=== PATIENT | female | born 1940 | race Caucasian/White ===

== ENCOUNTER → 2018-05-21 | Outpatient (REF) ==
[2018-05-21 09:12] LABS: HEMATOCRIT 28.5 % (36.0-47.0); HEMOGLOBIN 8.2 g/dl (12.0-15.5); MEAN CORPUSCULAR HEMOGLOBIN 27.7 pg (27.0-33.0); MEAN CORPUSCULAR HGB CONC 28.8 g/dl (32.0-36.5); MEAN CORPUSCULAR VOLUME 96.3 fl (80.0-96.0); PLATELET COUNT, AUTOMATED 448 10^3/uL (150-450); RED BLOOD COUNT 2.96 10^6/uL (4.00-5.40); WHITE BLOOD COUNT 7.5 10^3/uL (4.0-10.0)
[2018-05-21 09:22] LABS: BLOOD UREA NITROGEN 7 MG/DL (7-18); CALCIUM LEVEL 8.5 MG/DL (8.8-10.2); CARBON DIOXIDE LEVEL 31 MEQ/L (21-32); CHLORIDE LEVEL 106 MEQ/L (98-107); CREATININE FOR GFR 0.53 MG/DL (0.55-1.30); GLOMERULAR FILTRATION RATE > 60.0 (>39); GLUCOSE, FASTING 79 MG/DL (70-100); POTASSIUM SERUM 4.5 MEQ/L (3.5-5.1); SODIUM LEVEL 144 MEQ/L (136-145)
== END ==
LOC: EDUNIT# 06:00
PROVIDERS: ATTEND Internal Medicine
DX: D64.9 Anemia, unspecified (principal); Z79.899 Other long term (current) drug therapy

== ENCOUNTER → 2018-05-23 | Outpatient (REF) ==
[2018-05-23 09:51] LABS: HEMATOCRIT 28.5 % (36.0-47.0); HEMOGLOBIN 8.1 g/dl (12.0-15.5); MEAN CORPUSCULAR HEMOGLOBIN 27.9 pg (27.0-33.0); MEAN CORPUSCULAR HGB CONC 28.4 g/dl (32.0-36.5); MEAN CORPUSCULAR VOLUME 98.3 fl (80.0-96.0); PLATELET COUNT, AUTOMATED 395 10^3/uL (150-450); WHITE BLOOD COUNT 6.6 10^3/uL (4.0-10.0)
== END ==
PROVIDERS: ATTEND Internal Medicine
DX: D64.9 Anemia, unspecified (principal)

== ENCOUNTER → 2018-05-25 | Outpatient (REF) ==
[2018-05-25 10:11] LABS: HEMATOCRIT 28.8 % (36.0-47.0); HEMOGLOBIN 8.2 g/dl (12.0-15.5); MEAN CORPUSCULAR HEMOGLOBIN 28.3 pg (27.0-33.0); MEAN CORPUSCULAR HGB CONC 28.5 g/dl (32.0-36.5); MEAN CORPUSCULAR VOLUME 99.3 fl (80.0-96.0); PLATELET COUNT, AUTOMATED 371 10^3/uL (150-450); WHITE BLOOD COUNT 7.9 10^3/uL (4.0-10.0)
== END ==
LOC: EDUNIT# 12:12
PROVIDERS: ATTEND Internal Medicine
DX: D64.9 Anemia, unspecified (principal)

== ENCOUNTER → 2018-05-29 | Outpatient (REF) ==
[2018-05-29 10:20] LABS: HEMATOCRIT 28.1 % (36.0-47.0); HEMOGLOBIN 8.1 g/dl (12.0-15.5); MEAN CORPUSCULAR HEMOGLOBIN 27.8 pg (27.0-33.0); MEAN CORPUSCULAR HGB CONC 28.8 g/dl (32.0-36.5); MEAN CORPUSCULAR VOLUME 96.6 fl (80.0-96.0); PLATELET COUNT, AUTOMATED 317 10^3/uL (150-450); RED BLOOD COUNT 2.91 10^6/uL (4.00-5.40); WHITE BLOOD COUNT 5.5 10^3/uL (4.0-10.0)
== END ==
PROVIDERS: ATTEND Internal Medicine
DX: D64.9 Anemia, unspecified (principal)

== ENCOUNTER → 2018-06-02 | Outpatient (REF) ==
[~2018-06-02] MED LIST: ALBU83IN INH; ENSULIQ64 PO; FLON1SPR NARES; FLOR250C PO; FOLI800C PO; IMOD2CAP PO; LOVE0.4I2 SC; MILK120011 PO; MIRA0.753 PO; ONDA8TAB7 PO; PREV1CAP PO; QUET1TAB7 PO; SYNT137T7 PO; ZOLO100T PO
[2018-06-02 09:15] LABS: HEMATOCRIT 27.3 % (36.0-47.0); HEMOGLOBIN 7.8 g/dl (12.0-15.5); MEAN CORPUSCULAR HEMOGLOBIN 27.2 pg (27.0-33.0); MEAN CORPUSCULAR HGB CONC 28.6 g/dl (32.0-36.5); MEAN CORPUSCULAR VOLUME 95.1 fl (80.0-96.0); PLATELET COUNT, AUTOMATED 305 10^3/uL (150-450); RED BLOOD COUNT 2.87 10^6/uL (4.00-5.40); WHITE BLOOD COUNT 5.2 10^3/uL (4.0-10.0)
== END ==
PROVIDERS: ATTEND Internal Medicine
DX: D64.9 Anemia, unspecified (principal)

== ENCOUNTER → 2018-06-02 | Outpatient (REF) | PROVIDERS: ATTEND Internal Medicine | DX: D64.9 Anemia, unspecified (principal) ==

== ENCOUNTER 2018-06-03 09:29 | Outpatient (CLI) | payer MEDICARE, BC ==
[~2018-06-03] VITALS: Ht 157.5 cm; Wt 54.5 kg
[2018-06-03] VITALS (8 sets, daily range): BP systolic 100–156; BP diastolic 50–70
[~2018-06-03 09:29] MED LIST changes: +ACETAMINOPHEN TAB 650MG DOSE (2X325MG) PO SCH; -ALBU83IN INH; -ENSULIQ64 PO; -FLON1SPR NARES; -FLOR250C PO; -FOLI800C PO; -IMOD2CAP PO; -LOVE0.4I2 SC; -MILK120011 PO; -MIRA0.753 PO; -ONDA8TAB7 PO; -PREV1CAP PO; -QUET1TAB7 PO; -SYNT137T7 PO; -ZOLO100T PO; +diphenhydrAMINE 25 MG CAP PO SCH
[2018-06-03] MEDS ORDERED: MIRA0.753 PO (11:28)
[2018-06-03] MEDS ORDERED: FLON1SPR NARES (11:28)
[2018-06-03] MEDS ORDERED: LOVE0.4I2 SC (11:28)
[2018-06-03] MEDS ORDERED: FOLI800C PO (11:28)
[2018-06-03] MEDS ORDERED: ALBU83IN INH (11:28)
[2018-06-03] MEDS ORDERED: IMOD2CAP PO (11:28)
[2018-06-03] MEDS ORDERED: FLOR250C PO (11:28)
[2018-06-03] MEDS ORDERED: ENSULIQ64 PO (11:28)
[2018-06-03] MEDS ORDERED: PREV1CAP PO (11:28)
[2018-06-03] MEDS ORDERED: SYNT137T7 PO (11:37)
[2018-06-03] MEDS ORDERED: ZOLO100T PO (11:37)
[2018-06-03] MEDS ORDERED: ONDA8TAB7 PO (11:37)
[2018-06-03] MEDS ORDERED: QUET1TAB7 PO (11:37)
[2018-06-03] MEDS ORDERED: MILK120011 PO (11:37)
== END 2018-06-03 14:30 | disposition home or self-care (01) ==
LOC: M INFU 09:29
PROVIDERS: ATTEND Physician Assistant
DX: D64.9 Anemia, unspecified (principal)
CPT/HCPCS: 36430; P9016

== ENCOUNTER → 2018-06-04 | Outpatient (REF) ==
[~2018-06-04] MED LIST changes: -ACETAMINOPHEN TAB 650MG DOSE (2X325MG) PO SCH; +ALBU83IN INH; +ENSULIQ64 PO; +FLON1SPR NARES; +FLOR250C PO; +FOLI800C PO; +IMOD2CAP PO; +LOVE0.4I2 SC; +MILK120011 PO; +MIRA0.753 PO; +ONDA8TAB7 PO; +PREV1CAP PO; +QUET1TAB7 PO; +SYNT137T7 PO; +ZOLO100T PO; -diphenhydrAMINE 25 MG CAP PO SCH
[2018-06-04 09:04] LABS: HEMATOCRIT 37.3 % (36.0-47.0); HEMOGLOBIN 11.4 g/dl (12.0-15.5); MEAN CORPUSCULAR HEMOGLOBIN 27.4 pg (27.0-33.0); MEAN CORPUSCULAR HGB CONC 30.6 g/dl (32.0-36.5); MEAN CORPUSCULAR VOLUME 89.7 fl (80.0-96.0); PLATELET COUNT, AUTOMATED 315 10^3/uL (150-450); RED BLOOD COUNT 4.16 10^6/uL (4.00-5.40); WHITE BLOOD COUNT 5.3 10^3/uL (4.0-10.0)
== END ==
PROVIDERS: ATTEND Internal Medicine
DX: D64.9 Anemia, unspecified (principal)

== ENCOUNTER 2018-06-10 20:04 | Inpatient (IN) | payer MEDICARE, BC ==
[~2018-06-10] VITALS: Ht 157.5 cm; Wt 58.1 kg
[2018-06-10] MEDS ORDERED: ENOXAPARIN 60 MG/0.6 ML SYR (J1650) SC SCH (21:00)
[2018-06-10] MEDS ORDERED: MORPHINE 4 MG/ML 1ML VIAL/SYRINGE (J2270) IV ONE ×2 (21:15→22:30)
[2018-06-10] MEDS ORDERED: ENOX60IN3 SC (21:42)
[2018-06-10] MEDS ORDERED: ZOLO100T PO (21:42)
[2018-06-10] MEDS ORDERED: ZOFR8TAB24 PO (21:42)
[2018-06-10] MEDS ORDERED: GABA-843 PO (21:42)
[2018-06-10] MEDS ORDERED: FLOR250C PO (21:42)
[2018-06-10] MEDS ORDERED: ENSU1LIQ36 PO (21:42)
[2018-06-10] MEDS ORDERED: FERR325T18 PO (21:42)
[2018-06-10] MEDS ORDERED: SYNT137T7 PO (21:42)
[2018-06-10] MEDS ORDERED: LOPE-1 PO (21:42)
[2018-06-10] MEDS ORDERED: QUET1TAB7 PO (21:42)
[2018-06-10] MEDS ORDERED: LANS30CA PO (21:42)
[2018-06-10] MEDS ORDERED: FOLI1TAB11 PO (21:42)
[2018-06-10] MEDS ORDERED: VITMTA PO (21:42)
[2018-06-10] MEDS ORDERED: PRAM0.754 PO (21:42)
[2018-06-10] MEDS ORDERED: FLUTISP (21:42)
[2018-06-10 21:45] LABS: BASO % 0.2 % (0.0-1.0); EOS # 0.2 10^3/uL (0.0-0.50); HEMATOCRIT 38.7 % (36.0-47.0); HEMOGLOBIN 11.8 g/dl (12.0-15.5); LYMPH # 1.2 10^3/uL (1.5-4.5); LYMPH % 12.9 % (24.0-44.0); MEAN CORPUSCULAR HEMOGLOBIN 28.3 pg (27.0-33.0); MEAN CORPUSCULAR HGB CONC 30.5 g/dl (32.0-36.5); MEAN CORPUSCULAR VOLUME 92.8 fl (80.0-96.0); MONO # 0.7 10^3/uL (0.0-0.8); NEUTROPHILS % 76.5 % (36.0-66.0); PLATELET COUNT, AUTOMATED 347 10^3/uL (150-450); RED BLOOD COUNT 4.17 10^6/uL (4.00-5.40); WHITE BLOOD COUNT 9.2 10^3/uL (4.0-10.0)
[2018-06-10] MEDS: NS 1,000 ML IV SCH (21:56)
[2018-06-10 22:41] LABS: INR 1.05; PROTHROMBIN TIME 13.8 SECONDS (12.1-14.4)
[2018-06-10 22:42] LABS: PARTIAL THROMBOPLASTIN TIME 33.4 SECONDS (25.4-37.6)
[2018-06-10 22:52] LABS: BLOOD UREA NITROGEN 11 MG/DL (7-18); CALCIUM LEVEL 8.5 MG/DL (8.8-10.2); CARBON DIOXIDE LEVEL 27 MEQ/L (21-32); CHLORIDE LEVEL 112 MEQ/L (98-107); CREATININE FOR GFR 0.51 MG/DL (0.55-1.30); GLOMERULAR FILTRATION RATE > 60.0 (>39); GLUCOSE, FASTING 84 MG/DL (70-100); POTASSIUM SERUM 3.4 MEQ/L (3.5-5.1); SODIUM LEVEL 144 MEQ/L (136-145)
[2018-06-10] MEDS ORDERED: ONDANSETRON 4MG/2ML VIAL (J2405) IV PRN (23:45)
[2018-06-10] MEDS: QUEtiapine FUMARATE 25 MG TAB PO SCH (23:58)
[2018-06-10] MEDS: GABAPENTIN 300 MG CAP PO SCH (23:58)
[2018-06-10] MEDS: PRAMIPEXOLE 0.25 MG TAB PO SCH (23:58)
--- NOTE | 2018-06-11 00:24 | REPVR ---
EXAM: CT Right Lower Extremity Without Contrast. Hip EXAM DATE/TIME: 06/10/2018 9:24 PM CLINICAL HISTORY: 77 years old, female; Injury or trauma; Fall; Initial encounter; Blunt trauma and fracture, traumatic; Hip; Right; Closed fracture TECHNIQUE: Imaging protocol: CT of the Right lower extremity without contrast was performed. Exam focused on the hip. Coronal and sagittal reformatted images were created and reviewed. Radiation optimization: All CT scans at this facility use at least one of these dose optimization techniques: automated exposure control; mA and/or kV adjustment per patient size (includes targeted exams where dose is matched to clinical indication); or iterative reconstruction. COMPARISON: CR Hip,AP,LAT to include Pelvis RIGHT 06/10/2018 8:31 PM FINDINGS: There is an acute, complete, slightly comminuted, displaced, angulated, transverse fracture, through the right femoral neck extending into the superolateral aspect of the femoral head. The right femoral head is not subluxed or dislocated. Remainder of the visualized right pelvis is intact. Better appreciated on the same day pelvic radiograph there appears to be an approximate 2.9 cm area of osteolucency through the superior aspect of the right femoral neck, associated with the fracture. Although this could be secondary to bony demineralization, an underlying pathologic lesion cannot be excluded. Correlation with clinical history is advised. For further assessment, consideration could be given to MRI of the right hip, pre-and postcontrast. No other lesions are seen in the [id number]. Small right hip joint effusion is noted. There is a prominent soft tissue density at the fracture site which could represent hemorrhage or soft tissue mass. Bubbles of intraluminal gas are noted within the visualized urinary bladder. This could be iatrogenic from recent instrumentation or Madsen catheter, however fistula or infection cannot be excluded. Trace amount of subcutaneous edema or fluid noted along the anterior midline pelvic body wall which could be postsurgical. IMPRESSION: Acute right femoral neck fracture. There is a possibility this fracture may be pathologic as discussed above. Gas within the urinary bladder. Differential as discussed above. Electronically signed by: Garrett Blackburn On 06/11/2018 00:24:17 AM
--- NOTE | 2018-06-11 00:30 | REPVR ---
EXAM: CT Pelvis Without Contrast, Skeletal EXAM DATE/TIME: 06/10/2018 9:24 PM CLINICAL HISTORY: 77 years old, female; Injury or trauma; Fall; Initial encounter; Blunt trauma (contusions or hematomas); Does not apply; Hip TECHNIQUE: Imaging protocol: Axial computed tomography images of the pelvis without intravenous contrast. Exam focused on the skeletal structures. Coronal and sagittal reformatted images were created and reviewed. Radiation optimization: All CT scans at this facility use at least one of these dose optimization techniques: automated exposure control; mA and/or kV adjustment per patient size (includes targeted exams where dose is matched to clinical indication); or iterative reconstruction. COMPARISON: CR Hip,AP,LAT to include Pelvis RIGHT 06/10/2018 8:31 PM FINDINGS: The entire upper aspect of the iliac crests is not included. There is an acute right femoral neck fracture. Please refer to same day right hip CT report for findings related to the right hip. Remainder of the pelvis is intact. No other bone lesions are seen. Degenerative change of the visualized lower lumbar spine is seen. The sacroiliac joints are symmetric. The pubic symphysis is not widened. There is slight heterogeneous enlargement of the right gluteus muscles compared to the left likely due to edema and hemorrhage. Subcutaneous nodularity and subcutaneous gas noted along the anterior body wall possibly from subcutaneous injections. There is a midline subcutaneous soft tissue thickening and possibly trace amount of fluid which could be postsurgical. Gluteal subcutaneous calcifications noted, likely injection granulomas. Vascular calcifications noted. Gas bubbles are seen in within the bladder lumen. Differential could include recent instrumentation/Madsen catheter, infection or enteric fistula. Clinical correlation is advised. IMPRESSION: Right femoral neck fracture. Please refer to same day right hip CT report. Right gluteal musculature slight enlargement likely due to edema and/or hemorrhage. Gas within the urinary bladder. Differential as given above. Other findings discussed above. Electronically signed by: Garrett Blackburn On 06/11/2018 00:30:09 AM
[2018-06-11 01:00] VITALS: BP 149/74
[2018-06-11] MEDS: NS 1,000 ML IV SCH ×2 (01:03→08:13)
[2018-06-11] MEDS: MORPHINE 4 MG/ML 1ML VIAL/SYRINGE (J2270) IV PRN ×5 (01:11→13:25)
[2018-06-11 06:00] VITALS: BP 111/55
[2018-06-11 06:33] LABS: BASO % 0.3 % (0.0-1.0); EOS # 0.1 10^3/uL (0.0-0.50); EOS % 1.6 % (0.0-3.0); HEMATOCRIT 35.6 % (36.0-47.0); HEMOGLOBIN 10.7 g/dl (12.0-15.5); LYMPH # 1.6 10^3/uL (1.5-4.5); LYMPH % 23.4 % (24.0-44.0); MEAN CORPUSCULAR HEMOGLOBIN 27.7 pg (27.0-33.0); MEAN CORPUSCULAR HGB CONC 30.1 g/dl (32.0-36.5); MEAN CORPUSCULAR VOLUME 92.2 fl (80.0-96.0); MONO # 0.7 10^3/uL (0.0-0.8); MONO % 9.7 % (0.0-5.0); NEUTROPHILS # 4.3 10^3/uL (1.8-7.7); NEUTROPHILS % 64.6 % (36.0-66.0); PLATELET COUNT, AUTOMATED 316 10^3/uL (150-450); RED BLOOD COUNT 3.86 10^6/uL (4.00-5.40); WHITE BLOOD COUNT 6.7 10^3/uL (4.0-10.0)
[2018-06-11 06:54] LABS: BLOOD UREA NITROGEN 9 MG/DL (7-18); CALCIUM LEVEL 8.5 MG/DL (8.8-10.2); CARBON DIOXIDE LEVEL 25 MEQ/L (21-32); CHLORIDE LEVEL 110 MEQ/L (98-107); CREATININE FOR GFR 0.47 MG/DL (0.55-1.30); GLOMERULAR FILTRATION RATE > 60.0 (>39); GLUCOSE, FASTING 95 MG/DL (70-100); POTASSIUM SERUM 3.1 MEQ/L (3.5-5.1); SODIUM LEVEL 141 MEQ/L (136-145)
--- NOTE | 2018-06-11 07:18 | REP ---
AP pelvis: There is an intertrochanteric fracture of the right hip with cephalad migration of the distal fracture fragment. There is no dislocation. No pelvic fractures are identified otherwise. Left hip is unremarkable. There is a calcified granuloma in the left gluteal area. Right hip three views: Intertrochanteric fracture is again identified with cephalad migration of the distal fracture fragment. There is no dislocation. There are calcified granulomas in the right buttocks. Electronically Signed by Kevon Werner MD 06/11/2018 07:09 A
--- NOTE | 2018-06-11 07:20 | REP ---
Chest, supine single AP view: There are no comparisons. There are no infiltrates. There are no pleural effusions. There are several tiny round nodules in the right upper lobe. There are no comparisons to document stability. Cardiac size is normal for positioning. The taj, mediastinum, and skeletal structures are unremarkable. There is a right IJ central venous catheter with the tip at the confluence of the superior vena cava and right atrium in satisfactory position. Impression: No acute cardiopulmonary findings. Central venous catheter. Several small nodules in the right upper lobe. Electronically Signed by Kevon Werner MD 06/11/2018 07:11 A
--- NOTE | 2018-06-11 07:20 | REP ---
Right femur two views: The mid and distal femur are included. The right hip is excluded. There is no fracture or dislocation. There are no calcifications or foreign bodies. There is joint space narrowing at the knee. Electronically Signed by Kevon Werner MD 06/11/2018 07:12 A
[2018-06-11] MEDS ORDERED: HEPARIN SOD (PORCINE) 5000 UNITS/ML VIAL IV PRN (07:30)
[2018-06-11] MEDS: MULTIVITAMINS/MINERALS THERAP 1 TAB PO SCH (08:13)
[2018-06-11] MEDS: GABAPENTIN 300 MG CAP PO SCH ×3 (08:13→20:22)
[2018-06-11] MEDS: FERROUS SULFATE 325MG TAB PO SCH ×2 (08:13→17:36)
[2018-06-11] MEDS: PANTOPRAZOLE 40MG TAB (PROTONIX) PO SCH (08:13)
[2018-06-11] MEDS: FOLIC ACID 1 MG TAB PO SCH (08:13)
[2018-06-11] MEDS: LEVOTHYROXINE 137MCG TABLET (0.137MG) PO SCH (08:13)
[2018-06-11] MEDS: SERTRALINE 100 MG TAB PO SCH (08:13)
[2018-06-11] MEDS ORDERED: MORPHINE 4 MG/ML 1ML VIAL/SYRINGE (J2270) IV ONE (08:30)
--- NOTE | 2018-06-11 08:30 | ECGEPIP ---
Stationary ECG Study [facility] - ED Test Date: 2018-06-10 Pat Name: ATTILA REDDY Department: Room: [place] [address] Gender: F Noise Tester: jose : 1940 Requested By: RADHA Freeman Order Number: [id number] Reading MD: Bridgett Xavier Measurements Intervals Brooks Rate: 95 P: 33 CA: 132 QRS: -39 QRSD: 88 T: 30 QT: 369 QTc: 466 Interpretive Statements SINUS RHYTHM POSSIBLE LEFT ATRIAL ENLARGEMENT MARKED LEFT AXIS DEVIATION POSSIBLE RIGHT VENTRICULAR CONDUCTION DELAY POSSIBLE LEFT VENTRICULAR HYPERTROPHY POSSIBLE ANTEROSEPTAL MYOCARDIAL INFARCTION, OF INDETERMINATE AGE PRIOR INFERIOR INFARCT CLINICAL CORRELATION NO PRIOR FOR COMPARISON Electronically Signed On 06-11-2018 8:30:33 EDT by Bridgett Xavier
[2018-06-11] MEDS: MIRALAX *UNIT DOSE* 17GM PACKET PO SCH (09:00)
[2018-06-11] MEDS: MOM 30ML SUSPENSION UDC PO SCH (09:00)
[2018-06-11] MEDS: SENOKOT S TAB PO SCH ×2 (09:00→20:23)
[2018-06-11] MEDS: POTASSIUM CHLORIDE INJ 20 MEQ in D5W/LR 1,000 ML IV SCH ×2 (09:52→20:22)
[2018-06-11] MEDS: HEPARIN DRIP 25,000 UNITS in APPROPRIATE DILUENT 1 EA IV SCH (10:10)
--- NOTE | 2018-06-11 11:17 | REP ---
Right shoulder three views: There are no comparisons. There is a clavicle fracture at the junction of the middle distal thirds. There is no glenohumeral dislocation or fracture. The acromioclavicular joint is unremarkable. There is a right IJ Vyrkhj-I-Oyck catheter. Impression: Clavicle fracture. No glenohumeral fracture or dislocation. Electronically Signed by Kevon Werner MD 06/11/2018 11:08 A
[2018-06-11] MEDS ORDERED: ACETAMINOPHEN 650MG ER TAB (TYLENOL ARTHRITIS) PO SCH (12:00)
[2018-06-11] MEDS ORDERED: ACETAMINOPHEN 500 MG TAB PO PRN (12:00)
[2018-06-11] MEDS: CYCLOBENZAPRINE 10 MG TAB PO SCH ×3 (12:23→20:22)
[2018-06-11 12:32] LABS: ALBUMIN 2.2 GM/DL (3.2-5.2); ALT/SGPT 11 U/L (12-78); BILIRUBIN,TOTAL 0.2 MG/DL (0.2-1.0); BLOOD UREA NITROGEN 9 MG/DL (7-18); CALCIUM LEVEL 8.6 MG/DL (8.8-10.2); CARBON DIOXIDE LEVEL 22 MEQ/L (21-32); CHLORIDE LEVEL 111 MEQ/L (98-107); CREATININE FOR GFR 0.43 MG/DL (0.55-1.30); GLOMERULAR FILTRATION RATE > 60.0 (>39); GLUCOSE, FASTING 105 MG/DL (70-100); POTASSIUM SERUM 3.2 MEQ/L (3.5-5.1); SODIUM LEVEL 142 MEQ/L (136-145); TOTAL PROTEIN 5.6 GM/DL (6.4-8.2)
[2018-06-11] MEDS: ACETAMINOPHEN 500 MG TAB PO SCH ×2 (13:25→22:27)
--- NOTE | 2018-06-11 13:53 | CR ---
DATE OF CONSULTATION: 06/11/2018 CHIEF COMPLAINT: Right hip pain. HISTORY OF PRESENT ILLNESS: Evelina Harris is a 77-year-old female who sustained a mechanical fall last evening over a dog bed. The patient had immediate pain of her right hip and was not able to ambulate. She was brought to the emergency room and found to have a pathologic displaced femoral neck fracture. The patient has a known history of metastatic ovarian cancer. She was recently admitted to [facility] where she was receiving chemotherapy and other treatments for her cancer. We have requested notes from [facility] but at this time I have no further information. She does state that she was not having hip pain prior to the fall. She was ambulating without difficulty and did not require use of a cane. She is also having some pain in her shoulder, which has been long-standing since a prior clavicle fracture. PAST MEDICAL HISTORY: 1. Metastatic ovarian cancer. 2. Rheumatoid arthritis. 3. Gastroesophageal reflux disease (GERD). 4. Recent pulmonary emboli, for which she is on therapeutic Lovenox. 5. Diverticulosis. 6. Spinal stenosis. 7. Hypothyroidism. PAST SURGICAL HISTORY: 1. Open reduction, internal fixation (ORIF) of the left wrist. 2. Hernia repair. ALLERGIES: METHOTREXATE, METOCLOPRAMIDE, MOXIFLOXACIN, PROCHLORPERAZINE , TOPIRAMATE, TRAZODONE. HOME MEDICATIONS: - levothyroxine - multivitamin - sertraline - pantoprazole - cyclobenzaprine - gabapentin - Seroquel PHYSICAL EXAMINATION: GENERAL: Well appearing, alert and oriented. No acute distress. PULMONARY: Regular, nonlabored breathing. CARDIOVASCULAR: Regular dorsalis pulse on the right side. MUSCULOSKELETAL: Right lower extremity has tenderness to palpation in the lateral aspect of the patient's hip. She has pain in her groin with any sort of slight movement of the hip. Intact TA/EHL/FHL/GS. Normal sensation to light touch over the superficial peroneal, deep peroneal distribution. Skin is intact. Warm and well perfused. On the right shoulder, the patient has tenderness above the distal clavicle. There is obvious deformity here. She is only able to abduct her shoulder to about 45 degrees and has approximately 90 degrees of forward flexion, intact sensation in the medial ulnar, radial and axillary nerve distributions. Palpable radial pulse. IMAGING: X-rays of the hip, femur and CT scan of the femur and pelvis are reviewed. There is a pathologic fracture through the femoral neck that is displaced. There are what appears to be at least two metastatic lesions in the femoral head and one that is suspicious in the region of the greater trochanter. IMPRESSION: Right pathologic femoral neck fracture. PLAN: At this point, we really need more information regarding the patient's prognosis and history of known metastases. Again, these are records from [facility] and they have been requested. She will need both clearance from the oncology team and medical team to proceed with surgery. This would require a hemiarthroplasty. She is currently on heparin drip. She needs to maintain prophylaxis given her recent pulmonary embolism. She may need an IVC filter prior to the surgery. I would also recommend a bone scan if one has not been done recently to evaluate for further metastases. I also would recommend an x-ray of the shoulder as this has become more painful for her and she has a history of clavicle fracture. Once the patient is medically clear and deemed appropriate, the plan would be for the operating room for hemiarthroplasty.
--- NOTE | 2018-06-11 14:12 | IPNPDOC ---
Subjective Date Seen The patient was seen on 06/11/18. Subjective Chief Complaint/HPI Patient complaining of severe pain and right hip General: Reports: Normal Appetite; Denies: Chills, Night Sweats, Fatigue, Malaise Constitutional: Denies: Chills, Fever, Night Sweats Eyes: Denies: Pain, Vision change ENT: Denies: Head Aches, Ear Pain, Dysphagia Skin: Denies: Rash, Lesions, Breakdown Pulmonary: Denies: Dyspnea, Cough Cardiovascular: Denies: Chest Pain, Palpitations, Orthopnea, Paroxysmal Noc. Dyspnea, Lt Headedness Gastrointestinal: Denies: Nausea, Vomiting, Abdominal Pain, Diarrhea, Constipation Genitourinary: Denies: Dysuria, Frequency, Incontinence, Retention Hematologic: Denies: Bruising, Bleeding Excessively Musculoskeletal: Reports: Other Symptoms (severe right hip pain) Neurological: Denies: Weakness, Numbness, Change in speech, Confusion Psych: Reports: Mood Normal; Denies: Depression, Memory Issues Objective Physical Examination General Exam: Positive: Alert, No Acute Distress Eye Exam: Positive: PERRLA, Conjunctiva & lids normal, EOMI; Negative: Sclera icteric ENT Exam: Positive: Atraumatic, Mucous membr. moist/pink, Pharynx Normal Neck Exam: Positive: Supple; Negative: JVD, thyromegaly Chest Exam: Positive: Clear to auscultation, Normal air movement Heart Exam: Positive: Rate Normal, Regular Rhythm, Normal S1, Normal S2; Negative: Murmurs, Rubs Telemetry: Positive: No significant arrhythmia Abdomen Exam: Positive: Normal bowel sounds, Soft; Negative: Tenderness, Hepatospenomegaly Female Exam: Positive: Nl Ext Genitalia; Negative: Lesions, Discharge, Odor, Tenderness Extremity Exam: Positive: Normal pulses, Other (short mean of right leg with internal rotation noted. Positive tenderness at the site) Skin Exam: Positive: Nl turgor and temperature; Negative: Rash, Breakdown Neuro Exam: Positive: Normal Gait, Normal Speech, Cranial Nerves 3-12 NL, Reflexes 2+ Psych Exam: Positive: Mental status NL, Mood NL, Oriented x 3 Assessment /Plan Problems (1) Closed right hip fracture Status: Acute Problem Text: Discussed with orthopedic doctor requesting oncology as well as medical clearance and possibly a [place] filter placed in before patient goes to OR. Goes with oncology. He tried to see the patient but patient has not been available secondary to getting different procedures done. I had a extensive discussion with them. He does not think that the fractures pathological and the agreed with the possible surgical intervention for the patient to the to relieve her pain and disability. I'll order for Tanna filter placement has been placed in today, pain management has been started and will await orthopedic as scheduled. Patient for surgery. Upper and can be stopped 6 hours before the procedure and can be restarted immediately after the procedure. Patient EKG, chest x-ray, blood work is essentially within normal range Risk stratification: Patient is ASA class 2-3 surgical risk and she is medically stable and cleared from medical point of view for the procedure (2) Ovarian carcinoma Status: Chronic Plan/VTE VTE Prophylaxis Ordered?: No VS, I&O, 24H, Fishbone Vital Signs/I&O Vital Signs Date Time Temp Pulse Resp B/P (MAP) Pulse Ox O2 Delivery O2 Flow Rate FiO2 06/11/18 13:35 18 06/11/18 06:00 99.0 82 111/55 (73) 93 06/11/18 00:32 Room Air I&O- Last 24 Hours up to 6 AM 06/11/18 06:00 Intake Total 600 ml Balance 600 ml Laboratory Data 24H LABS Laboratory Tests 2 06/10/18 21:39: Immature Granulocyte % (Auto) 0.4, White Blood Count 9.2, Red Blood Count 4.17, Hemoglobin 11.8L, Hematocrit 38.7, Mean Corpuscular Volume 92.8, Mean Corpuscular Hemoglobin 28.3, Mean Corpuscular Hemoglobin Concent 30.5L, Red Cell Distribution Width 18.1H, Platelet Count 347, Neutrophils (%) (Auto) 76.5H, Lymphocytes (%) (Auto) 12.9L, Monocytes (%) (Auto) 8.0H, Eosinophils (%) (Auto) 2.0, Basophils (%) (Auto) 0.2, Neutrophils # (Auto) 7.0, Lymphocytes # (Auto) 1.2L, Monocytes # (Auto) 0.7, Eosinophils # (Auto) 0.2, Basophils # (Auto) 0.0, Nucleated Red Blood Cells % (auto) 0.0 06/10/18 22:23: Prothrombin Time 13.8, Prothromb Time International Ratio 1.05, Activated Partial Thromboplast Time 33.4, Anion Gap 5L, Glomerular Filtration Rate > 60.0, Blood Urea Nitrogen 11, Creatinine 0.51L, Sodium Level 144, Potassium Level 3.4L, Chloride Level 112H, Carbon Dioxide Level 27, Calcium Level 8.5L 06/11/18 05:59: Immature Granulocyte % (Auto) 0.4, White Blood Count 6.7, Red Blood Count 3.86L, Hemoglobin 10.7L, Hematocrit 35.6L, Mean Corpuscular Volume 92.2, Mean Benny uscular Hemoglobin 27.7, Mean Corpuscular Hemoglobin Concent 30.1L, Red Cell Distribution Width 18.3H, Platelet Count 316, Neutrophils (%) (Auto) 64.6, Lymphocytes (%) (Auto) 23.4L, Monocytes (%) (Auto) 9.7H, Eosinophils (%) (Auto) 1.6, Basophils (%) (Auto) 0.3, Neutrophils # (Auto) 4.3, Lymphocytes # (Auto) 1.6, Monocytes # (Auto) 0.7, Eosinophils # (Auto) 0.1, Basophils # (Auto) 0.0, Nucleated Red Blood Cells % (auto) 0.0, Anion Gap 6L, Glomerular Filtration Rate > 60.0, Blood Urea Nitrogen 9, Creatinine 0.47L, Sodium Level 141, Potassium Level 3.1L, Chloride Level 110H, Carbon Dioxide Level 25, Calcium Level 8.5L 06/11/18 07:53: Activated Partial Thromboplast Time 35.4 06/11/18 11:53: Anion Gap 9, Glomerular Filtration Rate > 60.0, Blood Urea Nitrogen 9, Creatinine 0.43L, Sodium Level 142, Potassium Level 3.2L, Chloride Level 111H, Carbon Dioxide Level 22, Calcium Level 8.6L, Aspartate Amino Transf (AST/SGOT) 23, Alanine Aminotransferase (ALT/SGPT) 11L, Alkaline Phosphatase 121H, Total Bilirubin 0.2, Total Protein 5.6L, Albumin 2.2L, Albumin/Globulin Ratio 0.65L CBC/BMP Laboratory Tests 06/10/18 21:39 Red Blood Count 4.17, Mean Corpuscular Volume 92.8, Mean Corpuscular Hemoglobin 28.3, Mean Corpuscular Hemoglobin Concent 30.5 L, Red Cell Distribution Width 18.1 H, Neutrophils (%) (Auto) 76.5 H, Lymphocytes (%) (Auto) 12.9 L, Monocytes (%) (Auto) 8.0 H, Eosinophils (%) (Auto) 2.0, Basophils (%) (Auto) 0.2, Neutro phils # (Auto) 7.0, Lymphocytes # (Auto) 1.2 L, Monocytes # (Auto) 0.7, Eosinophils # (Auto) 0.2, Basophils # (Auto) 0.0 06/10/18 22:23 Calcium Level 8.5 L 06/11/18 05:59 Red Blood Count 3.86 L, Mean Corpuscular Volume 92.2, Mean Corpuscular Hemoglobin 27.7, Mean Corpuscular Hemoglobin Concent 30.1 L, Red Cell Distribution Width 18.3 H, Neutrophils (%) (Auto) 64.6, Lymphocytes (%) (Auto) 23.4 L, Monocytes (%) (Auto) 9.7 H, Eosinophils (%) (Auto) 1.6, Basophils (%) (Auto) 0.3, Neutrophils # (Auto) 4.3, Lymphocytes # (Auto) 1.6, Monocytes # (Auto) 0.7, Eosinophils # (Auto) 0.1, Basophils # (Auto) 0.0, Calcium Level 8.5 L 06/11/18 11:53 Calcium Level 8.6 L, Aspartate Amino Transf (AST/SGOT) 23, Alanine Aminotransferase (ALT/SGPT) 11 L, Alkaline Phosphatase 121 H, Total Bilirubin 0.2, Total Protein 5.6 L, Albumin 2.2 L LORE GEORGE MD Jun 11, 2018 14:12
[2018-06-11] MEDS ORDERED: LIDOCAINE 2% MDV 20 ML VIAL As Ordered ONE (14:50)
[2018-06-11] MEDS ORDERED: fentaNYL 100 MCG/2 ML INJECTION (J3010) As Ordered ONE (14:50)
[2018-06-11] MEDS ORDERED: ISOVUE-300 61% 100ML VIAL (Q9967) As Ordered ONE (14:50)
[2018-06-11] MEDS ORDERED: MIDAZOLAM INJ 2 MG/2 ML VIAL (J2250) As Ordered ONE (14:51)
--- NOTE | 2018-06-11 15:06 | CR.PDOC ---
General Date of Consultation: Jun 11, 2018 Consultation REASON FOR CONSULTATION/CHIEF COMPLAINT: Hypercoagulable state due to metastatic ovarian cancer, recent history of PE, new orthopedic injury. HISTORY OF PRESENT ILLNESS: Ms. Harris is a very pleasant 77-year-old patient who was diagnosed with ovarian cancer in 2014 and was treated at that time with an extensive debulking surgery including LAKISHA, BSO and chemotherapy, diagnosed with recurrence in 2017, suffered a significant pulmonary embolism in May of this year, and now is admitted with a right hip fracture after a fall yesterday. The patient has a known hypercoagulable state due to her metastatic cancer, she had a significant hospitalizations surrounding her pulmonary embolism last month, and now has an orthopedic injury. She is on Lovenox. There is concerned that she will be high risk for DVT/recurrent PE with her hypercoagulable state and her orthopedic injury. She had a tough time recovering from her last PE, and she is still short of breath with exertion. Risks benefits and alternatives to an IVC filter were discussed at length. All questions were answered. The patient is agreeable to proceed. Informed consent obtained. ALLERGIES: Please see below. HOME MEDICATIONS: Please see below. PAST MEDICAL HISTORY: 1. Stage IV metastatic ovarian cancer 2. Anemia 3. Pulmonary embolus 4. Hypothyroidism 5. GERD PAST SURGICAL HISTORY: 1. Appendectomy 2. LAKISHA, BSO, debulking surgery for ovarian cancer 3. Hernia repair 4. ORIF L wrist FAMILY HISTORY: No history of ovarian cancer; mother had breast cancer. No history of hypercoagulable state. SOCIAL HISTORY: Denies tobacco or illicit drug use, rare alcohol use socially REVIEW OF SYSTEMS: CONSTITUTIONAL: Positive for fatigue, denies fevers and chills HEENT: Denies hearing loss, trouble swallowing, trouble speaking CARDIOVASCULAR: Denies chest pain RESPIRATORY: Occasional shortness of breath, especially with exertion GENITOURINARY: Denies dysuria MUSCULOSKELETAL: Positive for right shoulder and right hip pain GASTROINTESTINAL: Denies nausea, vomiting. Positive for occasional constipation, diarrhea SKIN: Denies rash NEUROLOGICAL: Denies focal deficits, seizures. Occasional headaches. PSYCHIATRIC: Denies anxiety, depression ENDOCRINE: Denies diabetes, positive thyroid disease HEMATOLOGIC/LYMPHATIC: Positive for anemia ALLERGIC/IMMUNOLOGIC: Denies PHYSICAL EXAMINATION: VITAL SIGNS: Please see below. GENERAL APPEARANCE: Pale, resting quietly. HEENT: Normocephalic. TMI. Vision grossly intact. Lips very dry and skin is peeling. RESPIRATORY: Slightly coarse breath sounds bilaterally, no wheezes CARDIOVASCULAR: Regular rate and rhythm ABDOMEN: Soft, mild tenderness to palpation, no rebound, no guarding EXTREMITIES: Tender over right shoulder and right hip. Distal pulses intact. NEUROLOGICAL: Alert and oriented 3. No focal deficits. PSYCHIATRIC:. Pleasant and cooperative LABORATORY DATA: Please see below. ASSESSMENT/PLAN: Very pleasant 77-year-old patient with recent history of significant pulmonary embolus, hypercoagulable state due to metastatic ovarian cancer, now with a new orthopedic injury and concern that she is high risk for another DVT and PE, despite anticoagulation. She had a difficult recovery with her last pulmonary embolus and therefore the risks, benefits, alternatives to a IVC filter were discussed. We will place a retrievable filter. 1. Proceed with IVC filter placement today. 2. Continue anticoagulation as tolerated. We appreciate the opportunity to participate in the care of this patient. Vital Signs/I&O Vital Signs Date Time Temp Pulse Resp B/P (MAP) Pulse Ox O2 Delivery O2 Flow Rate FiO2 06/11/18 13:35 18 06/11/18 06:00 99.0 82 111/55 (73) 93 06/11/18 00:32 Room Air I&O- Last 24 Hours up to 6 AM 06/11/18 06:00 Intake Total 600 ml Balance 600 ml Laboratory Data Labs 24H Laboratory Tests 2 06/10/18 21:39: Immature Granulocyte % (Auto) 0.4, White Blood Count 9.2, Red Blood Count 4.17, Hemoglobin 11.8L, Hematocrit 38.7, Mean Corpuscular Volume 92.8, Mean Corpuscular Hemoglobin 28.3, Mean Corpuscular Hemoglobin Concent 30.5L, Red Cell Distribution Width 18.1H, Platelet Count 347, Neutrophils (%) (Auto) 76.5H, Lymphocytes (%) (Auto) 12.9L, Monocytes (%) (Auto) 8.0H, Eosinophils (%) (Auto) 2.0, Basophils (%) (Auto) 0.2, Neutrophils # (Auto) 7.0, Lymphocytes # (Auto) 1.2L, Monocytes # (Auto) 0.7, Eosinophils # (Auto) 0.2, Basophils # (Auto) 0.0, Nucleated Red Blood Cells % (auto) 0.0 4/9/19 22:23: Prothrombin Time 13.8, Prothromb Time International Ratio 1.05, Activated Partial Thromboplast Time 33.4, Anion Gap 5L, Glomerular Filtration Rate > 60.0, Blood Urea Nitrogen 11, Creatinine 0.51L, Sodium Level 144, Potassium Level 3.4L, Chloride Level 112H, Carbon Dioxide Level 27, Calcium Level 8.5L 06/11/18 05:59: Immature Granulocyte % (Auto) 0.4, White Blood Count 6.7, Red Blood Count 3.86L, Hemoglobin 10.7L, Hematocrit 35.6L, Mean Corpuscular Volume 92.2, Mean Corpuscular Hemoglobin 27.7, Mean Corpuscular Hemoglobin Concent 30.1L, Red Cell Distribution Width 18.3H, Platelet Count 316, Neutrophils (%) (Auto) 64.6, Lymphocytes (%) (Auto) 23.4L, Monocytes (%) (Auto) 9.7H, Eosinophils (%) (Auto) 1.6, Basophils (%) (Auto) 0.3, Neutrophils # (Auto) 4.3, Lymphocytes # (Auto) 1.6, Monocytes # (Auto) 0.7, Eosinophils # (Auto) 0.1, Basophils # (Auto) 0.0, Nucleated Red Blood Cells % (auto) 0.0, Anion Gap 6L, Glomerular Filtration Rate > 60.0, Blood Urea Nitrogen 9, Creatinine 0.47L, Sodium Level 141, Potassium Level 3.1L, Chloride Level 110H, Carbon Dioxide Level 25, Calcium Level 8.5L 06/11/18 07:53: Activated Partial Thromboplast Time 35.4 06/11/18 11:53: Anion Gap 9, Glomerular Filtration Rate > 60.0, Blood Urea Nitrogen 9, Creatinine 0.43L, Sodium Level 142, Potassium Level 3.2L, Chloride Level 111H, Carbon Dioxide Level 22, Calcium Level 8.6L, Aspartate Amino Transf (AST/SGOT) 23, Alanine Aminotransferase (ALT/SGPT) 11L, Alkaline Phosphatase 121H, Total Bilirubin 0.2, Total Protein 5.6L, Albumin 2.2L, Albumin/Globulin Ratio 0.65L CBC/BMP Laboratory Tests 06/10/18 21:39 Red Blood Count 4.17, Mean Corpuscular Volume 92.8, Mean Corpuscular Hemoglobin 28.3, Mean Corpuscular Hemoglobin Concent 30.5 L, Red Cell Distribution Width 18.1 H, Neutrophils (%) (Auto) 76.5 H, Lymphocytes (%) (Auto) 12.9 L, Monocytes (%) (Auto) 8.0 H, Eosinophils (%) (Auto) 2.0, Basophils (%) (Auto) 0.2, Neutrophils # (Auto) 7.0, Lymphocytes # (Auto) 1.2 L, Monocytes # (Auto) 0.7, E osinophils # (Auto) 0.2, Basophils # (Auto) 0.0 06/10/18 22:23 Calcium Level 8.5 L 06/11/18 05:59 Red Blood Count 3.86 L, Mean Corpuscular Volume 92.2, Mean Corpuscular Hemoglobin 27.7, Mean Corpuscular Hemoglobin Concent 30.1 L, Red Cell Distribution Width 18.3 H, Neutrophils (%) (Auto) 64.6, Lymphocytes (%) (Auto) 23.4 L, Monocytes (%) (Auto) 9.7 H, Eosinophils (%) (Auto) 1.6, Basophils (%) (Auto) 0.3, Neutrophils # (Auto) 4.3, Lymphocytes # (Auto) 1.6, Monocytes # (Auto) 0.7, Eosinophils # (Auto) 0.1, Basophils # (Auto) 0.0, Calcium Level 8.5 L 06/11/18 11:53 Calcium Level 8.6 L, Aspartate Amino Transf (AST/SGOT) 23, Alanine Aminotransferase (ALT/SGPT) 11 L, Alkaline Phosphatase 121 H, Total Bilirubin 0.2, Total Protein 5.6 L, Albumin 2.2 L Allergies Coded Allergies: methotrexate (Unverified Allergy, Unknown, 06/10/18) metoclopramide (Unverified Allergy, Unknown, 06/10/18) moxifloxacin (Unverified Allergy, Unknown, 06/10/18) nalbuphine (Unverified Allergy, Unknown, 06/10/18) prochlorperazine (Unverified Allergy, Unknown, 06/10/18) topiramate (Unverified Allergy, Unknown, 06/10/18) trazodone (Unverified Allergy, Unknown, 06/10/18) Home Medications Scheduled Enoxaparin Sodium (Enoxaparin Sodium) 60 Mg/0.6 Ml Syringe, 60 MG SC Q12H, (Reported) Ferrous Sulfate (Ferrous Sulfate) 325 Mg Tablet, 325 MG PO BIDWM, (Reported) Folic Acid (Folic Acid) 1 Mg Tablet, 1 MG PO DAILY, (Reported) Gabapentin (Gabapentin) 300 Mg Capsule, 300 MG PO TID, (Reported) Lactose-Reduced Food (Ensure Enlive) 237 Ml Liquid, 237 ML PO BID, (Reported) Lansoprazole (Lansoprazole) 30 Mg Capsule.dr, 30 MG PO DAILY, (Reported) Levothyroxine Sodium (Synthroid) 137 Mcg Tablet, 137 MCG PO QAM, (Reported) Multivitamins (Thera M Plus Tablet) 1 Each Tablet, 2 TAB PO DAILY, (Reported) Pramipexole Di-HCl (Pramipexole Dihydrochloride) 0.75 Mg Tablet, 0.75 MG PO QHS, (Reported) Quetiapine Fumarate (Quetiapine Fumarate) 25 Mg Tablet, 25 MG PO QHS, (Reported) Sertraline Hcl (Zoloft) 100 Mg Tablet, 100 MG PO DAILY, (Reported) Scheduled PRN Fluticasone Propionate (Fluticasone Propionate) 16 Gm [place].susp, 2 SPRAY NA BID PRN for ALLERGIES, (Reported) Loperamide HCl (Imodium A-D) 2 Mg Capsule, 2 MG PO DAILY PRN for DIARRHEA, (Re ported) Ondansetron HCl (Zofran) 8 Mg Tablet, 8 MG PO Q6H PRN for NAUSEA OR VOMITING, (Reported) Saccharomyces Boulardii (Florastor) 250 Mg Capsule, 250 MG PO BID PRN for loose stools, (Reported) LANCE DE SANTIAGO MD Jun 11, 2018 15:06
--- NOTE | 2018-06-11 15:22 | REP ---
Whole body radionuclide bone scan: The the patient has a known acute right femoral neck fracture. There is focal uptake anterolaterally in several left ribs, compatible with rib fractures. There is no evidence of increased uptake in the right or left hips or elsewhere in the pelvis. There is increased uptake at the bases of the great toes bilaterally. There is increased uptake in the right patella. This can be a normal variant. Correlate with patellar point tenderness. The uptake pattern is otherwise unremarkable. Impression: There is no increased uptake in the right or left hips. There is left rib uptake as described compatible with rib fractures. There is uptake in the right patella. This could be a anatomic variant. Correlate with clinical point tenderness. There is uptake at the bases of the great toes bilaterally. The study is performed with 20.2 mCi of technetium 99m radiolabeled MDP. Electronically Signed by Kevon Werner MD 06/11/2018 03:13 P
[2018-06-11] MEDS ORDERED: FENTANYL REMOVAL DOCUMENTATION MISC XX SCH (16:00)
[2018-06-11] MEDS ORDERED: fentaNYL 12 MCG/HR PATCH TOP SCH (16:00)
[2018-06-11 17:15] VITALS: BP 123/69
--- NOTE | 2018-06-11 17:27 | ROOPDOC ---
[facility] Report Of Operation Report of Operation DATE OF PROCEDURE: 06/11/18 PREPROCEDURE DIAGNOSES: Right hip fracture, recent history of pulmonary embolism, metastatic ovarian cancer POSTPROCEDURE DIAGNOSES: Same PROCEDURE: 1. Ultrasound-guided access left basilic vein 2. Vena cava gram 3. Placement of an Option retrievable IVC filter-filter did not deploy 4. Snare retrieval of filter 5. Placement of a new Option retrievable IVC filter 6. Completion vena cava gram SURGEON: Lance Barkley M.D., MD ANESTHESIA: Local with 3 mL lidocaine; monitored intravenous conscious sedation was supervised by Dr. Barkley. The patient was independently monitored by a registered nurse assigned to the Department of radiology using automated blood pressure, EKG and pulse oximetry. The detail conscious record is presently start in [employer] information system. Following his conscious sedation record including start and end times: Medications given included 0.5 mg IV Versed and 25 g IV fentanyl. Sedation start time was 15:24 and end time was 16:28. She tolerated sedation and the procedure well. She was monitored postprocedure until she was at her baseline mental status and hemodynamically stable, and discharged back to the floor in stable condition. INDICATION FOR PROCEDURE: Ms. Harris is a very pleasant 77-year-old patient with metastatic ovarian cancer, history of a recent significant PE, and now a right femur fracture. She had a difficult time recovering from her pulmonary embolus last month, and still has some shortness of breath with exertion. There is concerned that if she develops another DVT due to her hypercoagulable state from metastatic cancer and compounding that with an orthopedic injury, she may be a high risk for a PE again, despite anticoagulation. We discussed the risks, benefits, alternatives to an IVC filter placement, and the patient was agreeable to proceed. Informed consent was obtained. INTERPRETATION: 1. Initial vena cava gram shows IVC to be widely patent and suitable diameter for filter placement. The renal veins were identified for an infrarenal placement. 2. After deployment of the first IVC filter, the distal end of the filter did not expand correctly. After snaring the filter and moving it more proximal, it still did not expand and it was safely retrieved and intact. 3. Vena cava gram following removal of the filter showed the IVC was intact, with no extravasation or signs of perforation. We did note by placing our sheath more distally towards the iliac bifurcation that there was a large left lumbar vein, and it is possible the filter distally was caught within this vein. No perforation or extravasation was noted from the lumbar vein either. 4. Successful deployment of infrarenal IVC filter with confirmation of patent IVC and renal veins on completion vena cava gram following placement. PROCEDURE: The patient was brought to the angiographic suite in stable condition and placed supine on the fluoroscopic table. Her left upper extremity was prepped and draped in a sterile fashion. Sedation was a aegis operations specialist without complication. A timeout was performed. Local anesthesia was administered to the skin and subcutaneous tissue over the left upper arm over the basilic vein. Ultrasound was used to gain access to the basilic vein with a microneedle. A wire was passed through this access and a micro-sheath was placed. Glidewire was advanced through the micro-sheath under fluoroscopic guidance into the central system and then into the IVC. The sheath for the IVC filter was advanced over the Glidewire. Vena cava gram was performed. The renal veins were identified and the IVC was seen to be suitable diameter for filter placement. The patient had significant scoliosis creating very angular curves to her vena cava, but we were able to navigate the sheath into the correct position for filter deployment. The IVC filter was then advanced through the sheath and deployed. The distal aspect of the filter did not expand. A snare was advanced through the sheath and with some manipulation we successfully grabbed the hook at the proximal end of the filter. Initially, I attempted to retract the filter slightly proximally to see if it might expand, perhaps it was caught on something in the vena cava or itself, but it did not expand and therefore I retracted into the sheath and removed it. I examined on the back table and found it to be intact. Glidewire was replaced through the sheath and the sheath was advanced more distally within the IVC. Another vena cava gram was performed and no extravasation or perforation was noted, but this time. We did note a large left lumbar vein with large collaterals up to the left renal vein. It is possible the filter distally was caught within the large lumbar vein. We repositioned our catheter, so this would not happen upon replacement. A new IVC filter was advanced and deployed. It deployed successfully. Completion vena cava gram showed it to be in good infrarenal position and no extravasation or thrombosis was noted. The sheath was removed and pressure was held at the left arm access site for 15 minutes. The patient was on both Lovenox and heparin, and we wanted to make sure she would not have bleeding after the procedure. Once we were sure she had hemostasis, we place, sterile dressings and the patient was transferred back to her bed and monitored until she was at her preprocedure mental status and hemodynamically stable, and then she was transferred back to the floor. She did very well with the procedure and her sedation. ESTIMATED BLOOD LOSS: Approximately 5 mL. COMPLICATIONS: The first IVC filter placed did not deploy correctly. It was safely retrieved and removed completely and examined outside the patient and found to be intact. It was then replaced, through the existing sheath, with a new IVC filter that deployed successfully. LANCE BARKLEY MD Jun 11, 2018 17:27
[2018-06-11] MEDS: PRAMIPEXOLE 0.25 MG TAB PO SCH (20:22)
[2018-06-11] MEDS: QUEtiapine FUMARATE 25 MG TAB PO SCH (20:23)
[2018-06-11 22:00] VITALS: BP 134/57
[2018-06-12] VITALS (8 sets, daily range): BP systolic 92–149; BP diastolic 42–82
[2018-06-12] MEDS: MORPHINE 4 MG/ML 1ML VIAL/SYRINGE (J2270) IV PRN ×3 (01:17→11:00)
[2018-06-12] MEDS: ACETAMINOPHEN 500 MG TAB PO SCH ×3 (05:50→23:58)
[2018-06-12 06:16] LABS: BASO % 0.4 % (0.0-1.0); EOS # 0.1 10^3/uL (0.0-0.50); EOS % 1.2 % (0.0-3.0); HEMOGLOBIN 10.7 g/dl (12.0-15.5); LYMPH # 1.8 10^3/uL (1.5-4.5); LYMPH % 26.3 % (24.0-44.0); MEAN CORPUSCULAR HEMOGLOBIN 27.9 pg (27.0-33.0); MEAN CORPUSCULAR HGB CONC 28.9 g/dl (32.0-36.5); MEAN CORPUSCULAR VOLUME 96.4 fl (80.0-96.0); MONO # 0.9 10^3/uL (0.0-0.8); MONO % 13.3 % (0.0-5.0); NEUTROPHILS % 58.5 % (36.0-66.0); PLATELET COUNT, AUTOMATED 270 10^3/uL (150-450); RED BLOOD COUNT 3.84 10^6/uL (4.00-5.40); WHITE BLOOD COUNT 6.8 10^3/uL (4.0-10.0)
[2018-06-12 06:30] LABS: BLOOD UREA NITROGEN 8 MG/DL (7-18); CALCIUM LEVEL 8.2 MG/DL (8.8-10.2); CARBON DIOXIDE LEVEL 22 MEQ/L (21-32); CHLORIDE LEVEL 114 MEQ/L (98-107); CREATININE FOR GFR 0.52 MG/DL (0.55-1.30); GLOMERULAR FILTRATION RATE > 60.0 (>39); GLUCOSE, FASTING 115 MG/DL (70-100); SODIUM LEVEL 143 MEQ/L (136-145)
[2018-06-12] MEDS: POTASSIUM CHLORIDE INJ 20 MEQ in D5W/LR 1,000 ML IV SCH ×2 (06:50→18:16)
[2018-06-12] MEDS: MIRALAX *UNIT DOSE* 17GM PACKET PO SCH (07:29)
[2018-06-12] MEDS: MOM 30ML SUSPENSION UDC PO SCH (07:29)
[2018-06-12] MEDS: CYCLOBENZAPRINE 10 MG TAB PO SCH ×3 (08:27→23:59)
[2018-06-12] MEDS: FOLIC ACID 1 MG TAB PO SCH (08:27)
[2018-06-12] MEDS: MULTIVITAMINS/MINERALS THERAP 1 TAB PO SCH (08:27)
[2018-06-12] MEDS: PANTOPRAZOLE 40MG TAB (PROTONIX) PO SCH (08:27)
[2018-06-12] MEDS: SERTRALINE 100 MG TAB PO SCH (08:27)
[2018-06-12] MEDS: GABAPENTIN 300 MG CAP PO SCH ×3 (08:27→23:58)
[2018-06-12] MEDS: LEVOTHYROXINE 137MCG TABLET (0.137MG) PO SCH (08:27)
[2018-06-12] MEDS: SENOKOT S TAB PO SCH ×2 (08:27→23:58)
[2018-06-12] MEDS: FERROUS SULFATE 325MG TAB PO SCH ×2 (08:27→18:00)
[2018-06-12] MEDS ORDERED: LIDOCAINE 2% INJ 100 MG/5 ML SDV (FOR ANES.) As Ordered ONE (10:34)
[2018-06-12] MEDS ORDERED: KETAMINE HCL 200 MG/20 ML VIAL As Ordered ONE (10:35)
[2018-06-12] MEDS ORDERED: MIDAZOLAM INJ 2 MG/2 ML VIAL (J2250) As Ordered ONE ×2 (10:35→15:36)
[2018-06-12] MEDS ORDERED: TRANEXAMIC ACID 100 MG/ML 10ML VIAL As Ordered ONE (10:43)
[2018-06-12] MEDS ORDERED: BUPIVACAINE/EPIN 0.25% 30 ML VIAL As Ordered ONE (10:43)
[2018-06-12] MEDS ORDERED: ceFAZolin 1GM INJ (J0690 PER 500MG) As Ordered ONE (10:44)
[2018-06-12] MEDS ORDERED: EPINEPHrine INJ 1 MG/ML 1ML AMP As Ordered ONE ×2 (10:44→15:29)
[2018-06-12] MEDS ORDERED: ceFAZolin 2 GM/D5W 50 ML IV BAG (J0690 PER 500MG) As Ordered ONE (12:12)
--- NOTE | 2018-06-12 14:08 | IPNPDOC ---
Subjective Date Seen The patient was seen on 06/12/18. Subjective Chief Complaint/HPI Patient is sedated with pain medications, unable to up in any history. Scheduled for surgery today General: Reports: ROS Unobtainable, Normal Appetite Constitutional: Denies: Chills, Fever, Night Sweats Eyes: Denies: Pain, Vision change ENT: Denies: Head Aches, Ear Pain, Dysphagia Skin: Denies: Rash, Lesions, Breakdown Pulmonary: Denies: Dyspnea, Cough Cardiovascular: Denies: Chest Pain, Palpitations, Orthopnea, Paroxysmal Noc. Dyspnea, Lt Headedness Gastrointestinal: Denies: Nausea, Vomiting, Abdominal Pain, Diarrhea, Constipation Genitourinary: Denies: Dysuria, Frequency, Incontinence, Retention Hematologic: Denies: Bruising, Bleeding Excessively Musculoskeletal: Denies: Neck Pain, Back Pain, Joint Pain, Muscle Pain, Spasms Neurological: Denies: Weakness, Numbness, Change in speech, Confusion Psych: Reports: Mood Normal; Denies: Depression, Memory Issues Objective Physical Examination General Exam: Positive: Alert, No Acute Distress Eye Exam: Positive: PERRLA, Conjunctiva & lids normal, EOMI; Negative: Sclera icteric ENT Exam: Positive: Atraumatic, Mucous membr. moist/pink, Pharynx Normal Neck Exam: Positive: Supple; Negative: JVD, thyromegaly Chest Exam: Positive: Clear to auscultation, Normal air movement Heart Exam: Positive: Rate Normal, Regular Rhythm, Normal S1, Normal S2; Negative: Murmurs, Rubs Telemetry: Positive: No significant arrhythmia Abdomen Exam: Positive: Normal bowel sounds, Soft; Negative: Tenderness, Hepatospenomegaly Female Exam: Positive: Nl Ext Genitalia; Negative: Lesions, Discharge, Odor, Tenderness Extremity Exam: Positive: Normal pulses, Other (short mean of right leg with internal rotation noted. Positive tenderness at the site) Skin Exam: Positive: Nl turgor and temperature; Negative: Rash, Breakdown Neuro Exam: Positive: Normal Gait, Normal Speech, Cranial Nerves 3-12 NL, Reflexes 2+ Psych Exam: Positive: Mental status NL, Mood NL, Oriented x 3 Assessment /Plan Problems (1) Closed right hip fracture Status: Acute Problem Text: Discussed with orthopedic doctor requesting oncology as well as medical clearance and possibly a Tanna filter placed in before patient goes to OR. Goes with oncology. He tried to see the patient but patient has not been available secondary to getting different procedures done. I had a extensive discussion with them. He does not think that the fractures pathological and the agreed with the possible surgical intervention for the patient to the to relieve her pain and disability. Malone filter was placed and yesterday Patient is scheduled for orthopedic surgery today pain management Further, as per orthopedics (2) Ovarian carcinoma Status: Chronic Problem Text: Discussed with Dr. Lizarraga, most likely it's not a pathological fracture. He recommended patient to follow up with her oncologist at [facility] for further care. Once his discharge from this hospital Plan/VTE VTE Prophylaxis Ordered?: Yes VS, I&O, 24H, Fishbone Vital Signs/I&O Vital Signs Date Time Temp Pulse Resp B/P (MAP) Pulse Ox O2 Delivery O2 Flow Rate FiO2 06/12/18 11:00 18 06/12/18 06:00 96.7 78 124/65 (84) 96 2.0 06/11/18 00:32 Room Air I&O- Last 24 Hours up to 6 AM 06/12/18 05:59 Intake Total 1282 ml Output Total 150 ml Balance 1132 ml Laboratory Data 24H LABS Laboratory Tests 2 06/11/18 17:35: Activated Partial Thromboplast Time 45.2H 06/12/18 01:26: Activated Partial Thromboplast Time 111.1H 06/12/18 05:57: Immature Granulocyte % (Auto) 0.3, White Blood Count 6.8, Red Blood Count 3.84L, Hemoglobin 10.7L, Hematocrit 37.0, Mean Corpuscular Volume 96.4H, Mean Corpuscular Hemoglobin 27.9, Mean Corpuscular Hemoglobin Concent 28.9L, Red Cell Distribution Width 18.6H, Platelet Count 270, Neutrophils (%) (Auto) 58.5, Lymphocytes (%) (Auto) 26.3, Monocytes (%) (Auto) 13.3H, Eosinophils (%) (Auto) 1.2, Basophils (%) (Auto) 0.4, Neutrophils # (Auto) 4.0, Lymphocytes # (Auto) 1.8, Monocytes # (Auto) 0.9H, Eosinophils # (Auto) 0.1, Basophils # (Auto) 0.0, Nucleated Red Blood Cells % (auto) 0.0, Anion Gap 7L, Glomerular Filtration Rate > 60.0, Blood Urea Nitrogen 8, Creatinine 0.52L, Sodium Level 143, Potassium Level 4.0#, Chloride Level 114H, Carbon Dioxide Level 22, Calcium Level 8.2L CBC/BMP Laboratory Tests 06/12/18 05:57 Red Blood Count 3.84 L, Mean Corpuscular Volume 96.4 H, Mean Corpuscular Hemoglobin 27.9, Mean Corpuscular Hemoglobin Concent 28.9 L, Red Cell Distribution Width 18.6 H, Neutrophils (%) (Auto) 58.5, Lymphocytes (%) (Auto) 26.3, Monocytes (%) (Auto) 13.3 H, Eosinophils (%) (Auto) 1.2, Basophils (%) (Auto) 0.4, Neutrophils # (Auto) 4.0, Lymphocytes # (Auto) 1.8, Monocytes # (Auto) 0.9 H, Eosinophils # (Auto) 0.1, Basophils # (Auto) 0.0, Calcium Level 8.2 L LORE GEORGE MD Jun 12, 2018 14:07
[2018-06-12] MEDS ORDERED: PHENYLephrine HCL 500 MCG/5 ML (100MCG/ML) SYRINGE (J2370) As Ordered ONE (14:49)
[2018-06-12] MEDS ORDERED: BUPIVACAINE HCL 0.25% 10 ML VIAL As Ordered ONE (15:05)
[2018-06-12] MEDS ORDERED: BUPIVACAINE LIPOSOME/PF 1.3% 20ML VIAL (13.3MG/ML)(EXPAREL)(C9290 PER1MG) As Ordered ONE (15:06)
[2018-06-12] MEDS ORDERED: fentaNYL 250 MCG/5 ML INJECTION (J3010) As Ordered ONE (15:40)
[2018-06-12] MEDS ORDERED: LR 1,000 ML IV SCH (17:00)
[2018-06-12] MEDS ORDERED: ONDANSETRON 4MG/2ML VIAL (J2405) IV PRN (17:00)
[2018-06-12] MEDS ORDERED: fentaNYL 100 MCG/2 ML INJECTION (J3010) IV PRN (17:00)
[2018-06-12] MEDS: HYDROMORPHONE HCL 0.5 MG/ 0.5 ML SYRINGE (J1170 PER 1) IV PRN ×2 (17:06→17:11)
[2018-06-12] MEDS: PERCOCET 5MG/325MG TAB PO PRN ×2 (17:06→17:36)
[2018-06-12] MEDS ORDERED: HYDROMORPHONE HCL 0.5 MG/ 0.5 ML SYRINGE (J1170 PER 1) As Ordered ONE (17:06)
[2018-06-12] MEDS ORDERED: PERCOCET 5MG/325MG TAB As Ordered ONE ×2 (17:06→17:36)
[2018-06-12] MEDS ORDERED: HYDROMORPHONE HCL 0.5 MG/ 0.5 ML SYRINGE (J1170 PER 1) IV PRN ×2 (17:45)
[2018-06-12] MEDS ORDERED: PERCOCET 5MG/325MG TAB PO PRN ×2 (18:00)
[2018-06-12] MEDS: ceFAZolin SOD 1 GM in D5W MINI-BAG PLUS 50 ML IV SCH (20:25)
[2018-06-12] MEDS: PRAMIPEXOLE 0.25 MG TAB PO SCH (23:58)
[2018-06-12] MEDS: QUEtiapine FUMARATE 25 MG TAB PO SCH (23:58)
[2018-06-13 02:00] VITALS: BP 101/52
[2018-06-13] MEDS: ceFAZolin SOD 1 GM in D5W MINI-BAG PLUS 50 ML IV SCH (03:34)
[2018-06-13] MEDS: POTASSIUM CHLORIDE INJ 20 MEQ in D5W/LR 1,000 ML IV SCH ×3 (03:34→23:14)
[2018-06-13] MEDS: ACETAMINOPHEN 500 MG TAB PO SCH ×3 (05:07→21:29)
[2018-06-13 06:00] VITALS: BP 115/76
[2018-06-13 06:21] LABS: BASO % 0.3 % (0.0-1.0); EOS # 0.1 10^3/uL (0.0-0.50); EOS % 0.5 % (0.0-3.0); HEMOGLOBIN 10.1 g/dl (12.0-15.5); LYMPH # 1.2 10^3/uL (1.5-4.5); LYMPH % 11.9 % (24.0-44.0); MEAN CORPUSCULAR HEMOGLOBIN 28.5 pg (27.0-33.0); MEAN CORPUSCULAR HGB CONC 29.7 g/dl (32.0-36.5); MONO # 1.1 10^3/uL (0.0-0.8); NEUTROPHILS # 7.5 10^3/uL (1.8-7.7); NEUTROPHILS % 75.6 % (36.0-66.0); PLATELET COUNT, AUTOMATED 301 10^3/uL (150-450); RED BLOOD COUNT 3.54 10^6/uL (4.00-5.40); WHITE BLOOD COUNT 9.9 10^3/uL (4.0-10.0)
[2018-06-13] MEDS: oxyCODONE 5MG TAB PO PRN ×3 (06:27→15:07)
[2018-06-13 06:47] LABS: BLOOD UREA NITROGEN 8 MG/DL (7-18); CALCIUM LEVEL 8.7 MG/DL (8.8-10.2); CARBON DIOXIDE LEVEL 21 MEQ/L (21-32); CHLORIDE LEVEL 112 MEQ/L (98-107); GLOMERULAR FILTRATION RATE > 60.0 (>39); GLUCOSE, FASTING 133 MG/DL (70-100); SODIUM LEVEL 142 MEQ/L (136-145)
[2018-06-13] MEDS: METAMUCIL (PSYLLIUM) PACKET PO SCH (09:00)
[2018-06-13] MEDS: MOM 30ML SUSPENSION UDC PO SCH (09:00)
[2018-06-13] MEDS: MIRALAX *UNIT DOSE* 17GM PACKET PO SCH (09:00)
[2018-06-13] MEDS: FOLIC ACID 1 MG TAB PO SCH (09:26)
[2018-06-13] MEDS: FERROUS SULFATE 325MG TAB PO SCH ×2 (09:26→17:10)
[2018-06-13] MEDS: GABAPENTIN 300 MG CAP PO SCH ×3 (09:26→20:36)
[2018-06-13] MEDS: SERTRALINE 100 MG TAB PO SCH (09:26)
[2018-06-13] MEDS: CYCLOBENZAPRINE 10 MG TAB PO SCH ×3 (09:26→20:36)
[2018-06-13] MEDS: PANTOPRAZOLE 40MG TAB (PROTONIX) PO SCH (09:26)
[2018-06-13] MEDS: SENOKOT S TAB PO SCH ×2 (09:26→20:36)
[2018-06-13] MEDS: LEVOTHYROXINE 137MCG TABLET (0.137MG) PO SCH (09:26)
[2018-06-13] MEDS: MULTIVITAMINS/MINERALS THERAP 1 TAB PO SCH (09:26)
--- NOTE | 2018-06-13 11:38 | IPNPDOC ---
Subjective Date Seen The patient was seen on 06/13/18. Subjective Chief Complaint/HPI Status post right hip surgery is still complaining of pain in the right hip with surgical site, patient is off heparin status post IVC filter placement General: Reports: Other Symptoms (pain at the right hip); Denies: ROS Unobtainable, Chills, Night Sweats, Fatigue, Malaise, Normal Appetite Constitutional: Denies: Chills, Fever, Night Sweats Eyes: Denies: Pain, Vision change ENT: Denies: Head Aches, Ear Pain, Dysphagia Skin: Denies: Rash, Lesions, Jaundice, Bruising, Itching, Dry, Breakdown, Nail Changes, Other Pulmonary: Denies: Dyspnea, Cough Cardiovascular: Denies: Chest Pain, Palpitations, Orthopnea, Paroxysmal Noc. Dyspnea, Lt Headedness Gastrointestinal: Denies: Nausea, Vomiting, Abdominal Pain, Diarrhea, Constipation Genitourinary: Denies: Dysuria, Frequency, Incontinence, Retention Hematologic: Denies: Bruising, Bleeding Excessively Musculoskeletal: Reports: Leg Pain Neurological: Denies: Weakness, Numbness, Change in speech, Confusion Psych: Reports: Mood Normal; Denies: Depression, Memory Issues Objective Physical Examination General Exam: Positive: Alert, No Acute Distress Eye Exam: Positive: PERRLA, Conjunctiva & lids normal, EOMI; Negative: Sclera icteric ENT Exam: Positive: Atraumatic, Mucous membr. moist/pink, Pharynx Normal Neck Exam: Positive: Supple; Negative: JVD, thyromegaly Chest Exam: Positive: Clear to auscultation, Normal air movement Heart Exam: Positive: Rate Normal, Regular Rhythm, Normal S1, Normal S2; Negative: Murmurs, Rubs Telemetry: Positive: No significant arrhythmia Abdomen Exam: Positive: Normal bowel sounds, Soft; Negative: Tenderness, Hepatospenomegaly Female Exam: Positive: Nl Ext Genitalia; Negative: Lesions, Discharge, Odor, Tenderness Extremity Exam: Positive: Normal pulses, Other (surgical dressing. Right hip) Skin Exam: Positive: Nl turgor and temperature; Negative: Rash, Breakdown Neuro Exam: Positive: Normal Gait, Normal Speech, Cranial Nerves 3-12 NL, Reflexes 2+ Psych Exam: Positive: Mental status NL, Mood NL, Oriented x 3 Assessment /Plan Problems (1) Closed right hip fracture Status: Acute Problem Text: Status post right hip surgery. Not on anticoagulation, status post IVC filter placement Will restart anticoagulation once cleared by surgery/ortho Patient is still complaining of pain, so we'll adjust the pain management PT evaluation to be done today Possible transfer to subacute rehabilitation facility once stable (2) Ovarian carcinoma Status: Chronic Problem Text: Discussed with Dr. Lizarraga, most likely it's not a pathological fracture. He recommended patient to follow up with her oncologist at [facility] for further care. Once his discharge from this hospital Plan/VTE VTE Prophylaxis Ordered?: No VS, I&O, 24H, Fishbone Vital Signs/I&O Vital Signs Date Time Temp Pulse Resp B/P (MAP) Pulse Ox O2 Delivery O2 Flow Rate FiO2 06/13/18 11:15 18 06/13/18 06:00 99.6 105 115/76 (89) 94 2.0 06/11/18 00:32 Room Air I&O- Last 24 Hours up to 6 AM 06/13/18 06:00 Intake Total 2275 ml Output Total 0 ml Balance 2275 ml Laboratory Data 24H LABS Laboratory Tests 2 06/13/18 06:03: Immature Granulocyte % (Auto) 0.7, White Blood Count 9.9, Red Blood Count 3.54L, Hemoglobin 10.1L, Hematocrit 34.0L, Mean Corpuscular Volume 96.0, Mean Corpuscular Hemoglobin 28.5, Mean Corpuscular Hemoglobin Concent 29.7L, Red Cell Distribution Width 18.5H, Platelet Count 301, Neutrophils (%) (Auto) 75.6H, Lymphocytes (%) (Auto) 11.9L, Monocytes (%) (Auto) 11.0H, Eosinophils (%) (Auto) 0.5, Basophils (%) (Auto) 0.3, Neutrophils # (Auto) 7.5, Lymphocytes # (Auto) 1.2L, Monocytes # (Auto) 1.1H, Eosinophils # (Auto) 0.1, Basophils # (Auto) 0.0, Nucleated Red Blood Cells % (auto) 0.0, Anion Gap 9, Glomerular Filtration Rate > 60.0, Blood Urea Nitrogen 8, Creatinine 0.60, Sodium Level 142, Potassium Level 4.0, Chloride Level 112H, Carbon Dioxide Level 21, Calcium Level 8.7L CBC/BMP Laboratory Tests 06/13/18 06:03 Red Blood Count 3.54 L, Mean Corpuscular Volume 96.0, Mean Corpuscular Hemoglobin 28.5, Mean Corpuscular Hemoglobin Concent 29.7 L, Red Cell Distribution Width 18.5 H, Neutrophils (%) (Auto) 75.6 H, Lymphocytes (%) (Auto) 11.9 L, Monocytes (%) (Auto) 11.0 H, Eosinophils (%) (Auto) 0.5, Basophils (%) (Auto) 0.3, Neutrophils # (Auto) 7.5, Lymphocytes # (Auto) 1.2 L, Monocytes # (Auto) 1.1 H, Eosinophils # (Auto) 0.1, Basophils # (Auto) 0.0, Calcium Level 8.7 L LORE GEORGE MD Jun 13, 2018 11:38
[2018-06-13 14:00] VITALS: BP 139/42
[2018-06-13] MEDS: PRAMIPEXOLE 0.25 MG TAB PO SCH (20:36)
[2018-06-13] MEDS: QUEtiapine FUMARATE 25 MG TAB PO SCH (20:36)
[2018-06-13 22:00] VITALS: BP 130/65
--- NOTE | 2018-06-14 00:34 | RO ---
DATE OF PROCEDURE: 06/12/2018 PREOPERATIVE DIAGNOSIS: Right hip femoral neck fracture. POSTOPERATIVE DIAGNOSIS: Right hip femoral neck fracture. PROCEDURE PERFORMED: Cemented hemiarthroplasty right hip. SURGEON: Sherman Brasher MD PACKAGING CLERK: ANESTHESIA: Spinal. ESTIMATED BLOOD LOSS: Less than 150 mL, replaced with crystalloid. No complications. COMPONENTS USED: Include a DePuy Clyde cemented system, size 4 femoral stem, +5 neck length, size 44 femoral head, tobramycin bone cement. Consent reviewed in detail including a joseph discussion of the pathology involved, the procedure proposed, alternatives including doing nothing and risks including but not limited to pain, failure, infection, bleeding, blood loss, incomplete relief of symptoms, dislocation and other issues. The patient agrees to proceed. DESCRIPTION OF PROCEDURE: Identified in the holding area, site and side verified, brought to the operating room. Spinal anesthesia was administered. She was positioned in the lateral decubitus position for exposure of the right hip for the modified Hardinge approach. Next, once I and the director of patient care were comfortable with the patient's positioning, she was then sterilely prepped and draped in the usual fashion for exposure. The incision was outlined with a marking pen, infiltrated with 0.25% Marcaine with epinephrine and made with a #10 blade, developed down through skin and subcuticular tissues. Lateral fascia over the hip was identified and divided using a #10 blade knife as well as Rocha scissors. Abductor mechanism was appreciated and exposed, and a rent was created at the anterior one-third position. Meyerdings were utilized, tag suture was utilized, abductor mechanism was reflected off of the greater trochanter and its anterior one-third tissue for later repair. Vastus lateralis was also split, capsule was also split, hip was subluxed. I removed the fractured femoral head using a corkscrew device, inspected the acetabulum; it was free from debris, positioned the hip and the sterile bag. I opened the femoral canal using a canal opening reamer, followed by canal finding reamer, followed by lateralizing reamer, followed by conical reamers through size 4. A template was applied, oscillating saw was utilized to freshen the femoral neck cut. Next, because of the fracture configuration, the femoral neck cut was a bit low, just above the lesser trochanter. Next, rasps were utilized through a size 4, which fit a bit proud given the short neck cut. We trialed that, fit appropriately with a +5 neck length. Next, cement restrictor was placed, pulse lavage irrigation brush was utilized, canal was packed with the vag pack, cement was prepared, tobramycin cement utilized. Cement was injected via pressurized technique. When it was the appropriate consistency, the non-trial stem was cemented into place. Next, we selected the non-trial 44 femoral head +5. This was impacted into place. The excess cement was cleared using curettes. The prosthetic was reduced. The wound was closed with interrupted stitch including layered closure of the capsule minimus tissue, reapproximation of the abductor mechanism using interrupted stitch, and reapproximation of the fascia using a running Stratafix stitch. Skin was approximated with interrupted stitch followed by a Prineo dressing. The patient was then able to be moved to the supine position on the hospital bed and moved to the recovery room in good condition. For further details, please refer to the medical record.
[2018-06-14] MEDS: oxyCODONE 5MG TAB PO PRN ×3 (05:11→14:58)
[2018-06-14] MEDS: ACETAMINOPHEN 500 MG TAB PO SCH ×3 (05:11→21:34)
[2018-06-14 06:00] VITALS: BP 122/70
[2018-06-14 06:54] LABS: BASO % 0.3 % (0.0-1.0); EOS # 0.2 10^3/uL (0.0-0.50); EOS % 1.6 % (0.0-3.0); HEMATOCRIT 28.5 % (36.0-47.0); HEMOGLOBIN 8.8 g/dl (12.0-15.5); LYMPH # 1.5 10^3/uL (1.5-4.5); LYMPH % 14.6 % (24.0-44.0); MEAN CORPUSCULAR HEMOGLOBIN 28.7 pg (27.0-33.0); MEAN CORPUSCULAR HGB CONC 30.9 g/dl (32.0-36.5); MEAN CORPUSCULAR VOLUME 92.8 fl (80.0-96.0); MONO # 1.2 10^3/uL (0.0-0.8); MONO % 12.5 % (0.0-5.0); NEUTROPHILS % 70.3 % (36.0-66.0); PLATELET COUNT, AUTOMATED 283 10^3/uL (150-450); RED BLOOD COUNT 3.07 10^6/uL (4.00-5.40); WHITE BLOOD COUNT 9.9 10^3/uL (4.0-10.0)
[2018-06-14 07:13] LABS: BLOOD UREA NITROGEN 11 MG/DL (7-18); CALCIUM LEVEL 8.1 MG/DL (8.8-10.2); CARBON DIOXIDE LEVEL 24 MEQ/L (21-32); CHLORIDE LEVEL 113 MEQ/L (98-107); CREATININE FOR GFR 0.46 MG/DL (0.55-1.30); GLOMERULAR FILTRATION RATE > 60.0 (>39); GLUCOSE, FASTING 125 MG/DL (70-100); POTASSIUM SERUM 4.3 MEQ/L (3.5-5.1); SODIUM LEVEL 144 MEQ/L (136-145)
--- NOTE | 2018-06-14 07:47 | IPN ---
DATE: 06/14/2018 CHIEF COMPLAINT: Postoperative day #2 right hip hemiarthroplasty for pathologic femoral neck fracture. HISTORY OF PRESENT ILLNESS: This is a pleasant 77-year-old female seen today, postoperative day #2 from right hip hemiarthroplasty. She had a mechanical fall on 06/11/2018. She apparently has a history of a metastatic ovarian cancer. The decision was made by Dr. Brasher to go ahead and fix her hip fracture, now 2 days ago. She is seen on the villalobos, [address] at [facility]. She is doing well. No chest pain or shortness of breath. She is comfortable without questions or concerns. She has not been up not yet ambulating. PHYSICAL EXAMINATION: 77-year-old female who looks stated age. She is lying supine in the bed. She is alert and oriented x3. Mood and affect is pleasant and positive. Her vital signs reveal temperature 97.5. Blood pressure 122/70. Pulse rate 105. Respiratory rate 20. 93% on 2 liters nasal prongs. The wound looks clean, dry and free of complications or drainage. On both her lower extremities, she is able to wiggle her toes, dorsiflex and plantar flex the foot. She has normal sensation in the foot and good pedal pulses. Followup on the pathology report is unfortunately not available yet. This was sent on 06/13/2018 at 8:35 a.m.. Blood work reveals a hemoglobin of 8.8. ASSESSMENT/PLAN: 77-year-old female with a pathologic hip fracture. We will mobilize her weightbearing as tolerated. I have suggested incentive spirometer and our nurse practitioner, Reyna, will go ahead and order that. We will mobilize her today. We will follow up on the pathology report as soon as that is available. We will follow the hemoglobin with repeat CBC tomorrow for a slightly low hemoglobin, but I would not transfuse today given the fact that she is asymptomatic and following with restrictive transfusion guidelines. For VTE prophylaxis, she appears to be on heparin. Thank you very much for involving me in this pleasant woman's care.
[2018-06-14] MEDS: LEVOTHYROXINE 137MCG TABLET (0.137MG) PO SCH (08:28)
[2018-06-14] MEDS: MIRALAX *UNIT DOSE* 17GM PACKET PO SCH (09:00)
[2018-06-14] MEDS: METAMUCIL (PSYLLIUM) PACKET PO SCH (09:00)
[2018-06-14] MEDS: MOM 30ML SUSPENSION UDC PO SCH (09:00)
[2018-06-14] MEDS: GABAPENTIN 300 MG CAP PO SCH ×3 (10:03→20:26)
[2018-06-14] MEDS: SERTRALINE 100 MG TAB PO SCH (10:03)
[2018-06-14] MEDS: FOLIC ACID 1 MG TAB PO SCH (10:03)
[2018-06-14] MEDS: SENOKOT S TAB PO SCH ×2 (10:03→20:26)
[2018-06-14] MEDS: CYCLOBENZAPRINE 10 MG TAB PO SCH ×3 (10:03→20:26)
[2018-06-14] MEDS: FERROUS SULFATE 325MG TAB PO SCH ×2 (10:03→17:46)
[2018-06-14] MEDS: MULTIVITAMINS/MINERALS THERAP 1 TAB PO SCH (10:03)
[2018-06-14] MEDS: PANTOPRAZOLE 40MG TAB (PROTONIX) PO SCH (10:03)
[2018-06-14] MEDS: HEPARIN DRIP 25,000 UNITS in APPROPRIATE DILUENT 1 EA IV SCH (10:15)
[2018-06-14] MEDS ORDERED: D5W/LR 1,000 ML IV SCH (10:15)
--- NOTE | 2018-06-14 10:48 | IPNPDOC ---
Subjective Date Seen The patient was seen on 06/14/18. Subjective Chief Complaint/HPI Patient is feeling much better today. She is sitting in a chair. Offers no complaints, on heparin infusion General: Reports: Normal Appetite; Denies: Chills, Night Sweats, Fatigue, Malaise Constitutional: Denies: Chills, Fever, Night Sweats Eyes: Denies: Pain, Vision change ENT: Denies: Head Aches, Ear Pain, Dysphagia Skin: Denies: Rash, Lesions, Breakdown Pulmonary: Denies: Dyspnea, Cough Cardiovascular: Denies: Chest Pain, Palpitations, Orthopnea, Paroxysmal Noc. Dyspnea, Lt Headedness Gastrointestinal: Denies: Nausea, Vomiting, Abdominal Pain, Diarrhea, Cons tipation Genitourinary: Denies: Dysuria, Frequency, Incontinence, Retention Hematologic: Denies: Bruising, Bleeding Excessively Musculoskeletal: Denies: Neck Pain, Back Pain, Joint Pain, Muscle Pain, Spasms Neurological: Denies: Weakness, Numbness, Change in speech, Confusion Psych: Reports: Mood Normal; Denies: Depression, Memory Issues Objective Physical Examination General Exam: Positive: Alert, No Acute Distress Eye Exam: Positive: PERRLA, Conjunctiva & lids normal, EOMI; Negative: Sclera icteric ENT Exam: Positive: Atraumatic, Mucous membr. moist/pink, Pharynx Normal Neck Exam: Positive: Supple; Negative: JVD, thyromegaly Chest Exam: Positive: Clear to auscultation, Normal air movement Heart Exam: Positive: Rate Normal, Regular Rhythm, Normal S1, Normal S2; Negative: Murmurs, Rubs Telemetry: Positive: No significant arrhythmia Abdomen Exam: Positive: Normal bowel sounds, Soft; Negative: Tenderness, Hepatospenomegaly Female Exam: Positive: Nl Ext Genitalia; Negative: Lesions, Discharge, Odor, Tenderness Extremity Exam: Positive: Normal pulses, Other (surgical dressing. Right hip) Skin Exam: Positive: Nl turgor and temperature; Negative: Rash, Breakdown Neuro Exam: Positive: Normal Gait, Normal Speech, Cranial Nerves 3-12 NL, Reflexes 2+ Psych Exam: Positive: Mental status NL, Mood NL, Oriented x 3 Assessment /Plan Problems (1) Closed right hip fracture Status: Acute Problem Text: Status post right hip arthroplasty, postop day #2 status post IVC filter placement 3. Start Lovenox 1 mg/kg every 12 hours and DC heparin infusion Pain is under well control off as no complaints PT evaluation done and PT in progress Possible transfer to subacute rehabilitation facility once stable (2) Ovarian carcinoma Status: Chronic Problem Text: Discussed with Dr. Lizarraga, most likely it's not a pathological fracture. He recommended patient to follow up with her oncologist at [place] for further care. Once his discharge from this hospital Plan/VTE VTE Prophylaxis Ordered?: Yes VS, I&O, 24H, Fishbone Vital Signs/I&O Vital Signs Date Time Temp Pulse Resp B/P (MAP) Pulse Ox O2 Delivery O2 Flow Rate FiO2 06/14/18 10:03 16 06/14/18 06:00 97.5 105 122/70 (87) 93 2.0 06/11/18 00:32 Room Air I&O- Last 24 Hours up to 6 AM 06/14/18 05:59 Intake Total 3180 ml Output Total 0 ml Balance 3180 ml Laboratory Data 24H LABS Laboratory Tests 2 06/14/18 06:38: Immature Granulocyte % (Auto) 0.7, White Blood Count 9.9, Red Blood Count 3.07L, Hemoglobin 8.8L, Hematocrit 28.5L, Mean Corpuscular Volume 92.8, Mean Corpuscular Hemoglobin 28.7, Mean Corpuscular Hemoglobin Concent 30.9L, Red Cell Distribution Width 18.4H, Platelet Count 283, Neutrophils (%) (Auto) 70.3H, Lymphocytes (%) (Auto) 14.6L, Monocytes (%) (Auto) 12.5H, Eosinophils (%) (Auto) 1.6, Basophils (%) (Auto) 0.3, Neutrophils # (Auto) 7.0, Lymphocytes # (Auto) 1.5, Monocytes # (Auto) 1.2H, Eosinophils # (Auto) 0.2, Basophils # (Auto) 0.0, Nucleated Red Blood Cells % (auto) 0.0, Activated Partial Thromboplast Time 42.5H, Anion Gap 7L, Glomerular Filtration Rate > 60.0, Blood Urea Nitrogen 11, Creatinine 0.46L, Sodium Level 144, Potassium Level 4.3, Chloride Level 113H, Carbon Dioxide Level 24, Calcium Level 8.1L CBC/BMP Laboratory Tests 06/14/18 06:38 Red Blood Count 3.07 L, Mean Corpuscular Volume 92.8, Mean Corpuscular Hemoglobin 28.7, Mean Corpuscular Hemoglobin Concent 30.9 L, Red Cell Distribution Width 18.4 H, Neutrophils (%) (Auto) 70.3 H, Lymphocytes (%) (Auto) 14.6 L, Monocytes (%) (Auto) 12.5 H, Eosinophils (%) (Auto) 1.6, Basophils (%) (Auto) 0.3, Neutrophils # (Auto) 7.0, Lymphocytes # (Auto) 1.5, Monocytes # (Auto) 1.2 H, Eosinophils # (Auto) 0.2, Basophils # (Auto) 0.0, Calcium Level 8.1 L LORE GEORGE MD Jun 14, 2018 10:48
[2018-06-14] MEDS: ENOXAPARIN 60 MG/0.6 ML SYR (J1650) SC SCH ×2 (11:04→20:26)
[2018-06-14 14:00] VITALS: BP 123/70
--- NOTE | 2018-06-14 20:09 | HPEPDOC ---
General Date of Admission Jun 10, 2018 at 23:20 Attending Physician: JOHN BARRETO MD Chief Complaint The patient is a 77-year-old female admitted with a reason for visit of Closed Right Hip Fx. 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 Patient tripped over the dog's stuffed pillow and fell on her right side with severe pain and inability to move. She was brought to the ED and was found to have right femoral neck fracture. Patient is admitted for right femoral neck fracture. Home Medications Scheduled Enoxaparin Sodium (Enoxaparin Sodium) 60 Mg/0.6 Ml Syringe, 60 MG SC Q12H, (Reported) Ferrous Sulfate (Ferrous Sulfate) 325 Mg Tablet, 325 MG PO BIDWM, (Reported) Folic Acid (Folic Acid) 1 Mg Tablet, 1 MG PO DAILY, (Reported) Gabapentin (Gabapentin) 300 Mg Capsule, 300 MG PO TID, (Reported) Lactose-Reduced Food (Ensure Enlive) 237 Ml Liquid, 237 ML PO BID, (Reported) Lansoprazole (Lansoprazole) 30 Mg Capsule.dr, 30 MG PO DAILY, (Reported) Levothyroxine Sodium (Synthroid) 137 Mcg Tablet, 137 MCG PO QAM, (Reported) Multivitamins (Thera M Plus Tablet) 1 Each Tablet, 2 TAB PO DAILY, (Reported) Pramipexole Di-HCl (Pramipexole Dihydrochloride) 0.75 Mg Tablet, 0.75 MG PO QHS, (Reported) Quetiapine Fumarate (Quetiapine Fumarate) 25 Mg Tablet, 25 MG PO QHS, (Reported) Sertraline Hcl (Zoloft) 100 Mg Tablet, 100 MG PO DAILY, (Reported) Scheduled PRN Fluticasone Propionate (Fluticasone Propionate) 16 Gm Arbela.susp, 2 SPRAY NA BID PRN for ALLERGIES, (Reported) Loperamide HCl (Imodium A-D) 2 Mg Capsule, 2 MG PO DAILY PRN for DIARRHEA, (Reported) Ondansetron HCl (Zofran) 8 Mg Tablet, 8 MG PO Q6H PRN for NAUSEA OR VOMITING, (Reported) Saccharomyces Boulardii (Florastor) 250 Mg Capsule, 250 MG PO BID PRN for loose stools, (Reported) Allergies Coded Allergies: methotrexate (Unverified Allergy, Unknown, 06/10/18) metoclopramide (Unverified Allergy, Unknown, 06/10/18) moxifloxacin (Unverified Allergy, Unknown, 06/10/18) nalbuphine (Unverified Allergy, Unknown, 06/10/18) prochlorperazine (Unverified Allergy, Unknown, 06/10/18) topiramate (Unverified Allergy, Unknown, 06/10/18) trazodone (Unverified Allergy, Unknown, 06/10/18) Past Medical History Medical History Stage 4 Ovarian cancer Pulmonary embolism Anemia Surgical History appendectomy ovarian surgery abdominal hernia surgeries several Social History * Smoker: Denies Alcohol: rarely Drugs: denies Review of Systems Constitutional: Reports: Fatigue ENT: Denies: Head Aches, Ear Pain, Dysphagia, Sinus Congestion, Post Nasal Drip, Sore Throat, Epistaxis, Other Symptoms Pulmonary: Denies: Dyspnea, Cough, Pleuritic Chest Pain, Other Symptoms Cardiovascular: Denies: Chest Pain, Palpitations, Orthopnea, Paroxysmal Noc. Dyspnea, Edema, Lt Headedness Gastrointestinal: Denies: Nausea, Vomiting, Abdominal Pain, Diarrhea, Constipation Genitourinary: Reports: Other Symptoms Endocrine: Denies: Polydipsia, Polyphagia, Polyuria, Heat Intolerance, Cold Intolerance Musculoskeletal: Reports: Shoulder Pain (right), Joint Pain (right hip) Physical Examination General Exam: Positive: Alert, Cooperative, No Acute Distress Eye Exam: Positive: PERRLA, Conjunctiva & lids normal, EOMI; Negative: Sclera icteric ENT Exam: Positive: Atraumatic, Mucous membr. moist/pink, Pharynx Normal Neck Exam: Positive: Supple; Negative: JVD, thyromegaly Chest Exam: Positive: Clear to auscultation, Normal air movement Heart Exam: Positive: Rate Normal, Regular Rhythm, Normal S1, Normal S2, Murmurs (soft systolic murmur); Negative: Rubs Telemetry: Positive: No significant arrhythmia Abdomen Exam: Positive: Normal bowel sounds, Soft, Hernia Extremity Exam: Positive: Tenderness (right hip), Swelling (right hip); Negative: Clubbing, Cyanosis, Edema Psych Exam: Positive: Mental status NL, Memory Intact Vital Signs Vital Signs Date Time Temp Pulse Resp B/P (MAP) Pulse Ox O2 Delivery O2 Flow Rate FiO2 06/10/18 23:15 94 92 06/10/18 22:55 18 06/10/18 22:00 124/60 (81) 06/10/18 21:45 Room Air 06/10/18 20:04 97.4 Laboratory Data Labs 24H Laboratory Tests 2 06/10/18 21:39: Immature Granulocyte % (Auto) 0.4, White Blood Count 9.2, Red Blood Count 4.17, Hemoglobin 11.8L, Hematocrit 38.7, Mean Corpuscular Volume 92.8, Mean Corpuscular Hemoglobin 28.3, Mean Corpuscular Hemoglobin Concent 30.5L, Red Cell Distribution Width 18.1H, Platelet Count 347, Neutrophils (%) (Auto) 76.5H, Lymphocytes (%) (Auto) 12.9L, Monocytes (%) (Auto) 8.0H, Eosinophils (%) (Auto) 2.0, Basophils (%) (Auto) 0.2, Neutrophils # (Auto) 7.0, Lymphocytes # (Auto) 1.2L, Monocytes # (Auto) 0.7, Eosinophils # (Auto) 0.2, Basophils # (Auto) 0.0, Nucleated Red Blood Cells % (auto) 0.0 06/10/18 22:23: Prothrombin Time 13.8, Prothromb Time International Ratio 1.05, Activated Partial Thromboplast Time 33.4, Anion Gap 5L, Glomerular Filtration Rate > 60.0, Blood Urea Nitrogen 11, Creatinine 0.51L, Sodium Level 144, Potassium Level 3.4L, Chloride Level 112H, Carbon Dioxide Level 27, Calcium Level 8.5L CBC/BMP Laboratory Tests 06/10/18 21:39 Red Blood Count 4.17, Mean Corpuscular Volume 92.8, Mean Corpuscular Hemoglobin 28.3, Mean Corpuscular Hemoglobin Concent 30.5 L, Red Cell Distribution Width 18.1 H, Neutrophils (%) (Auto) 76.5 H, Lymphocytes (%) (Auto) 12.9 L, Monocytes (%) (Auto) 8.0 H, Eosinophils (%) (Auto) 2.0, Basophils (%) (Auto) 0.2, Neutrophils # (Auto) 7.0, Lymphocytes # (Auto) 1.2 L, Monocytes # (Auto) 0.7, Eosinophils # (Auto) 0.2, Basophils # (Auto) 0.0 06/10/18 22:23 Calcium Level 8.5 L Assessment/Plan 77 year old female with PMH of Ovarian cancer first diagnosed in 2014 and treated then with ovarian surgery, chemotherapy recurrence 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 Patient tripped over the dog's stuffed pillow and fell on her right side with severe pain and inability to move. She was brought to the ED and was found to have right femoral neck fracture. Patient is admitted for right femoral neck fracture. Medical Clearance patient had recent prolonged hospitalization at [facility] where she had a possibly NSTEMI from demand ischemia in May 2018 awaiting results from [facility] Caanot be cleared till medical records from other hospital reviewed. At present patient does not have any symptoms or signs of ACS, no ckd, no diabetes, no history of CHF TIA or CVA. EKG reviewed no signs of acute ischemia. Right Hip Fracture possibility of pathological fracture orthopedics consulted morphine prn and zofran Metastatic Ovarian cancer follow up outpatient with oncologist. need to evaluate the hip fracture for pathologic fracture. CT pelvis has been ordered as per othro. Pulmonary Embolism continue therapeutic lovenox bid H/O Anemia HH stable at this point and greater than 10. Hypothyroid continue synthroid Anxiety/ depression/ restless leg syndrome continue home medications. Plan / VTE VTE Prophylaxis Ordered?: Yes JOHN BARRETO MD Jun 11, 2018 00:20
[2018-06-14] MEDS: PRAMIPEXOLE 0.25 MG TAB PO SCH (20:26)
[2018-06-14] MEDS: QUEtiapine FUMARATE 25 MG TAB PO SCH (20:26)
[2018-06-14 22:00] VITALS: BP 121/59
[2018-06-15] MEDS: LEVOTHYROXINE 137MCG TABLET (0.137MG) PO SCH (05:22)
[2018-06-15] MEDS: ACETAMINOPHEN 500 MG TAB PO SCH ×3 (05:23→21:32)
[2018-06-15 06:00] VITALS: BP 130/60
[2018-06-15 06:44] LABS: BASO % 0.4 % (0.0-1.0); EOS # 0.3 10^3/uL (0.0-0.50); EOS % 4.1 % (0.0-3.0); HEMATOCRIT 27.9 % (36.0-47.0); HEMOGLOBIN 8.6 g/dl (12.0-15.5); LYMPH # 1.8 10^3/uL (1.5-4.5); LYMPH % 22.9 % (24.0-44.0); MEAN CORPUSCULAR HEMOGLOBIN 27.7 pg (27.0-33.0); MEAN CORPUSCULAR HGB CONC 30.8 g/dl (32.0-36.5); MONO # 0.9 10^3/uL (0.0-0.8); NEUTROPHILS # 4.9 10^3/uL (1.8-7.7); NEUTROPHILS % 61.1 % (36.0-66.0); PLATELET COUNT, AUTOMATED 326 10^3/uL (150-450)
[2018-06-15 06:45] LABS: BLOOD UREA NITROGEN 9 MG/DL (7-18); CALCIUM LEVEL 8.3 MG/DL (8.8-10.2); CARBON DIOXIDE LEVEL 25 MEQ/L (21-32); CHLORIDE LEVEL 112 MEQ/L (98-107); CREATININE FOR GFR 0.46 MG/DL (0.55-1.30); GLOMERULAR FILTRATION RATE > 60.0 (>39); GLUCOSE, FASTING 90 MG/DL (70-100); POTASSIUM SERUM 3.8 MEQ/L (3.5-5.1); SODIUM LEVEL 143 MEQ/L (136-145)
[2018-06-15] MEDS: oxyCODONE 5MG TAB PO PRN ×3 (07:54→20:08)
[2018-06-15] MEDS: CYCLOBENZAPRINE 10 MG TAB PO SCH ×3 (07:54→20:07)
[2018-06-15] MEDS: MULTIVITAMINS/MINERALS THERAP 1 TAB PO SCH (07:55)
[2018-06-15] MEDS: SENOKOT S TAB PO SCH ×2 (07:55→20:08)
[2018-06-15] MEDS: FERROUS SULFATE 325MG TAB PO SCH ×2 (07:55→16:16)
[2018-06-15] MEDS: SERTRALINE 100 MG TAB PO SCH (07:55)
[2018-06-15] MEDS: PANTOPRAZOLE 40MG TAB (PROTONIX) PO SCH (07:55)
[2018-06-15] MEDS: GABAPENTIN 300 MG CAP PO SCH ×3 (07:55→20:07)
[2018-06-15] MEDS: FOLIC ACID 1 MG TAB PO SCH (07:56)
[2018-06-15] MEDS: METAMUCIL (PSYLLIUM) PACKET PO SCH (07:56)
[2018-06-15] MEDS: MOM 30ML SUSPENSION UDC PO SCH (07:56)
[2018-06-15] MEDS: MIRALAX *UNIT DOSE* 17GM PACKET PO SCH (07:56)
[2018-06-15] MEDS: ENOXAPARIN 60 MG/0.6 ML SYR (J1650) SC SCH ×2 (07:57→20:07)
--- NOTE | 2018-06-15 08:00 | IPN ---
DATE: 06/15/2018 CHIEF COMPLAINT: Postoperative day #3 right hip hemiarthroplasty for pathologic femoral neck fracture. HISTORY OF PRESENT ILLNESS: This 77-year-old female was seen today postop day #3 from her right hip fracture on the villalobos at [address] [place] [address] [address] [facility]. She is doing well. No concerns from her or her nursing staff. No chest pain or shortness of breath. She was able to get up to the side of bed and make it to the washroom yesterday with assistance of therapist. PHYSICAL EXAMINATION: Well-appearing 77-year female in no acute stress. She is alert and oriented times three. Mood and affect pleasant and positive. She is lying supine in the hospital bed. Vital Signs: Temperature 97.9. Blood pressure 130/60. Pulse rate 94. Respiratory rate 18. 94% on room air. The wound looks good. No complications, redness, swelling or drainage. Distally she is neurovascularly intact with normal sensation throughout her foot. Good pedal pulses. She is able to wiggle her toes, dorsiflex and plantar flex her foot. LABORATORY EXAMINATION: This morning, reveals hemoglobin to be stable at 8.6 from 8.8 yesterday. The pathology report is still pending. ASSESSMENT/PLAN: 77-year-old female. We will continue to mobilize weightbearing as tolerated. We will follow up on the pathology report. Hemoglobin appears stable. We will make final decision on potential acute rehabilitation unit (ARU) transfer and placement tomorrow, 06/16/2018. Venous thromboembolism (VTE) prophylaxis with enoxaparin per the jaw skinner. Thank you very much to them for their involvement with this patient.
--- NOTE | 2018-06-15 11:15 | IPNPDOC ---
Subjective Date Seen The patient was seen on 06/15/18. Subjective Chief Complaint/HPI Patient comfortably sitting in a chair,still has some pain at the surgical site, but no major complaints General: Reports: Normal Appetite; Denies: Chills, Night Sweats, Fatigue, Malaise Constitutional: Denies: Chills, Fever, Night Sweats Eyes: Denies: Pain, Vision change ENT: Denies: Head Aches, Ear Pain, Dysphagia Skin: Denies: Rash, Lesions, Breakdown Pulmonary: Denies: Dyspnea, Cough Cardiovascular: Denies: Chest Pain, Palpitations, Orthopnea, Paroxysmal Noc. Dyspnea, Lt Headedness Gastrointestinal: Denies: Nausea, Vomiting, Abdominal Pain, Diarrhea, Consti pation Genitourinary: Denies: Dysuria, Frequency, Incontinence, Retention Hematologic: Denies: Bruising, Bleeding Excessively Musculoskeletal: Reports: Leg Pain; Denies: Neck Pain, Back Pain, Joint Pain, Muscle Pain, Spasms Neurological: Denies: Weakness, Numbness, Change in speech, Confusion Psych: Reports: Mood Normal; Denies: Depression, Memory Issues Objective Physical Examination General Exam: Positive: Alert, Cooperative, No Acute Distress Eye Exam: Positive: PERRLA, Conjunctiva & lids normal, EOMI; Negative: Sclera icteric ENT Exam: Positive: Atraumatic, Mucous membr. moist/pink, Pharynx Normal Neck Exam: Positive: Supple; Negative: JVD, thyromegaly Chest Exam: Positive: Clear to auscultation, Normal air movement Heart Exam: Positive: Rate Normal, Regular Rhythm, Normal S1, Normal S2, Murmurs (soft systolic murmur); Negative: Rubs Telemetry: Positive: No significant arrhythmia Abdomen Exam: Positive: Normal bowel sounds, Soft, Hernia Female Exam: Positive: Nl Ext Genitalia; Negative: Lesions, Discharge, Odor, Tenderness Extremity Exam: Positive: Tenderness (right hip), Swelling (right hip); Negative: Clubbing, Cyanosis, Edema Skin Exam: Positive: Nl turgor and temperature; Negative: Rash, Breakdown Neuro Exam: Positive: Normal Gait, Normal Speech, Cranial Nerves 3-12 NL, Reflexes 2+ Psych Exam: Positive: Mental status NL, Memory Intact Assessment /Plan Problems (1) Closed right hip fracture Status: Acute Problem Text: Status post right hip arthroplasty, postop day #3 status post IVC filter placement Start Lovenox 1 mg/kg every 12 hours and DC heparin infusion. Discussed with orthopedics Pain is under well control off as no complaints PT evaluation done and PT in progress Possible transfer to subacute rehabilitation facility once stable (2) Ovarian carcinoma Status: Chronic Problem Text: Discussed with Dr. Lizarraga, most likely it's not a pathological fracture. He recommended patient to follow up with her oncologist at [facility] for further care. Once his discharge from this hospital Plan/VTE VTE Prophylaxis Ordered?: Yes VS, I&O, 24H, Fishbone Vital Signs/I&O Vital Signs Date Time Temp Pulse Resp B/P (MAP) Pulse Ox O2 Delivery O2 Flow Rate FiO2 06/15/18 08:24 18 06/15/18 06:00 97.9 94 130/60 (83) 94 06/14/18 12:11 2.0 06/11/18 00:32 Room Air I&O- Last 24 Hours up to 6 AM 06/15/18 05:59 Intake Total 3043 ml Output Total 0 ml Balance 3043 ml Laboratory Data 24H LABS Laboratory Tests 2 06/14/18 12:02: Activated Partial Thromboplast Time 39.4H 06/14/18 15:53: Activated Partial Thromboplast Time 32.8 06/15/18 05:59: Immature Granulocyte % (Auto) 0.5, White Blood Count 8.0, Red Blood Count 3.10L, Hemoglobin 8.6L, Hematocrit 27.9L, Mean Corpuscular Volume 90.0, Mean Corpuscular Hemoglobin 27.7, Mean Corpuscular Hemoglobin Concent 30.8L, Red Cell Distribution Width 18.5H, Platelet Count 326, Neutrophils (%) (Auto) 61.1, Lymphocytes (%) (Auto) 22.9L, Monocytes (%) (Auto) 11.0H, Eosinophils (%) (Auto) 4.1H, Basophils (%) (Auto) 0.4, Neutrophils # (Auto) 4.9, Lymphocytes # (Auto) 1.8, Monocytes # (Auto) 0.9H, Eosinophils # (Auto) 0.3, Basophils # (Auto) 0.0, Nucleated Red Blood Cells % (auto) 0.0, Anion Gap 6L, Glomerular Filtration Rate > 60.0, Blood Urea Nitrogen 9, Creatinine 0.46L, Sodium Level 143, Potassium Level 3.8, Chloride Level 112H, Carbon Dioxide Level 25, Calcium Level 8.3L CBC/BMP Laboratory Tests 06/15/18 05:59 Red Blood Count 3.10 L, Mean Corpuscular Volume 90.0, Mean Corpuscular Hemoglobin 27.7, Mean Corpuscular Hemoglobin Concent 30.8 L, Red Cell Distribution Width 18.5 H, Neutrophils (%) (Auto) 61.1, Lymphocytes (%) (Auto) 22.9 L, Monocytes (%) (Auto) 11.0 H, Eosinophils (%) (Auto) 4.1 H, Basophils (%) (Auto) 0.4, Neutrophils # (Auto) 4.9, Lymphocytes # (Auto) 1.8, Monocytes # (Auto) 0.9 H, Eosinophils # (Auto) 0.3, Basophils # (Auto) 0.0, Calcium Level 8.3 L LORE GEORGE MD Jun 15, 2018 11:15
[2018-06-15 14:00] VITALS: BP 117/99
[2018-06-15] MEDS: QUEtiapine FUMARATE 25 MG TAB PO SCH (20:07)
[2018-06-15] MEDS: PRAMIPEXOLE 0.25 MG TAB PO SCH (20:07)
[2018-06-15 22:00] VITALS: BP 117/58
[2018-06-16] MEDS: oxyCODONE 5MG TAB PO PRN ×3 (05:05→12:50)
[2018-06-16] MEDS: ACETAMINOPHEN 500 MG TAB PO SCH ×2 (05:06→14:43)
[2018-06-16] MEDS: LEVOTHYROXINE 137MCG TABLET (0.137MG) PO SCH (05:06)
[2018-06-16 06:00] VITALS: BP 133/60
[2018-06-16 06:23] LABS: BASO % 0.3 % (0.0-1.0); EOS # 0.3 10^3/uL (0.0-0.50); EOS % 3.4 % (0.0-3.0); HEMATOCRIT 25.6 % (36.0-47.0); HEMOGLOBIN 7.7 g/dl (12.0-15.5); LYMPH # 1.8 10^3/uL (1.5-4.5); LYMPH % 24.7 % (24.0-44.0); MEAN CORPUSCULAR HEMOGLOBIN 27.4 pg (27.0-33.0); MEAN CORPUSCULAR HGB CONC 30.1 g/dl (32.0-36.5); MEAN CORPUSCULAR VOLUME 91.1 fl (80.0-96.0); MONO # 0.6 10^3/uL (0.0-0.8); MONO % 8.7 % (0.0-5.0); NEUTROPHILS # 4.6 10^3/uL (1.8-7.7); NEUTROPHILS % 62.6 % (36.0-66.0); PLATELET COUNT, AUTOMATED 358 10^3/uL (150-450); RED BLOOD COUNT 2.81 10^6/uL (4.00-5.40); WHITE BLOOD COUNT 7.3 10^3/uL (4.0-10.0)
[2018-06-16 06:26] LABS: BLOOD UREA NITROGEN 8 MG/DL (7-18); CALCIUM LEVEL 8.1 MG/DL (8.8-10.2); CARBON DIOXIDE LEVEL 22 MEQ/L (21-32); CHLORIDE LEVEL 111 MEQ/L (98-107); CREATININE FOR GFR 0.48 MG/DL (0.55-1.30); GLOMERULAR FILTRATION RATE > 60.0 (>39); GLUCOSE, FASTING 101 MG/DL (70-100); POTASSIUM SERUM 3.6 MEQ/L (3.5-5.1); SODIUM LEVEL 141 MEQ/L (136-145)
--- NOTE | 2018-06-16 07:29 | IPN ---
DATE: 06/10/2018 CHIEF COMPLAINT: Postoperative day 4 for right hemiarthroplasty for pathologic femoral neck fracture. HISTORY OF PRESENT ILLNESS: This 77-year-old female was seen today on the [place], 5 [place] at [facility]. She is doing well. Able to mobilize up to the washroom. She is using the washroom without difficulty, voiding and moving her bowels well. No complaints of pain and no concerns from the nursing staff. PHYSICAL EXAMINATION: Well-appearing 77-year-old female in no acute distress. She is alert and oriented times three. Mood and affect pleasant and positive. She is lying supine in the hospital bed. Her blood pressure 133/60. Pulse rate 108. Respiratory rate 17. 95% on room air. Temperature 97.5. She is able to wiggle her toes, dorsiflex and plantar flex her foot. The foot is warm and well-perfused with good feeling throughout. The incision is well healing without complications, redness or drainage. Her laboratory examination reveals a hemoglobin of 7.7 down from 8.6 and 8.8 the last two days. Pathology report still pending. ASSESSMENT/PLAN: This is a 77-year-old female with pathologic right femoral neck fracture that is now postop day 4 from a press-fit hemiarthroplasty. We will follow up on the pathology report. I will leave the transfusion decision up to the internal corrosion specialist and either the on-call surgeon or Dr. Brasher at this point to follow-up on the pathology report. Thank you very much for involving me in the care this pleasant woman.
--- NOTE | 2018-06-16 07:43 | IPN ---
DATE: 06/16/2018 Her case was discussed with Dr. Casey who is the orthopedic rounded today. She is status-post closed right hip fracture repair. Postoperative day #4. She has a history of pulmonary embolism 05/20 and is on Lovenox as an outpatient. She has ovarian cancers on chemotherapy, has mets to the liver and possibly bone. Still waiting for pathology from the fracture. She had an IVC filter placed during this hospitalization. She is currently without chest pain, shortness of breath, fever or chills. PHYSICAL EXAM: 133/60, afebrile. Oxygen saturation 95% on room air. General appearance: Chemotherapy alopecia. Looks mildly chronically ill. Lungs: Clear. Heart: Regular rate and rhythm. Abdomen: Soft and nontender and no masses. LABS: Hemoglobin 7.7, white count is normal and platelets were normal, sodium 141, potassium 3.6, BUN 8, creatinine 0.4, glucose 101, IMPRESSION: 1. Right hip fracture, postoperative day #4, treatment per orthopedics. 2. History of pulmonary embolism status-post IVC filter, currently on Lovenox which she is also taking as an outpatient, 60 mg every 12 hours. 3. Postop anemia. Hemoglobin is trending down. She might require transfusion. I do not think that she has reached the threshold for acquiring this yet. She is on ferrous sulfate. 4. Hypothyroidism. Continue levothyroxine with 370 mcg daily. 5. History of depression. Continue sertraline 100 mg daily. 6. Ovarian cancer waiting pathology report from her hip specimen. Per physical therapy they are considering just transfer to rehabilitation.
[2018-06-16] MEDS: ENOXAPARIN 60 MG/0.6 ML SYR (J1650) SC SCH (08:58)
[2018-06-16] MEDS: FERROUS SULFATE 325MG TAB PO SCH (09:00)
[2018-06-16] MEDS: MULTIVITAMINS/MINERALS THERAP 1 TAB PO SCH (09:00)
[2018-06-16] MEDS: CYCLOBENZAPRINE 10 MG TAB PO SCH (09:00)
[2018-06-16] MEDS: MIRALAX *UNIT DOSE* 17GM PACKET PO SCH (09:00)
[2018-06-16] MEDS: PANTOPRAZOLE 40MG TAB (PROTONIX) PO SCH (09:00)
[2018-06-16] MEDS: METAMUCIL (PSYLLIUM) PACKET PO SCH (09:00)
[2018-06-16] MEDS: GABAPENTIN 300 MG CAP PO SCH (09:00)
[2018-06-16] MEDS: SENOKOT S TAB PO SCH (09:00)
[2018-06-16] MEDS: FOLIC ACID 1 MG TAB PO SCH (09:00)
[2018-06-16] MEDS: MOM 30ML SUSPENSION UDC PO SCH (09:00)
[2018-06-16] MEDS: SERTRALINE 100 MG TAB PO SCH (09:01)
[2018-06-16] MEDS ORDERED: OXYCO5TA PO (12:06)
--- NOTE | 2018-06-16 12:54 | DSES ---
DATE OF ADMISSION: 06/10/2018 DATE OF DISCHARGE: CONSULTING DOCTORS: Dr. Abdiel Casey and Dr. Sherman Brasher of orthopedics. PROPOSED PROCEDURE: Right femoral neck fracture. PRINCIPAL PROCEDURE: Cemented hemiarthroplasty right hip by Dr. Brasher on 06/12/2018. HISTORY: Patient was admitted to the hospitalist service on 06/10/2018 after falling and breaking her right hip. She was receiving chemotherapy for recurrent ovarian cancer with liver and probable skeletal metastases, had a pulmonary embolism 05/20/2018 and was on therapeutic Lovenox for this. Details are in the history and physical from admission. HOSPITAL COURSE: The patient as admitted to a medical bed, underwent uneventful cemented hemiarthroplasty right hip by Dr. Brasher on 06/12. Her postop course was uncomplicated. She did not require any blood transfusions. Details of her visit today are in the progress note from today, which I dictated before it became apparent the patient was going to be discharged. DISPOSITION: Patient discharged to [facility] for rehab. Her medicines will be the same as she was taking before admission, Lovenox 60 mg every 12 hours, ferrous sulfate 325 mg twice daily with meals, Flonase spray, folic acid 1 mg daily, gabapentin 300 mg three times a day, Ensure Enlive twice daily, lansoprazole 30 mg daily, levothyroxine 137 mcg daily, Imodium 2 mg as needed for diarrhea, multivitamin, Zofran 4 mg every 6 hours as needed, pramipexole 0.75 mg at bedtime, Seroquel 25 mg at bedtime, Florastor 250 mg twice a day as needed as a probiotic, and sertraline 100 mg daily. Pain medication is oxycodone 5 mg every 4 hours as needed for mild to moderate pain, 10 mg every 4 hours as needed for moderate to severe pain. Diet as tolerated. Activity as tolerated. Follow-up with her primary care provider after discharge from [place].
[2018-06-16 14:00] VITALS: BP 120/53
== END 2018-06-16 16:00 | DRG 470 ==
LOC: M ED 20:04 → M ED INP 23:20 → M MS5PR 06-11 00:40 → M MSPAV 06-11 16:27 → M MS5PR 06-12 11:45
PROVIDERS: ADMIT Internal Medicine Nephrology; ATTEND Family Medicine
PROC: 06703DZ Dilation of Inferior Vena Cava with Intraluminal Device, Percutaneous Approach (ICD-10-PCS; 2018-06-11)
PROC: 0SRR0J9 Replacement of Right Hip Joint, Femoral Surface with Synthetic Substitute, Cemented, Open Approach (ICD-10-PCS; principal; 2018-06-12 12:30)
DX: S72.144A Nondisplaced intertrochanteric fracture of right femur, initial encounter for closed fracture (principal); C79.51 Secondary malignant neoplasm of bone; C56.9 Malignant neoplasm of unspecified ovary; C78.7 Secondary malignant neoplasm of liver and intrahepatic bile duct; W18.09XA Striking against other object with subsequent fall, initial encounter; D64.9 Anemia, unspecified; Y92.009 Unspecified place in unspecified non-institutional (private) residence as the place of occurrence of the external cause; M06.9 Rheumatoid arthritis, unspecified; K21.9 Gastro-esophageal reflux disease without esophagitis; K57.90 Diverticulosis of intestine, part unspecified, without perforation or abscess without bleeding; E03.9 Hypothyroidism, unspecified; Z86.711 Personal history of pulmonary embolism; Z88.8 Allergy status to other drugs, medicaments and biological substances; Z79.899 Other long term (current) drug therapy

== ENCOUNTER 2018-06-16 11:05 | Inpatient (IN) | payer MEDICARE, BC ==
[~2018-06-16] VITALS: Ht 157.5 cm; Wt 61.6 kg
[~2018-06-16 11:05] MED LIST changes: +ENOX60IN3 SC; +ENSU1LIQ36 PO; +FERR325T18 PO; +FLUTISP; +FOLI1TAB11 PO; +GABA-843 PO; +LANS30CA PO; +LOPE-1 PO; +PRAM0.754 PO; +VITMTA PO; +ZOFR8TAB24 PO
[2018-06-16] MEDS ORDERED: OXYCO5TA PO (12:06)
[2018-06-16] MEDS ORDERED: MAALOX 30 ML SUSP *UDC PO PRN (15:00)
[2018-06-16] MEDS ORDERED: ONDANSETRON 4 MG TAB (S0181) PO PRN (15:00)
[2018-06-16] MEDS ORDERED: MOM 30ML SUSPENSION UDC PO PRN (15:00)
[2018-06-16] MEDS ORDERED: BISACODYL 5 MG TAB PO PRN (15:00)
[2018-06-16 16:00] VITALS: BP 134/71
[2018-06-16] MEDS: oxyCODONE 5MG TAB PO PRN (17:18)
[2018-06-16 20:00] VITALS: BP 102/85
[2018-06-16] MEDS: ENOXAPARIN 60 MG/0.6 ML SYR (J1650) SC SCH (20:19)
[2018-06-16] MEDS: FERROUS GLUCONATE 324 MG TAB PO SCH (20:19)
[2018-06-16] MEDS: oxyCODONE 10 MG CR TAB PO SCH (20:19)
[2018-06-16 21:11] LABS: APPEARANCE, URINE CLOUDY (CLEAR); BACTERIA, URINE AUTO 3+ (NEGATIVE); BILIRUBIN, URINE AUTO NEGATIVE (NEGATIVE); BLOOD, URINE BLOOD 3+ (NEGATIVE); COLOR, URINE YELLOW (YELLOW); GLUCOSE, URINE (UA) AUTO NEGATIVE (NEGATIVE); KETONE, URINE AUTO NEGATIVE (NEGATIVE); LEUKOCYTE ESTERASE, URINE AUTO 3+ (NEGATIVE); NITRITE, URINE AUTO NEGATIVE (NEGATIVE); PROTEIN, URINE AUTO NEGATIVE (NEGATIVE); RBC, URINE AUTO 43 /HPF (0-3); SPECIFIC GRAVITY URINE AUTO 1.008 (1.002-1.035); SQUAMOUS EPITHELIAL CELL UR AU 0 /HPF (0-6); UROBILINOGEN, URINE AUTO 0.2 mg/dL (0.0-2.0); WBC, URINE AUTO TNTC /HPF (0-3)
[2018-06-16] MEDS: ACETAMINOPHEN 500 MG TAB PO SCH (22:00)
[2018-06-16] MEDS: PRAMIPEXOLE 0.25 MG TAB PO SCH (23:05)
[2018-06-16] MEDS: QUEtiapine FUMARATE 25 MG TAB PO SCH (23:06)
[2018-06-16] MEDS: GABAPENTIN 300 MG CAP PO SCH (23:06)
[2018-06-16] MEDS: CYCLOBENZAPRINE 10 MG TAB PO SCH (23:07)
[2018-06-17 06:00] VITALS: BP 127/66
[2018-06-17] MEDS: LEVOTHYROXINE 137MCG TABLET (0.137MG) PO SCH (06:26)
[2018-06-17] MEDS: ACETAMINOPHEN 500 MG TAB PO SCH ×3 (06:26→20:18)
[2018-06-17 06:51] LABS: BASO % 0.4 % (0.0-1.0); EOS # 0.3 10^3/uL (0.0-0.50); EOS % 4.4 % (0.0-3.0); HEMATOCRIT 25.6 % (36.0-47.0); HEMOGLOBIN 7.8 g/dl (12.0-15.5); LYMPH # 1.6 10^3/uL (1.5-4.5); LYMPH % 28.1 % (24.0-44.0); MEAN CORPUSCULAR HEMOGLOBIN 28.1 pg (27.0-33.0); MEAN CORPUSCULAR HGB CONC 30.5 g/dl (32.0-36.5); MEAN CORPUSCULAR VOLUME 92.1 fl (80.0-96.0); MONO # 0.6 10^3/uL (0.0-0.8); MONO % 10.3 % (0.0-5.0); NEUTROPHILS # 3.2 10^3/uL (1.8-7.7); NEUTROPHILS % 56.1 % (36.0-66.0); PLATELET COUNT, AUTOMATED 349 10^3/uL (150-450); RED BLOOD COUNT 2.78 10^6/uL (4.00-5.40); WHITE BLOOD COUNT 5.7 10^3/uL (4.0-10.0)
[2018-06-17 07:14] LABS: ALBUMIN 1.5 GM/DL (3.2-5.2); ALT/SGPT 13 U/L (12-78); BILIRUBIN,TOTAL 0.2 MG/DL (0.2-1.0); BLOOD UREA NITROGEN 8 MG/DL (7-18); CALCIUM LEVEL 8.2 MG/DL (8.8-10.2); CARBON DIOXIDE LEVEL 24 MEQ/L (21-32); CHLORIDE LEVEL 112 MEQ/L (98-107); CREATININE FOR GFR 0.47 MG/DL (0.55-1.30); GLOMERULAR FILTRATION RATE > 60.0 (>39); GLUCOSE, FASTING 96 MG/DL (70-100); POTASSIUM SERUM 3.5 MEQ/L (3.5-5.1); SODIUM LEVEL 143 MEQ/L (136-145); TOTAL PROTEIN 5.3 GM/DL (6.4-8.2)
[2018-06-17] MEDS: oxyCODONE 10 MG CR TAB PO SCH ×2 (07:50→20:17)
[2018-06-17] MEDS: SENOKOT S TAB PO SCH (07:51)
[2018-06-17] MEDS: CYCLOBENZAPRINE 10 MG TAB PO SCH ×3 (07:51→20:17)
[2018-06-17] MEDS: FERROUS GLUCONATE 324 MG TAB PO SCH ×2 (07:51→20:17)
[2018-06-17] MEDS: SERTRALINE 100 MG TAB PO SCH (07:51)
[2018-06-17] MEDS: GABAPENTIN 300 MG CAP PO SCH ×3 (07:51→20:17)
[2018-06-17] MEDS: PANTOPRAZOLE 40MG TAB (PROTONIX) PO SCH (07:51)
[2018-06-17] MEDS: FOLIC ACID 1 MG TAB PO SCH (07:51)
[2018-06-17] MEDS: METAMUCIL (PSYLLIUM) PACKET PO SCH (07:52)
[2018-06-17] MEDS: MULTIVITAMINS/MINERALS THERAP 1 TAB PO SCH (07:52)
[2018-06-17] MEDS: ENOXAPARIN 60 MG/0.6 ML SYR (J1650) SC SCH ×2 (07:52→20:16)
[2018-06-17] MEDS ORDERED: PANTOPRAZOLE 40MG TAB (PROTONIX) PO SCH (09:00)
[2018-06-17] MEDS ORDERED: METAMUCIL (PSYLLIUM) PACKET PO SCH (09:00)
[2018-06-17] MEDS ORDERED: MULTIVITAMINS/MINERALS THERAP 1 TAB PO SCH (09:00)
[2018-06-17] MEDS ORDERED: FUROSEMIDE 20 MG/2 ML VIAL (J1940) IV ONE (10:00)
[2018-06-17] MEDS ORDERED: ACETAMINOPHEN TAB 650MG DOSE (2X325MG) PO ONE (10:00)
[2018-06-17] MEDS ORDERED: diphenhydrAMINE 25 MG CAP PO ONE (10:00)
[2018-06-17] MEDS: oxyCODONE 5MG TAB PO PRN (11:04)
--- NOTE | 2018-06-17 11:50 | HPEPDOC ---
Business Solutions Consultant Note DATE OF ADMISSION: SOURCE OF ADMISSION INFORMATION: patient and [facility] records CHIEF COMPLAINT: right hip fracture HISTORY OF PRESENT ILLNESS: 77 F pmh stage 4 ovarian cancer s/p surgery and chemotherapy, with recurrence and metastases to the liver and bones, recent PE in may 2018 and NSTEMI treated at [facility], anemia, Hypothyroidism, Spinal stenosis, rheumatoid arthritis, and generalized weakness who had a mechanical fall at home where she presented to [facility] ED on 06/10/18 complaining of right sided weakness and inability to walk. Xrays revealed, Intertrochanteric fracture is again identified with cephalad migration of the distal fracture fragment for which an ortho consult was placed who reported needing clearance from both medicine and oncology. She was placed on a heparin drip in preparation for surgery and an IVC filter was placed on 06/11/18 by vascular surgery for hypercoagulable state. She later underwent a right hip joey-arthroplasty on 06/14/18 with bone pathology coming back negative for malignancy. She reported right shoulder pain for which X-rays on 06/11/18 showed, Clavicle fracture. No glenohumeral fracture or dislocation. She underwent a NM bone scan to look for metastases and was found to have several left sided rib fractures. She was maintained on therapeutic Lovenox for her history of PE and was found to have continuous drop in hemoglobin which was thought to be from post-op losses. Therapy evaluated her and her level of function was far below baseline requiring assistance with gait and ADLs, so she was deemed medically appropriate for discharge to ARU on . REVIEW OF SYSTEMS: The following is a completed review of systems and has been reviewed. Review of systems otherwise unremarkable. PAIN: Patient self reports right hip pain EYES: Negative for recent vision changes EARS, NOSE, & THROAT: negative for dysphagia or throat pain CARDIOVASCULAR: denies chest pain or palpitations PULMONARY: Negative. +resting dyspnea (baseline) GASTROINTESTINAL: Negative for diarrhea/constipaiton GENITOURINARY: Negative for dysuria MUSCULOSKELETAL: right hip fracture NEUROLOGICAL: no tremor or seizure activity HEMATOLOGICAL: +anemia SKIN: right hip incision PSYCHIATRIC: Unremarkable All other review of systems found to be negative. PAST MEDICAL HISTORY: as per HPI PAST SURGICAL HISTORY: appendectomy ovarian surgery (BSO) hysterectomy (LAKISHA) abdominal hernia surgeries Left ORIF ALLERGIES: Please see below. MEDICATIONS: Please see below. FAMILY HISTORY: mother with breast cancer SOCIAL HISTORY: Lives alone, retired, occasional ETOH, no smoking or illicit drugs DIET: Regular PHYSICAL EXAMINATION: VITAL SIGNS: Please see below. GENERAL: Pleasant and cooperative. No acute distress. Pale HEENT: PERRL. Extraocular movements intact. Clear conjunctiva CARDIOVASCULAR: Regular rate and rhythm. +systolic murmurs, rubs, or gallops LUNGS: Clear to auscultation bilaterally. No wheezes. No rhonchi ABDOMEN: Soft, nontender, nondistended. Positive bowel sounds. Normal active bowel sounds NEUROLOGICAL: Alert and oriented times three. Cranial nerves II through XII grossly intact. Sensation grossly intact including 1st web space of right foot EXTREMITIES: 5-\5 strength bilateral upper extremities. 5-\5 strength right lower ankle Df and EHL, rest of exam limited due to pain. 5-/5 strength in left lower extremity. SKIN: right incision c/d/i IMAGING: Imaging documentation personally reviewed by record FUNCTIONAL STATUS: Premorbid: Independent with all activities of daily life as well as mobility On Admission:Min assist for functional transfers, and min assist for ambulation x3 feet with RW, requiring assistance with bed mobility and toileting. GOALS: Mod-I with RW household distances, Mod-I for stairs, bathing, groming, dressing, toileting, pain management, medical optimization, family training, assess for DME needs. ASSESSMENT:77-year-ol F with past medical history of breast cancer and pulmonary embolism who presents status post fall with right hip fracture PLAN: 1. rehab: PT/OT, will consider DELIVERY RECRUITER for cognition 2. Neuro: stable 3. CArdiac: recent NSTEMI in 05/2018- medicine consulted 4. Resp: recent diagnosis of PE in 05/2018 on Lovenox, s/p IVC filter placed 06/11/18, monitor for infection, encourage incentive spirometry -recent imaging +several left rib fractures 5. Onc/Heme: stage 4 ovarian cancer with mets, f/u with oncology as outpatient, optimize pain control -post-op anemia will monitor and transfuse tomorrow if Hgb still < 8 6. Ortho: s/p fall with right hip fracture s/p hemiarthroplasty- WBAT with hip precautions -right clavicle- per ortho recs no restrictions, WBAT 7. Endo: pmh hypothyroidism, c/u Synthroid 8. Pain: c/u Tylenol standing, oxycodone, Gabapentin, and Flexeril 9. Psych/Insomnia: c/u Seroquel qhS and Sertraline for anxiety 10. DVT ppx: on full dose Lovenox for PE 11. GI ppx: protnix 12. : f/u admission Ua and Ucx and monitor for PVRs 13. Dispo: TBD POST ADMISSION PHYSICIAN EVALUATION: Medical and functional status: Description of medical status, medical assessment: As above. Rehabilitation diagnosis and current and prior cold morbid medical conditions as above. Risk of complications and plans to mitigate them as above. Description of functional status current status is as above. Prior status as above. Status compared to preadmission: There are no clinically significant differences between the patient's current status and the information described on the preadmission screening document. Treatment plan anticipated: Treatment plan is as described above. Required disciplines including physical therapy, occupational therapy, others as noted above Intensity of services: 3 hours a day, 6 days a week. Special considerations: There are no specific special or safety considerations that would likely preclude immediate implementation of an intensive rehabilitation program or subsequently influence the plan of care. ATTESTATION: Considering all the information above, it is my best judgment that this patient requires intensive rehabilitation therapy as described above and an inpatient hospital environment due to the complexity of nursing, medical, and rehabilitation needs required by the patient. Furthermore, this patient can reasonably be expected to participate in an benefit from an inpatient rehabilitation stay with an interdisciplinary team approach to the delivery of rehabilitation care under the direction and supervision of rehabilitation physician. PROGNOSIS: Excellent. ESTIMATED LENGTH OF STAY: 18-21 days. PROJECTED DISCHARGE DESTINATION: Home with family support and any durable medical equipment required to increase functional safety and mobility. TIME SPENT COUNSELING AND COORDINATING INITIAL CARE: Greater than 70 minutes. Vital Signs Vital Signs Date Time Temp Pulse Resp B/P (MAP) Pulse Ox O2 Delivery O2 Flow Rate FiO2 06/16/18 16:00 98.5 96 20 134/71 (92) 96 Home Medications Scheduled Enoxaparin Sodium (Enoxaparin Sodium) 60 Mg/0.6 Ml Syringe, 60 MG SC Q12H, (Reported) Ferrous Sulfate (Ferrous Sulfate) 325 Mg Tablet, 325 MG PO BIDWM, (Reported) Folic Acid (Folic Acid) 1 Mg Tablet, 1 MG PO DAILY, (Reported) Gabapentin (Gabapentin) 300 Mg Capsule, 300 MG PO TID, (Reported) Lactose-Reduced Food (Ensure Enlive) 237 Ml Liquid, 237 ML PO BID, (Reported) Lansoprazole (Lansoprazole) 30 Mg Capsule.dr, 30 MG PO DAILY, (Reported) Levothyroxine Sodium (Synthroid) 137 Mcg Tablet, 137 MCG PO QAM, (Reported) Multivitamins (Thera M Plus Tablet) 1 Each Tablet, 2 TAB PO DAILY, (Reported) Pramipexole Di-HCl (Pramipexole Dihydrochloride) 0.75 Mg Tablet, 0.75 MG PO QHS, (Reported) Quetiapine Fumarate (Quetiapine Fumarate) 25 Mg Tablet, 25 MG PO QHS, (Reported) Sertraline Hcl (Zoloft) 100 Mg Tablet, 100 MG PO DAILY, (Reported) Scheduled PRN Fluticasone Propionate (Fluticasone Propionate) 16 Gm Hector.susp, 2 SPRAY NA BID PRN for ALLERGIES, (Reported) Loperamide HCl (Imodium A-D) 2 Mg Capsule, 2 MG PO DAILY PRN for DIARRHEA, (Reported) Ondansetron HCl (Zofran) 8 Mg Tablet, 8 MG PO Q6H PRN for NAUSEA OR VOMITING, (Reported) Oxycodone HCl (Oxycodone HCl) 5 Mg Tablet, 5 MG PO Q4HP PRN for PAIN Oxycodone HCl (Oxycodone HCl) 5 Mg Tablet, 10 MG PO Q4HP PRN for SEVERE PAIN (PS 8-10) Saccharomyces Boulardii (Florastor) 250 Mg Capsule, 250 MG PO BID PRN for loose stools, (Reported) Allergies Coded Allergies: methotrexate (Unverified Allergy, Unknown, 06/10/18) metoclopramide (Unverified Allergy, Unknown, 06/10/18) moxifloxacin (Unverified Allergy, Unknown, 06/10/18) nalbuphine (Unverified Allergy, Unknown, 06/10/18) prochlorperazine (Unverified Allergy, Unknown, 06/10/18) topiramate (Unverified Allergy, Unknown, 06/10/18) trazodone (Unverified Allergy, Unknown, 06/10/18) JLUIA TAYLOR MD Jun 16, 2018 15:42
[2018-06-17 14:00] VITALS: BP 115/57
--- NOTE | 2018-06-17 15:36 | IPNPDOC ---
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 REVIEW OF SYSTEMS: The following is a completed review of systems and has been reviewed. Review of systems otherwise unremarkable. PAIN: Patient self reports right hip pain EYES: Negative for recent vision changes EARS, NOSE, & THROAT: negative for dysphagia or throat pain CARDIOVASCULAR: denies chest pain or palpitations PULMONARY: Negative. +resting dyspnea (baseline) GASTROINTESTINAL: Negative for diarrhea/constipation GENITOURINARY: Negative for dysuria MUSCULOSKELETAL: right hip fracture NEUROLOGICAL: no tremor or seizure activity HEMATOLOGICAL: +anemia SKIN: right hip incision PSYCHIATRIC: Unremarkable All other review of systems found to be negative. PHYSICAL EXAMINATION: VITAL SIGNS: Please see below. GENERAL: Pleasant and cooperative. No acute distress. Pale HEENT: PERRL. Extraocular movements intact. Clear conjunctiva CARDIOVASCULAR: Regular rate and rhythm. +systolic murmurs, rubs, or gallops, right upper chest wall LUNGS: Clear to auscultation bilaterally. No wheezes. No rhonchi ABDOMEN: Soft, nontender, nondistended. Positive bowel sounds. Normal active bowel sounds NEUROLOGICAL: Alert and oriented times three. Cranial nerves II through XII grossly intact. Sensation grossly intact including 1st web space of right foot EXTREMITIES: 5-\5 strength bilateral upper extremities. 5-\5 strength right lower ankle Df and EHL, rest of exam limited due to pain. 5-/5 strength in left lower extremity. SKIN: right thigh incision c/d/i ASSESSMENT:77-year-ol F with past medical history of breast cancer and pulmonary embolism who presents status post fall with right hip fracture PLAN: 1. rehab: PT/OT, will consider TRAINING AND DEVELOPMENT OFFICER for cognition 2. Neuro: stable 3. CArdiac: recent NSTEMI in 05/2018- medicine consulted 4. Resp: recent diagnosis of PE in 05/2018 on Lovenox, s/p IVC filter placed 06/11/18, monitor for infection, encourage incentive spirometry -recent imaging +several left rib fractures 5. Onc/Heme: stage 4 ovarian cancer with mets, f/u with oncology as outpatient, optimize pain control -post-op anemia will monitor, today 7.8, will give 2 units of prbcs, received verbal permission from oncology nurse OK to use port for access and infusions 6. Ortho: s/p fall with right hip fracture s/p hemiarthroplasty- WBAT with hip precautions -right clavicle- per ortho recs no restrictions, WBAT 7. Endo: pmh hypothyroidism, c/u Synthroid 8. Pain: c/u Tylenol standing, oxycodone, Gabapentin, and Flexeril 9. Psych/Insomnia: c/u Seroquel qhS and Sertraline for anxiety 10. DVT ppx: on full dose Lovenox for PE 11. GI ppx: protnix 12. : admission Ua and Ucx pending, and monitor for PVRs 13. Dispo: TBD Allergies Coded Allergies: methotrexate (Unverified Allergy, Unknown, 06/10/18) metoclopramide (Unverified Allergy, Unknown, 06/10/18) moxifloxacin (Unverified Allergy, Unknown, 06/10/18) nalbuphine (Unverified Allergy, Unknown, 06/10/18) prochlorperazine (Unverified Allergy, Unknown, 06/10/18) topiramate (Unverified Allergy, Unknown, 06/10/18) trazodone (Unverified Allergy, Unknown, 06/10/18) Vital Signs Vital Signs Date Time Temp Pulse Resp B/P (MAP) Pulse Ox O2 Delivery O2 Flow Rate FiO2 06/17/18 14:00 97.2 104 18 115/57 (76) 94 Laboratory Data CBC/BMP Laboratory Tests 06/17/18 06:21 Red Blood Count 2.78 L, Mean Corpuscular Volume 92.1, Mean Corpuscular Hem oglobin 28.1, Mean Corpuscular Hemoglobin Concent 30.5 L, Red Cell Distribution Width 18.1 H, Neutrophils (%) (Auto) 56.1, Lymphocytes (%) (Auto) 28.1, Monocytes (%) (Auto) 10.3 H, Eosinophils (%) (Auto) 4.4 H, Basophils (%) (Auto) 0.4, Neutrophils # (Auto) 3.2, Lymphocytes # (Auto) 1.6, Monocytes # (Auto) 0.6, Eosinophils # (Auto) 0.3, Basophils # (Auto) 0.0, Calcium Level 8.2 L, Aspartate Amino Transf (AST/SGOT) 17, Alanine Aminotransferase (ALT/SGPT) 13, Alkaline Phosphatase 149 H, Total Bilirubin 0.2, Total Protein 5.3 L, Albumin 1.5 L Labs 24H Laboratory Tests 2 06/16/18 20:51: Urine Appearance CLOUDYH, Urine Color YELLOW, Urine pH 7.0, Urine Specific [place] 1.008, Urine Protein NEGATIVE, Urine Glucose (UA) NEGATIVE, Urine Ketones NEGATIVE, Urine Urobilinogen 0.2, Urine Bilirubin NEGATIVE, Urine Leukocyte Esterase 3+H, Urine Blood 3+H, Urine Nitrite NEGATIVE, Urine WBC (Auto) TNTCH, Urine RBC (Auto) 43H, Urine Hyaline Casts (Auto) 0, Urine Bacteria (Auto) 3+H, Urine Squamous Epithelial Cells 0, Urine Sperm (Auto) 06/17/18 06:21: Immature Granulocyte % (Auto) 0.7, White Blood Count 5.7, Red Blood Count 2.78L, Hemoglobin 7.8L, Hematocrit 25.6L, Mean Corpuscular Volume 92.1, Mean Corpuscular Hemoglobin 28.1, Mean Corpuscular Hemoglobin Concent 30.5L, Red Cell Distribution Width 18.1H, Platelet Count 349, Neutrophils (%) (Auto) 56.1, Lymphocytes (%) (Auto) 28.1, Monocytes (%) (Auto) 10.3H, Eosinophils (%) (Auto) 4.4H, Basophils (%) (Auto) 0.4, Neutrophils # (Auto) 3.2, Lymphocytes # (Auto) 1.6, Monocytes # (Auto) 0.6, Eosinophils # (Auto) 0.3, Basophils # (Auto) 0.0, Nucleated Red Blood Cells % (auto) 0.0, Anion Gap 7L, Glomerular Filtration Rate > 60.0, Blood Urea Nitrogen 8, Creatinine 0.47L, Sodium Level 143, Potassium Level 3.5, Chloride Level 112H, Carbon Dioxide Level 24, Calcium Level 8.2L, Aspartate Amino Transf (AST/SGOT) 17, Alanine Aminotransferase (ALT/SGPT) 13, Alkaline Phosphatase 149H, Total Bilirubin 0.2, Total Protein 5.3L, Albumin 1.5L, Albumin/Globulin Ratio 0.39L Microbiology Microbiology 06/16/18 Urine Culture, Received Pending Current Medications Current Medications Current Medications Acetaminophen (Tylenol Tab) 1,000 mg Q8H PO Last administered on 06/17/18at 14:43; Start 06/16/18 at 22:00 Al Hydrox/Mg Hydrox/Simethicone (Mylanta) 30 ml Q4HP PRN PO DYSPEPSIA; Start 06/16/18 at 15:00 Bisacodyl (Dulcolax Tab) 5 mg DAILYPRN PRN PO CONSTIPATION; Start 06/16/18 at 15:00 Cyclobenzaprine HCl (Flexeril) 10 mg TID PO Last administered on 06/17/18at 07:51; Start 06/16/18 at 21:00 Enoxaparin Sodium (Lovenox) 60 mg BID SC Last administered on 06/17/18 07:52; Start 06/16/18 at 21:00 Ferrous Gluconate (Fergon) 324 mg BID PO Last administered on 06/17/18 07:51; Start 06/16/18 at 21:00 Folic Acid (Folic Acid) 1 mg DAILY PO Last administered on 06/17/18 07:51; Start 06/17/18 at 09:00 Gabapentin (Neurontin) 300 mg TID PO Last administered on 06/17/18at 07:51; Start 06/16/18 at 21:00 Heparin Sodium (Heparin (Flush)) 500 units ASDIRECTED PRN IV SEE LABEL COMME NTS; Start 06/17/18 at 12:00 Heparin Sodium (Heparin (Flush)) 500 units DAILY IV ; Start 06/18/18 at 09:00 Levothyroxine Sodium (Synthroid) 137 mcg DAILY@06 PO Last administered on 06/17/18at 06:26; Start 06/17/18 at 06:00 Magnesium Hydroxide (Milk Of Magnesia) 30 ml DAILYPRN PRN PO CONSTIPATION; Start 06/16/18 at 15:00 Multivitamins (Theragram-M) 1 tab DAILY PO ; Start 06/17/18 at 09:00; Stop at 09:00; Status DC Multivitamins (Theragram-M) 2 tab DAILY PO Last administered on 06/17/18at 07:52; Start 06/17/18 at 09:00 Ondansetron HCl (Zofran) 4 mg Q6HP PRN PO NAUSEA; Start 06/16/18 at 15:00 Oxycodone HCl (OxyCONTIN) 10 mg BID PO Last administered on 06/17/18at 07:50; Start 06/16/18 at 21:00 Oxycodone HCl (Roxicodone, Oxyir) 5 mg Q4HP PRN PO PAIN Last administered on 06/16/18at 17:18; Start 06/16/18 at 15:45 Oxycodone HCl (Roxicodone, Oxyir) 10 mg Q4HP PRN PO SEVERE PAIN (PS 8-10) Last administered on 06/17/18at 11:04; Start 06/16/18 at 15:45 Pantoprazole Sodium (Protonix) 40 mg DAILY PO Last administered on 06/17/18at 07:51; Start 06/17/18 at 09:00 Pantoprazole Sodium (Protonix) 40 mg DAILY PO ; Start 06/17/18 at 09:00; Status Cancel Pramipexole Dihydrochloride (Mirapex) 0.75 mg QHS PO Last administered on 06/16/18at 23:05; Start 06/16/18 at 21:00 Psyllium Hydrophilic Mucilloid (Metamucil) 1 pkt DAILY PO ; Start 06/17/18 at 09:00 Psyllium Hydrophilic Mucilloid (Metamucil) 1 pkt DAILY PO ; Start 06/17/18 at 09:00; Status Cancel Quetiapine Fumarate (SEROquel) 25 mg QHS PO Last administered on 06/16/18at 23:06; Start 06/16/18 at 21:00 Senna/Docusate Sodium (Senokot S) 1 tab DAILY PO ; Start 06/17/18 at 09:00 Sertraline HCl (Zoloft) 100 mg DAILY PO Last administered on 06/17/18at 07:51; Start 06/17/18 at 09:00 Sodium Chloride (Saline Lock Flush) 10 ml ASDIRECTED PRN IV SEE LABEL COMMENTS; Start 06/17/18 at 12:00 Sodium Chloride (Saline Lock Flush) 10 ml DAILY IV ; Start 06/18/18 at 09:00 JULIA TAYLOR MD Jun 17, 2018 15:36
[2018-06-17 20:00] VITALS: BP 122/60
[2018-06-17] MEDS: PRAMIPEXOLE 0.25 MG TAB PO SCH (20:16)
[2018-06-17] MEDS: QUEtiapine FUMARATE 25 MG TAB PO SCH (20:17)
[2018-06-17] MEDS: SODIUM CHLORIDE 0.9% INJ 10 ML SYR IV PRN (20:17)
[2018-06-18 06:00] VITALS: BP 132/58
[2018-06-18] MEDS: ACETAMINOPHEN 500 MG TAB PO SCH ×3 (06:06→21:02)
[2018-06-18] MEDS: LEVOTHYROXINE 137MCG TABLET (0.137MG) PO SCH (06:06)
[2018-06-18] MEDS: SODIUM CHLORIDE 0.9% INJ 10 ML SYR IV PRN (06:07)
[2018-06-18 07:06] LABS: BLOOD UREA NITROGEN 10 MG/DL (7-18); CALCIUM LEVEL 8.4 MG/DL (8.8-10.2); CARBON DIOXIDE LEVEL 24 MEQ/L (21-32); CHLORIDE LEVEL 111 MEQ/L (98-107); CREATININE FOR GFR 0.46 MG/DL (0.55-1.30); GLOMERULAR FILTRATION RATE > 60.0 (>39); GLUCOSE, FASTING 78 MG/DL (70-100); POTASSIUM SERUM 3.3 MEQ/L (3.5-5.1); SODIUM LEVEL 142 MEQ/L (136-145)
[2018-06-18] MEDS: METAMUCIL (PSYLLIUM) PACKET PO SCH (09:00)
[2018-06-18] MEDS: ANALGESIC BALM CRM 120 GM TOP SCH ×2 (09:00→20:58)
[2018-06-18] MEDS: SENOKOT S TAB PO SCH (09:00)
[2018-06-18] MEDS: PANTOPRAZOLE 40MG TAB (PROTONIX) PO SCH (09:02)
[2018-06-18] MEDS: FOLIC ACID 1 MG TAB PO SCH (09:02)
[2018-06-18] MEDS: FERROUS GLUCONATE 324 MG TAB PO SCH ×2 (09:02→20:57)
[2018-06-18] MEDS: GABAPENTIN 300 MG CAP PO SCH ×3 (09:02→20:57)
[2018-06-18] MEDS: MULTIVITAMINS/MINERALS THERAP 1 TAB PO SCH (09:02)
[2018-06-18] MEDS: CYCLOBENZAPRINE 10 MG TAB PO SCH ×3 (09:02→20:57)
[2018-06-18] MEDS: oxyCODONE 10 MG CR TAB PO SCH ×2 (09:02→20:57)
[2018-06-18] MEDS: SERTRALINE 100 MG TAB PO SCH (09:02)
[2018-06-18] MEDS: SODIUM CHLORIDE 0.9% INJ 10 ML SYR IV SCH (09:03)
[2018-06-18] MEDS: ENOXAPARIN 60 MG/0.6 ML SYR (J1650) SC SCH ×2 (09:03→20:56)
[2018-06-18] MEDS ORDERED: POTASSIUM CHLORIDE 10 MEQ SR TABLET PO ONE (10:15)
[2018-06-18] MEDS: oxyCODONE 5MG TAB PO PRN ×2 (10:40→15:59)
[2018-06-18] MEDS: LOPERAMIDE 2 MG CAP PO PRN (10:40)
[2018-06-18 11:51] LABS: BASO % 0.4 % (0.0-1.0); EOS # 0.3 10^3/uL (0.0-0.50); EOS % 4.8 % (0.0-3.0); HEMATOCRIT 31.9 % (36.0-47.0); HEMOGLOBIN 10.1 g/dl (12.0-15.5); LYMPH # 1.7 10^3/uL (1.5-4.5); LYMPH % 29.2 % (24.0-44.0); MEAN CORPUSCULAR HEMOGLOBIN 28.8 pg (27.0-33.0); MEAN CORPUSCULAR HGB CONC 31.7 g/dl (32.0-36.5); MEAN CORPUSCULAR VOLUME 90.9 fl (80.0-96.0); MONO # 0.6 10^3/uL (0.0-0.8); MONO % 9.9 % (0.0-5.0); NEUTROPHILS # 3.1 10^3/uL (1.8-7.7); PLATELET COUNT, AUTOMATED 360 10^3/uL (150-450); RED BLOOD COUNT 3.51 10^6/uL (4.00-5.40); WHITE BLOOD COUNT 5.7 10^3/uL (4.0-10.0)
--- NOTE | 2018-06-18 12:25 | IPNPDOC ---
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 REVIEW OF SYSTEMS: The following is a completed review of systems and has been reviewed. Review of systems otherwise unremarkable. PAIN: Patient self reports right hip pain EYES: Negative for recent vision changes EARS, NOSE, & THROAT: negative for dysphagia or throat pain CARDIOVASCULAR: denies chest pain or palpitations PULMONARY: Negative. +resting dyspnea (baseline) GASTROINTESTINAL: Negative for diarrhea/constipation GENITOURINARY: Negative for dysuria MUSCULOSKELETAL: right hip fracture NEUROLOGICAL: no tremor or seizure activity HEMATOLOGICAL: +anemia SKIN: right hip incision PSYCHIATRIC: Unremarkable All other review of systems found to be negative. PHYSICAL EXAMINATION: VITAL SIGNS: Please see below. GENERAL: Pleasant and cooperative. No acute distress. Pale HEENT: PERRL. Extraocular movements intact. Clear conjunctiva CARDIOVASCULAR: Regular rate and rhythm. +systolic murmurs, rubs, or gallops, ri ght upper chest wall LUNGS: Clear to auscultation bilaterally. No wheezes. No rhonchi ABDOMEN: Soft, nontender, nondistended. Positive bowel sounds. Normal active bowel sounds NEUROLOGICAL: Alert and oriented times three. Cranial nerves II through XII grossly intact. Sensation grossly intact including 1st web space of right foot EXTREMITIES: 5-\5 strength bilateral upper extremities. 5-\5 strength right lower ankle Df and EHL, rest of exam limited due to pain. 5-/5 strength in left lower extremity. (-) Gabriela's bilat SKIN: right thigh incision c/d/i ASSESSMENT:77-year-ol F with past medical history of breast cancer and pulmonary embolism who presents status post fall with right hip fracture PLAN: 1. rehab: PT/OT, will consider REGISTERED APPRAISER for cognition, ambulating with RW 2. Neuro: stable 3. CArdiac: recent NSTEMI in 05/2018- medicine consulted 4. Resp: recent diagnosis of PE in 05/2018 on Lovenox, s/p IVC filter placed 06/11/18, monitor for infection, encourage incentive spirometry -recent imaging +several left rib fractures -sinus congestion will start flonase, nasal saline drops, encouraging patient to drink liquids 5. Onc/Heme: stage 4 ovarian cancer with mets, f/u with oncology as outpatient, optimize pain control -post-op anemia will monitor, 06/17 7.8, s/p 2 units of prbcs, received verbal permission from oncology nurse OK to use port for access and infusions- today Hgb 10.1, will c/u to monitor 6. Ortho: s/p fall with right hip fracture s/p hemiarthroplasty- WBAT with hip precautions -right clavicle- per ortho recs no restrictions, WBAT 7. Endo: pmh hypothyroidism, c/u Synthroid 8. Pain: c/u Tylenol standing, oxycodone, Gabapentin, and Flexeril- will increase Gabapentin for right thigh and calf cramping and add Ice 9. Psych/Insomnia: c/u Seroquel qhS and Sertraline for anxiety 10. DVT ppx: on full dose Lovenox for PE 11. GI ppx: protonix 12. : admission Ua complete and Ucx still pending, and monitor for PVRs 13. Dispo: 07/01/18 to home Allergies Coded Allergies: methotrexate (Unverified Allergy, Unknown, 06/10/18) metoclopramide (Unverified Allergy, Unknown, 06/10/18) moxifloxacin (Unverified Allergy, Unknown, 06/10/18) nalbuphine (Unverified Allergy, Unknown, 06/10/18) prochlorperazine (Unverified Allergy, Unknown, 06/10/18) topiramate (Unverified Allergy, Unknown, 06/10/18) trazodone (Unverified Allergy, Unknown, 06/10/18) Vital Signs Vital Signs Date Time Temp Pulse Resp B/P (MAP) Pulse Ox O2 Delivery O2 Flow Rate FiO2 06/18/18 10:40 16 06/18/18 06:00 97.3 87 132/58 (82) 92 Laboratory Data CBC/BMP Laboratory Tests 06/18/18 06:05 Red Blood Count 3.51 L, Mean Corpuscular Volume 90.9, Mean Corpuscular Hemoglobin 28.8, Mean Corpuscular Hemoglobin Concent 31.7 L, Red Cell Distribution Width 17.9 H, Neutrophils (%) (Auto) 55.0, Lymphocytes (%) (Auto) 29.2, Monocytes (%) (Auto) 9.9 H, Eosinophils (%) (Auto) 4.8 H, Basophils (%) (Auto) 0.4, Neutrophils # (Auto) 3.1, Lymphocytes # (Auto) 1.7, Monocytes # (Auto) 0.6, Eosinophils # (Auto) 0.3, Basophils # (Auto) 0.0, Calcium Level 8.4 L Labs 24H Laboratory Tests 2 06/18/18 06:05: Immature Granulocyte % (Auto) 0.7, White Blood Count 5.7, Red Blood Count 3.51L, Hemoglobin 10.1#L, Hematocrit 31.9L, Mean Corpuscular Volume 90.9, Mean Corpuscular Hemoglobin 28.8, Mean Corpuscular Hemoglobin Concent 31.7L, Red Cell Distribution Width 17.9H, Platelet Count 360, Neutrophils (%) (Auto) 55.0, Lymphocytes (%) (Auto) 29.2, Monocytes (%) (Auto) 9.9H, Eosinophils (%) (Auto) 4.8H, Basophils (%) (Auto) 0.4, Neutrophils # (Auto) 3.1, Lymphocytes # (Auto) 1.7, Monocytes # (Auto) 0.6, Eosinophils # (Auto) 0.3, Basophils # (Auto) 0.0, Nucleated Red Blood Cells % (auto) 0.4H, Anion Gap 7L, Glomerular Filtration Rate > 60.0, Blood Urea Nitrogen 10, Creatinine 0.46L, Sodium Level 142, Potassium Level 3.3L, Chloride Level 111H, Carbon Dioxide Level 24, Calcium Level 8.4L Microbiology Microbiology 06/17/18 MRSA Screen, Received Pending 06/16/18 Urine Culture, Received Pending Current Medications Current Medications Current Medications Acetaminophen (Tylenol Tab) 1,000 mg Q8H PO Last administered on 06/18/18at 06:06; Start 06/16/18 at 22:00 Al Hydrox/Mg Hydrox/Simethicone (Mylanta) 30 ml Q4HP PRN PO DYSPEPSIA; Start 06/16/18 at 15:00 Bisacodyl (Dulcolax Tab) 5 mg DAILYPRN PRN PO CONSTIPATION; Start 06/16/18 at 15:00 Cyclobenzaprine HCl (Flexeril) 10 mg TID PO Last administered on 06/18/18at 09:02; Start 06/16/18 at 21:00 Enoxaparin Sodium (Lovenox) 60 mg BID SC Last administered on 06/18/18at 09:03; Start 06/16/18 at 21:00 Ferrous Gluconate (Fergon) 324 mg BID PO Last administered on 06/18/18at 09:02; Start 06/16/18 at 21:00 Fluticasone Propionate (Flonase 0.05% Nasal [place]) 1 spray BID NARES ; Start 06/18/18 at 09:00 Folic Acid (Folic Acid) 1 mg DAILY PO Last administered on 06/18/18at 09:02; Start 06/17/18 at 09:00 Gabapentin (Neurontin) 300 mg TID PO Last administered on 06/18/18at 09:02; Start 06/16/18 at 21:00; Stop 06/18/18 at 11:09; Status DC Gabapentin (Neurontin) 400 mg TID PO ; Start 06/18/18 at 16:00 Heparin Sodium (Heparin (Flush)) 500 units ASDIRECTED PRN IV SEE LABEL COMMENTS Last administered on 06/18/18at 06:07; Start 06/17/18 at 12:00 Heparin Sodium (Heparin (Flush)) 500 units DAILY IV Last administered on 06/18/18at 09:03; Start 06/18/18 at 09:00 Levothyroxine Sodium (Synthroid) 137 mcg DAILY@06 PO Last administered on 06/18/18at 06:06; Start 06/17/18 at 06:00 Loperamide HCl (Imodium) 2 mg ASDIRECTED PRN PO DIARRHEA Last administered on 06/18/18at 10:40; Start 06/18/18 at 10:30 Magnesium Hydroxide (Milk Of Magnesia) 30 ml DAILYPRN PRN PO CONSTIPATION; Start 06/16/18 at 15:00 Menthol/Methyl Salicylate ([place] Cream) right upper thigh BID TOP ; Start 06/18/18 at 09:00 Multivitamins (Theragram-M) 1 tab DAILY PO ; Start 06/17/18 at 09:00; Stop 06/17/18 at 09:00; Status DC Multivitamins (Theragram-M) 2 tab DAILY PO Last administered on 06/18/18at 09:02; Start 06/17/18 at 09:00 Ondansetron HCl (Zofran) 4 mg Q6HP PRN PO NAUSEA; Start 06/16/18 at 15:00 Oxycodone HCl (OxyCONTIN) 10 mg BID PO Last administered on 06/18/18at 09:02; Start 06/16/18 at 21:00 Oxycodone HCl (Roxicodone, Oxyir) 5 mg Q4HP PRN PO PAIN Last administered on 06/18/18at 10:40; Start 06/16/18 at 15:45 Oxycodone HCl (Roxicodone, Oxyir) 10 mg Q4HP PRN PO SEVERE PAIN (PS 8-10) Last administered on 06/17/18at 11:04; Start 06/16/18 at 15:45 Pantoprazole Sodium (Protonix) 40 mg DAILY PO Last administered on 06/18/18at 09:02; Start 06/17/18 at 09:00 Pantoprazole Sodium (Protonix) 40 mg DAILY PO ; Start 06/17/18 at 09:00; Status Cancel Pramipexole Dihydrochloride (Mirapex) 0.75 mg QHS PO Last administered on 06/17/18at 20:16; Start 06/16/18 at 21:00 Psyllium Hydrophilic Mucilloid (Metamucil) 1 pkt DAILY PO ; Start 06/17/18 at 09:00 Psyllium Hydrophilic Mucilloid (Metamucil) 1 pkt DAILY PO ; Start 06/17/18 at 09:00; Status Cancel Quetiapine Fumarate (SEROquel) 25 mg QHS PO Last administered on 06/17/18at 20:17; Start 06/16/18 at 21:00 Senna/Docusate Sodium (Senokot S) 1 tab DAILY PO ; Start 06/17/18 at 09:00 Sertraline HCl (Zoloft) 100 mg DAILY PO Last administered on 06/18/18at 09:02; Start 06/17/18 at 09:00 Sodium Chloride ([place] Nasal [place]) 2 spray TID NA ; Start 06/18/18 at 16:00 Sodium Chloride (Saline Lock Flush) 10 ml ASDIRECTED PRN IV SEE LABEL COMMENTS Last administered on 06/18/18at 06:07; Start 06/17/18 at 12:00 Sodium Chloride (Saline Lock Flush) 10 ml DAILY IV Last administered on 06/18/18at 09:03; Start 06/18/18 at 09:00 JULIA TAYLOR MD Jun 18, 2018 12:25
[2018-06-18 14:00] VITALS: BP 136/60
[2018-06-18] MEDS ORDERED: GABAPENTIN 300 MG CAP PO SCH (16:00)
[2018-06-18] MEDS: FLUTICASONE PROP 0.05% NASAL SPRAY 16 GM (FLONASE) NARES SCH ×2 (17:12→20:58)
[2018-06-18] MEDS: SODIUM CHLORIDE NASAL 0.65% SPRAY BTL (OCEAN) SCH ×2 (17:13→20:58)
[2018-06-18 20:00] VITALS: BP 117/54
[2018-06-18] MEDS: PRAMIPEXOLE 0.25 MG TAB PO SCH (20:56)
[2018-06-18] MEDS: QUEtiapine FUMARATE 25 MG TAB PO SCH (20:57)
[2018-06-19 06:00] VITALS: BP 146/66
[2018-06-19] MEDS: LEVOTHYROXINE 137MCG TABLET (0.137MG) PO SCH (06:24)
[2018-06-19] MEDS: ACETAMINOPHEN 500 MG TAB PO SCH ×3 (06:25→21:56)
[2018-06-19] MEDS: SODIUM CHLORIDE 0.9% INJ 10 ML SYR IV SCH (06:26)
[2018-06-19 06:49] LABS: HEMATOCRIT 33.1 % (36.0-47.0); HEMOGLOBIN 10.4 g/dl (12.0-15.5); MEAN CORPUSCULAR HGB CONC 31.4 g/dl (32.0-36.5); MEAN CORPUSCULAR VOLUME 89.2 fl (80.0-96.0); PLATELET COUNT, AUTOMATED 374 10^3/uL (150-450); RED BLOOD COUNT 3.71 10^6/uL (4.00-5.40)
[2018-06-19 06:57] LABS: BLOOD UREA NITROGEN 10 MG/DL (7-18); CALCIUM LEVEL 8.6 MG/DL (8.8-10.2); CARBON DIOXIDE LEVEL 24 MEQ/L (21-32); CHLORIDE LEVEL 111 MEQ/L (98-107); CREATININE FOR GFR 0.46 MG/DL (0.55-1.30); GLOMERULAR FILTRATION RATE > 60.0 (>39); GLUCOSE, FASTING 88 MG/DL (70-100); POTASSIUM SERUM 3.4 MEQ/L (3.5-5.1); SODIUM LEVEL 142 MEQ/L (136-145)
[2018-06-19] MEDS: MULTIVITAMINS/MINERALS THERAP 1 TAB PO SCH (08:24)
[2018-06-19] MEDS: GABAPENTIN 300 MG CAP PO SCH ×4 (08:24→21:56)
[2018-06-19] MEDS: oxyCODONE 10 MG CR TAB PO SCH ×2 (08:25→21:56)
[2018-06-19] MEDS: SERTRALINE 100 MG TAB PO SCH (08:25)
[2018-06-19] MEDS: ENOXAPARIN 60 MG/0.6 ML SYR (J1650) SC SCH ×2 (08:26→21:55)
[2018-06-19] MEDS: FOLIC ACID 1 MG TAB PO SCH (08:26)
[2018-06-19] MEDS: PANTOPRAZOLE 40MG TAB (PROTONIX) PO SCH (08:26)
[2018-06-19] MEDS: FERROUS GLUCONATE 324 MG TAB PO SCH ×2 (08:26→21:56)
[2018-06-19] MEDS: CYCLOBENZAPRINE 10 MG TAB PO SCH ×3 (08:26→21:56)
[2018-06-19] MEDS: METAMUCIL (PSYLLIUM) PACKET PO SCH (08:27)
[2018-06-19] MEDS: FLUTICASONE PROP 0.05% NASAL SPRAY 16 GM (FLONASE) NARES SCH ×2 (10:52→21:57)
[2018-06-19] MEDS: SODIUM CHLORIDE NASAL 0.65% SPRAY BTL (OCEAN) SCH ×3 (10:52→21:57)
[2018-06-19] MEDS: ANALGESIC BALM CRM 120 GM TOP SCH ×2 (10:52→21:57)
[2018-06-19] MEDS: oxyCODONE 5MG TAB PO PRN ×2 (10:53→23:33)
--- NOTE | 2018-06-19 10:57 | IPNPDOC ---
PM&R Progress Note DATE OF SERVICE: Jun 19, 2018 [facility] Progress Note Subjective: Patient seen in room reporting she does have some burning with urination, denies fevers or chills, and overall feels she is getting stronger. REVIEW OF SYSTEMS: The following is a completed review of systems and has been reviewed. Review of systems otherwise unremarkable. PAIN: Patient self reports right hip pain EYES: Negative for recent vision changes EARS, NOSE, & THROAT: negative for dysphagia or throat pain CARDIOVASCULAR: denies chest pain or palpitations PULMONARY: Negative. +resting dyspnea (baseline) GASTROINTESTINAL: Negative for diarrhea/constipation GENITOURINARY: +dysuria MUSCULOSKELETAL: right hip fracture NEUROLOGICAL: no tremor or seizure activity HEMATOLOGICAL: +anemia SKIN: right hip incision PSYCHIATRIC: Unremarkable All other review of systems found to be negative. PHYSICAL EXAMINATION: VITAL SIGNS: Please see below. GENERAL: Pleasant and cooperative. No acute distress. Pale HEENT: PERRL. Extraocular movements intact. Clear conjunctiva CARDIOVASCULAR: Regular rate and rhythm. +systolic murmurs, rubs, or gallops, ri ght upper chest wall LUNGS: Clear to auscultation bilaterally. No wheezes. No rhonchi ABDOMEN: Soft, nontender, nondistended. Positive bowel sounds. Normal active bowel sounds NEUROLOGICAL: Alert and oriented times three. Cranial nerves II through XII grossly intact. Sensation grossly intact including 1st web space of right foot EXTREMITIES: 5-\5 strength bilateral upper extremities. 5-\5 strength right lower ankle Df and EHL, rest of exam limited due to pain. 5-/5 strength in left lower extremity. (-) Gabriela's bilat SKIN: right thigh incision c/d/i ASSESSMENT:77-year-ol F with past medical history of breast cancer and pulmonary embolism who presents status post fall with right hip fracture PLAN: 1. rehab: PT/OT, will consider TAXONOMIST for cognition, ambulating further with RW 2. Neuro: stable 3. CArdiac: recent NSTEMI in 05/2018- medicine consulted 4. Resp: recent diagnosis of PE in 05/2018 on Lovenox, s/p IVC filter placed 06/11/18, monitor for infection, encourage incentive spirometry -recent imaging +several left rib fractures -sinus congestion will start flonase, nasal saline drops, encouraging patient to drink liquids 5. Onc/Heme: stage 4 ovarian cancer with mets, f/u with oncology as outpatient, optimize pain control -post-op anemia will monitor, 06/17 7.8, s/p 2 units of prbcs, received verbal permission from oncology nurse OK to use port for access and infusions- stable, will c/u to monitor 6. Ortho: s/p fall with right hip fracture s/p hemiarthroplasty- WBAT with hip precautions -right clavicle- per ortho recs no restrictions, WBAT 7. Endo: pmh hypothyroidism, c/u Synthroid 8. Pain: c/u Tylenol standing, oxycodone, Gabapentin, and Flexeril- c/u increased dose of Gabapentin for right thigh and calf cramping and add Ice 9. Psych/Insomnia: c/u Seroquel qhS and Sertraline for anxiety 10. DVT ppx: on full dose Lovenox for PE 11. GI ppx: protonix 12. : admission Ua complete and Ucx +ESBL E.Coli, patient reports having some burning with urination, will give Fosfomycin x1 dose and re-evaluate tomorrow 13. Hypokalemia: potassium chloride 40 meq x1, will start 20meq daily and monitor 13. Dispo: 07/01/18 to home Allergies Coded Allergies: methotrexate (Unverified Allergy, Unknown, 06/10/18) metoclopramide (Unverified Allergy, Unknown, 06/10/18) moxifloxacin (Unverified Allergy, Unknown, 06/10/18) nalbuphine (Unverified Allergy, Unknown, 06/10/18) prochlorperazine (Unverified Allergy, Unknown, 06/10/18) topiramate (Unverified Allergy, Unknown, 06/10/18) trazodone (Unverified Allergy, Unknown, 06/10/18) Vital Signs Vital Signs Date Time Temp Pulse Resp B/P (MAP) Pulse Ox O2 Delivery O2 Flow Rate FiO2 06/19/18 10:53 18 06/19/18 06:00 98.6 94 146/66 (92) 93 Laboratory Data CBC/BMP Laboratory Tests 06/19/18 06:34 Red Blood Count 3.71 L, Mean Corpuscular Volume 89.2, Mean Corpuscular Hemoglobin 28.0, Mean Corpuscular Hemoglobin Concent 31.4 L, Red Cell Distribution Width 17.8 H, Calcium Level 8.6 L Labs 24H Laboratory Tests 2 06/19/18 06:34: Nucleated Red Blood Cells % (auto) 0.0, Anion Gap 7L, Glomerular Filtration Rate > 60.0, Blood Urea Nitrogen 10, Creatinine 0.46L, Sodium Level 142, Potassium Level 3.4L, Chloride Level 111H, Carbon Dioxide Level 24, Calcium Level 8.6L Microbiology Microbiology 06/17/18 MRSA Screen - Final, Complete 06/16/18 Urine Culture - Final, Complete Escherichia Coli Current Medications Current Medications Current Medications Acetaminophen (Tylenol Tab) 1,000 mg Q8H PO Last administered on 06/19/18 06:25; Start 06/16/18 at 22:00 Al Hydrox/Mg Hydrox/Simethicone (Mylanta) 30 ml Q4HP PRN PO DYSPEPSIA; Start 06/16/18 at 15:00 Bisacodyl (Dulcolax Tab) 5 mg DAILYPRN PRN PO CONSTIPATION; Start 06/16/18 at 15:00 Cyclobenzaprine HCl (Flexeril) 10 mg TID PO Last administered on 06/19/18 08:26; Start 06/16/18 at 21:00 Enoxaparin Sodium (Lovenox) 60 mg BID SC Last administered on 06/19/18 08:26; Start 06/16/18 at 21:00 Ferrous Gluconate (Fergon) 324 mg BID PO Last administered on 06/19/18 08:26; Start 06/16/18 at 21:00 Fluticasone Propionate (Flonase 0.05% Nasal [place]) 1 spray BID NARES Last administered on 06/19/18at 10:52; Start 06/18/18 at 09:00 Folic Acid (Folic Acid) 1 mg DAILY PO Last administered on 06/19/18 08:26; Start 06/17/18 at 09:00 Gabapentin (Neurontin) 300 mg QID PO Last administered on 06/19/18at 08:24; Start 06/18/18 at 17:00 Gabapentin (Neurontin) 300 mg TID PO Last administered on 06/18/18at 09:02; Start 06/16/18 at 21:00; Stop 06/18/18 at 11:09; Status DC Gabapentin (Neurontin) 400 mg TID PO ; Start 06/18/18 at 16:00; Stop 06/18/18 at 16:03; Status DC Heparin Sodium (Heparin (Flush)) 500 units ASDIRECTED PRN IV SEE LABEL COMMENTS Last administered on 06/18/18 06:07; Start 06/17/18 at 12:00 Heparin Sodium (Heparin (Flush)) 500 units DAILY IV Last administered on 06/19/18 06:25; Start 06/18/18 at 09:00 Levothyroxine Sodium (Synthroid) 137 mcg DAILY@06 PO Last administered on 06/19/18 06:24; Start 06/17/18 at 06:00 Loperamide HCl (Imodium) 2 mg ASDIRECTED PRN PO DIARRHEA Last administered on 06/18/18 10:40; Start 06/18/18 at 10:30 Magnesium Hydroxide (Milk Of Magnesia) 30 ml DAILYPRN PRN PO CONSTIPATION; Start 06/16/18 at 15:00 Menthol/Methyl Salicylate (Bengay Cream) right upper thigh BID TOP Last administered on 06/19/18 10:52; Start 06/18/18 at 09:00 Multivitamins (Theragram-M) 1 tab DAILY PO ; Start 06/17/18 at 09:00; Stop at 09:00; Status DC Multivitamins (Theragram-M) 2 tab DAILY PO Last administered on 06/19/18at 08:24; Start 06/17/18 at 09:00 Ondansetron HCl (Zofran) 4 mg Q6HP PRN PO NAUSEA; Start 06/16/18 at 15:00 Oxycodone HCl (OxyCONTIN) 10 mg BID PO Last administered on 06/19/18 08:25; Start 06/16/18 at 21:00 Oxycodone HCl (Roxicodone, Oxyir) 5 mg Q4HP PRN PO PAIN Last administered on 06/19/18 10:53; Start 06/16/18 at 15:45 Oxycodone HCl (Roxicodone, Oxyir) 10 mg Q4HP PRN PO SEVERE PAIN (PS 8-10) Last administered on 06/17/18 11:04; Start 06/16/18 at 15:45 Pantoprazole Sodium (Protonix) 40 mg DAILY PO Last administered on 06/19/18 08:26; Start 06/17/18 at 09:00 Pantoprazole Sodium (Protonix) 40 mg DAILY PO ; Start 06/17/18 at 09:00; Status Cancel Pramipexole Dihydrochloride (Mirapex) 0.75 mg QHS PO Last administered on 06/18/18at 20:56; Start 06/16/18 at 21:00 Psyllium Hydrophilic Mucilloid (Metamucil) 1 pkt DAILY PO ; Start 06/17/18 at 09:00 Psyllium Hydrophilic Mucilloid (Metamucil) 1 pkt DAILY PO ; Start 06/17/18 at 09:00; Status Cancel Quetiapine Fumarate (SEROquel) 25 mg QHS PO Last administered on 06/18/18 20:57; Start 06/16/18 at 21:00 Senna/Docusate Sodium (Senokot S) 1 tab DAILY PO ; Start 06/17/18 at 09:00; Stop 06/18/18 at 14:19; Status DC Sertraline HCl (Zoloft) 100 mg DAILY PO Last administered on 06/19/18 08:25; Start 06/17/18 at 09:00 Sodium Chloride ([place] Nasal [place]) 2 spray TID NA Last administered on 06/19/18 10:52; Start 06/18/18 at 16:00 Sodium Chloride (Saline Lock Flush) 10 ml ASDIRECTED PRN IV SEE LABEL COMMENTS Last administered on 06/18/18 06:07; Start 06/17/18 at 12:00 Sodium Chloride (Saline Lock Flush) 10 ml DAILY IV Last administered on 06/19/18at 06:26; Start 06/18/18 at 09:00 JULIA TAYLOR MD Jun 19, 2018 10:57
[2018-06-19] MEDS ORDERED: POTASSIUM CHLORIDE 10 MEQ SR TABLET PO ONE (11:00)
[2018-06-19 14:00] VITALS: BP 130/72
[2018-06-19] MEDS ORDERED: FOSFOMYCIN TROMETHAMINE 3 GM POWDER PACKET (MONUROL) PO ONE (16:45)
[2018-06-19 20:00] VITALS: BP 113/55
[2018-06-19] MEDS: PRAMIPEXOLE 0.25 MG TAB PO SCH (21:55)
[2018-06-19] MEDS: QUEtiapine FUMARATE 25 MG TAB PO SCH (21:56)
[2018-06-20 06:00] VITALS: BP 120/58
[2018-06-20] MEDS: SODIUM CHLORIDE 0.9% INJ 10 ML SYR IV SCH (06:23)
[2018-06-20] MEDS: LEVOTHYROXINE 137MCG TABLET (0.137MG) PO SCH (06:23)
[2018-06-20] MEDS: ACETAMINOPHEN 500 MG TAB PO SCH ×3 (06:24→22:14)
[2018-06-20 07:11] LABS: BLOOD UREA NITROGEN 11 MG/DL (7-18); CALCIUM LEVEL 8.6 MG/DL (8.8-10.2); CARBON DIOXIDE LEVEL 26 MEQ/L (21-32); CHLORIDE LEVEL 109 MEQ/L (98-107); CREATININE FOR GFR 0.51 MG/DL (0.55-1.30); GLOMERULAR FILTRATION RATE > 60.0 (>39); GLUCOSE, FASTING 84 MG/DL (70-100); POTASSIUM SERUM 3.2 MEQ/L (3.5-5.1); SODIUM LEVEL 141 MEQ/L (136-145)
[2018-06-20] MEDS: PANTOPRAZOLE 40MG TAB (PROTONIX) PO SCH (08:45)
[2018-06-20] MEDS: SERTRALINE 100 MG TAB PO SCH (08:45)
[2018-06-20] MEDS: FERROUS GLUCONATE 324 MG TAB PO SCH ×2 (08:45→20:23)
[2018-06-20] MEDS: GABAPENTIN 300 MG CAP PO SCH ×4 (08:46→20:22)
[2018-06-20] MEDS: FOLIC ACID 1 MG TAB PO SCH (08:46)
[2018-06-20] MEDS: CYCLOBENZAPRINE 10 MG TAB PO SCH ×3 (08:46→20:23)
[2018-06-20] MEDS: MULTIVITAMINS/MINERALS THERAP 1 TAB PO SCH (08:46)
[2018-06-20] MEDS: ENOXAPARIN 60 MG/0.6 ML SYR (J1650) SC SCH ×2 (08:47→20:24)
[2018-06-20] MEDS: FLUTICASONE PROP 0.05% NASAL SPRAY 16 GM (FLONASE) NARES SCH ×2 (08:47→20:24)
[2018-06-20] MEDS: oxyCODONE 10 MG CR TAB PO SCH ×2 (08:47→20:21)
[2018-06-20] MEDS: METAMUCIL (PSYLLIUM) PACKET PO SCH (08:47)
[2018-06-20] MEDS: ANALGESIC BALM CRM 120 GM TOP SCH ×2 (08:47→20:24)
[2018-06-20] MEDS: SODIUM CHLORIDE NASAL 0.65% SPRAY BTL (OCEAN) SCH ×3 (08:47→20:24)
[2018-06-20] MEDS ORDERED: POTASSIUM CHLORIDE 10 MEQ SR TABLET PO SCH (09:00)
[2018-06-20] MEDS: FUROSEMIDE 20 MG TAB PO SCH (10:45)
[2018-06-20] MEDS ORDERED: POTASSIUM CHLORIDE 10 MEQ SR TABLET PO ONE (10:45)
--- NOTE | 2018-06-20 10:51 | IPNPDOC ---
PM&R Progress Note DATE OF SERVICE: Jun 20, 2018 [facility] Progress Note Subjective: Patient seen in therapy reporting her feet feels swollen and she still has burning with urination. REVIEW OF SYSTEMS: The following is a completed review of systems and has been reviewed. Review of systems otherwise unremarkable. PAIN: Patient self reports right hip pain EYES: Negative for recent vision changes EARS, NOSE, & THROAT: negative for dysphagia or throat pain CARDIOVASCULAR: denies chest pain or palpitations PULMONARY: Negative. +resting dyspnea (baseline) GASTROINTESTINAL: Negative for diarrhea/constipation GENITOURINARY: +dysuria MUSCULOSKELETAL: right hip fracture NEUROLOGICAL: no tremor or seizure activity HEMATOLOGICAL: +anemia SKIN: right hip incision PSYCHIATRIC: Unremarkable All other review of systems found to be negative. PHYSICAL EXAMINATION: VITAL SIGNS: Please see below. GENERAL: Pleasant and cooperative. No acute distress. Pale HEENT: PERRL. Extraocular movements intact. Clear conjunctiva CARDIOVASCULAR: Regular rate and rhythm. +systolic murmurs, rubs, or gallops, right upper chest wall LUNGS: Clear to auscultation bilaterally. No wheezes. No rhonchi ABDOMEN: Soft, nontender, nondistended. Positive bowel sounds. Normal active bowel sounds NEUROLOGICAL: Alert and oriented times three. Cranial nerves II through XII grossly intact. Sensation grossly intact including 1st web space of right foot EXTREMITIES: 5-\5 strength bilateral upper extremities. 5-\5 strength right lower ankle Df and EHL, rest of exam limited due to pain. 5-/5 strength in left lower extremity. (-) Gabriela's bilat SKIN: right thigh incision c/d/i ASSESSMENT:77-year-ol F with past medical history of breast cancer and pulmonary embolism who presents status post fall with right hip fracture PLAN: 1. rehab: PT/OT, will consider W[employer] PH[employer] OPERATOR for cognition, ambulating further with RW 2. Neuro: stable 3. CArdiac: recent NSTEMI in 05/2018- medicine consulted 4. Resp: recent diagnosis of PE in 05/2018 on Lovenox, s/p IVC filter placed 06/11/18, monitor for infection, encourage incentive spirometry -recent imaging +several left rib fractures -sinus congestion will start flonase, nasal saline drops, encouraging patient to drink liquids 5. Onc/Heme: stage 4 ovarian cancer with mets, f/u with oncology as outpatient, optimize pain control -post-op anemia will monitor, 06/17 7.8, s/p 2 units of prbcs, received verbal permission from oncology nurse OK to use port for access and infusions- stable, will c/u to monitor 6. Ortho: s/p fall with right hip fracture s/p hemiarthroplasty- WBAT with hip precautions -right clavicle- per ortho recs no restrictions, WBAT 7. Endo: pmh hypothyroidism, c/u Synthroid 8. Pain: c/u Tylenol standing, oxycodone, Gabapentin, and Flexeril- c/u increased dose of Gabapentin for right thigh and calf cramping and add Ice 9. Psych/Insomnia: c/u Seroquel qhS and Sertraline for anxiety 10. DVT ppx: on full dose Lovenox for PE 11. GI ppx: protonix 12. : admission Ua complete and Ucx +ESBL E.Coli, s/p 1x dose Fosfomycin, will start Macrobid 13. Hypokalemia: still boderline low will give another potassium chloride 40 meq x1, checl Mg levels and increase K to 20meq BID and monitor 14. Extremities: bilateral feet swelling, will start short course of lasix and sarah-wrap 13. Dispo: 07/01/18 to home Allergies Coded Allergies: methotrexate (Unverified Allergy, Unknown, 06/10/18) metoclopramide (Unverified Allergy, Unknown, 06/10/18) moxifloxacin (Unverified Allergy, Unknown, 06/10/18) nalbuphine (Unverified Allergy, Unknown, 06/10/18) prochlorperazine (Unverified Allergy, Unknown, 06/10/18) topiramate (Unverified Allergy, Unknown, 06/10/18) trazodone (Unverified Allergy, Unknown, 06/10/18) Vital Signs Vital Signs Date Time Temp Pulse Resp B/P (MAP) Pulse Ox O2 Delivery O2 Flow Rate FiO2 06/20/18 08:47 18 06/20/18 06:00 97.4 85 120/58 (78) 93 Laboratory Data CBC/BMP Laboratory Tests 06/20/18 06:33 Calcium Level 8.6 L Labs 24H Laboratory Tests 2 06/20/18 06:33: Anion Gap 6L, Glomerular Filtration Rate > 60.0, Blood Urea Nitrogen 11, Creatinine 0.51L, Sodium Level 141, Potassium Level 3.2L, Chloride Level 109H, Carbon Dioxide Level 26, Calcium Level 8.6L Microbiology Microbiology 06/17/18 MRSA Screen - Final, Complete 06/16/18 Urine Culture - Final, Complete Escherichia Coli Current Medications Current Medications Current Medications Acetaminophen (Tylenol Tab) 1,000 mg Q8H PO Last administered on 06/20/18at 06:24; Start 06/16/18 at 22:00 Al Hydrox/Mg Hydrox/Simethicone (Mylanta) 30 ml Q4HP PRN PO DYSPEPSIA; Start 06/16/18 at 15:00 Bisacodyl (Dulcolax Tab) 5 mg DAILYPRN PRN PO CONSTIPATION; Start 06/16/18 at 15:00 Cyclobenzaprine HCl (Flexeril) 10 mg TID PO Last administered on 06/20/18 08:46; Start 06/16/18 at 21:00 Enoxaparin Sodium (Lovenox) 60 mg BID SC Last administered on 06/20/18 08:47; Start 06/16/18 at 21:00 Ferrous Gluconate (Fergon) 324 mg BID PO Last administered on 06/20/18 08:45; Start 06/16/18 at 21:00 Fluticasone Propionate (Flonase 0.05% Nasal [place]) 1 spray BID NARES Last administered on 06/20/18 08:47; Start 06/18/18 at 09:00 Folic Acid (Folic Acid) 1 mg DAILY PO Last administered on 06/20/18 08:46; Start 06/17/18 at 09:00 Gabapentin (Neurontin) 300 mg QID PO Last administered on 06/20/18 08:46; Start 06/18/18 at 17:00 Gabapentin (Neurontin) 300 mg TID PO Last administered on 06/18/18at 09:02; Start 06/16/18 at 21:00; Stop 06/18/18 at 11:09; Status DC Gabapentin (Neurontin) 400 mg TID PO ; Start 06/18/18 at 16:00; Stop 06/18/18 at 16:03; Status DC Heparin Sodium (Heparin (Flush)) 500 units ASDIRECTED PRN IV SEE LABEL COMMENTS Last administered on 06/18/18 06:07; Start 06/17/18 at 12:00 Heparin Sodium (Heparin (Flush)) 500 units DAILY IV Last administered on 06/20/18 06:23; Start 06/18/18 at 09:00 Levothyroxine Sodium (Synthroid) 137 mcg DAILY@06 PO Last administered on 06/20/18 06:23; Start 06/17/18 at 06:00 Loperamide HCl (Imodium) 2 mg ASDIRECTED PRN PO DIARRHEA Last administered on 06/18/18at 10:40; Start 06/18/18 at 10:30 Magnesium Hydroxide (Milk Of Magnesia) 30 ml DAILYPRN PRN PO CONSTIPATION; Start 06/16/18 at 15:00 Menthol/Methyl Salicylate (Bengay Cream) right upper thigh BID TOP Last administered on 06/20/18 08:47; Start 06/18/18 at 09:00 Multivitamins (Theragram-M) 1 tab DAILY PO ; Start 06/17/18 at 09:00; Stop 06/17/18 at 09:00; Status DC Multivitamins (Theragram-M) 2 tab DAILY PO Last administered on 06/20/18 08:46; Start 06/17/18 at 09:00 Ondansetron HCl (Zofran) 4 mg Q6HP PRN PO NAUSEA; Start 06/16/18 at 15:00 Oxycodone HCl (OxyCONTIN) 10 mg BID PO Last administered on 06/20/18 08:47; Start 06/16/18 at 21:00 Oxycodone HCl (Roxicodone, Oxyir) 5 mg Q4HP PRN PO PAIN Last administered on 06/19/18 23:33; Start 06/16/18 at 15:45 Oxycodone HCl (Roxicodone, Oxyir) 10 mg Q4HP PRN PO SEVERE PAIN (PS 8-10) Last administered on 06/17/18 11:04; Start 06/16/18 at 15:45 Pantoprazole Sodium (Protonix) 40 mg DAILY PO Last administered on 06/20/18 08:45; Start 06/17/18 at 09:00 Pantoprazole Sodium (Protonix) 40 mg DAILY PO ; Start 06/17/18 at 09:00; Status Cancel Potassium Chloride (Micro-K Extencaps) 20 meq BID PO ; Start 06/20/18 at 21:00; Status UNV Potassium Chloride (Micro-K Extencaps) 20 meq DAILY PO Last administered on 06/20/18 08:46; Start 06/20/18 at 09:00; Stop 06/20/18 at 10:43; Status DC Pramipexole Dihydrochloride (Mirapex) 0.75 mg QHS PO Last administered on 06/19/18 21:55; Start 06/16/18 at 21:00 Psyllium Hydrophilic Mucilloid (Metamucil) 1 pkt DAILY PO ; Start 06/17/18 at 09:00 Psyllium Hydrophilic Mucilloid (Metamucil) 1 pkt DAILY PO ; Start 06/17/18 at 09:00; Status Cancel Quetiapine Fumarate (SEROquel) 25 mg QHS PO Last administered on 06/19/18at 21:56; Start 06/16/18 at 21:00 Senna/Docusate Sodium (Senokot S) 1 tab DAILY PO ; Start 06/17/18 at 09:00; Stop 06/18/18 at 14:19; Status DC Sertraline HCl (Zoloft) 100 mg DAILY PO Last administered on 06/20/18 08:45; Start 06/17/18 at 09:00 Sodium Chloride ([place] Nasal [place]) 2 spray TID NA Last administered on 06/20/18 08:47; Start 06/18/18 at 16:00 Sodium Chloride (Saline Lock Flush) 10 ml ASDIRECTED PRN IV SEE LABEL COMMENTS Last administered on 06/18/18at 06:07; Start 06/17/18 at 12:00 Sodium Chloride (Saline Lock Flush) 10 ml DAILY IV Last administered on 06:23; Start 06/18/18 at 09:00 JULIA TAYLOR MD Jun 20, 2018 10:51
[2018-06-20] MEDS ORDERED: PILL CRUSHER/CUTTER 1 EACH XX PRN (11:00)
[2018-06-20] MEDS: MAGNESIUM GLUCONATE 500 MG TAB PO SCH ×2 (12:06→20:23)
[2018-06-20] MEDS: oxyCODONE 5MG TAB PO PRN ×2 (12:06→22:14)
[2018-06-20] MEDS: NITROFURANTOIN (MACROBID) 100 MG CAP PO SCH ×2 (12:06→20:23)
[2018-06-20 14:00] VITALS: BP 111/66
[2018-06-20] MEDS: QUEtiapine FUMARATE 25 MG TAB PO SCH (20:20)
[2018-06-20] MEDS: PRAMIPEXOLE 0.25 MG TAB PO SCH (20:21)
[2018-06-20] MEDS: POTASSIUM CHLORIDE 10 MEQ SR TABLET PO SCH (20:22)
[2018-06-20 21:22] VITALS: BP 141/66
[2018-06-21 05:41] VITALS: BP 127/61
[2018-06-21] MEDS: LEVOTHYROXINE 137MCG TABLET (0.137MG) PO SCH (06:32)
[2018-06-21] MEDS: ACETAMINOPHEN 500 MG TAB PO SCH ×3 (06:33→20:28)
[2018-06-21] MEDS: SODIUM CHLORIDE 0.9% INJ 10 ML SYR IV PRN (07:03)
[2018-06-21 07:40] LABS: BLOOD UREA NITROGEN 9 MG/DL (7-18); CALCIUM LEVEL 8.4 MG/DL (8.8-10.2); CARBON DIOXIDE LEVEL 25 MEQ/L (21-32); CHLORIDE LEVEL 109 MEQ/L (98-107); CREATININE FOR GFR 0.42 MG/DL (0.55-1.30); GLOMERULAR FILTRATION RATE > 60.0 (>39); GLUCOSE, FASTING 78 MG/DL (70-100); MAGNESIUM LEVEL 1.5 MG/DL (1.8-2.4); POTASSIUM SERUM 3.6 MEQ/L (3.5-5.1); SODIUM LEVEL 142 MEQ/L (136-145)
[2018-06-21] MEDS: METAMUCIL (PSYLLIUM) PACKET PO SCH (08:15)
[2018-06-21] MEDS: SODIUM CHLORIDE 0.9% INJ 10 ML SYR IV SCH (08:44)
[2018-06-21] MEDS: MAGNESIUM GLUCONATE 500 MG TAB PO SCH ×2 (08:46→20:29)
[2018-06-21] MEDS: FERROUS GLUCONATE 324 MG TAB PO SCH ×2 (08:46→20:27)
[2018-06-21] MEDS: PANTOPRAZOLE 40MG TAB (PROTONIX) PO SCH (08:46)
[2018-06-21] MEDS: SERTRALINE 100 MG TAB PO SCH (08:46)
[2018-06-21] MEDS: oxyCODONE 10 MG CR TAB PO SCH ×2 (08:47→20:30)
[2018-06-21] MEDS: CYCLOBENZAPRINE 10 MG TAB PO SCH ×3 (08:47→20:30)
[2018-06-21] MEDS: FOLIC ACID 1 MG TAB PO SCH (08:47)
[2018-06-21] MEDS: FUROSEMIDE 20 MG TAB PO SCH (08:47)
[2018-06-21] MEDS: POTASSIUM CHLORIDE 10 MEQ SR TABLET PO SCH ×2 (08:47→20:30)
[2018-06-21] MEDS: MULTIVITAMINS/MINERALS THERAP 1 TAB PO SCH (08:47)
[2018-06-21] MEDS: NITROFURANTOIN (MACROBID) 100 MG CAP PO SCH ×2 (08:47→20:29)
[2018-06-21] MEDS: GABAPENTIN 300 MG CAP PO SCH ×4 (08:47→20:29)
[2018-06-21] MEDS: FLUTICASONE PROP 0.05% NASAL SPRAY 16 GM (FLONASE) NARES SCH ×2 (08:48→20:31)
[2018-06-21] MEDS: ENOXAPARIN 60 MG/0.6 ML SYR (J1650) SC SCH ×2 (08:48→20:31)
[2018-06-21] MEDS: SODIUM CHLORIDE NASAL 0.65% SPRAY BTL (OCEAN) SCH ×3 (08:48→20:31)
[2018-06-21] MEDS: ANALGESIC BALM CRM 120 GM TOP SCH ×2 (09:00→20:32)
[2018-06-21] MEDS: oxyCODONE 5MG TAB PO PRN ×2 (11:00→15:12)
[2018-06-21] MEDS: LOPERAMIDE 2 MG CAP PO PRN (12:01)
[2018-06-21 14:00] VITALS: BP 128/57
[2018-06-21 20:00] VITALS: BP 103/50
[2018-06-21] MEDS: PRAMIPEXOLE 0.25 MG TAB PO SCH (20:29)
[2018-06-21] MEDS: QUEtiapine FUMARATE 25 MG TAB PO SCH (20:29)
[2018-06-22 05:17] VITALS: BP 167/77
[2018-06-22] MEDS: LEVOTHYROXINE 137MCG TABLET (0.137MG) PO SCH (05:21)
[2018-06-22] MEDS: ACETAMINOPHEN 500 MG TAB PO SCH ×3 (05:22→21:05)
[2018-06-22] MEDS: SODIUM CHLORIDE 0.9% INJ 10 ML SYR IV PRN ×2 (05:24→05:55)
[2018-06-22 06:16] LABS: HEMATOCRIT 34.6 % (36.0-47.0); HEMOGLOBIN 10.7 g/dl (12.0-15.5); MEAN CORPUSCULAR HEMOGLOBIN 28.3 pg (27.0-33.0); MEAN CORPUSCULAR HGB CONC 30.9 g/dl (32.0-36.5); MEAN CORPUSCULAR VOLUME 91.5 fl (80.0-96.0); PLATELET COUNT, AUTOMATED 393 10^3/uL (150-450); RED BLOOD COUNT 3.78 10^6/uL (4.00-5.40); WHITE BLOOD COUNT 5.4 10^3/uL (4.0-10.0)
[2018-06-22] MEDS: SERTRALINE 100 MG TAB PO SCH (08:47)
[2018-06-22] MEDS: FUROSEMIDE 20 MG TAB PO SCH (08:47)
[2018-06-22] MEDS: POTASSIUM CHLORIDE 10 MEQ SR TABLET PO SCH ×2 (08:47→21:06)
[2018-06-22] MEDS: GABAPENTIN 300 MG CAP PO SCH ×4 (08:47→21:06)
[2018-06-22] MEDS: FERROUS GLUCONATE 324 MG TAB PO SCH ×2 (08:48→21:06)
[2018-06-22] MEDS: PANTOPRAZOLE 40MG TAB (PROTONIX) PO SCH (08:48)
[2018-06-22] MEDS: MULTIVITAMINS/MINERALS THERAP 1 TAB PO SCH (08:48)
[2018-06-22] MEDS: NITROFURANTOIN (MACROBID) 100 MG CAP PO SCH ×2 (08:48→21:06)
[2018-06-22] MEDS: CYCLOBENZAPRINE 10 MG TAB PO SCH ×3 (08:48→21:06)
[2018-06-22] MEDS: SODIUM CHLORIDE 0.9% INJ 10 ML SYR IV SCH (08:49)
[2018-06-22] MEDS: ENOXAPARIN 60 MG/0.6 ML SYR (J1650) SC SCH ×2 (08:49→21:07)
[2018-06-22] MEDS: MAGNESIUM GLUCONATE 500 MG TAB PO SCH ×2 (08:49→21:06)
[2018-06-22] MEDS: SODIUM CHLORIDE NASAL 0.65% SPRAY BTL (OCEAN) SCH ×3 (08:50→21:07)
[2018-06-22] MEDS: FLUTICASONE PROP 0.05% NASAL SPRAY 16 GM (FLONASE) NARES SCH ×2 (08:50→21:07)
[2018-06-22] MEDS: ANALGESIC BALM CRM 120 GM TOP SCH ×2 (08:51→21:00)
[2018-06-22] MEDS: oxyCODONE 10 MG CR TAB PO SCH ×2 (08:52→21:05)
[2018-06-22] MEDS: FOLIC ACID 1 MG TAB PO SCH (09:00)
[2018-06-22] MEDS: METAMUCIL (PSYLLIUM) PACKET PO SCH (09:00)
[2018-06-22] MEDS: oxyCODONE 5MG TAB PO PRN ×2 (11:35→22:32)
[2018-06-22 14:00] VITALS: BP 103/57
[2018-06-22 20:00] VITALS: BP 120/56
[2018-06-22] MEDS: PRAMIPEXOLE 0.25 MG TAB PO SCH (21:05)
[2018-06-22] MEDS: QUEtiapine FUMARATE 25 MG TAB PO SCH (21:06)
[2018-06-23 06:00] VITALS: BP 125/60
[2018-06-23] MEDS: LEVOTHYROXINE 137MCG TABLET (0.137MG) PO SCH (06:31)
[2018-06-23] MEDS: ACETAMINOPHEN 500 MG TAB PO SCH ×4 (06:31→21:03)
[2018-06-23] MEDS: SODIUM CHLORIDE 0.9% INJ 10 ML SYR IV PRN (06:34)
[2018-06-23 07:01] LABS: BLOOD UREA NITROGEN 11 MG/DL (7-18); CARBON DIOXIDE LEVEL 28 MEQ/L (21-32); CHLORIDE LEVEL 108 MEQ/L (98-107); GLOMERULAR FILTRATION RATE > 60.0 (>39); GLUCOSE, FASTING 91 MG/DL (70-100); POTASSIUM SERUM 3.7 MEQ/L (3.5-5.1); SODIUM LEVEL 141 MEQ/L (136-145)
[2018-06-23] MEDS: GABAPENTIN 300 MG CAP PO SCH ×4 (08:02→21:03)
[2018-06-23] MEDS: FOLIC ACID 1 MG TAB PO SCH (08:02)
[2018-06-23] MEDS: MULTIVITAMINS/MINERALS THERAP 1 TAB PO SCH (08:02)
[2018-06-23] MEDS: oxyCODONE 10 MG CR TAB PO SCH ×2 (08:03→21:04)
[2018-06-23] MEDS: CYCLOBENZAPRINE 10 MG TAB PO SCH ×3 (08:03→21:03)
[2018-06-23] MEDS: PANTOPRAZOLE 40MG TAB (PROTONIX) PO SCH (08:03)
[2018-06-23] MEDS: FERROUS GLUCONATE 324 MG TAB PO SCH ×2 (08:03→21:04)
[2018-06-23] MEDS: NITROFURANTOIN (MACROBID) 100 MG CAP PO SCH ×2 (08:03→21:02)
[2018-06-23] MEDS: POTASSIUM CHLORIDE 10 MEQ SR TABLET PO SCH ×2 (08:03→21:03)
[2018-06-23] MEDS: MAGNESIUM GLUCONATE 500 MG TAB PO SCH ×2 (08:03→21:03)
[2018-06-23] MEDS: SERTRALINE 100 MG TAB PO SCH (08:03)
[2018-06-23] MEDS: ENOXAPARIN 60 MG/0.6 ML SYR (J1650) SC SCH ×2 (08:04→21:02)
[2018-06-23] MEDS: SODIUM CHLORIDE 0.9% INJ 10 ML SYR IV SCH ×2 (08:04→08:10)
[2018-06-23] MEDS: FLUTICASONE PROP 0.05% NASAL SPRAY 16 GM (FLONASE) NARES SCH ×2 (08:04→21:05)
[2018-06-23] MEDS: ANALGESIC BALM CRM 120 GM TOP SCH ×2 (08:05→21:00)
[2018-06-23] MEDS: SODIUM CHLORIDE NASAL 0.65% SPRAY BTL (OCEAN) SCH ×3 (08:05→21:05)
[2018-06-23] MEDS: METAMUCIL (PSYLLIUM) PACKET PO SCH (08:10)
[2018-06-23] MEDS: LOPERAMIDE 2 MG CAP PO PRN ×2 (08:36→12:57)
[2018-06-23] MEDS: oxyCODONE 5MG TAB PO PRN ×2 (08:57→14:05)
[2018-06-23] MEDS: FUROSEMIDE 20 MG TAB PO SCH (09:00)
[2018-06-23 14:00] VITALS: BP 116/58
[2018-06-23 20:00] VITALS: BP 114/59
[2018-06-23] MEDS: PRAMIPEXOLE 0.25 MG TAB PO SCH (21:02)
[2018-06-23] MEDS: QUEtiapine FUMARATE 25 MG TAB PO SCH (21:03)
[2018-06-24] MEDS: oxyCODONE 5MG TAB PO PRN ×3 (00:49→17:15)
[2018-06-24 06:00] VITALS: BP 116/56
[2018-06-24] MEDS: LEVOTHYROXINE 137MCG TABLET (0.137MG) PO SCH (06:40)
[2018-06-24] MEDS: ACETAMINOPHEN 500 MG TAB PO SCH ×3 (06:40→21:21)
[2018-06-24] MEDS: PANTOPRAZOLE 40MG TAB (PROTONIX) PO SCH (08:50)
[2018-06-24] MEDS: CYCLOBENZAPRINE 10 MG TAB PO SCH ×3 (08:50→21:20)
[2018-06-24] MEDS: POTASSIUM CHLORIDE 10 MEQ SR TABLET PO SCH ×2 (08:50→21:21)
[2018-06-24] MEDS: SERTRALINE 100 MG TAB PO SCH (08:50)
[2018-06-24] MEDS: FOLIC ACID 1 MG TAB PO SCH (08:50)
[2018-06-24] MEDS: oxyCODONE 10 MG CR TAB PO SCH ×2 (08:51→21:20)
[2018-06-24] MEDS: MAGNESIUM GLUCONATE 500 MG TAB PO SCH ×2 (08:51→21:20)
[2018-06-24] MEDS: NITROFURANTOIN (MACROBID) 100 MG CAP PO SCH ×2 (08:52→21:21)
[2018-06-24] MEDS: FERROUS GLUCONATE 324 MG TAB PO SCH ×2 (08:52→21:19)
[2018-06-24] MEDS: FUROSEMIDE 20 MG TAB PO SCH ×2 (08:52→11:27)
[2018-06-24] MEDS: METAMUCIL (PSYLLIUM) PACKET PO SCH ×2 (08:52→08:59)
[2018-06-24] MEDS: MULTIVITAMINS/MINERALS THERAP 1 TAB PO SCH (08:52)
[2018-06-24] MEDS: SODIUM CHLORIDE 0.9% INJ 10 ML SYR IV SCH (08:53)
[2018-06-24] MEDS: SODIUM CHLORIDE NASAL 0.65% SPRAY BTL (OCEAN) SCH ×3 (08:53→21:19)
[2018-06-24] MEDS: FLUTICASONE PROP 0.05% NASAL SPRAY 16 GM (FLONASE) NARES SCH ×2 (08:53→14:41)
[2018-06-24] MEDS: GABAPENTIN 300 MG CAP PO SCH ×4 (08:53→21:19)
[2018-06-24] MEDS: ENOXAPARIN 60 MG/0.6 ML SYR (J1650) SC SCH ×2 (08:53→21:19)
[2018-06-24] MEDS: ANALGESIC BALM CRM 120 GM TOP SCH ×2 (08:54→21:21)
--- NOTE | 2018-06-24 10:22 | IPNPDOC ---
PM&R Progress Note DATE OF SERVICE: Jun 24, 2018 Director Of Archives Progress Note Subjective: Patient seen in therapy walking staes her feet swelling is better after the Lasix and that she believes her breathing is as well. REVIEW OF SYSTEMS: The following is a completed review of systems and has been reviewed. Review of systems otherwise unremarkable. PAIN: Patient self reports right hip pain EYES: Negative for recent vision changes EARS, NOSE, & THROAT: negative for dysphagia or throat pain CARDIOVASCULAR: denies chest pain or palpitations PULMONARY: Negative. +resting dyspnea (baseline) GASTROINTESTINAL: Negative for diarrhea/constipation GENITOURINARY: +dysuria MUSCULOSKELETAL: right hip fracture NEUROLOGICAL: no tremor or seizure activity HEMATOLOGICAL: +anemia SKIN: right hip incision PSYCHIATRIC: Unremarkable All other review of systems found to be negative. PHYSICAL EXAMINATION: VITAL SIGNS: Please see below. GENERAL: Pleasant and cooperative. No acute distress. Pale HEENT: PERRL. Extraocular movements intact. Clear conjunctiva CARDIOVASCULAR: Regular rate and rhythm. +systolic murmurs, rubs, or gallops, right upper chest wall LUNGS: Clear to auscultation bilaterally. No wheezes. No rhonchi ABDOMEN: Soft, nontender, nondistended. Positive bowel sounds. Normal active bowel sounds NEUROLOGICAL: Alert and oriented times three. Cranial nerves II through XII grossly intact. Sensation grossly intact including 1st web space of right foot EXTREMITIES: 5-\5 strength bilateral upper extremities. 5-\5 strength right lower ankle Df and EHL, rest of exam limited due to pain. 5-/5 strength in left lower extremity. (-) Gabriela's bilat SKIN: right thigh incision c/d/i ASSESSMENT:77-year-ol F with past medical history of breast cancer and pulmonary embolism who presents status post fall with right hip fracture PLAN: 1. 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 Neuro: stable 3. CArdiac: recent NSTEMI in 05/2018- medicine consulted 4. Resp: recent diagnosis of PE in 05/2018 on Lovenox, s/p IVC filter placed 06/11, monitor for infection, encourage incentive spirometry -recent imaging +several left rib fractures -sinus congestion c/u flonase, nasal saline drops, encouraging patient to drink liquids 5. Onc/Heme: stage 4 ovarian cancer with mets, f/u with oncology as outpatient, optimize pain control -post-op anemia will monitor, 06/17 7.8, s/p 2 units of prbcs, received verbal permission from oncology nurse OK to use port for access and infusions- stable, will c/u to monitor 6. Ortho: s/p fall with right hip fracture s/p hemiarthroplasty- WBAT with hip precautions -right clavicle- per ortho recs no restrictions, WBAT 7. Endo: pmh hypothyroidism, c/u Synthroid 8. Pain: c/u Tylenol standing, oxycodone, Gabapentin, and Flexeril- c/u increased dose of Gabapentin for right thigh and calf cramping and add Ice 9. Psych/Insomnia: c/u Seroquel qhS and Sertraline for anxiety 10. DVT ppx: on full dose Lovenox for PE 11. GI ppx: protonix 12. : admission Ua complete and Ucx +ESBL E.Coli, s/p 1x dose Fosfomycin without symptom resolution, c/u Macrobid symptoms improving 13. Hypokalemia: increased K to 20meq BID-better, c/u to monitor 14. Extremities: bilateral feet swelling, will c/u lasix and sarah-wrap 13. Dispo: 06/30/18 to home Allergies Coded Allergies: methotrexate (Unverified Allergy, Unknown, 06/10/18) metoclopramide (Unverified Allergy, Unknown, 06/10/18) moxifloxacin (Unverified Allergy, Unknown, 06/10/18) nalbuphine (Unverified Allergy, Unknown, 06/10/18) prochlorperazine (Unverified Allergy, Unknown, 06/10/18) topiramate (Unverified Allergy, Unknown, 06/10/18) trazodone (Unverified Allergy, Unknown, 06/10/18) Vital Signs Vital Signs Date Time Temp Pulse Resp B/P (MAP) Pulse Ox O2 Delivery O2 Flow Rate FiO2 06/24/18 08:51 14 06/24/18 06:00 98.0 92 116/56 (76) 90 Microbiology Microbiology 06/24/18 MRSA Screen, Received Pending 06/17/18 MRSA Screen - Final, Complete 06/16/18 Urine Culture - Final, Complete Escherichia Coli Current Medications Current Medications Current Medications Acetaminophen (Tylenol Tab) 1,000 mg Q8H PO Last administered on 06/24/18 06:40; Start 06/16/18 at 22:00 Al Hydrox/Mg Hydrox/Simethicone (Mylanta) 30 ml Q4HP PRN PO DYSPEPSIA; Start 06/16/18 at 15:00 Bisacodyl (Dulcolax Tab) 5 mg DAILYPRN PRN PO CONSTIPATION; Start 06/16/18 at 15:00 Cyclobenzaprine HCl (Flexeril) 10 mg TID PO Last administered on 06/24/18 08:50; Start 06/16/18 at 21:00 Enoxaparin Sodium (Lovenox) 60 mg BID SC Last administered on 06/24/18 08:53; Start 06/16/18 at 21:00 Ferrous Gluconate (Fergon) 324 mg BID PO Last administered on 06/24/18 08:52; Start 06/16/18 at 21:00 Fluticasone Propionate (Flonase 0.05% Nasal [place]) 1 spray BID NARES Last administered on 06/24/18 08:53; Start 06/18/18 at 09:00 Folic Acid (Folic Acid) 1 mg DAILY PO Last administered on 06/24/18 08:50; Start 06/17/18 at 09:00 Furosemide (Lasix) 20 mg DAILY PO Last administered on 06/22/18 08:47; Start 06/20/18 at 10:45; Stop 06/24/18 at 09:14; Status DC Gabapentin (Neurontin) 300 mg QID PO Last administered on 06/24/18 08:53; Start 06/18/18 at 17:00 Gabapentin (Neurontin) 300 mg TID PO Last administered on 06/18/18 09:02; Start 06/16/18 at 21:00; Stop 06/18/18 at 11:09; Status DC Gabapentin (Neurontin) 400 mg TID PO ; Start 06/18/18 at 16:00; Stop 06/18/18 at 16:03; Status DC Heparin Sodium (Heparin (Flush)) 500 units ASDIRECTED PRN IV SEE LABEL COMMENTS Last administered on 06/23/18at 06:34; Start 06/17/18 at 12:00 Heparin Sodium (Heparin (Flush)) 500 units DAILY IV Last administered on 06/24/18 08:53; Start 06/18/18 at 09:00 Levothyroxine Sodium (Synthroid) 137 mcg DAILY@06 PO Last administered on 06/24/18 06:40; Start 06/17/18 at 06:00 Loperamide HCl (Imodium) 2 mg ASDIRECTED PRN PO DIARRHEA Last administered on 06/23/18 12:57; Start 06/18/18 at 10:30 Magnesium Gluconate (Magnesium Gluconate) 250 mg BID PO Last administered on 06/24/18 08:51; Start 06/20/18 at 11:00 Magnesium Hydroxide (Milk Of Magnesia) 30 ml DAILYPRN PRN PO CONSTIPATION; Start 06/16/18 at 15:00 Menthol/Methyl Salicylate ([place]eng[place] Cream) right upper thigh BID TOP Last adm inistered on 06/24/18at 08:54; Start 06/18/18 at 09:00 Miscellaneous (Unresolved Clarification Entry) SEE LABEL COMMENTS DAILY XX ; Start 06/22/18 at 09:00; Stop 06/23/18 at 07:26; Status DC Miscellaneous (Unresolved Clarification Entry) SEE LABEL COMMENTS DAILY XX ; Start 06/23/18 at 09:00 Multivitamins (Theragram-M) 1 tab DAILY PO ; Start 06/17/18 at 09:00; Stop 06/17/18 at 09:00; Status DC Multivitamins (Theragram-M) 2 tab DAILY PO Last administered on 06/24/18at 08:52; Start 06/17/18 at 09:00 Nitrofurantoin Monoh/Nitrofur Macro (Macrobid) 100 mg BID PO Last administered on 06/24/18 08:52; Start 06/20/18 at 10:45; Stop 06/26/18 at 21:01 Ondansetron HCl (Zofran) 4 mg Q6HP PRN PO NAUSEA; Start 06/16/18 at 15:00 Oxycodone HCl (OxyCONTIN) 10 mg BID PO Last administered on 06/24/18 08:51; Start 06/16/18 at 21:00 Oxycodone HCl (Roxicodone, Oxyir) 5 mg Q4HP PRN PO PAIN Last administered on 06/22/18 22:32; Start 06/16/18 at 15:45 Oxycodone HCl (Roxicodone, Oxyir) 10 mg Q4HP PRN PO SEVERE PAIN (PS 8-10) Last administered on 06/24/18 00:49; Start 06/16/18 at 15:45 Pantoprazole Sodium (Protonix) 40 mg DAILY PO Last administered on 06/24/18 08:50; Start 06/17/18 at 09:00 Pantoprazole Sodium (Protonix) 40 mg DAILY PO ; Start 06/17/18 at 09:00; Status Cancel Potassium Chloride (Micro-K Extencaps) 20 meq BID PO Last administered on 06/24/18 08:50; Start 06/20/18 at 21:00 Potassium Chloride (Micro-K Extencaps) 20 meq DAILY PO Last administered on 06/20/18 08:46; Start 06/20/18 at 09:00; Stop 06/20/18 at 10:43; Status DC Pramipexole Dihydrochloride (Mirapex) 0.75 mg QHS PO Last administered on 06/23/18 21:02; Start 06/16/18 at 21:00 Psyllium Hydrophilic Mucilloid (Metamucil) 1 pkt DAILY PO ; Start 06/17/18 at 09:00 Psyllium Hydrophilic Mucilloid (Metamucil) 1 pkt DAILY PO ; Start 06/17/18 at 09:00; Status Cancel Quetiapine Fumarate (SEROquel) 25 mg QHS PO Last administered on 06/23/18at 21:03; Start 06/16/18 at 21:00 Senna/Docusate Sodium (Senokot S) 1 tab DAILY PO ; Start 06/17/18 at 09:00; Stop 06/18/18 at 14:19; Status DC Sertraline HCl (Zoloft) 100 mg DAILY PO Last administered on 06/24/18 08:50; Start 06/17/18 at 09:00 Sodium Chloride ([place] Nasal [place]) 2 spray TID NA Last administered on 06/24/18 08:53; Start 06/18/18 at 16:00 Sodium Chloride (Saline Lock Flush) 10 ml ASDIRECTED PRN IV SEE LABEL COMMENTS Last administered on 06/23/18at 06:34; Start 06/17/18 at 12:00 Sodium Chloride (Saline Lock Flush) 10 ml DAILY IV Last administered on 06/24/18at 08:53; Start 06/18/18 at 09:00 JULIA TAYLOR MD Jun 24, 2018 10:22
[2018-06-24 14:00] VITALS: BP 100/58
[2018-06-24 20:00] VITALS: BP 115/56
[2018-06-24] MEDS: QUEtiapine FUMARATE 25 MG TAB PO SCH (21:20)
[2018-06-24] MEDS: PRAMIPEXOLE 0.25 MG TAB PO SCH (21:21)
[2018-06-25] MEDS: SODIUM CHLORIDE 0.9% INJ 10 ML SYR IV PRN (05:14)
[2018-06-25] MEDS: LEVOTHYROXINE 137MCG TABLET (0.137MG) PO SCH (05:14)
[2018-06-25] MEDS: ACETAMINOPHEN 500 MG TAB PO SCH ×3 (05:15→21:21)
[2018-06-25 06:00] VITALS: BP 117/56
[2018-06-25 07:00] LABS: HEMATOCRIT 35.4 % (36.0-47.0); HEMOGLOBIN 10.8 g/dl (12.0-15.5); MEAN CORPUSCULAR HEMOGLOBIN 28.4 pg (27.0-33.0); MEAN CORPUSCULAR HGB CONC 30.5 g/dl (32.0-36.5); MEAN CORPUSCULAR VOLUME 93.2 fl (80.0-96.0); PLATELET COUNT, AUTOMATED 402 10^3/uL (150-450); WHITE BLOOD COUNT 5.6 10^3/uL (4.0-10.0)
[2018-06-25 07:25] LABS: BLOOD UREA NITROGEN 16 MG/DL (7-18); CALCIUM LEVEL 8.9 MG/DL (8.8-10.2); CARBON DIOXIDE LEVEL 25 MEQ/L (21-32); CHLORIDE LEVEL 108 MEQ/L (98-107); CREATININE FOR GFR 0.58 MG/DL (0.55-1.30); GLOMERULAR FILTRATION RATE > 60.0 (>39); GLUCOSE, FASTING 93 MG/DL (70-100); POTASSIUM SERUM 4.1 MEQ/L (3.5-5.1); SODIUM LEVEL 140 MEQ/L (136-145)
[2018-06-25] MEDS: METAMUCIL (PSYLLIUM) PACKET PO SCH (07:55)
[2018-06-25] MEDS: CYCLOBENZAPRINE 10 MG TAB PO SCH ×3 (08:28→21:22)
[2018-06-25] MEDS: FUROSEMIDE 20 MG TAB PO SCH (08:28)
[2018-06-25] MEDS: POTASSIUM CHLORIDE 10 MEQ SR TABLET PO SCH ×2 (08:28→21:21)
[2018-06-25] MEDS: NITROFURANTOIN (MACROBID) 100 MG CAP PO SCH ×2 (08:28→21:23)
[2018-06-25] MEDS: oxyCODONE 10 MG CR TAB PO SCH ×2 (08:28→21:22)
[2018-06-25] MEDS: MAGNESIUM GLUCONATE 500 MG TAB PO SCH ×2 (08:28→21:23)
[2018-06-25] MEDS: FERROUS GLUCONATE 324 MG TAB PO SCH ×2 (08:28→21:22)
[2018-06-25] MEDS: MULTIVITAMINS/MINERALS THERAP 1 TAB PO SCH (08:29)
[2018-06-25] MEDS: PANTOPRAZOLE 40MG TAB (PROTONIX) PO SCH (08:29)
[2018-06-25] MEDS: GABAPENTIN 300 MG CAP PO SCH ×4 (08:29→21:22)
[2018-06-25] MEDS: ENOXAPARIN 60 MG/0.6 ML SYR (J1650) SC SCH ×2 (08:29→21:21)
[2018-06-25] MEDS: FOLIC ACID 1 MG TAB PO SCH (08:29)
[2018-06-25] MEDS: FLUTICASONE PROP 0.05% NASAL SPRAY 16 GM (FLONASE) NARES SCH ×2 (08:29→21:23)
[2018-06-25] MEDS: SERTRALINE 100 MG TAB PO SCH (08:29)
[2018-06-25] MEDS: SODIUM CHLORIDE NASAL 0.65% SPRAY BTL (OCEAN) SCH ×3 (08:30→21:24)
[2018-06-25] MEDS: ANALGESIC BALM CRM 120 GM TOP SCH ×2 (08:30→21:00)
[2018-06-25] MEDS: SODIUM CHLORIDE 0.9% INJ 10 ML SYR IV SCH (09:00)
--- NOTE | 2018-06-25 10:39 | IPNPDOC ---
PM&R Progress Note DATE OF SERVICE: Jun 25, 2018 Janitorial Assistant Progress Note Subjective: Patient asking for her noon pain pill to be scheduled as she does not want to wait for it. She feels she is getting stronger. REVIEW OF SYSTEMS: The following is a completed review of systems and has been reviewed. Review of systems otherwise unremarkable. PAIN: Patient self reports right hip pain EYES: Negative for recent vision changes EARS, NOSE, & THROAT: negative for dysphagia or throat pain CARDIOVASCULAR: denies chest pain or palpitations PULMONARY: Negative. +resting dyspnea (improving) GASTROINTESTINAL: Negative for diarrhea/constipation GENITOURINARY: +dysuria (improving) MUSCULOSKELETAL: right hip fracture NEUROLOGICAL: no tremor or seizure activity HEMATOLOGICAL: +anemia (improving) SKIN: right hip incision PSYCHIATRIC: Unremarkable All other review of systems found to be negative. PHYSICAL EXAMINATION: VITAL SIGNS: Please see below. GENERAL: Pleasant and cooperative. No acute distress. Pale HEENT: PERRL. Extraocular movements intact. Clear conjunctiva CARDIOVASCULAR: Regular rate and rhythm. +systolic murmurs, rubs, or gallops, right upper chest wall LUNGS: Clear to auscultation bilaterally. No wheezes. No rhonchi ABDOMEN: Soft, nontender, nondistended. Positive bowel sounds. Normal active bowel sounds NEUROLOGICAL: Alert and oriented times three. Cranial nerves II through XII grossly intact. Sensation grossly intact including 1st web space of right foot EXTREMITIES: 5-\5 strength bilateral upper extremities. 5-\5 strength right lower ankle Df and EHL, rest of exam limited due to pain. 5-/5 strength in left lower extremity. (-) Gabriela's bilat SKIN: right thigh incision c/d/i ASSESSMENT:77-year-ol F with past medical history of breast cancer and pulmonary embolism who presents status post fall with right hip fracture PLAN: 1. rehab: PT/OT, will consider [employer] TECHNICIAN for cognition, ambulating further with RW at Mod-I level, still requiring assistance in OT 2. Neuro: stable 3. CArdiac: recent NSTEMI in 05/2018- medicine consulted 4. Resp: recent diagnosis of PE in 05/2018 on Lovenox, s/p IVC filter placed 06/11/18, monitor for infection, encourage incentive spirometry -recent imaging +several left rib fractures -sinus congestion c/u flonase, nasal saline drops, encouraging patient to drink liquids 5. Onc/Heme: stage 4 ovarian cancer with mets, f/u with oncology as outpatient, optimize pain control -post-op anemia will monitor, 06/17 7.8, s/p 2 units of prbcs, received verbal permission from oncology nurse OK to use port for access and infusions- stable, will c/u to monitor 6. Ortho: s/p fall with right hip fracture s/p hemiarthroplasty- WBAT with hip precautions -right clavicle- per ortho recs no restrictions, WBAT 7. Endo: pmh hypothyroidism, c/u Synthroid 8. Pain: c/u Tylenol standing, oxycodone, Gabapentin, and Flexeril- c/u increased dose of Gabapentin for right thigh and calf cramping and add Ice 9. Psych/Insomnia: c/u Seroquel qhS and Sertraline for anxiety 10. DVT ppx: on full dose Lovenox for PE 11. GI ppx: protonix 12. : admission Ua complete and Ucx +ESBL E.Coli, s/p 1x dose Fosfomycin without symptom resolution, c/u Macrobid symptoms improving 13. Hypokalemia: increased K to 20meq BID-better, c/u to monitor 14. Extremities: bilateral feet swelling better, will c/u lasix and sarah-wrap 13. Dispo: 06/30/18 to home Allergies Coded Allergies: methotrexate (Unverified Allergy, Unknown, 06/10/18) metoclopramide (Unverified Allergy, Unknown, 06/10/18) moxifloxacin (Unverified Allergy, Unknown, 06/10/18) nalbuphine (Unverified Allergy, Unknown, 06/10/18) prochlorperazine (Unverified Allergy, Unknown, 06/10/18) topiramate (Unverified Allergy, Unknown, 06/10/18) trazodone (Unverified Allergy, Unknown, 06/10/18) Vital Signs Vital Signs Date Time Temp Pulse Resp B/P (MAP) Pulse Ox O2 Delivery O2 Flow Rate FiO2 06/25/18 08:28 18 06/25/18 06:00 98.1 99 117/56 (76) 95 Laboratory Data CBC/BMP Laboratory Tests 06/25/18 06:17 Red Blood Count 3.80 L, Mean Corpuscular Volume 93.2, Mean Corpuscular Hemoglobin 28.4, Mean Corpuscular Hemoglobin Concent 30.5 L, Red Cell Distribution Width 17.4 H, Calcium Level 8.9 Labs 24H Laboratory Tests 2 06/25/18 06:17: Nucleated Red Blood Cells % (auto) 0.0, Anion Gap 7L, Glomerular Filtration Rate > 60.0, Blood Urea Nitrogen 16, Creatinine 0.58, Sodium Level 140, Potassium Level 4.1, Chloride Level 108H, Carbon Dioxide Level 25, Calcium Level 8.9 Microbiology Microbiology 06/24/18 MRSA Screen - Final, Complete 06/17/18 MRSA Screen - Final, Complete 06/16/18 Urine Culture - Final, Complete Escherichia Coli Current Medications Current Medications Current Medications Acetaminophen (Tylenol Tab) 1,000 mg Q8H PO Last administered on 06/25/18 05:15; Start 06/16/18 at 22:00 Al Hydrox/Mg Hydrox/Simethicone (Mylanta) 30 ml Q4HP PRN PO DYSPEPSIA; Start 06/16/18 at 15:00 Bisacodyl (Dulcolax Tab) 5 mg DAILYPRN PRN PO CONSTIPATION; Start 06/16/18 at 15:00 Cyclobenzaprine HCl (Flexeril) 10 mg TID PO Last administered on 06/25/18 08:28; Start 06/16/18 at 21:00 Enoxaparin Sodium (Lovenox) 60 mg BID SC Last administered on 06/25/18 08:29; Start 06/16/18 at 21:00 Ferrous Gluconate (Fergon) 324 mg BID PO Last administered on 06/25/18 08:28; Start 06/16/18 at 21:00 Fluticasone Propionate (Flonase 0.05% Nasal [place]) 1 spray BID NARES Last administered on 06/25/18 08:29; Start 06/18/18 at 09:00 Folic Acid (Folic Acid) 1 mg DAILY PO Last administered on 06/25/18 08:29; Start 06/17/18 at 09:00 Furosemide (Lasix) 20 mg DAILY PO Last administered on 06/22/18at 08:47; Start 06/20/18 at 10:45; Stop 06/24/18 at 09:14; Status DC Furosemide (Lasix) 20 mg DAILY PO Last administered on 06/25/18 08:28; Start 06/24/18 at 10:30 Gabapentin (Neurontin) 300 mg QID PO Last administered on 06/25/18at 08:29; Start 06/18/18 at 17:00 Gabapentin (Neurontin) 300 mg TID PO Last administered on 06/18/18at 09:02; Start 06/16/18 at 21:00; Stop 06/18/18 at 11:09; Status DC Gabapentin (Neurontin) 400 mg TID PO ; Start 06/18/18 at 16:00; Stop 06/18/18 at 16:03; Status DC Heparin Sodium (Heparin (Flush)) 500 units ASDIRECTED PRN IV SEE LABEL COMMENTS Last administered on 06/23/18 06:34; Start 06/17/18 at 12:00 Heparin Sodium (Heparin (Flush)) 500 units DAILY IV Last administered on 06/24/18at 08:53; Start 06/18/18 at 09:00 Levothyroxine Sodium (Synthroid) 137 mcg DAILY@06 PO Last administered on 06/25/18 05:14; Start 06/17/18 at 06:00 Loperamide HCl (Imodium) 2 mg ASDIRECTED PRN PO DIARRHEA Last administered on 06/23/18 12:57; Start 06/18/18 at 10:30 Magnesium Gluconate (Magnesium Gluconate) 250 mg BID PO Last administered on 06/25/18 08:28; Start 06/20/18 at 11:00 Magnesium Hydroxide (Milk Of Magnesia) 30 ml DAILYPRN PRN PO CONSTIPATION; Start 06/16/18 at 15:00 Menthol/Methyl Salicylate (Bengay Cream) right upper thigh BID TOP Last administered on 06/24/18at 21:21; Start 06/18/18 at 09:00 Miscellaneous (Unresolved Clarification Entry) SEE LABEL COMMENTS DAILY XX ; Start 06/22/18 at 09:00; Stop 06/23/18 at 07:26; Status DC Miscellaneous (Unresolved Clarification Entry) SEE LABEL COMMENTS DAILY XX ; Start 06/23/18 at 09:00; Stop 06/24/18 at 10:49; Status DC Multivitamins (Theragram-M) 1 tab DAILY PO ; Start 06/17/18 at 09:00; Stop 06/17/18 at 09:00; Status DC Multivitamins (Theragram-M) 2 tab DAILY PO Last administered on 06/25/18 08:29; Start 06/17/18 at 09:00 Nitrofurantoin Monoh/Nitrofur Macro (Macrobid) 100 mg BID PO Last administered on 06/25/18 08:28; Start 06/20/18 at 10:45; Stop 06/26/18 at 21:01 Ondansetron HCl (Zofran) 4 mg Q6HP PRN PO NAUSEA; Start 06/16/18 at 15:00 Oxycodone HCl (OxyCONTIN) 10 mg BID PO Last administered on 06/25/18 08:28; Start 06/16/18 at 21:00 Oxycodone HCl (Roxicodone, Oxyir) 5 mg Q4HP PRN PO PAIN Last administered on 06/22/18 22:32; Start 06/16/18 at 15:45 Oxycodone HCl (Roxicodone, Oxyir) 10 mg Q4HP PRN PO SEVERE PAIN (PS 8-10) Last administered on 06/24/18 17:15; Start 06/16/18 at 15:45 Pantoprazole Sodium (Protonix) 40 mg DAILY PO Last administered on 06/25/18 08:29; Start 06/17/18 at 09:00 Pantoprazole Sodium (Protonix) 40 mg DAILY PO ; Start 06/17/18 at 09:00; Status Cancel Potassium Chloride (Micro-K Extencaps) 20 meq BID PO Last administered on 06/25/18 08:28; Start 06/20/18 at 21:00 Potassium Chloride (Micro-K Extencaps) 20 meq DAILY PO Last administered on 06/20/18 08:46; Start 06/20/18 at 09:00; Stop 06/20/18 at 10:43; Status DC Pramipexole Dihydrochloride (Mirapex) 0.75 mg QHS PO Last administered on 06/24/18 21:21; Start 06/16/18 at 21:00 Psyllium Hydrophilic Mucilloid (Metamucil) 1 pkt DAILY PO ; Start 06/17/18 at 09:00 Psyllium Hydrophilic Mucilloid (Metamucil) 1 pkt DAILY PO ; Start 06/17/18 at 09:00; Status Cancel Quetiapine Fumarate (SEROquel) 25 mg QHS PO Last administered on 06/24/18at 21:20; Start 06/16/18 at 21:00 Senna/Docusate Sodium (Senokot S) 1 tab DAILY PO ; Start 06/17/18 at 09:00; Stop 06/18/18 at 14:19; Status DC Sertraline HCl (Zoloft) 100 mg DAILY PO Last administered on 06/25/18 08:29; Start 06/17/18 at 09:00 Sodium Chloride ([employer] Nasal [place]) 2 spray TID NA Last administered on 06/25/18 08:30; Start 06/18/18 at 16:00 Sodium Chloride (Saline Lock Flush) 10 ml ASDIRECTED PRN IV SEE LABEL COMMENTS Last administered on 06/25/18at 05:14; Start 06/17/18 at 12:00 Sodium Chloride (Saline Lock Flush) 10 ml DAILY IV Last administered on 06/24/18at 08:53; Start 06/18/18 at 09:00 A-FIB/CHADSVASC A-FIB History Current/History of A-Fib/PAF?: No Current Oral Anticoagulant The: Yes JULIA TAYLOR MD Jun 25, 2018 10:39
[2018-06-25] MEDS: oxyCODONE 5MG TAB PO PRN ×2 (12:01→18:50)
[2018-06-25 14:00] VITALS: BP 135/62
[2018-06-25 20:18] VITALS: BP 108/67
[2018-06-25] MEDS: PRAMIPEXOLE 0.25 MG TAB PO SCH (21:23)
[2018-06-25] MEDS: QUEtiapine FUMARATE 25 MG TAB PO SCH (21:23)
[2018-06-26 05:57] VITALS: BP 132/67
[2018-06-26] MEDS: LEVOTHYROXINE 137MCG TABLET (0.137MG) PO SCH (06:07)
[2018-06-26] MEDS: ACETAMINOPHEN 500 MG TAB PO SCH ×3 (06:08→20:21)
[2018-06-26] MEDS: NITROFURANTOIN (MACROBID) 100 MG CAP PO SCH (08:36)
[2018-06-26] MEDS: MULTIVITAMINS/MINERALS THERAP 1 TAB PO SCH (08:36)
[2018-06-26] MEDS: PANTOPRAZOLE 40MG TAB (PROTONIX) PO SCH (08:36)
[2018-06-26] MEDS: POTASSIUM CHLORIDE 10 MEQ SR TABLET PO SCH ×2 (08:36→20:22)
[2018-06-26] MEDS: oxyCODONE 10 MG CR TAB PO SCH ×2 (08:37→20:20)
[2018-06-26] MEDS: CYCLOBENZAPRINE 10 MG TAB PO SCH ×3 (08:37→20:21)
[2018-06-26] MEDS: FERROUS GLUCONATE 324 MG TAB PO SCH ×2 (08:37→20:20)
[2018-06-26] MEDS: GABAPENTIN 300 MG CAP PO SCH ×4 (08:37→20:22)
[2018-06-26] MEDS: FOLIC ACID 1 MG TAB PO SCH (08:37)
[2018-06-26] MEDS: SERTRALINE 100 MG TAB PO SCH (08:37)
[2018-06-26] MEDS: FUROSEMIDE 20 MG TAB PO SCH (08:37)
[2018-06-26] MEDS: MAGNESIUM GLUCONATE 500 MG TAB PO SCH ×2 (08:38→20:22)
[2018-06-26] MEDS: ENOXAPARIN 60 MG/0.6 ML SYR (J1650) SC SCH ×2 (08:39→20:23)
[2018-06-26] MEDS: SODIUM CHLORIDE 0.9% INJ 10 ML SYR IV SCH (08:39)
[2018-06-26] MEDS: FLUTICASONE PROP 0.05% NASAL SPRAY 16 GM (FLONASE) NARES SCH ×2 (08:40→20:23)
[2018-06-26] MEDS: SODIUM CHLORIDE NASAL 0.65% SPRAY BTL (OCEAN) SCH ×3 (08:40→20:23)
[2018-06-26] MEDS: METAMUCIL (PSYLLIUM) PACKET PO SCH (08:41)
[2018-06-26] MEDS: ANALGESIC BALM CRM 120 GM TOP SCH ×2 (08:41→21:00)
--- NOTE | 2018-06-26 10:28 | IPNPDOC ---
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 REVIEW OF SYSTEMS: The following is a completed review of systems and has been reviewed. Review of systems otherwise unremarkable. PAIN: Patient self reports right hip pain EYES: Negative for recent vision changes EARS, NOSE, & THROAT: negative for dysphagia or throat pain CARDIOVASCULAR: denies chest pain or palpitations PULMONARY: Negative. +resting dyspnea (improving) GASTROINTESTINAL: Negative for diarrhea/constipation GENITOURINARY: +dysuria (improving) MUSCULOSKELETAL: right hip fracture NEUROLOGICAL: no tremor or seizure activity HEMATOLOGICAL: +anemia (improving) SKIN: right hip incision PSYCHIATRIC: Unremarkable All other review of systems found to be negative. PHYSICAL EXAMINATION: VITAL SIGNS: Please see below. GENERAL: Pleasant and cooperative. No acute distress. Pale HEENT: PERRL. Extraocular movements intact. Clear conjunctiva CARDIOVASCULAR: Regular rate and rhythm. +systolic murmurs, rubs, or gallops, right upper chest wall LUNGS: Clear to auscultation bilaterally. No wheezes. No rhonchi ABDOMEN: Soft, nontender, nondistended. Positive bowel sounds. Normal active bowel sounds NEUROLOGICAL: Alert and oriented times three. Cranial nerves II through XII grossly intact. Sensation grossly intact including 1st web space of right foot EXTREMITIES: 5-\5 strength bilateral upper extremities. 5-\5 strength right lower ankle Df and EHL, rest of exam limited due to pain. 5-/5 strength in left lower extremity. (-) Gabriela's bilat SKIN: right thigh incision c/d/i ASSESSMENT:77-year-ol F with past medical history of breast cancer and pulmonary embolism who presents status post fall with right hip fracture PLAN: 1. rehab: PT/OT, will consider FASHION CONSULTANT for cognition, ambulating further with RW at Mod-I level, still requiring assistance in OT 2. Neuro: stable 3. CArdiac: recent NSTEMI in 05/2018- medicine consulted 4. Resp: recent diagnosis of PE in 05/2018 on Lovenox, s/p IVC filter placed 06/11/18, monitor for infection, encourage incentive spirometry -recent imaging +several left rib fractures -sinus congestion c/u flonase, nasal saline drops, encouraging patient to drink liquids 5. Onc/Heme: stage 4 ovarian cancer with mets, f/u with oncology as outpatient, optimize pain control -post-op anemia will monitor, 06/17 7.8, s/p 2 units of prbcs, received verbal permission from oncology nurse OK to use port for access and infusions- stable, will c/u to monitor 6. Ortho: s/p fall with right hip fracture s/p hemiarthroplasty- WBAT with hip precautions -right clavicle- per ortho recs no restrictions, WBAT 7. Endo: pmh hypothyroidism, c/u Synthroid 8. Pain: c/u Tylenol standing, oxycodone, Gabapentin, and Flexeril- c/u increased dose of Gabapentin for right thigh and calf cramping and add Ice 9. Psych/Insomnia: c/u Seroquel qhS and Sertraline for anxiety 10. DVT ppx: on full dose Lovenox for PE 11. GI ppx: protonix 12. : admission Ua complete and Ucx +ESBL E.Coli, s/p 1x dose Fosfomycin without symptom resolution, c/u Macrobid symptoms improving 13. Hypokalemia: increased K to 20meq BID-better, c/u to monitor 14. Extremities: bilateral feet swelling better, will c/u lasix and sarah-wrap 13. Dispo: 06/30/18 to home Allergies Coded Allergies: methotrexate (Unverified Allergy, Unknown, 06/10/18) metoclopramide (Unverified Allergy, Unknown, 06/10/18) moxifloxacin (Unverified Allergy, Unknown, 06/10/18) nalbuphine (Unverified Allergy, Unknown, 06/10/18) prochlorperazine (Unverified Allergy, Unknown, 06/10/18) topiramate (Unverified Allergy, Unknown, 06/10/18) trazodone (Unverified Allergy, Unknown, 06/10/18) Vital Signs Vital Signs Date Time Temp Pulse Resp B/P (MAP) Pulse Ox O2 Delivery O2 Flow Rate FiO2 06/26/18 08:37 18 06/26/18 05:57 97.3 88 132/67 (88) 93 Microbiology Microbiology 06/24/18 MRSA Screen - Final, Complete 06/17/18 MRSA Screen - Final, Complete 06/16/18 Urine Culture - Final, Complete Escherichia Coli Current Medications Current Medications Current Medications Acetaminophen (Tylenol Tab) 1,000 mg Q8H PO Last administered on 06/26/18 06:08; Start 06/16/18 at 22:00 Al Hydrox/Mg Hydrox/Simethicone (Mylanta) 30 ml Q4HP PRN PO DYSPEPSIA; Start 06/16/18 at 15:00 Bisacodyl (Dulcolax Tab) 5 mg DAILYPRN PRN PO CONSTIPATION; Start 06/16/18 at 15:00 Cyclobenzaprine HCl (Flexeril) 10 mg TID PO Last administered on 06/26/18 08:37; Start 06/16/18 at 21:00 Enoxaparin Sodium (Lovenox) 60 mg BID SC Last administered on 06/26/18 08:39; Start 06/16/18 at 21:00 Ferrous Gluconate (Fergon) 324 mg BID PO Last administered on 06/26/18 08:37; Start 06/16/18 at 21:00 Fluticasone Propionate (Flonase 0.05% Nasal [place]) 1 spray BID NARES Last admin istered on 06/26/18 08:40; Start 06/18/18 at 09:00 Folic Acid (Folic Acid) 1 mg DAILY PO Last administered on 06/26/18 08:37; Start 06/17/18 at 09:00 Furosemide (Lasix) 20 mg DAILY PO Last administered on 06/22/18at 08:47; Start 06/20/18 at 10:45; Stop 06/24/18 at 09:14; Status DC Furosemide (Lasix) 20 mg DAILY PO Last administered on 06/26/18 08:37; Start 06/24/18 at 10:30 Gabapentin (Neurontin) 300 mg QID PO Last administered on 06/26/18 08:37; Start 06/18/18 at 17:00 Gabapentin (Neurontin) 300 mg TID PO Last administered on 06/18/18 09:02; Start 06/16/18 at 21:00; Stop 06/18/18 at 11:09; Status DC Gabapentin (Neurontin) 400 mg TID PO ; Start 06/18/18 at 16:00; Stop 06/18/18 at 16:03; Status DC Heparin Sodium (Heparin (Flush)) 500 units ASDIRECTED PRN IV SEE LABEL COMMENTS Last administered on 06/23/18 06:34; Start 06/17/18 at 12:00 Heparin Sodium (Heparin (Flush)) 500 units DAILY IV Last administered on 06/24/18at 08:53; Start 06/18/18 at 09:00 Levothyroxine Sodium (Synthroid) 137 mcg DAILY@06 PO Last administered on 06/26/18 06:07; Start 06/17/18 at 06:00 Loperamide HCl (Imodium) 2 mg ASDIRECTED PRN PO DIARRHEA Last administered on 06/23/18 12:57; Start 06/18/18 at 10:30 Magnesium Gluconate (Magnesium Gluconate) 250 mg BID PO Last administered on 06/26/18 08:38; Start 06/20/18 at 11:00 Magnesium Hydroxide (Milk Of Magnesia) 30 ml DAILYPRN PRN PO CONSTIPATION; Start 06/16/18 at 15:00 Menthol/Methyl Salicylate (Bengay Cream) right upper thigh BID TOP Last administered on 06/26/18at 08:41; Start 06/18/18 at 09:00 Miscellaneous (Unresolved Clarification Entry) SEE LABEL COMMENTS DAILY XX ; Start 06/22/18 at 09:00; Stop 06/23/18 at 07:26; Status DC Miscellaneous (Unresolved Clarification Entry) SEE LABEL COMMENTS DAILY XX ; Start 06/23/18 at 09:00; Stop 06/24/18 at 10:49; Status DC Multivitamins (Theragram-M) 1 tab DAILY PO ; Start 06/17/18 at 09:00; Stop 06/17/18 at 09:00; Status DC Multivitamins (Theragram-M) 2 tab DAILY PO Last administered on 06/26/18 08:36; Start 06/17/18 at 09:00 Nitrofurantoin Monoh/Nitrofur Macro (Macrobid) 100 mg BID PO Last administered on 06/26/18 08:36; Start 06/20/18 at 10:45; Stop 06/26/18 at 10:07; Status DC Ondansetron HCl (Zofran) 4 mg Q6HP PRN PO NAUSEA; Start 06/16/18 at 15:00 Oxycodone HCl (OxyCONTIN) 10 mg BID PO Last administered on 06/26/18 08:37; Start 06/16/18 at 21:00 Oxycodone HCl (Roxicodone, Oxyir) 5 mg Q4HP PRN PO PAIN Last administered on 06/25/18 18:50; Start 06/16/18 at 15:45 Oxycodone HCl (Roxicodone, Oxyir) 10 mg DAILY@1200 PO ; Start 06/26/18 at 12:00 Oxycodone HCl (Roxicodone, Oxyir) 10 mg Q4HP PRN PO SEVERE PAIN (PS 8-10) Last administered on 06/25/18 12:01; Start 06/16/18 at 15:45; Stop 06/25/18 at 15:25; Status DC Pantoprazole Sodium (Protonix) 40 mg DAILY PO Last administered on 06/26/18 08:36; Start 06/17/18 at 09:00 Pantoprazole Sodium (Protonix) 40 mg DAILY PO ; Start 06/17/18 at 09:00; Status Cancel Potassium Chloride (Micro-K Extencaps) 20 meq BID PO Last administered on 06/26/18 08:36; Start 06/20/18 at 21:00 Potassium Chloride (Micro-K Extencaps) 20 meq DAILY PO Last administered on 06/20/18 08:46; Start 06/20/18 at 09:00; Stop 06/20/18 at 10:43; Status DC Pramipexole Dihydrochloride (Mirapex) 0.75 mg QHS PO Last administered on 06/25/18 21:23; Start 06/16/18 at 21:00 Psyllium Hydrophilic Mucilloid (Metamucil) 1 pkt DAILY PO ; Start 06/17/18 at 09:00 Psyllium Hydrophilic Mucilloid (Metamucil) 1 pkt DAILY PO ; Start 06/17/18 at 09:00; Status Cancel Quetiapine Fumarate (SEROquel) 25 mg QHS PO Last administered on 06/25/18 21:23; Start 06/16/18 at 21:00 Senna/Docusate Sodium (Senokot S) 1 tab DAILY PO ; Start 06/17/18 at 09:00; Stop 06/18/18 at 14:19; Status DC Sertraline HCl (Zoloft) 100 mg DAILY PO Last administered on 06/26/18 08:37; Start 06/17/18 at 09:00 Sodium Chloride ([place] Nasal [place]) 2 spray TID NA Last administered on 06/26/18at 08:40; Start 06/18/18 at 16:00 Sodium Chloride (Saline Lock Flush) 10 ml ASDIRECTED PRN IV SEE LABEL COMMENTS Last administered on 06/25/18at 05:14; Start 06/17/18 at 12:00 Sodium Chloride (Saline Lock Flush) 10 ml DAILY IV Last administered on 06/24/18at 08:53; Start 06/18/18 at 09:00 A-FIB/CHADSVASC A-FIB History Current/History of A-Fib/PAF?: No JULIA TAYLOR MD Jun 26, 2018 10:28
[2018-06-26] MEDS: oxyCODONE 5MG TAB PO SCH (11:50)
[2018-06-26 14:00] VITALS: BP 141/70
[2018-06-26 20:00] VITALS: BP 129/68
[2018-06-26] MEDS: PRAMIPEXOLE 0.25 MG TAB PO SCH (20:22)
[2018-06-26] MEDS: QUEtiapine FUMARATE 25 MG TAB PO SCH (20:22)
[2018-06-27 05:47] VITALS: BP 125/59
[2018-06-27] MEDS: LEVOTHYROXINE 137MCG TABLET (0.137MG) PO SCH (06:10)
[2018-06-27] MEDS: ACETAMINOPHEN 500 MG TAB PO SCH ×3 (06:11→22:19)
[2018-06-27] MEDS: ENOXAPARIN 60 MG/0.6 ML SYR (J1650) SC SCH ×2 (08:17→20:48)
[2018-06-27] MEDS: GABAPENTIN 300 MG CAP PO SCH ×4 (08:18→20:48)
[2018-06-27] MEDS: POTASSIUM CHLORIDE 10 MEQ SR TABLET PO SCH ×2 (08:18→20:48)
[2018-06-27] MEDS: SERTRALINE 100 MG TAB PO SCH (08:18)
[2018-06-27] MEDS: FOLIC ACID 1 MG TAB PO SCH (08:18)
[2018-06-27] MEDS: FERROUS GLUCONATE 324 MG TAB PO SCH ×2 (08:18→20:48)
[2018-06-27] MEDS: oxyCODONE 10 MG CR TAB PO SCH ×2 (08:18→20:49)
[2018-06-27] MEDS: CYCLOBENZAPRINE 10 MG TAB PO SCH ×3 (08:18→20:48)
[2018-06-27] MEDS: MULTIVITAMINS/MINERALS THERAP 1 TAB PO SCH (08:18)
[2018-06-27] MEDS: PANTOPRAZOLE 40MG TAB (PROTONIX) PO SCH (08:18)
[2018-06-27] MEDS: MAGNESIUM GLUCONATE 500 MG TAB PO SCH ×2 (08:19→20:49)
[2018-06-27] MEDS: FUROSEMIDE 20 MG TAB PO SCH (08:19)
[2018-06-27] MEDS: METAMUCIL (PSYLLIUM) PACKET PO SCH (08:19)
[2018-06-27] MEDS: SODIUM CHLORIDE NASAL 0.65% SPRAY BTL (OCEAN) SCH ×3 (08:20→20:51)
[2018-06-27] MEDS: SODIUM CHLORIDE 0.9% INJ 10 ML SYR IV SCH (08:20)
[2018-06-27] MEDS: ANALGESIC BALM CRM 120 GM TOP SCH ×2 (08:20→20:53)
[2018-06-27] MEDS: FLUTICASONE PROP 0.05% NASAL SPRAY 16 GM (FLONASE) NARES SCH ×2 (08:20→20:51)
[2018-06-27] MEDS: oxyCODONE 5MG TAB PO SCH (12:09)
--- NOTE | 2018-06-27 12:09 | IPNPDOC ---
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 REVIEW OF SYSTEMS: The following is a completed review of systems and has been reviewed. Review of systems otherwise unremarkable. PAIN: Patient self reports right hip pain EYES: Negative for recent vision changes EARS, NOSE, & THROAT: negative for dysphagia or throat pain CARDIOVASCULAR: denies chest pain or palpitations PULMONARY: Negative. +resting dyspnea (improving) GASTROINTESTINAL: Negative for diarrhea/constipation GENITOURINARY: +dysuria (improving) MUSCULOSKELETAL: right hip fracture NEUROLOGICAL: no tremor or seizure activity HEMATOLOGICAL: +anemia (improving) SKIN: right hip incision PSYCHIATRIC: Unremarkable All other review of systems found to be negative. PHYSICAL EXAMINATION: VITAL SIGNS: Please see below. GENERAL: Pleasant and cooperative. No acute distress. Pale HEENT: PERRL. Extraocular movements intact. Clear conjunctiva CARDIOVASCULAR: Regular rate and rhythm. +systolic murmurs, rubs, or gallops, right upper chest wall LUNGS: Clear to auscultation bilaterally. No wheezes. No rhonchi ABDOMEN: Soft, nontender, nondistended. Positive bowel sounds. Normal active bowel sounds NEUROLOGICAL: Alert and oriented times three. Cranial nerves II through XII grossly intact. Sensation grossly intact including 1st web space of right foot EXTREMITIES: 5-\5 strength bilateral upper extremities. 5-\5 strength right lower ankle Df and EHL, rest of exam limited due to pain. 5-/5 strength in left lower extremity. (-) Gabriela's bilat SKIN: right thigh incision c/d/i ASSESSMENT:77-year-ol F with past medical history of breast cancer and pulmonary embolism who presents status post fall with right hip fracture PLAN: 1. rehab: PT/OT, will consider CARPET WEAVER for cognition, ambulating further with RW at Mod-I level- room privileges 2. Neuro: stable 3. CArdiac: recent NSTEMI in 05/2018- medicine consulted 4. Resp: recent diagnosis of PE in 05/2018 on Lovenox, s/p IVC filter placed 06/11/18, monitor for infection, encourage incentive spirometry -recent imaging +several left rib fractures -sinus congestion c/u flonase, nasal saline drops, encouraging patient to drink liquids 5. Onc/Heme: stage 4 ovarian cancer with mets, f/u with oncology as outpatient, optimize pain control -post-op anemia will monitor, 06/17 7.8, s/p 2 units of prbcs, received verbal permission from oncology nurse OK to use port for access and infusions- stable, will c/u to monitor 6. Ortho: s/p fall with right hip fracture s/p hemiarthroplasty- WBAT with hip precautions -right clavicle- per ortho recs no restrictions, WBAT 7. Endo: pmh hypothyroidism, c/u Synthroid 8. Pain: c/u Tylenol standing, oxycodone, Gabapentin, and Flexeril- c/u increased dose of Gabapentin for right thigh and calf cramping and add Ice 9. Psych/Insomnia: c/u Seroquel qhS and Sertraline for anxiety 10. DVT ppx: on full dose Lovenox for PE 11. GI ppx: protonix 12. : admission Ua complete and Ucx +ESBL E.Coli, s/p 1x dose Fosfomycin without symptom resolution, c/u Macrobid symptoms improving 13. Hypokalemia: increased K to 20meq BID-better, c/u to monitor 14. Extremities: bilateral feet swelling better, will c/u lasix and sarah-wrap 13. Dispo: 06/30/18 to home with daughter, will refer to outpatient pain management upon discharge Allergies Coded Allergies: methotrexate (Unverified Allergy, Unknown, 06/10/18) metoclopramide (Unverified Allergy, Unknown, 06/10/18) moxifloxacin (Unverified Allergy, Unknown, 06/10/18) nalbuphine (Unverified Allergy, Unknown, 06/10/18) prochlorperazine (Unverified Allergy, Unknown, 06/10/18) topiramate (Unverified Allergy, Unknown, 06/10/18) trazodone (Unverified Allergy, Unknown, 06/10/18) Vital Signs Vital Signs Date Time Temp Pulse Resp B/P (MAP) Pulse Ox O2 Delivery O2 Flow Rate FiO2 06/27/18 12:09 18 06/27/18 05:47 97.0 88 125/59 (81) 91 Microbiology Microbiology 06/24/18 MRSA Screen - Final, Complete 06/17/18 MRSA Screen - Final, Complete Current Medications Current Medications Current Medications Acetaminophen (Tylenol Tab) 1,000 mg Q8H PO Last administered on 06/27/18 06:11; Start 06/16/18 at 22:00 Al Hydrox/Mg Hydrox/Simethicone (Mylanta) 30 ml Q4HP PRN PO DYSPEPSIA; Start 06/16/18 at 15:00 Bisacodyl (Dulcolax Tab) 5 mg DAILYPRN PRN PO CONSTIPATION; Start 06/16/18 at 15:00 Cyclobenzaprine HCl (Flexeril) 10 mg TID PO Last administered on 06/27/18 08:18; Start 06/16/18 at 21:00 Enoxaparin Sodium (Lovenox) 60 mg BID SC Last administered on 06/27/18 08:17; Start 06/16/18 at 21:00 Ferrous Gluconate (Fergon) 324 mg BID PO Last administered on 06/27/18 08:18; Start 06/16/18 at 21:00 Fluticasone Propionate (Flonase 0.05% Nasal [place]) 1 spray BID NARES Last administered on 06/27/18 08:20; Start 06/18/18 at 09:00 Folic Acid (Folic Acid) 1 mg DAILY PO Last administered on 06/27/18 08:18; Start 06/17/18 at 09:00 Furosemide (Lasix) 20 mg DAILY PO Last administered on 06/22/18at 08:47; Start 06/20/18 at 10:45; Stop 06/24/18 at 09:14; Status DC Furosemide (Lasix) 20 mg DAILY PO Last administered on 06/27/18 08:19; Start 06/24/18 at 10:30 Gabapentin (Neurontin) 300 mg QID PO Last administered on 06/27/18 12:08; Start 06/18/18 at 17:00 Gabapentin (Neurontin) 300 mg TID PO Last administered on 06/18/18at 09:02; Start 06/16/18 at 21:00; Stop 06/18/18 at 11:09; Status DC Gabapentin (Neurontin) 400 mg TID PO ; Start 06/18/18 at 16:00; Stop 06/18/18 at 16:03; Status DC Heparin Sodium (Heparin (Flush)) 500 units ASDIRECTED PRN IV SEE LABEL COMMENTS Last administered on 06/23/18at 06:34; Start 06/17/18 at 12:00 Heparin Sodium (Heparin (Flush)) 500 units DAILY IV Last administered on 06/24/18at 08:53; Start 06/18/18 at 09:00 Levothyroxine Sodium (Synthroid) 137 mcg DAILY@06 PO Last administered on 06/27/18at 06:10; Start 06/17/18 at 06:00 Loperamide HCl (Imodium) 2 mg ASDIRECTED PRN PO DIARRHEA Last administered on 06/23/18at 12:57; Start 06/18/18 at 10:30 Magnesium Gluconate (Magnesium Gluconate) 250 mg BID PO Last administered on 06/27/18at 08:19; Start 06/20/18 at 11:00 Magnesium Hydroxide (Milk Of Magnesia) 30 ml DAILYPRN PRN PO CONSTIPATION; Start 06/16/18 at 15:00 Menthol/Methyl Salicylate ([place]eng[place] Cream) right upper thigh BID TOP Last administered on 06/26/18at 08:41; Start 06/18/18 at 09:00 Miscellaneous (Unresolved Clarification Entry) SEE LABEL COMMENTS DAILY XX ; Start 06/22/18 at 09:00; Stop 06/23/18 at 07:26; Status DC Miscellaneous (Unresolved Clarification Entry) SEE LABEL COMMENTS DAILY XX ; Start 06/23/18 at 09:00; Stop 06/24/18 at 10:49; Status DC Multivitamins (Theragram-M) 1 tab DAILY PO ; Start 06/17/18 at 09:00; Stop 06/17/18 at 09:00; Status DC Multivitamins (Theragram-M) 2 tab DAILY PO Last administered on 06/27/18at 08:18; Start 06/17/18 at 09:00 Nitrofurantoin Monoh/Nitrofur Macro (Macrobid) 100 mg BID PO Last administered on 06/26/18at 08:36; Start 06/20/18 at 10:45; Stop 06/26/18 at 10:07; Status DC Ondansetron HCl (Zofran) 4 mg Q6HP PRN PO NAUSEA; Start 06/16/18 at 15:00 Oxycodone HCl (OxyCONTIN) 10 mg BID PO Last administered on 06/27/18 08:18; Start 06/16/18 at 21:00 Oxycodone HCl (Roxicodone, Oxyir) 5 mg Q4HP PRN PO PAIN Last administered on 06/25/18 18:50; Start 06/16/18 at 15:45 Oxycodone HCl (Roxicodone, Oxyir) 10 mg DAILY@1200 PO Last administered on 06/27/18 12:09; Start 06/26/18 at 12:00 Oxycodone HCl (Roxicodone, Oxyir) 10 mg Q4HP PRN PO SEVERE PAIN (PS 8-10) Last administered on 06/25/18 12:01; Start 06/16/18 at 15:45; Stop 06/25/18 at 15:25; Status DC Pantoprazole Sodium (Protonix) 40 mg DAILY PO Last administered on 06/27/18 08:18; Start 06/17/18 at 09:00 Pantoprazole Sodium (Protonix) 40 mg DAILY PO ; Start 06/17/18 at 09:00; Status Cancel Potassium Chloride (Micro-K Extencaps) 20 meq BID PO Last administered on 06/27/18 08:18; Start 06/20/18 at 21:00 Potassium Chloride (Micro-K Extencaps) 20 meq DAILY PO Last administered on 06/20/18 08:46; Start 06/20/18 at 09:00; Stop 06/20/18 at 10:43; Status DC Pramipexole Dihydrochloride (Mirapex) 0.75 mg QHS PO Last administered on 06/26/18 20:22; Start 06/16/18 at 21:00 Psyllium Hydrophilic Mucilloid (Metamucil) 1 pkt DAILY PO ; Start 06/17/18 at 09:00 Psyllium Hydrophilic Mucilloid (Metamucil) 1 pkt DAILY PO ; Start 06/17/18 at 09:00; Status Cancel Quetiapine Fumarate (SEROquel) 25 mg QHS PO Last administered on 06/26/18 20:22; Start 06/16/18 at 21:00 Senna/Docusate Sodium (Senokot S) 1 tab DAILY PO ; Start 06/17/18 at 09:00; Stop 06/18/18 at 14:19; Status DC Sertraline HCl (Zoloft) 100 mg DAILY PO Last administered on 06/27/18 08:18; Start 06/17/18 at 09:00 Sodium Chloride ([place] Nasal [place]) 2 spray TID NA Last administered on 06/27/18at 08:20; Start 06/18/18 at 16:00 Sodium Chloride (Saline Lock Flush) 10 ml ASDIRECTED PRN IV SEE LABEL COMMENTS Last administered on 06/25/18at 05:14; Start 06/17/18 at 12:00 Sodium Chloride (Saline Lock Flush) 10 ml DAILY IV Last administered on 06/24/18at 08:53; Start 06/18/18 at 09:00 A-FIB/CHADSVASC A-FIB History Current/History of A-Fib/PAF?: No JULIA TAYLOR MD Jun 27, 2018 12:09
[2018-06-27 14:00] VITALS: BP 132/74
[2018-06-27 20:00] VITALS: BP 125/62
[2018-06-27] MEDS: QUEtiapine FUMARATE 25 MG TAB PO SCH (20:48)
[2018-06-27] MEDS: PRAMIPEXOLE 0.25 MG TAB PO SCH (20:49)
[2018-06-27] MEDS: oxyCODONE 5MG TAB PO PRN (22:19)
[2018-06-28] MEDS: ACETAMINOPHEN 500 MG TAB PO SCH ×3 (05:46→22:08)
[2018-06-28] MEDS: LEVOTHYROXINE 137MCG TABLET (0.137MG) PO SCH (05:46)
[2018-06-28 06:00] VITALS: BP 121/60
[2018-06-28] MEDS: SODIUM CHLORIDE 0.9% INJ 10 ML SYR IV SCH (09:00)
[2018-06-28] MEDS: POTASSIUM CHLORIDE 10 MEQ SR TABLET PO SCH ×2 (09:00→20:50)
[2018-06-28] MEDS: ANALGESIC BALM CRM 120 GM TOP SCH ×2 (09:00→20:51)
[2018-06-28] MEDS: METAMUCIL (PSYLLIUM) PACKET PO SCH (09:00)
[2018-06-28] MEDS: ENOXAPARIN 60 MG/0.6 ML SYR (J1650) SC SCH ×2 (09:30→20:48)
[2018-06-28] MEDS: FOLIC ACID 1 MG TAB PO SCH (09:31)
[2018-06-28] MEDS: FERROUS GLUCONATE 324 MG TAB PO SCH ×2 (09:31→20:49)
[2018-06-28] MEDS: oxyCODONE 10 MG CR TAB PO SCH ×2 (09:31→20:50)
[2018-06-28] MEDS: GABAPENTIN 300 MG CAP PO SCH ×4 (09:31→20:50)
[2018-06-28] MEDS: FUROSEMIDE 20 MG TAB PO SCH (09:32)
[2018-06-28] MEDS: CYCLOBENZAPRINE 10 MG TAB PO SCH ×3 (09:32→20:50)
[2018-06-28] MEDS: MULTIVITAMINS/MINERALS THERAP 1 TAB PO SCH (09:32)
[2018-06-28] MEDS: PANTOPRAZOLE 40MG TAB (PROTONIX) PO SCH (09:32)
[2018-06-28] MEDS: SERTRALINE 100 MG TAB PO SCH (09:32)
[2018-06-28] MEDS: MAGNESIUM GLUCONATE 500 MG TAB PO SCH ×2 (09:32→20:50)
[2018-06-28] MEDS: FLUTICASONE PROP 0.05% NASAL SPRAY 16 GM (FLONASE) NARES SCH ×2 (09:35→20:51)
[2018-06-28] MEDS: SODIUM CHLORIDE NASAL 0.65% SPRAY BTL (OCEAN) SCH ×3 (09:35→20:51)
[2018-06-28] MEDS ORDERED: oxyCODONE 5MG TAB PO PRN (10:15)
[2018-06-28] MEDS: oxyCODONE 5MG TAB PO SCH ×2 (12:05→22:08)
[2018-06-28 14:00] VITALS: BP 118/58
--- NOTE | 2018-06-28 16:43 | CR.PDOC ---
General Date of Consultation: Jun 28, 2018 Consultation REASON FOR CONSULTATION/CHIEF COMPLAINT: [Medical management]. HISTORY OF PRESENT ILLNESS: [ 77 year old female with PMH of stage 4 Ovarian cancer first diagnosed in 2014 and treated then with ovarian surgery, chemotherapy recurrence in 2018 with mets to liver and possibly bones, Pulmonary embolism in may 2018 on lovenox, anemia and syncope requiring intubation and ventilation in may 2018, demand ischemia then was hospitalized for about 3 weeks in [facility] , anemia, Hypothyroidism, Spinal stenosis, rheumatoid arthritis, and generalized weakness who had a mechanical fall at home where she presented to ED on 06/10/18 with Intertrochanteric fracture identified with cephalad migration of the distal fracture fragment. She also managed by medicine and oncology. She was placed on a heparin drip in preparation for surgery and an IVC filter was placed on 06/11/18 by vascular surgery for hypercoagulable state. She later underwent a right hip joey-arthroplasty on 06/14/18 with bone pathology coming back negative for malignancy. She reported right shoulder pain for which X-rays on 06/11/18 showed, Clavicle fracture. No glenohumeral fracture or dislocation. She underwent a NM bone scan to look for metastases and was found to have several left sided rib fractures. She was maintained on therapeutic Lovenox for her history of PE and was found to have continuous drop in hemoglobin which was thought to be from post-op losses. Therapy evaluated her and her level of function was far below baseline requiring assistance with gait and ADLs, so she was deemed medically appropriate for discharge to ARU on 06/16/18. Patient was admitted to ARU on 06/16/18 and Hospitalist consulted for medical management today. Pleasant female without complaints today. She hopes to return home soon. Her daughter visiting. No fever, no cough, abdominal pain, diarrhea, or dysuria. ]. ALLERGIES: Please see below. HOME MEDICATIONS: Please see below. PAST MEDICAL HISTORY: Stage 4 Ovarian cancer Pulmonary embolism Anemia demand ischemia hypothyroidism Anxiety/ depression/ restless leg syndrome PAST SURGICAL HISTORY: appendectomy ovarian surgery (BSO) hysterectomy (LAKISHA) abdominal hernia surgeries Left ORIF IVC filter was placed on 06/11/18 right hip joey-arthroplasty on 06/14/18 FAMILY HISTORY: Non-contributory SOCIAL HISTORY: no smoking, drinking, or drug use REVIEW OF SYSTEMS: 10 point review system negative other than those described in HPI. PHYSICAL EXAMINATION: VITAL SIGNS: Please see below. GENERAL APPEARANCE: Resting comfortably HEENT: Normocephalic, PERRLA, Mucous moist, CARDIOVASCULAR: S1,S2, pulse present, regularly, regular, LUNGS: Equal air entry b/l, no wheezes or crackle ABDOMEN: Soft, BS present, no tenderness, no guarding EXTREMITIES: capillary refill present , chronic minimal edema right and utilizing RAMIN stocking SKIN: Warm, No fever NEUROLOGICAL: Cranial nerves grossly intact PSYCHIATRIC: Normal mood and affect for current situation LABORATORY DATA: Please see below. ASSESSMENT/PLAN: 77 year old female with PMH of stage 4 Ovarian cancer first diagnosed in 2014 and treated then with ovarian surgery, chemotherapy recurrence in 2018 with mets to liver and possibly bones, Pulmonary embolism in may 2018 on lovenox, anemia and syncope requiring intubation and ventilation in may 2018, demand ischemia then was hospitalized for about 3 weeks in [facility] , anemia, Hypothyroidism, Spinal stenosis, rheumatoid arthritis, and generalized weakness who had a mechanical fall at home where she presented to ED on 06/10/18 with Intertrochanteric fracture identified with cephalad migration of the distal fracture fragment. She also managed by medicine and oncology. She was placed on a heparin drip in preparation for surgery and an IVC filter was placed on 06/11/18 by vascular surgery for hypercoagulable state. She later underwent a right hip joey-arthroplasty on 06/14/18 with bone pathology coming back negative for malignancy. She reported right shoulder pain for which X-rays on 06/11/18 showed, Clavicle fracture. No glenohumeral fracture or dislocation. She underwent a NM bone scan to look for metastases and was found to have several left sided rib fractures. She was maintained on therapeutic Lovenox for her history of PE and was found to have continuous drop in hemoglobin which was thought to be from post-op losses. Therapy evaluated her and her level of function was far below baseline requiring assistance with gait and ADLs, so she was deemed medically appropriate for discharge to ARU on 06/16/18. Patient was admitted to ARU on 06/16/18 and Hospitalist consulted for medical management. Rehab as per primary team Metastatic Ovarian cancer -follow up outpatient with oncologist. Pulmonary Embolism -continue therapeutic lovenox bid H/O Anemia -HH has been stable Hypothyroid -continue synthroid Anxiety/ depression/ restless leg syndrome -continue home medications. Hx if ischemic demand -pt on anticoagulation due to problems mentioned above -not on rate control, suspect limited use due to her soft/low nml BP -not on statin, possible due to her stage 4 cancer -f/u w pcp Chronic right LE edema -RAMIN -PRN lasix Vital Signs/I&O Vital Signs Date Time Temp Pulse Resp B/P (MAP) Pulse Ox O2 Delivery O2 Flow Rate FiO2 06/28/18 14:00 97.3 103 18 118/58 (78) 95 I&O- Last 24 Hours up to 6 AM 06/28/18 06:00 Intake Total 900 ml Balance 900 ml Laboratory Data Microbiology Microbiology 06/24/18 MRSA Screen - Final, Complete Allergies Coded Allergies: methotrexate (Unverified Allergy, Unknown, 06/10/18) metoclopramide (Unverified Allergy, Unknown, 06/10/18) moxifloxacin (Unverified Allergy, Unknown, 06/10/18) nalbuphine (Unverified Allergy, Unknown, 06/10/18) prochlorperazine (Unverified Allergy, Unknown, 06/10/18) topiramate (Unverified Allergy, Unknown, 06/10/18) trazodone (Unverified Allergy, Unknown, 06/10/18) Home Medications Scheduled Enoxaparin Sodium (Enoxaparin Sodium) 60 Mg/0.6 Ml Syringe, 60 MG SC Q12H, (Reported) Ferrous Sulfate (Ferrous Sulfate) 325 Mg Tablet, 325 MG PO BIDWM, (Reported) Folic Acid (Folic Acid) 1 Mg Tablet, 1 MG PO DAILY, (Reported) Gabapentin (Gabapentin) 300 Mg Capsule, 300 MG PO TID, (Reported) Lactose-Reduced Food (Ensure Enlive) 237 Ml Liquid, 237 ML PO BID, (Reported) Lansoprazole (Lansoprazole) 30 Mg Capsule.dr, 30 MG PO DAILY, (Reported) Levothyroxine Sodium (Synthroid) 137 Mcg Tablet, 137 MCG PO QAM, (Reported) Multivitamins (Thera M Plus Tablet) 1 Each Tablet, 2 TAB PO DAILY, (Reported) Pramipexole Di-HCl (Pramipexole Dihydrochloride) 0.75 Mg Tablet, 0.75 MG PO QHS, (Reported) Quetiapine Fumarate (Quetiapine Fumarate) 25 Mg Tablet, 25 MG PO QHS, (Reported) Sertraline Hcl (Zoloft) 100 Mg Tablet, 100 MG PO DAILY, (Reported) Scheduled PRN Fluticasone Propionate (Fluticasone Propionate) 16 Gm Levant.susp, 2 SPRAY NA BID PRN for ALLERGIES, (Reported) Loperamide HCl (Imodium A-D) 2 Mg Capsule, 2 MG PO DAILY PRN for DIARRHEA, (Reported) Ondansetron HCl (Zofran) 8 Mg Tablet, 8 MG PO Q6H PRN for NAUSEA OR VOMITING, (Reported) Oxycodone HCl (Oxycodone HCl) 5 Mg Tablet, 5 MG PO Q4HP PRN for PAIN for 1 Days, #1 Oxycodone HCl (Oxycodone HCl) 5 Mg Tablet, 10 MG PO Q4HP PRN for SEVERE PAIN (PS 8-10) for 1 Days, #1 Saccharomyces Boulardii (Florastor) 250 Mg Capsule, 250 MG PO BID PRN for loose stools, (Reported) KASHMIR SANDERS MD Jun 28, 2018 16:43
[2018-06-28 20:00] VITALS: BP 144/66
[2018-06-28] MEDS: PRAMIPEXOLE 0.25 MG TAB PO SCH (20:49)
[2018-06-28] MEDS: QUEtiapine FUMARATE 25 MG TAB PO SCH (20:50)
[2018-06-29] MEDS: ACETAMINOPHEN 500 MG TAB PO SCH ×3 (05:59→22:29)
[2018-06-29] MEDS: LEVOTHYROXINE 137MCG TABLET (0.137MG) PO SCH (05:59)
[2018-06-29 06:00] VITALS: BP 118/57
[2018-06-29] MEDS: ENOXAPARIN 60 MG/0.6 ML SYR (J1650) SC SCH ×2 (08:51→20:38)
[2018-06-29] MEDS: MAGNESIUM GLUCONATE 500 MG TAB PO SCH ×2 (08:52→20:35)
[2018-06-29] MEDS: GABAPENTIN 300 MG CAP PO SCH ×4 (08:52→20:36)
[2018-06-29] MEDS: POTASSIUM CHLORIDE 10 MEQ SR TABLET PO SCH ×2 (08:52→20:36)
[2018-06-29] MEDS: FUROSEMIDE 20 MG TAB PO SCH (08:52)
[2018-06-29] MEDS: FERROUS GLUCONATE 324 MG TAB PO SCH ×2 (08:53→20:35)
[2018-06-29] MEDS: SERTRALINE 100 MG TAB PO SCH (08:53)
[2018-06-29] MEDS: oxyCODONE 10 MG CR TAB PO SCH (08:53)
[2018-06-29] MEDS: CYCLOBENZAPRINE 10 MG TAB PO SCH ×3 (08:53→20:35)
[2018-06-29] MEDS: FOLIC ACID 1 MG TAB PO SCH (08:53)
[2018-06-29] MEDS: SODIUM CHLORIDE 0.9% INJ 10 ML SYR IV SCH (08:54)
[2018-06-29] MEDS: METAMUCIL (PSYLLIUM) PACKET PO SCH (08:54)
[2018-06-29] MEDS: PANTOPRAZOLE 40MG TAB (PROTONIX) PO SCH (08:54)
[2018-06-29] MEDS: MULTIVITAMINS/MINERALS THERAP 1 TAB PO SCH (08:54)
[2018-06-29] MEDS: FLUTICASONE PROP 0.05% NASAL SPRAY 16 GM (FLONASE) NARES SCH ×2 (08:55→20:39)
[2018-06-29] MEDS: SODIUM CHLORIDE NASAL 0.65% SPRAY BTL (OCEAN) SCH ×3 (08:55→20:39)
[2018-06-29] MEDS: ANALGESIC BALM CRM 120 GM TOP SCH ×2 (08:55→20:24)
[2018-06-29] MEDS: oxyCODONE 5MG TAB PO SCH ×2 (12:39→20:38)
[2018-06-29 14:00] VITALS: BP 120/64
--- NOTE | 2018-06-29 15:43 | IPNPDOC ---
Date Seen The patient was seen on 06/29/18. Progress Note SUBJECTIVE: Patient without any pain or discomfort with current pain management. Patient denies of any shortness of breath, dizziness, or acute pain at this time. Patient coloring her coloring book. Pleasant. Patient states that she might be discharged tomorrow. OBJECTIVE PHYSICAL EXAMINATION: VITAL SIGNS: Please see below. GENERAL APPEARANCE: Resting comfortably HEENT: Normocephalic, PERRLA, Mucous moist, CARDIOVASCULAR: S1,S2, pulse present, regularly, regular, LUNGS: Equal air entry b/l, no wheezes or crackle ABDOMEN: Soft, BS present, no tenderness, no guarding EXTREMITIES: capillary refill present , chronic minimal edema right and utilizing RAMIN stocking SKIN: Warm, No fever NEUROLOGICAL: Cranial nerves grossly intact PSYCHIATRIC: Normal mood and affect for current situation LABORATORY DATA, IMAGING STUDIES, MICROBIOLOGY: Please see below. ASSESSMENT/PLAN: 77 year old female with PMH of stage 4 Ovarian cancer first diagnosed in 2014 and treated then with ovarian surgery, chemotherapy recurrence in 2017 with mets to liver and possibly bones, Pulmonary embolism in may 2018 on lovenox, anemia and syncope requiring intubation and ventilation in may 2018, demand ischemia then was hospitalized for about 3 weeks in [facility] , anemia, Hypothyroidism, Spinal stenosis, rheumatoid arthritis, and generalized weakness who had a mechanical fall at home where she presented to ED on 06/10/18 with I ntertrochanteric fracture identified with cephalad migration of the distal fracture fragment. She also managed by medicine and oncology. She was placed on a heparin drip in preparation for surgery and an IVC filter was placed on 06/11/18 by vascular surgery for hypercoagulable state. She later underwent a right hip joey-arthroplasty on 06/14/18 with bone pathology coming back negative for malignancy. She reported right shoulder pain for which X-rays on 06/11/18 showed, Clavicle fracture. No glenohumeral fracture or dislocation. She underwent a NM bone scan to look for metastases and was found to have several left sided rib fractures. She was maintained on therapeutic Lovenox for her history of PE and was found to have continuous drop in hemoglobin which was thought to be from post-op losses. Therapy evaluated her and her level of function was far below baseline requiring assistance with gait and ADLs, so she was deemed medically appropriate for discharge to ARU on 06/16/18. Patient was admitted to ARU on 06/16/18 and Hospitalist consulted for medical management. Rehab as per primary team Metastatic Ovarian cancer -follow up outpatient with oncologist. Pulmonary Embolism -continue therapeutic lovenox bid H/O Anemia -HH has been stable Hypothyroid -continue synthroid Anxiety/ depression/ restless leg syndrome -continue home medications. Hx if ischemic demand -pt on anticoagulation due to problems mentioned above -not on rate control, suspect limited use due to her soft/low nml BP -not on statin, possible due to her stage 4 cancer -f/u w pcp Chronic right LE edema -RAMIN -PRN lasix VS, I&O, 24H, Fishbone Vital Signs/I&O Vital Signs Date Time Temp Pulse Resp B/P (MAP) Pulse Ox O2 Delivery O2 Flow Rate FiO2 06/29/18 14:00 97.9 101 18 120/64 (82) 97 I&O- Last 24 Hours up to 6 AM 06/29/18 06:00 Intake Total 1020 ml Balance 1020 ml Laboratory Data Microbiology Microbiology 06/24/18 MRSA Screen - Final, Complete KASHMIR SANDERS MD Jun 29, 2018 15:43
[2018-06-29 20:00] VITALS: BP 141/65
[2018-06-29] MEDS: PRAMIPEXOLE 0.25 MG TAB PO SCH (20:36)
[2018-06-29] MEDS: QUEtiapine FUMARATE 25 MG TAB PO SCH (20:38)
[2018-06-29] MEDS ORDERED: oxyCODONE 10 MG CR TAB PO SCH ×2 (21:00)
[2018-06-29] MEDS ORDERED: SYNT137T7 PO (21:03)
[2018-06-29] MEDS ORDERED: FURO20TA2 PO (21:03)
[2018-06-29] MEDS ORDERED: ZOLO100T PO (21:03)
[2018-06-29] MEDS ORDERED: PRAM0.754 PO (21:03)
[2018-06-29] MEDS ORDERED: CYCL10TA PO (21:03)
[2018-06-29] MEDS ORDERED: OXYCO5TA PO ×2 (21:03→21:39)
[2018-06-29] MEDS ORDERED: QUET1TAB7 PO (21:03)
[2018-06-29] MEDS ORDERED: GABA-843 PO (21:03)
[2018-06-29] MEDS ORDERED: ENOX60IN3 SC (21:03)
[2018-06-29] MEDS ORDERED: LANS30CA PO (21:03)
[2018-06-29] MEDS ORDERED: KLOR10TA76 PO (21:03)
[2018-06-29] MEDS ORDERED: ACET-683 PO (21:03)
[2018-06-30 05:36] VITALS: BP 132/63
[2018-06-30] MEDS: LEVOTHYROXINE 137MCG TABLET (0.137MG) PO SCH (05:38)
[2018-06-30] MEDS: ACETAMINOPHEN 500 MG TAB PO SCH (05:38)
[2018-06-30] MEDS ORDERED: OXYC-517 PO ×2 (08:41→09:23)
[2018-06-30] MEDS: ENOXAPARIN 60 MG/0.6 ML SYR (J1650) SC SCH (08:53)
[2018-06-30] MEDS: MAGNESIUM GLUCONATE 500 MG TAB PO SCH (08:53)
[2018-06-30] MEDS: FERROUS GLUCONATE 324 MG TAB PO SCH (08:54)
[2018-06-30] MEDS: GABAPENTIN 300 MG CAP PO SCH ×2 (08:54→12:07)
[2018-06-30] MEDS: MULTIVITAMINS/MINERALS THERAP 1 TAB PO SCH (08:54)
[2018-06-30] MEDS: FUROSEMIDE 20 MG TAB PO SCH (08:54)
[2018-06-30] MEDS: PANTOPRAZOLE 40MG TAB (PROTONIX) PO SCH (08:54)
[2018-06-30] MEDS: POTASSIUM CHLORIDE 10 MEQ SR TABLET PO SCH (08:54)
[2018-06-30] MEDS: SERTRALINE 100 MG TAB PO SCH (08:54)
[2018-06-30] MEDS: CYCLOBENZAPRINE 10 MG TAB PO SCH (08:54)
[2018-06-30] MEDS: SODIUM CHLORIDE 0.9% INJ 10 ML SYR IV SCH (08:55)
[2018-06-30] MEDS: FOLIC ACID 1 MG TAB PO SCH (08:56)
[2018-06-30] MEDS: METAMUCIL (PSYLLIUM) PACKET PO SCH (08:57)
[2018-06-30] MEDS: SODIUM CHLORIDE NASAL 0.65% SPRAY BTL (OCEAN) SCH (08:57)
[2018-06-30] MEDS: ANALGESIC BALM CRM 120 GM TOP SCH (08:57)
[2018-06-30] MEDS: FLUTICASONE PROP 0.05% NASAL SPRAY 16 GM (FLONASE) NARES SCH (08:57)
[2018-06-30] MEDS: oxyCODONE 5MG TAB PO SCH (12:07)
--- NOTE | 2018-06-30 15:58 | IPNPDOC ---
Date Seen The patient was seen on 06/30/18. Progress Note SUBJECTIVE: Patient planned for discharge today. Patient denies any acute distress. Patient looking for to returning home today. OBJECTIVE PHYSICAL EXAMINATION: VITAL SIGNS: Please see below. GENERAL APPEARANCE: Resting comfortably HEENT: Normocephalic, PERRLA, Mucous moist, CARDIOVASCULAR: S1,S2, pulse present, regularly, regular, LUNGS: Equal air entry b/l, no wheezes or crackle ABDOMEN: Soft, BS present, no tenderness, no guarding EXTREMITIES: capillary refill present SKIN: Warm, No fever NEUROLOGICAL: Cranial nerves grossly intact PSYCHIATRIC: Normal mood and affect for current situation LABORATORY DATA, IMAGING STUDIES, MICROBIOLOGY: Please see below. ASSESSMENT/PLAN: 77 year old female with PMH of stage 4 Ovarian cancer first diagnosed in 2014 and treated then with ovarian surgery, chemotherapy recurrence in 2017 with mets to liver and possibly bones, Pulmonary embolism in may 2018 on lovenox, anemia and syncope requiring intubation and ventilation in may 2018, demand ischemia then was hospitalized for about 3 weeks in [facility] , anemia, Hypothyroidism, Spinal stenosis, rheumatoid arthritis, and generalized weakness who had a mechanical fall at home where she presented to ED on 06/10/18 with Intertrochanteric fracture identified with cephalad migration of the distal fracture fragment. She also managed by medicine and oncology. She was placed on a heparin drip in preparation for surgery and an IVC filter was placed on 06/11/18 by vascular surgery for hypercoagulable state. She later underwent a right hip joey-arthroplasty on 06/14/18 with bone pathology coming back negative for malignancy. She reported right shoulder pain for which X-rays on 06/11/18 showed, Clavicle fracture. No glenohumeral fracture or dislocation. She underwent a NM bone scan to look for metastases and was found to have several left sided rib fractures. She was maintained on therapeutic Lovenox for her history of PE and was found to have continuous drop in hemoglobin which was thought to be from post-op losses. Therapy evaluated her and her level of function was far below baseline requiring assistance with gait and ADLs, so she was deemed medically appropriate for discharge to ARU on 06/16/18. Patient was admitted to ARU on 06/16/18 and Hospitalist consulted for medical management. Rehab as per primary team Metastatic Ovarian cancer -follow up outpatient with oncologist. Pulmonary Embolism -continue therapeutic lovenox bid H/O Anemia -HH has been stable Hypothyroid -continue synthroid Anxiety/ depression/ restless leg syndrome -continue home medications. Hx if ischemic demand -pt on anticoagulation due to problems mentioned above -not on rate control, suspect limited use due to her soft/low nml BP -not on statin, possible due to her stage 4 cancer -f/u w pcp Chronic right LE edema -RAMIN -PRN lasix VS, I&O, 24H, Fishbone Vital Signs/I&O Vital Signs Date Time Temp Pulse Resp B/P (MAP) Pulse Ox O2 Delivery O2 Flow Rate FiO2 06/30/18 12:37 16 06/30/18 05:36 97.5 88 132/63 (86) 95 I&O- Last 24 Hours up to 6 AM 06/30/18 06:00 Intake Total 1960 ml Balance 1960 ml Laboratory Data Microbiology Microbiology 06/24/18 MRSA Screen - Final, Complete KASHMIR SANDERS MD Jun 30, 2018 15:58
--- NOTE | 2018-07-09 15:35 | PMRDS ---
DATE OF ADMISSION: 06/16/2018 DATE OF DISCHARGE: 06/30/2018 CHIEF COMPLAINT/DISCHARGE DIAGNOSIS: Right hip fracture. HISTORY OF PRESENT ILLNESS: This is a 77-year-old female with a past medical history of stage IV ovarian cancer status post surgery and chemotherapy with recurrence and metastases to liver and bones, recent pulmonary embolism (PE) in May 2018 and [id number] myocardial infarction (NSTEMI) treated at [facility] with anemia, hypothyroidism, spinal stenosis, rheumatoid arthritis and generalized weakness who had a mechanical fall at home where she presented to [facility] Emergency Department (ED) on 06/10/2018 complaining of right-sided weakness and an inability to walk. X-rays revealed "intertrochanteric fracture is again identified with cephalad migration of the distal fracture fragment" for which an orthopedics consult was placed who reported needing clearance for both medicine and oncology. She was placed on a heparin drip in preparation for surgery and inferior vena cava (IVC) filter was placed on 06/11/2018 by vascular surgery for hypercoagulable state. She later underwent a right hip hemiarthroplasty on 06/14/2018 with bone pathology coming back negative for malignancy. She reported right shoulder pain for which x-rays on 06/11/2018 showed "clavicle fracture, no glenohumeral fracture or dislocation." She underwent an nuclear medicine (NM) bone scan to look for metastases and was found to have several left-sided rib fractures. She was maintained on therapeutic Lovenox for her history of pulmonary embolism (PE) and was found to have continuous drop in hemoglobin which was thought to be from postoperative losses. Therapy evaluated her and her level of function was far below baseline, requiring systems with gait and activities of daily living (ADLs) so she was deemed medically appropriate for discharge to acute rehabilitation unit (ARU) on 06/16/2018. PAST MEDICAL HISTORY: As per history of present illness (HPI). HOSPITAL COURSE: The patient was admitted and enrolled in a comprehensive physical therapy (PT), occupational therapy (OT) program. She received 24-hour nursing supervision and weekly team meetings were held to discuss her progress. Upon arrival, the patient reported weakness due to her postoperative anemia with a hemoglobin of 7.8 for which she received two units of red blood cells (RBCs) with improvement in her overall symptoms. She maintained her hip precautions and was weightbearing as tolerated and for pain was treated with oxycodone, gabapentin and Flexeril. She was maintained on a full dose of Lovenox for her history of pulmonary embolism (PE). She also was treated for a urinary tract infection which was positive for extended-spectrum beta-lactamase (ESBL). She received one dose fosfomycin without resolution of her symptoms and so was started on Macrobid with resolution of her symptoms. She developed bilateral feet swelling for which she was started on Lasix and her legs elevated when out of therapy with BRITTANY wrapping and the swelling improved in addition to her breathing, so she was continued on the Lasix. The patient performed well in therapy, made significant gains, and was deemed functionally and medically stable to return to home with her family. DISCHARGE MEDICATIONS: - Tylenol - Flexeril 10 mg three times a day - Lasix 20 daily - gabapentin 300 four times a day - oxycodone 5 mg per rectum twice a day - potassium 20 mEq by mouth twice a day - Lovenox 60 every 12 hours - ferrous sulfate 325 - Flonase - folic acid 1 mg - lansoprazole 30 mg by mouth daily - Synthroid 137 by mouth every morning - Seroquel 25 at bedtime - sertraline 100 by mouth daily - pramipexole 0.75 mg at bedtime FUNCTIONAL HISTORY: Upon discharge, the patient was modified independent for all functional transfers with the use of a rolling walker. She was able to ambulate 300 feet without using any assistance and she was able to ambulate over foam, navigate obstacles in the gym. In occupational therapy, she was also modified independent for grooming, toileting, standby assist for bathing and lower body dressing.
== END 2018-06-30 13:40 | disposition home or self-care (01) | DRG 560 ==
LOC: M PM&R 16:00
PROVIDERS: ADMIT Physical Medicine & Rehabilitation; ATTEND Physical Medicine & Rehabilitation
PROC: 30233N1 Transfusion of Nonautologous Red Blood Cells into Peripheral Vein, Percutaneous Approach (ICD-10-PCS; principal; 2018-06-17)
DX: S72.141D Displaced intertrochanteric fracture of right femur, subsequent encounter for closed fracture with routine healing (principal); C78.7 Secondary malignant neoplasm of liver and intrahepatic bile duct; C79.51 Secondary malignant neoplasm of bone; I25.2 Old myocardial infarction; D64.9 Anemia, unspecified; E03.9 Hypothyroidism, unspecified; M48.061 Spinal stenosis, lumbar region without neurogenic claudication; M06.9 Rheumatoid arthritis, unspecified; R53.1 Weakness; G47.00 Insomnia, unspecified; S42.024D Nondisplaced fracture of shaft of right clavicle, subsequent encounter for fracture with routine healing; G25.81 Restless legs syndrome; M79.89 Other specified soft tissue disorders; S22.42XD Multiple fractures of ribs, left side, subsequent encounter for fracture with routine healing; R26.89 Other abnormalities of gait and mobility; E87.6 Hypokalemia; Z85.43 Personal history of malignant neoplasm of ovary; Z90.710 Acquired absence of both cervix and uterus; Z90.49 Acquired absence of other specified parts of digestive tract; Z85.3 Personal history of malignant neoplasm of breast; Z86.711 Personal history of pulmonary embolism; Z79.899 Other long term (current) drug therapy; Z88.8 Allergy status to other drugs, medicaments and biological substances; Z92.21 Personal history of antineoplastic chemotherapy; Y92.009 Unspecified place in unspecified non-institutional (private) residence as the place of occurrence of the external cause; W18.09XD Striking against other object with subsequent fall, subsequent encounter

== ENCOUNTER → 2018-07-01 | Outpatient (RCR) | payer MEDICARE, BC ==
[~2018-07-01] MED LIST changes: +ACET-683 PO; +CYCL10TA PO; +FURO20TA2 PO; +KLOR10TA76 PO; +OXYC-517 PO; +OXYCO5TA PO
== END | disposition home or self-care (01) ==
LOC: M PT 11:07
PROVIDERS: ATTEND Internal Medicine
DX: S72.91XD Unspecified fracture of right femur, subsequent encounter for closed fracture with routine healing (principal); W18.30XD Fall on same level, unspecified, subsequent encounter; Y92.009 Unspecified place in unspecified non-institutional (private) residence as the place of occurrence of the external cause

== ENCOUNTER → 2018-07-23 | Outpatient (CLI) | payer MEDICARE, BC ==
[~2018-07-23] MED LIST changes: +GASTROGRAFIN SOLUTION 30ML (Q9963) As Ordered ONE; +ISOVUE-370 76% 100ML VIAL (Q9967) As Ordered ONE; +LIDO2.5C15 TOP
--- NOTE | 2018-07-23 18:14 | REP ---
Clinical: Metastatic ovarian cancer. Technique: Axial contrast enhanced images from the thoracic inlet to the upper abdomen with coronal and sagittal re-formations. Comparison: None. Findings: Chronic interstitial changes and scattered fibroatelectatic changes are appreciated bilaterally. There is an 8 mm noncalcified nodule in the left upper lobe (image 39). No further significant nodule, consolidation or mass lesion appreciated. No pleural effusion. No pneumothorax. No significant adenopathy. Atherosclerotic changes to the coronary arteries noted. The aorta is relatively normal and without aneurysm or dissection. No cardiomegaly or pericardial effusion. Musculoskeletal structures demonstrate degenerative change without focal osseous abnormality. Impression: 8 mm noncalcified nodule in the left upper lobe requires further evaluation. Metastatic disease cannot be excluded. Consider short-term follow-up. Electronically Signed by Manpreet aPtel MD 07/23/2018 06:05 P
--- NOTE | 2018-07-23 18:24 | REP ---
Clinical: History of metastatic ovarian cancer. Technique: Axial contrast enhanced images of the abdomen and pelvis using oral and 100 ml Isovue 370 intravenous contrast material with coronal and sagittal re-formations. Comparison: None. Findings: Lobulated/scalloped hypodense areas within the right hepatic lobe approaching the dome as well as adjacent to the falciform ligament and in the gastrohepatic ligament are highly suspicious for metastatic disease. Spleen, pancreas, gallbladder, bilateral adrenal glands appear relatively normal. The kidneys demonstrate cortical scarring and bilateral cysts without hydronephrosis or perinephric stranding. The enteric system is without obstruction or acute inflammatory process. IVC filter identified. Evaluation of the pelvis is limited due to beam-hardening artifact from right hip replacement. Bladder appears grossly normal and there is evidence for prior hysterectomy. No pelvic fluid. Bilateral pelvic sidewall lymph nodes measure up to 1.8 cm (image 103). Osseous structures demonstrate degenerative changes and scoliosis without focal abnormality. No ascites. No free air. Atherosclerotic changes to the aorta and vasculature without aneurysm. Impression: 1. Lobulated/scalloped hypodense areas within the liver as well as within the falciform ligament and gastrohepatic ligament concerning for metastatic disease. 2. A few pelvic sidewall lymph nodes (left greater than right) measure up to 1.8 cm are nonspecific but again concerning for neoplasm. Electronically Signed by Manpreet Patel MD 07/23/2018 06:16 P
== END ==
LOC: M RAD 13:29
PROVIDERS: ATTEND Internal Medicine Medical Oncology
DX: R59.0 Localized enlarged lymph nodes (principal); R93.2 Abnormal findings on diagnostic imaging of liver and biliary tract; R91.8 Other nonspecific abnormal finding of lung field; Z85.3 Personal history of malignant neoplasm of breast
CPT/HCPCS: 71260; 74177; Q9963; Q9967

== ENCOUNTER 2018-07-31 13:00 | Outpatient (RCR) | payer MEDICARE, BC ==
[~2018-07-31 13:00] MED LIST changes: -GASTROGRAFIN SOLUTION 30ML (Q9963) As Ordered ONE; -ISOVUE-370 76% 100ML VIAL (Q9967) As Ordered ONE
== END 2018-08-01 ==
LOC: M PT 13:00
PROVIDERS: ATTEND Physical Medicine & Rehabilitation
DX: S72.91XD Unspecified fracture of right femur, subsequent encounter for closed fracture with routine healing (principal); X58.XXXD Exposure to other specified factors, subsequent encounter

== ENCOUNTER → 2018-08-08 | Outpatient (CLI) | payer MEDICARE, BC ==
[~2018-08-08] MED LIST changes: +LIQUID POLIBAR PLUS 105% w/v 1900ML BTL As Ordered ONE
--- NOTE | 2018-08-11 13:43 | REP ---
Examination Requested: Barium and Air contrast Reason For Exam: Evaluate for rectovaginal fistula The procedure was performed by JOSÉ MIGUEL Esteban, under the direct supervision of Dr. Stratton. The images were reviewed with Dr. Stratton. The bobbin hauler film shows no organomegaly, or pathological masses. The intestinal gas pattern is unremarkable. There is scoliosis of the lumbar spine. An IVC filter is visualized, as well as a right hip prosthesis. Liquid barium was instilled into the colon and retrograde flow of the barium mixture. The study is limited to the rectum and sigmoid colon for the evaluation of of rectovaginal fistula, limits evaluation for sigmoid diverticulum. There is no rectovaginal fistula visualized. The visualized portion of the sigmoid colon demonstrates normal caliber. There is no annular constricting lesion identified. There are no polypoid masses identified. Impression: 1. No rectovaginal fistula identified. 2.. Single contrast limited study. 1.6 minutes of fluoroscopy time was utilized for this procedure. Reviewed by JOSÉ MIGUEL Newton 08/08/2018 02:18 P Electronically Signed by Kevon Stratton MD 08/11/2018 01:34 P
== END ==
LOC: M RAD 08:53
PROVIDERS: ATTEND Internal Medicine Medical Oncology
DX: C56.9 Malignant neoplasm of unspecified ovary (principal)

== ENCOUNTER 2018-08-28 13:15 | Outpatient (RCR) | payer MEDICARE, BC ==
[~2018-08-28 13:15] MED LIST changes: -LIQUID POLIBAR PLUS 105% w/v 1900ML BTL As Ordered ONE
[2018-09-05] MEDS ORDERED: ENOX60IN3 SC (14:02)
== END 2018-08-31 ==
LOC: M PT 13:15
PROVIDERS: ATTEND Internal Medicine
DX: Z47.1 Aftercare following joint replacement surgery (principal); Z96.641 Presence of right artificial hip joint

== ENCOUNTER → 2018-09-15 | Outpatient (CLI) | payer MEDICARE, BC ==
[~2018-09-15] MED LIST changes: +ENOX80IN3 SC; -LOPE-1 PO; +LOPE-39 PO; +ONDA8TAB10 PO; -ONDA8TAB7 PO; +QUET5TAB PO; +SYNT112T2 PO; +SYNT125T PO; +TRAM50TA2 PO
--- NOTE | 2018-09-16 07:06 | ECHO ---
DATE OF SERVICE: 09/15/2018 DATE OF : 1940 AGE: 78 REFERRING PROVIDER: Dr. Ingrid Francisco PATIENT LOCATION: Outpatient. REASON FOR THE ECHOCARDIOGRAM: Chemotherapy drug monitoring. 2D MEASUREMENTS: IVS 0.9 cm LV 4.9 cm LVPW 0.9 cm LA 3.9 cm Aorta 2.7 cm IVC 1.7 cm DOPPLER MEASUREMENTS: Peak velocity across the aortic valve 2.0 m/s Peak velocity across the LVOT 1.3 m/s Peak gradient across the aortic valve 16 mmHg. Mean gradient across the aortic valve 9 mmHg. Mitral E 1.5 Mitral A 1.2 with a ratio of 1.3 Maximum tricuspid valve velocity 2.6 m/s 2D COMMENTS: 1. Normal left ventricular size, wall thickness but with a mildly depressed global left ventricular systolic function. The anterior septum, the midportion, and the apical portion appeared to be moderately hypokinetic. The estimated global left ventricular systolic ejection fraction is 40-45%. 2. Subjectively, the left atrium appeared to be mildly enlarged. Normal right atrium and right ventricle. 3. The atrial septum appeared to be normal without evidence of defect or shunt. 4. Normal aortic root. 5. No pericardial effusion seen. 6. Mildly calcified aortic valve with minimally restricted leaflet motion. Mildly calcified mitral annulus with normal anterior mitral valve leaflet motion. Normal tricuspid valve. The pulmonic valve and proximal pulmonary artery branches were not well visualized. The inferior vena cava was normal in size, central venous pressure is most likely normal. DOPPLER: It detects trace aortic regurgitation, moderate mitral regurgitation, mild tricuspid regurgitation. The calculated pulmonary artery systolic pressure varies between 30-40 mmHg. Assessment of the left ventricular diastolic function appeared to be normal. IMPRESSION: 1. Mild global left ventricular systolic dysfunction with regional wall motion abnormalities consistent with probably underlying coronary artery disease. Assessment of the left ventricular systolic function appeared to be normal. 2. Aortic valve sclerosis with mild aortic stenosis and trace aortic regurgitation. 3. Mitral annulus calcification with moderate mitral regurgitation and mildly enlarged left atrium. 4. Mild tricuspid regurgitation with mild pulmonary hypertension. 5. No prior study for comparison. MTDD
== END ==
LOC: M CARPUL 09:30
PROVIDERS: ATTEND Internal Medicine Medical Oncology
DX: C56.9 Malignant neoplasm of unspecified ovary (principal); I08.3 Combined rheumatic disorders of mitral, aortic and tricuspid valves

== ENCOUNTER → 2018-09-22 | Outpatient (REF) | payer MEDICARE, BC ==
[~2018-09-22] MED LIST changes: -ENOX80IN3 SC; +LOPE-1 PO; -LOPE-39 PO; -ONDA8TAB10 PO; +ONDA8TAB7 PO; -QUET5TAB PO; -SYNT112T2 PO; -SYNT125T PO; -TRAM50TA2 PO
[2018-09-22 14:33] LABS: BLOOD UREA NITROGEN 13 MG/DL (7-18); CALCIUM LEVEL 9.8 MG/DL (8.8-10.2); CARBON DIOXIDE LEVEL 26 MEQ/L (21-32); CHLORIDE LEVEL 112 MEQ/L (98-107); CREATININE FOR GFR 0.63 MG/DL (0.55-1.30); GLOMERULAR FILTRATION RATE > 60.0 (>39); GLUCOSE, FASTING 89 MG/DL (70-100); POTASSIUM SERUM 4.2 MEQ/L (3.5-5.1); SODIUM LEVEL 145 MEQ/L (136-145); THYROID STIMULATING HORMONE 0.048 uIU/ML (0.358-3.740); TOTAL 25(OH) VITAMIN D 46.3 NG/ML (30.0-100.0)
== END ==
LOC: M SFHCPLAZ 13:39
PROVIDERS: ATTEND Family Medicine
DX: I10 Essential (primary) hypertension (principal); E03.9 Hypothyroidism, unspecified; E55.9 Vitamin D deficiency, unspecified
CPT/HCPCS: 36591; 80053; 82306; 84443; 85027; 86304; J1642

== ENCOUNTER → 2018-09-24 | Outpatient (CLI) | payer MEDICARE, BC ==
[~2018-09-24] MED LIST changes: +GASTROGRAFIN SOLUTION 30ML (Q9963) As Ordered ONE; +ISOVUE-370 76% 100ML VIAL (Q9967) As Ordered ONE
--- NOTE | 2018-09-24 15:16 | REP ---
REASON FOR EXAM: Metastatic ovarian carcinoma. COMPARISON: Multiple the latest 07/23/2018. CONTRAST: 100 mL of Isovue 370. The mediastinum and pulmonary taj are unchanged. No mass or adenopathy has developed. There are no pleural or pericardial effusions. The imaged upper abdomen shows stable low density hepatic lesions. Upper abdomen also shows retroperitoneal adenopathy. This too, appears stable. Evaluation of the osseous structures show no new abnormalities. Evaluation of the lung rendon show no new abnormal nodules, masses, or opacities. There is a nodule in the left upper lobe which is unchanged measuring 8 mm. There are bibasilar curvilinear densities consistent with fibrotic changes and/or subsegmental atelectatic changes status quo. There is cylindrical bronchiectasis, which is unchanged. IMPRESSION: 1. There is a nodule in the left upper lobe, which is unchanged from the latest prior chest CT of 07/23/2018, however, it has increased in size from the first CT of the chest reviewed dated 04/30/2018 from an outside institution. Since it has increased in size, nearly doubling in size, in fact, and continues to be a worrisome feature and a metastatic lesion cannot be rule out. 2. Other findings as described above. Electronically Signed by Chaparro Keyes DO 09/24/2018 04:21 P
--- NOTE | 2018-09-24 15:23 | REP ---
HISTORY: Metastatic ovarian carcinoma. COMPARISON: The latest prior for comparison is 07/23/2018 with older priors also reviewed. Note is again made of hepatic low density lesions, status quo and worrisome for metastatic foci. There is no change in the appearance of the gallbladder, spleen, pancreas, or kidneys. There are bilateral renal cysts, status quo. There is mild unchanged intrapancreatic ductal dilatation. There is retroperitoneal adenopathy and there are large lymph nodes in the gastrohepatic ligament, status quo. One of the retroperitoneal lymph nodes near the gastrohepatic ligament is now seen with a surgical clip within it consistent with previous biopsy. It is smaller in size. There is no free fluid or free air in the abdomen. There is no significant change in the appearance of the bowel loops. CT PELVIS: There is no free fluid or free air in the pelvis. There is sigmoid colon diverticulosis. There is left hemipelvic sidewall adenopathy, status quo. Bone window technique throughout the exam shows chronic osseous changes with spinal degenerative changes and bony demineralization along with a right hip prosthesis, status quo. Calcifications are seen in the adipose tissue over each buttock region, likely secondary to old injection granulomata, again unchanged. IMPRESSION: No significant change from 07/23/2018 showing abnormal hepatic lesions, chronic renal changes, and adenopathy as described above. Other findings as described above. The exam appears stable. Electronically Signed by Chaparro Keyes DO 09/24/2018 04:21 P
== END ==
LOC: M RAD 11:38
PROVIDERS: ATTEND Internal Medicine Medical Oncology
DX: C56.9 Malignant neoplasm of unspecified ovary (principal); R91.1 Solitary pulmonary nodule
CPT/HCPCS: 71260; 74177; Q9963; Q9967

== ENCOUNTER → 2018-09-25 | Outpatient (CLI) | payer MEDICARE, BC ==
[~2018-09-25] MED LIST changes: -GASTROGRAFIN SOLUTION 30ML (Q9963) As Ordered ONE; -ISOVUE-370 76% 100ML VIAL (Q9967) As Ordered ONE
--- NOTE | 2018-09-25 14:16 | REP ---
Right shoulder four views : There is no fracture or dislocation. Mineralization and joint spaces are normal. There are no calcifications or foreign bodies. There is a right IJ central venous Aanzzz-C-Wkfu catheter. Impression: Negative right shoulder . Electronically Signed by Kevon Werner MD 09/25/2018 02:08 P
== END ==
LOC: M RAD 13:50
PROVIDERS: ATTEND Family Medicine
DX: M25.511 Pain in right shoulder (principal)

== ENCOUNTER → 2018-10-01 | Outpatient (RCR) | payer MEDICARE, BC | LOC: M PT 09-01 14:36 | PROVIDERS: ATTEND Internal Medicine | DX: Z47.1 Aftercare following joint replacement surgery (principal); Z96.641 Presence of right artificial hip joint ==

== ENCOUNTER 2018-10-17 11:45 | Outpatient (RCR) | payer MEDICARE, BC ==
[~2018-10-17 11:45] MED LIST changes: +ENOX80IN3 SC; -LOPE-1 PO; +LOPE-39 PO; +QUET5TAB PO; +SYNT125T PO
== END 2018-11-01 | disposition home or self-care (01) ==
LOC: M PT 11:45
PROVIDERS: ATTEND Internal Medicine
DX: Z47.1 Aftercare following joint replacement surgery (principal); Z96.641 Presence of right artificial hip joint

== ENCOUNTER 2018-10-28 12:55 | Outpatient (RCR) | payer MEDICARE, BC | END 2018-11-01 | LOC: M PT 12:55 | PROVIDERS: ATTEND Physician Assistant Surgical | DX: S46.011A Strain of muscle(s) and tendon(s) of the rotator cuff of right shoulder, initial encounter (principal) ==

== ENCOUNTER 2018-11-04 13:03 | Outpatient (RCR) | payer MEDICARE, BC | END 2018-12-01 | LOC: M PT 13:03 | PROVIDERS: ATTEND Physician Assistant Surgical | DX: S46.011D Strain of muscle(s) and tendon(s) of the rotator cuff of right shoulder, subsequent encounter (principal); X58.XXXD Exposure to other specified factors, subsequent encounter ==

== ENCOUNTER → 2018-11-25 | Outpatient (CLI) | payer MEDICARE, BC ==
[~2018-11-25] MED LIST changes: +FURO40TA2 PO; +ONDA8TAB10 PO; -ONDA8TAB7 PO; +POTA10PO PO; +SERT-138 PO; +SYNT112T2 PO; +TRAM50TA2 PO
[2018-11-25 12:03] LABS: CHOLESTEROL RISK RATIO 2.949 (<5); THYROID STIMULATING HORMONE 0.312 uIU/ML (0.358-3.740)
== END ==
LOC: M LAB 10:08
PROVIDERS: ATTEND Family Medicine
DX: E03.9 Hypothyroidism, unspecified (principal); Z13.220 Encounter for screening for lipoid disorders

== ENCOUNTER → 2018-11-25 | Outpatient (CLI) | payer MEDICARE, BC ==
[~2018-11-25] MED LIST changes: -FURO40TA2 PO; -ONDA8TAB10 PO; +ONDA8TAB7 PO; -POTA10PO PO; -SERT-138 PO; -SYNT112T2 PO; -TRAM50TA2 PO
[2018-11-25 14:00] LABS: BLOOD UREA NITROGEN 21 MG/DL (7-18); CALCIUM LEVEL 8.9 MG/DL (8.8-10.2); CARBON DIOXIDE LEVEL 25 MEQ/L (21-32); CHLORIDE LEVEL 111 MEQ/L (98-107); CREATININE FOR GFR 0.86 MG/DL (0.55-1.30); GLOMERULAR FILTRATION RATE > 60.0 (>39); GLUCOSE, FASTING 87 MG/DL (70-100); NT-PRO BNP 5103 PG/ML (<450); POTASSIUM SERUM 4.4 MEQ/L (3.5-5.1); SODIUM LEVEL 145 MEQ/L (136-145)
--- NOTE | 2018-11-25 14:14 | REP ---
PA and lateral chest: Comparison is 06/10/2018. The patient is tilted. There are no infiltrates or pleural effusions. Cardiac size is upper normal. The taj, mediastinum, skeletal structures demonstrate diffuse demineralization and thoracic scoliosis convex right. The. There is a right IJ Oahwgq-V-Qkwl, unchanged, the tip in the superior vena cava. Impression: There are no acute cardiopulmonary changes. The Lynn filter is identified in the abdominal vena cava. Electronically Signed by Kevon Werner MD 11/25/2018 02:06 P
== END ==
LOC: M SMT 11:29
PROVIDERS: ATTEND Family Medicine
DX: R60.0 Localized edema (principal); R06.02 Shortness of breath; Z97.8 Presence of other specified devices; I50.22 Chronic systolic (congestive) heart failure
CPT/HCPCS: 36415; 71046; 80048; 80061; 83735; 83880; 84443; G0463

== ENCOUNTER → 2018-11-28 | Outpatient (REF) | payer MEDICARE, BC ==
[2018-11-28 14:36] LABS: BLOOD UREA NITROGEN 19 MG/DL (7-18); CALCIUM LEVEL 8.9 MG/DL (8.8-10.2); CARBON DIOXIDE LEVEL 28 MEQ/L (21-32); CHLORIDE LEVEL 109 MEQ/L (98-107); GLOMERULAR FILTRATION RATE > 60.0 (>39); GLUCOSE, FASTING 87 MG/DL (70-100); SODIUM LEVEL 144 MEQ/L (136-145)
== END ==
LOC: M SFHCPLAZ 11:32
PROVIDERS: ATTEND Family Medicine
DX: I50.23 Acute on chronic systolic (congestive) heart failure (principal)
CPT/HCPCS: 80048; G0463

== ENCOUNTER → 2018-12-26 | Outpatient (CLI) | payer MEDICARE, BC ==
[~2018-12-26] MED LIST changes: +SYNT112T2 PO; +TRAM50TA2 PO
--- NOTE | 2018-12-26 16:24 | REP ---
REASON: History of superior pubic ramus fracture on the right. No prior triple phase bone scans for review, however, whole body bone scan of 06/11/[address] examination of the abdomen and pelvis 09/24/2018 showed significant spray artifact from a right hip prosthesis obscuring fine bony detail of multiple sections of the right hemipelvis particularly the right half of the pubic symphysis and right superior pubic ramus. That examination showed no definite evidence of a fracture. There is no other interim imaging for comparison. After the intravenous administration of 22.0 millicuries of Technetium 99M MDP a triple phase bone scan of the pelvis was obtained. The flow study shows no abnormal increased or decreased radionuclide accumulation in any portion of the pelvis or hips. There is a photopenic defect seen in the right hip region from the previous prosthesis. Blood pool imaging shows subtle increased radionuclide accumulation in the region of the pubic symphysis. There is intense activity from the urinary bladder obscuring some of this. Delayed imaging shows a very subtle focal area of increased radionuclide accumulation in the region of the pubic symphysis on the right. Activity in the urinary bladder obscures right and left superior pubic rami. No abnormal activity is seen in the periprosthetic region. Further delayed imaging of the pelvis shows increased radionuclide accumulation in the sacrum. Once again, activity in the urinary bladder obscures the superior pubic rami bilaterally. IMPRESSION:There is evidence of a sacral fracture. This should be correlated with CT. The patient gives a history of trauma three weeks ago. Activity in the pubic ramus on the right as described above. Chronic versus acute. Again, consider CT. Electronically Signed by Chaparro Keyes DO 12/26/2018 04:24 P
== END ==
LOC: M RAD 09:06
PROVIDERS: ATTEND Orthopaedic Surgery
DX: S32.511A Fracture of superior rim of right pubis, initial encounter for closed fracture (principal); X58.XXXA Exposure to other specified factors, initial encounter; Y92.89 Other specified places as the place of occurrence of the external cause
CPT/HCPCS: 78315; A9503

== ENCOUNTER → 2019-01-26 | Outpatient (REF) | payer MEDICARE, BC ==
[2019-01-26 14:14] LABS: APPEARANCE, URINE CLOUDY (CLEAR); BACTERIA, URINE AUTO 3+ (NEGATIVE); BILIRUBIN, URINE AUTO NEGATIVE (NEGATIVE); BLOOD, URINE BLOOD 3+ (NEGATIVE); COLOR, URINE YELLOW (YELLOW); GLUCOSE, URINE (UA) AUTO NEGATIVE (NEGATIVE); KETONE, URINE AUTO NEGATIVE (NEGATIVE); LEUKOCYTE ESTERASE, URINE AUTO 3+ (NEGATIVE); MUCUS, URINE SMALL (NEGATIVE); NITRITE, URINE AUTO NEGATIVE (NEGATIVE); PROTEIN, URINE AUTO NEGATIVE (NEGATIVE); RBC, URINE AUTO 24 /HPF (0-3); SPECIFIC GRAVITY URINE AUTO 1.013 (1.002-1.035); SQUAMOUS EPITHELIAL CELL UR AU 0 /HPF (0-6); UROBILINOGEN, URINE AUTO 0.2 mg/dL (0.0-2.0); WBC, URINE AUTO 183 /HPF (0-3)
[2019-01-26 14:31] LABS: CALCIUM LEVEL 9.3 MG/DL (8.8-10.2); CREATININE FOR GFR 1.07 MG/DL (0.55-1.30); GLOMERULAR FILTRATION RATE 52.8 (>39); POTASSIUM SERUM 5.1 MEQ/L (3.5-5.1); THYROID STIMULATING HORMONE 2.16 uIU/ML (0.358-3.740)
== END ==
LOC: M SFHCPLAZ 11:41
PROVIDERS: ATTEND Family Medicine
DX: I50.22 Chronic systolic (congestive) heart failure (principal); E03.9 Hypothyroidism, unspecified; N39.41 Urge incontinence; Z23 Encounter for immunization
CPT/HCPCS: 36415; 80048; 81001; 84443; 87088; 87186; 90670; 90682; G0008; G0009; G0463

== ENCOUNTER → 2019-02-19 | Outpatient (REF) | payer MEDICARE, BC ==
[2019-02-19 15:54] LABS: APPEARANCE, URINE CLOUDY (CLEAR); BACTERIA, URINE AUTO 1+ (NEGATIVE); BILIRUBIN, URINE AUTO NEGATIVE (NEGATIVE); BLOOD, URINE BLOOD 2+ (NEGATIVE); COLOR, URINE YELLOW (YELLOW); GLUCOSE, URINE (UA) AUTO NEGATIVE (NEGATIVE); KETONE, URINE AUTO NEGATIVE (NEGATIVE); LEUKOCYTE ESTERASE, URINE AUTO 3+ (NEGATIVE); MUCUS, URINE SMALL (NEGATIVE); NITRITE, URINE AUTO NEGATIVE (NEGATIVE); PROTEIN, URINE AUTO NEGATIVE (NEGATIVE); RBC, URINE AUTO 44 /HPF (0-3); SPECIFIC GRAVITY URINE AUTO 1.015 (1.002-1.035); SQUAMOUS EPITHELIAL CELL UR AU 0 /HPF (0-6); UROBILINOGEN, URINE AUTO 0.2 mg/dL (0.0-2.0); WBC, URINE AUTO 162 /HPF (0-3)
== END ==
LOC: M SFHCPLAZ 15:21
PROVIDERS: ATTEND Nurse Practitioner Family
DX: R30.0 Dysuria (principal)
CPT/HCPCS: 81001; 81002; 87088; 87186; G0463

== ENCOUNTER → 2019-03-20 | Outpatient (CLI) | payer MEDICARE, BC ==
[~2019-03-20] MED LIST changes: +FURO40TA2 PO; +GASTROGRAFIN SOLUTION 30ML (Q9963) As Ordered ONE; +ISOVUE-370 76% 100ML VIAL (Q9967) As Ordered ONE; +ONDA8TAB10 PO; -ONDA8TAB7 PO; +POTA10PO PO; +SERT-138 PO
--- NOTE | 2019-03-20 18:50 | REP ---
CT chest with IV contrast: History: Metastatic ovarian carcinoma. Restaging. Comparison chest CT study September 24, 2018. CT contrast dose: 100 mL of intravenous Isovue 370. 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 A right-sided Pscoxc-J-Lthz catheter is noted. There is no evidence of pleural or pericardial effusion. No hilar or mediastinal mass or adenopathy is observed. No extrathoracic adenopathy is seen. The previously noted left upper lobe nodule is again seen unchanged 7 mm in greatest diameter by my measurement. There is a new 5 mm pulmonary nodule in the right middle lobe visible on axial page 54 of 98 in series 204 of today's study. This is not apparent in retrospect on prior studies. There is another new 3 mm right upper lobe pulmonary nodule on page 28 of 98. There is a new tiny 2-3 mm nodule in the right upper lobe on page 20. There is a 3 mm nodule in the left lower lobe against the posterior pleural space on page 64 which does not appear to have been present previously. There is mild linear fibrosis in the right lower lobe unchanged. Some linear fibrosis is seen in the lingula at the left lung base as well. No endobronchial lesion is seen. No bony destructive lesion is observed. Impression: There are several new noncalcified but small pulmonary nodules scattered bilaterally suggestive of metastatic disease. Electronically Signed by Mk Queen MD 03/20/2019 08:55 P
--- NOTE | 2019-03-20 19:11 | REP ---
CT abdomen and pelvis with IV and oral contrast: History: Metastatic ovarian carcinoma, restaging. Comparison CT study September 24, 2018 and July 23, 2018. CT contrast dose: 100 mL of intravenous Isovue 370. CT findings: In the interval since the prior exam, a linear radiolucent cleft is seen through the right side of the pubic bone with some associated soft-tissue mineral deposition and callus formation consistent with a fracture. This does not appear to be a pathologic fracture although it is somewhat diastatic. It corresponds with the bone scan findings. There is healing sacral insufficiency fracture noted bilaterally in the sacrum also correlated with the recent bone scan. No other focal bony lesion is seen. No bony destructive lesion is observed. The liver size is increased slightly since prior study. There are peripheral low density areas in the right lobe and left lobe near the dome of the diaphragm which are a little larger than on the September 24, 2018 study although not new. There is some periportal low density which is more prominent than on the prior study consistent with some progression. Low density along the course of the falciform ligament is essentially unchanged. There is progressive celiac axis low-density lymphadenopathy seen. Conglomerate zuleyma mass is seen in this region measuring 5.3 cm in greatest diameter, previously two or three separate lymph nodes measuring 2.3 and 1.3 cm in greatest diameter. The gallbladder is mildly dilated but otherwise intact. The common bile duct measures 9 mm in greatest diameter. No pancreatic mass lesion is observed. There are one or two pancreatic calcifications. A vena cava filter is noted in place. No other upper abdominal retroperitoneal adenopathy is seen. There is an infiltrative process expanding in the upper pole of the right kidney on today's CT scan which is a new finding roughly 4.8 cm in greatest diameter. Similarly, there are infiltrative areas blurring the cortical medullary margin and expanding the upper pole on the left. I cannot exclude early renal metastatic involvement. There are bilateral cortical cysts. There is an epigastric ventral hernia defect transmitting some abdominal fluid in the epigastric region. This is a little larger than previously. Subcutaneous nodules are seen in the lower anterior abdominal wall consistent with injection artifact. There is left colonic diverticulosis without definite evidence of diverticulitis. Previously noted left external iliac adenopathy is smaller than on the September 24, 2018 study. There is a second left pelvic lymph node measuring 7 mm in greatest diameter which is unchanged. No new pelvic adenopathy is seen. Impression: There is evidence of progression in the upper abdomen particularly in celiac axis lymph nodes and in the periportal region. The liver is a little larger. Infiltrative areas are seen in the upper poles of each kidney. There is healing sacral insufficiency fracture bilaterally and a healing fracture of the right pubic bone is noted. Electronically Signed by Mk Queen MD 03/20/2019 08:55 P
== END ==
LOC: M RAD 11:35
PROVIDERS: ATTEND Internal Medicine Medical Oncology
DX: R91.8 Other nonspecific abnormal finding of lung field (principal); C56.9 Malignant neoplasm of unspecified ovary

== ENCOUNTER 2019-03-23 11:43 | Inpatient (IN) | payer MEDICARE, BC ==
[~2019-03-23] VITALS: Ht 157.5 cm; Wt 58.6 kg
[~2019-03-23 11:43] MED LIST changes: -FURO40TA2 PO; -GASTROGRAFIN SOLUTION 30ML (Q9963) As Ordered ONE; -ISOVUE-370 76% 100ML VIAL (Q9967) As Ordered ONE; -POTA10PO PO; -SERT-138 PO
[2019-03-23 13:04] LABS: HEMOGLOBIN 9.5 g/dl (12.0-15.5); MEAN CORPUSCULAR HEMOGLOBIN 30.2 pg (27.0-33.0); MEAN CORPUSCULAR HGB CONC 31.7 g/dl (32.0-36.5); MEAN CORPUSCULAR VOLUME 95.2 fl (80.0-96.0); PLATELET COUNT, AUTOMATED 196 10^3/uL (150-450); RED BLOOD COUNT 3.15 10^6/uL (4.00-5.40); WHITE BLOOD COUNT 16.9 10^3/uL (4.0-10.0)
[2019-03-23 13:15] LABS: INR 1.96; PROTHROMBIN TIME 22.1 SECONDS (11.8-14.0)
[2019-03-23 13:30] LABS: EOSINOPHILS 2 % (0-3); LYMPHOCYTES 2 % (16-44); MONOCYTES 1 % (0-5); NEUTROPHILS 95 % (28-66)
[2019-03-23 13:31] LABS: PLATELET ESTIMATE NORMAL (NORMAL)
--- NOTE | 2019-03-23 13:32 | REP ---
Bilateral lower extremity deep vein duplex ultrasound: The deep veins demonstrate normal compression, normal Doppler color flow and normal Doppler waveforms with respiration and augmentation from the popliteal vein to the common femoral vein on the right and the left. Impression: There is no deep vein thrombus on the right or the left. Electronically Signed by Kevon Werner MD 03/23/2019 01:24 P
[2019-03-23 13:42] LABS: ALBUMIN 2.1 GM/DL (3.2-5.2); BILIRUBIN,DIRECT 0.2 MG/DL (0.0-0.2); BILIRUBIN,TOTAL 0.4 MG/DL (0.2-1.0); CK-MB VALUE MASS 3.8 NG/ML (<3.6); CREATININE FOR GFR 2.77 MG/DL (0.55-1.30); FREE T4 0.96 NG/DL (0.76-1.46); GLOMERULAR FILTRATION RATE 17.6 (>39); MB/CK RELATIVE INDEX 6.03 (< OR =4); POTASSIUM SERUM 3.1 MEQ/L (3.5-5.1); THYROID STIMULATING HORMONE 1.2 uIU/ML (0.358-3.740); TOTAL PROTEIN 6.8 GM/DL (6.4-8.2); TROPONIN I 0.06 NG/ML (< 0.10)
[2019-03-23 14:05] LABS: PARTIAL THROMBOPLASTIN TIME > 240.0 SECONDS (25.0-38.4)
[2019-03-23] MEDS ORDERED: POTASSIUM CHLORIDE 10 MEQ SR TABLET PO ONE (14:15)
--- NOTE | 2019-03-23 14:33 | REP ---
Right femur: Four views. History: Right thigh pain. Comparison right femur radiographs are from June 10, 2018. Findings: A right femoral head replacement is noted in position. There is diffuse osteopenia. There is no evidence of femur fracture. Chondrocalcinosis is noted at the knee joint medially and laterally. Thighs soft tissues are unremarkable radiographically. Impression: Diffuse osteopenia. Chondrocalcinosis at the knee. Right hip replacement. No acute abnormality seen. Electronically Signed by Mk Queen MD 03/23/2019 07:49 P
--- NOTE | 2019-03-23 14:34 | REP ---
Chest x-ray: Two views. History: Shortness of breath. Comparison chest x-ray: November 25, 2018. Findings: A Jahobg-C-Ddhk catheter is noted in place on the right unchanged in position. EKG electrodes are seen. The lungs are well inflated and free of infiltrate. The heart is enlarged unchanged. Pulmonary vasculature is somewhat cephalized. There is no evidence of pulmonary edema. No infiltrate is seen. Impression: Mild cardiomegaly. Szodlm-C-Nvjj catheter. Cephalization. No evidence of infiltrate, pulmonary edema, or pleural effusion. Electronically Signed by Mk Queen MD 03/23/2019 07:49 P
[2019-03-23] MEDS ORDERED: LANS30CA PO (15:16)
[2019-03-23] MEDS ORDERED: PRAM0.754 PO (15:16)
[2019-03-23] MEDS ORDERED: GABA-843 PO ×2 (15:16)
[2019-03-23] MEDS ORDERED: SERT-138 PO (15:16)
[2019-03-23] MEDS ORDERED: QUET1TAB7 PO (15:16)
[2019-03-23] MEDS ORDERED: FURO40TA2 PO (15:16)
[2019-03-23] MEDS ORDERED: ZOFR8TAB24 PO (15:16)
[2019-03-23] MEDS ORDERED: POTA10PO PO (15:16)
[2019-03-23] MEDS ORDERED: MAALOX 30 ML SUSP *UDC PO PRN (15:30)
[2019-03-23] MEDS ORDERED: NS 1,000 ML IV SCH (15:30)
[2019-03-23] MEDS ORDERED: ONDANSETRON 4 MG TAB (S0181) PO PRN (15:30)
[2019-03-23] MEDS ORDERED: MOM 30ML SUSPENSION UDC PO PRN (15:30)
[2019-03-23] MEDS ORDERED: FLUTICASONE PROP 0.05% NASAL SPRAY 16 GM (FLONASE) PRN (15:30)
[2019-03-23] MEDS ORDERED: EMLA CREAM 5GM (LIDOCAINE/PRILOCAINE) TOP SCH (15:30)
--- NOTE | 2019-03-23 15:47 | HPEPDOC ---
General Date of Admission 03/23/19 Date of Service: Mar 23, 2019 Chief Complaint The patient is a 78-year-old female admitted with a reason for visit of Short Of Breath. 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 Patient denies complaints of chest pain, syncope, nausea, vomiting or diarrhea. Home Medications Scheduled Enoxaparin Sodium (Enoxaparin Sodium) 80 Mg/0.8 Ml Syringe, 80 MG SC DAILY Ferrous Sulfate (Ferrous Sulfate) 325 Mg Tablet, 325 MG PO BIDWM, (Reported) Folic Acid (Folic Acid) 1 Mg Tablet, 1 MG PO DAILY, (Reported) Furosemide (Furosemide) 40 Mg Tablet, 40 MG PO DAILY, (Reported) Gabapentin (Gabapentin) 300 Mg Capsule, 300 MG PO BID, (Reported) Lansoprazole (Lansoprazole) 30 Mg Capsule.dr, 30 MG PO DAILY, (Reported) Levothyroxine Sodium (Synthroid) 112 Mcg Tablet, 112 MCG PO DAILY, (Reported) Lidocaine/Prilocaine (Lidocaine-Prilocaine Cream) 2.5%/2.5% Cream..g., 1 APLCT TOP ASDIRECTED Potassium Chloride (Potassium Chloride Powder) 20 Meq Packet, 20 MEQ PO DAILY, (Reported) Pramipexole Di-HCl (Pramipexole Dihydrochloride) 0.75 Mg Tablet, 0.75 MG PO QHS, (Reported) Quetiapine Fumarate (Quetiapine Fumarate) 25 Mg Tablet, 25 MG PO QHS, (Reported) Sertraline HCl (Sertraline HCl) 100 Mg Tablet, 100 MG PO DAILY, (Reported) Scheduled PRN Fluticasone Propionate (Fluticasone Propionate) 16 Gm Ericson.susp, 1 SPRAY NA BID PRN for ALLERGIES, (Reported) Gabapentin (Gabapentin) 300 Mg Capsule, 300 MG PO DAILY PRN for PAIN, (Reported) Loperamide HCl (Imodium A-D) 2 Mg Capsule, 2 MG PO DAILY PRN for DIARRHEA, (Reported) Ondansetron HCl (Zofran) 8 Mg Tablet, 8 MG PO TID PRN for NAUSEA OR VOMITING, (Reported) Allergies Coded Allergies: methotrexate (Unverified Allergy, Unknown, 06/10/18) metoclopramide (Unverified Allergy, Unknown, 06/10/18) moxifloxacin (Unverified Allergy, Unknown, 06/10/18) nalbuphine (Unverified Allergy, Unknown, 06/10/18) prochlorperazine (Unverified Allergy, Unknown, 06/10/18) topiramate (Unverified Allergy, Unknown, 06/10/18) trazodone (Unverified Allergy, Unknown, 06/10/18) morphine (Verified Adverse Reaction, Mild, 03/23/19) headache, nausea Past Medical History Medical History , Ovarian carcinoma with distant metastases, pulmonary embolus, and anemia, demand ischemia, hypothyroidism, anxiety, depression, restless leg leg syndrome Surgical History Appendectomy, bilateral self-injurious oophorectomy, transabdominal hysterectomy, abdominal hernia surgeries, left knee ORIF, IVC filter placement, right hip hemiarthroplasty Family History Significant Family History: No pertinent family hx Social History * Smoker: Denies Alcohol: Denies Drugs: denies A-FIB/CHADSVASC A-FIB History Current/History of A-Fib/PAF?: No Current PO Anticoag Therapy: No Review of Systems Constitutional: Reports: Weakness Eyes: Denies: Pain, Vision change, Conjunctivae inflammation, Eyelid inflammation, Redness, Other ENT: Denies: Head Aches, Ear Pain, Dysphagia, Sinus Congestion, Post Nasal Drip, Sore Throat, Epistaxis, Other Symptoms Skin: Denies: Rash, Lesions, Jaundice, Bruising, Itching, Dry, Breakdown, Nail Changes, Other Pulmonary: Reports: Cough, Other Symptoms (, shortness of breath) Cardiovascular: Denies: Chest Pain, Palpitations, Orthopnea, Paroxysmal Noc. Dyspnea, Edema, Lt Headedness, Other Symptoms Gastrointestinal: Denies: Nausea, Vomiting, Abdominal Pain, Diarrhea, Constipation, Melena, Hematochezia, Other Symptoms Genitourinary: Denies: Dysuria, Frequency, Incontinence, Hematuria, Retention, Other Symptoms Hematologic: Denies: Bruising, Bleeding Excessively, Petecchia, Purpura, Enlarged Lymph Nodes, Other Hematologic Endocrine: Denies: Polydipsia, Polyphagia, Polyuria, Heat Intolerance, Cold Intolerance, Other Endocrine Sx Musculoskeletal: Reports: Other Symptoms; Denies: Neck Pain, Back Pain, Shoulder Pain, Arm Pain, Hand Pain, Leg Pain, Foot Pain, Joint Pain, Muscle Pain, Spasms Neurological: Denies: Weakness, Numbness, Incoordination, Change in speech, Confusion, Seizures, Other Symptoms Psych: Denies: Mood Normal, Anxiety, Depression, Memory Issues, Thoughts of Self Harm, Anger, Thoughts of Harming Other, Other Psych Physical Examination General Exam: Positive: Alert, Cooperative Eye Exam: Positive: PERRLA, Conjunctiva & lids normal ENT Exam: Positive: Atraumatic, Mucous membr. moist/pink Neck Exam: Positive: Supple Chest Exam: Positive: Clear to auscultation, Normal air movement, Other (. No rales, rhonchi, wheezing audible) Heart Exam: Positive: Rate Normal, Normal S1, Normal S2 Telemetry: Positive: No significant arrhythmia Abdomen Exam: Positive: Normal bowel sounds, Soft Extremity Exam: Positive: Normal pulses Skin Exam: Positive: Nl turgor and temperature Neuro Exam: Positive: Strength at 5/5 X4 ext, Sensation Intact, Cranial Nerves 3-12 NL Psych Exam: Positive: Mental status NL, Mood NL, Oriented x 3 Vital Signs Vital Signs Date Time Temp Pulse Resp B/P (MAP) Pulse Ox O2 Delivery O2 Flow Rate FiO2 03/23/19 14:30 135/60 (85) 03/23/19 14:22 98 22 99 Room Air 03/23/19 11:43 98.1 Laboratory Data Labs 24H Laboratory Tests 2 03/23/19 12:38: Nucleated Red Blood Cells % (auto) 0.0, Neutrophils 95H, Lymphocytes (Manual) 2L, Monocytes (Manual) 1, Eosinophils (Manual) 2, Red Blood Cell Morphology NORMAL, Platelet Estimate NORMAL, Prothrombin Time 22.1H, Prothromb Time International Ratio 1.96, Activated Partial Thromboplast Time > 240.0*H, Anion Gap 15, Glomerular Filtration Rate 17.6L, Calcium Level 8.0L, Total Bilirubin 0.4, Direct Bilirubin 0.2, Aspartate Amino Transf (AST/SGOT) 13, Alanine Aminotransferase (ALT/SGPT) 10L, Alkaline Phosphatase 308H, Total Creatine Kinase 63, Creatine Kinase MB 3.8H, Creatine Kinase MB Relative Index 6.03H, Troponin I 0.06, ZV-Lnw-E-Type Natriuretic Peptide 98457R, Total Protein 6.8, Albumin 2.1L, Albumin/Globulin Ratio 0.45L, Thyroid Stimulating Hormone (TSH) 1.200, Free Thyroxine 0.96 03/23/19 14:09: Activated Partial Thromboplast Time 53.4H CBC/BMP Laboratory Tests 03/23/19 12:38 Problems (1) Acute renal failure (ARF) Status: Acute Problem Text: 78 years old lady came with a bilateral shoulder and right leg pain, but on incidental finding patient's BUN was 56, creatinine 2.77. Note, patient's creatinine on 03/13/2019 was 0.96. Patient has been on Lovenox for DVT prophylaxis since last April and also taken diuretics for possible pulmonary congestion. KAUR could be secondary to Lovenox, diuretics are secondary to malignancy Patient is started on gentle hydration, normal saline at 50 mL per hour Hold Lovenox and Lasix secondary to worsening renal function Nephrology consult with Dr. Arzola will be called in to help in addressing patient's acute renal failure Patient's BNP was found to be 36,[phone], chest x-ray does not show acute pulmonary edema but mild cephalization Serial troponins have been ordered. First troponin is negative Echocardiogram has been ordered to evaluate cardiac function We will repeat CBC, CMP and BNP in a.m. 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 Patient is currently on chemotherapy holiday, patient also has chronic vaginal bleed secondary to vaginal implants, status post vaginal radiation. . She'll will receive her chemotherapy as per oncology (4) Hypothyroidism Status: Chronic Problem Text: Continue home meds (5) Hypokalemia Status: Acute Problem Text: Corrected in ED Repeat serum potassium and magnesium level in a.m. (6) Leukocytosis Status: Acute Problem Text: Unknown etiology UA with reflex culture has been ordered Pro calcitonin has been ordered Started on prophylactic antibiotics with Zosyn 2.275 mg IV every 12 hours Plan / VTE VTE Prophylaxis Ordered?: Yes LORE GEORGE MD Mar 23, 2019 15:47
[2019-03-23] MEDS ORDERED: PIPERACILLIN/TAZOBACTAM SOD 2.25 GM in D5W MINI-BAG PLUS 50 ML IV ONE (16:00)
[2019-03-23] MEDS: ACETAMINOPHEN TAB 650MG DOSE (2X325MG) PO PRN (16:55)
[2019-03-23] MEDS: FERROUS SULFATE 325MG TAB PO SCH (19:25)
[2019-03-23] MEDS: SERTRALINE 100 MG TAB PO SCH (19:25)
[2019-03-23] MEDS: FOLIC ACID 1 MG TAB PO SCH (19:25)
[2019-03-23 21:03] LABS: TROPONIN I 0.06 NG/ML (< 0.10)
[2019-03-23] MEDS: DOCUSATE SODIUM 100 MG CAP PO SCH (21:33)
[2019-03-23] MEDS: QUEtiapine FUMARATE 25 MG TAB PO SCH (21:33)
[2019-03-23] MEDS: PRAMIPEXOLE 0.25 MG TAB PO SCH (21:34)
[2019-03-23] MEDS: GABAPENTIN 300 MG CAP PO SCH (21:34)
[2019-03-23 22:00] VITALS: BP 125/63
[2019-03-24 06:00] VITALS: BP 128/64
[2019-03-24 06:13] LABS: HEMATOCRIT 28.8 % (36.0-47.0); HEMOGLOBIN 9.1 g/dl (12.0-15.5); MEAN CORPUSCULAR HEMOGLOBIN 29.6 pg (27.0-33.0); MEAN CORPUSCULAR HGB CONC 31.6 g/dl (32.0-36.5); MEAN CORPUSCULAR VOLUME 93.8 fl (80.0-96.0); PLATELET COUNT, AUTOMATED 201 10^3/uL (150-450); RED BLOOD COUNT 3.07 10^6/uL (4.00-5.40); WHITE BLOOD COUNT 14.8 10^3/uL (4.0-10.0)
[2019-03-24] MEDS: LEVOTHYROXINE 112MCG TABLET (0.112MG) PO SCH (06:28)
[2019-03-24] MEDS: PIPERACILLIN/TAZOBACTAM SOD 2.25 GM in D5W MINI-BAG PLUS 50 ML IV SCH ×2 (06:28→17:09)
[2019-03-24 06:42] LABS: ALBUMIN 2.1 GM/DL (3.2-5.2); BILIRUBIN,TOTAL 0.3 MG/DL (0.2-1.0); CALCIUM LEVEL 7.9 MG/DL (8.8-10.2); CREATININE FOR GFR 2.73 MG/DL (0.55-1.30); GLOMERULAR FILTRATION RATE 17.9 (>39); MAGNESIUM LEVEL 2.3 MG/DL (1.8-2.4); POTASSIUM SERUM 3.8 MEQ/L (3.5-5.1); TOTAL PROTEIN 6.5 GM/DL (6.4-8.2); TROPONIN I 0.05 NG/ML (< 0.10)
[2019-03-24] MEDS: DOCUSATE SODIUM 100 MG CAP PO SCH ×2 (08:01→21:00)
[2019-03-24] MEDS: SERTRALINE 100 MG TAB PO SCH (08:01)
[2019-03-24] MEDS: FOLIC ACID 1 MG TAB PO SCH (08:01)
[2019-03-24] MEDS: FERROUS SULFATE 325MG TAB PO SCH ×2 (08:01→17:08)
[2019-03-24] MEDS: GABAPENTIN 300 MG CAP PO SCH ×2 (08:01→21:38)
[2019-03-24] MEDS: ACETAMINOPHEN TAB 650MG DOSE (2X325MG) PO PRN (08:21)
--- NOTE | 2019-03-24 10:36 | IPNPDOC ---
Subjective Date Seen The patient was seen on 03/24/19. Subjective Chief Complaint/HPI Patient feeling tired, but no other new complaints. Again comfort care and hospice care was explained to her General: Denies: ROS Unobtainable, Chills, Night Sweats, Fatigue, Malaise, Normal Appetite, Other Symptoms Constitutional: Denies: Chills, Fever, Malaise, Night Sweats, Weakness, Fatigue, Weight Loss, Lethargy, Other Pulmonary: Denies: Dyspnea, Cough, Pleuritic Chest Pain, Other Symptoms Cardiovascular: Denies: Chest Pain, Palpitations, Orthopnea, Paroxysmal Noc. Dyspnea, Edema, Lt Headedness, Other Symptoms Gastrointestinal: Denies: Nausea, Vomiting, Abdominal Pain, Diarrhea, Constipation, Melena, Hematochezia, Other Symptoms Musculoskeletal: Denies: Neck Pain, Back Pain, Shoulder Pain, Arm Pain, Hand Pain, Leg Pain, Foot Pain, Joint Pain, Muscle Pain, Spasms, Other Symptoms Neurological: Denies: Weakness, Numbness, Incoordination, Change in speech, Confusion, Seizures, Other Symptoms Objective Physical Examination Neck Exam: Positive: Supple Chest Exam: Positive: Clear to auscultation, Normal air movement, Other (. No rales, rhonchi, wheezing audible) Heart Exam: Positive: Rate Normal, Normal S1, Normal S2 Telemetry: Positive: No significant arrhythmia Abdomen Exam: Positive: Normal bowel sounds, Soft Extremity Exam: Positive: Normal pulses Skin Exam: Positive: Nl turgor and temperature Neuro Exam: Positive: Strength at 5/5 X4 ext, Sensation Intact, Cranial Nerves 3-12 NL Psych Exam: Positive: Mental status NL, Mood NL, Oriented x 3 Assessment /Plan Problems (1) Acute renal failure (ARF) Status: Acute Problem Text: 78 years old lady came with a bilateral shoulder and right leg pain, but on incidental finding patient's BUN was 56, creatinine 2.77. Note, patient's creatinine on 03/13/2019 was 0.96. Patient has been on Lovenox for DVT prophylaxis since last April and also taken diuretics for possible pulmonary congestion. KAUR could be secondary to Lovenox, diuretics are secondary to malignancy Patient is started on gentle hydration, normal saline at 50 mL per hour Hold Lovenox and Lasix secondary to worsening renal function Nephrology consult is pending Patient's BNP was found to be 36,416, chest x-ray does not show acute pulmonary edema but mild cephalization serial troponins are negative. Electrolytes are normal. Urine and 59, creatinine 2.73. 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 Patient is currently on chemotherapy holiday, patient also has chronic vaginal bleed secondary to vaginal implants, status post vaginal radiation. She'll will receive her chemotherapy as per oncology Poor prognosis (4) Leukocytosis Status: Acute Problem Text: Unknown etiology UA with reflex culture has been ordered Pro calcitonin has been ordered Started on prophylactic antibiotics with Zosyn 2.275 mg IV every 12 hours (5) Hypokalemia Status: Acute Problem Text: resolved (6) Hypothyroidism Status: Chronic Problem Text: Continue home meds Plan/VTE VTE Prophylaxis Ordered?: Yes VS, I&O, 24H, Fishbone Vital Signs/I&O Vital Signs Date Time Temp Pulse Resp B/P (MAP) Pulse Ox O2 Delivery O2 Flow Rate FiO2 03/24/19 06:00 99.8 104 18 128/64 (85) 94 Room Air I&O- Last 24 Hours up to 6 AM 03/24/19 06:00 Intake Total 800 ml Output Total 650 ml Balance 150 ml Laboratory Data 24H LABS Laboratory Tests 2 03/23/19 12:38: Nucleated Red Blood Cells % (auto) 0.0, Neutrophils 95H, Lymphocytes (Manual) 2 L, Monocytes (Manual) 1, Eosinophils (Manual) 2, Red Blood Cell Morphology NORMAL, Platelet Estimate NORMAL, Prothrombin Time 22.1H, Prothromb Time International Ratio 1.96, Activated Partial Thromboplast Time > 240.0*H, Anion Gap 15, Glomerular Filtration Rate 17.6L, Calcium Level 8.0L, Total Bilirubin 0.4, Direct Bilirubin 0.2, Aspartate Amino Transf (AST/SGOT) 13, Alanine Aminotransferase (ALT/SGPT) 10L, Alkaline Phosphatase 308H, Total Creatine Kinase 63, Creatine Kinase MB 3.8H, Creatine Kinase MB Relative Index 6.03H, Troponin I 0.06, LB-Ias-W-Type Natriuretic Peptide [id number], Total Protein 6.8, Albumin 2.1L, Albumin/Globulin Ratio 0.45L, Thyroid Stimulating Hormone (TSH) 1.200, Free Thyroxine 0.96 03/23/19 14:09: Activated Partial Thromboplast Time 53.4H 03/23/19 19:57: Troponin I 0.06, GY-Ztn-D-Type Natriuretic Peptide [id number] 03/24/19 05:46: Nucleated Red Blood Cells % (auto) 0.0, Anion Gap 13, Glomerular Filtration Rate 17.9L, Calcium Level 7.9L, Total Bilirubin 0.3, Aspartate Amino Transf (AST/SGOT) 13, Alanine Aminotransferase (ALT/SGPT) 10L, Alkaline Phosphatase 302H, Troponin I 0.05, Total Protein 6.5, Albumin 2.1L, Albumin/Globulin Ratio 0.48L, Magnesium Level 2.3 03/24/19 08:16: CBC/BMP Laboratory Tests 03/23/19 12:38 03/24/19 05:46 LORE GEORGE MD Mar 24, 2019 10:36
--- NOTE | 2019-03-24 11:33 | REP ---
CT of the abdomen and pelvis without IV or bowel contrast: Comparison is 03/20/2019 with IV and oral contrast: The patient has a clinical history of metastatic ovarian carcinoma and KAUR. There are chronic fibrotic changes in the lower lobes of the lung rendon. The subcapsular hypodensity is identified along the dome of the liver on the previous contrast are not apparent on the study today performed without IV contrast. The hypo densities identified previously at the celiac artery and extending into the gisell hepatis are not identified today this study without IV contrast. The gallbladder is again distended measuring up to 4.7 cm in diameter. This is unchanged. The common biliary duct measures 9 mm in diameter, similar to the prior study. There are multiple nodules in the subcutaneous fat of the anterior abdominal wall, injection artifact versus metastases. These are unchanged. The unenhanced pancreas and spleen are normal size, and to an unchanged and unremarkable. The adrenals are unremarkable. On the comparison study with IV contrast. A subtle infiltrative process is noted in the upper poles of the kidneys bilaterally. This is not apparent on the study today without IV contrast. This could represent a renal infection or infiltrative neoplasm. There is no perinephric stranding or perinephric fluid collection. There are bilateral renal cortical cysts, unchanged. No hydronephrosis or renal calculi are identified. There is a Hallett filter in the abdominal vena cava, unchanged. The bowel gas pattern is normal. The mesentery is unremarkable. There is descending colon/sigmoid colon diverticulosis without diverticulitis, this is unchanged. Pelvis: There is no ascites. There is a right hip arthroplasty resulting in beam hardening artifact obscuring the inferior pelvis. The previous left pelvic adenopathy is not as well identified on the study today without IV contrast. The known healing sacral insufficiency fracture and fracture of the pubic symphysis on the right are unchanged. Impression: No hydronephrosis is identified. No renal calculi are identified. There is no perinephric stranding. The suspected infiltrative process at the upper pole of each kidney identified on 09/24/2018 is not as well identified on the current study without IV contrast. Multiple bilateral renal cortical cysts are again identified. The known upper abdomen and pelvic adenopathy is not as well demonstrated on the study today without IV contrast. Gallbladder distension is unchanged. The common biliary duct measures 9 mm in diameter. This is unchanged. Hallett filter in the vena cava is unchanged. Nodular densities in the anterior abdominal wall are. Right hip arthroplasty, unchanged. The sacral pubic symphysis fractures are unchanged. Electronically Signed by Kevon Werner MD 03/24/2019 11:24 A
[2019-03-24] MEDS: IPRATROPIUM 0.5MG/ALBUTEROL 2.5MG INH SOL UD 3ML (DUONEB)(J7620) NEB SCH ×2 (13:21→19:27)
[2019-03-24 14:00] VITALS: BP 120/61
[2019-03-24] MEDS: SODIUM BICARBONATE 150 MEQ in D5W 1,000 ML IV SCH (14:24)
--- NOTE | 2019-03-24 14:52 | REP ---
Portable chest x-ray: Single view. History: Shortness of breath. Comparison study: March 23, 2019. Findings: A right-sided Daisxu-D-Rydx catheter is noted in place. EKG electrodes are seen. Mild cardiac enlargement is again noted. There are some increased markings in the left lower lobe behind the heart. This may reflect atelectasis versus early infiltrate. Pulmonary vasculature is slightly cephalized. No other new infiltrate is seen. Impression: Mild cardiac enlargement. Increased markings behind the heart in the left base atelectasis versus infiltrate. Electronically Signed by Mk Queen MD 03/24/2019 04:39 P
--- NOTE | 2019-03-24 18:18 | CR ---
DATE OF CONSULTATION: 03/24/2019 REQUESTING PHYSICIAN: Wagner Parekh MD CONSULTING PHYSICIAN: Gavi Aquino MD REASON FOR CONSULTATION: Nonoliguric acute kidney injury. HISTORY OF PRESENT ILLNESS: Evelina Harris is previously unknown to me. She is a 78-year-old female with a past medical history of ovarian carcinoma with distant metastases, not recently on chemotherapy at least for the past one year, pulmonary embolus, hypothyroidism, anemia, systolic congestive heart failure and other comorbid conditions mentioned below. The patient has a baseline creatinine 1 or less than 1. She lives at home with her daughter who reports that for the past week and a half the patient has been feeling frail and weak, usually is able to climb stairs, but recently has been having trouble doing so; has had cough, has had occasional nausea and vomiting and she did have blood work done on March 13 by her oncologist with the intention of resuming chemotherapy in the near future. Her creatinine at that time was 0.9. The patient had contrast CT scan of the chest, abdomen and pelvis on March 20. She came to the emergency room yesterday with complaint of dyspnea and cough and pain in the shoulders and right leg. She was found to have a creatinine of 2.7 and nephrology evaluation was requested for management of her acute kidney injury. PAST MEDICAL HISTORY: Ovarian carcinoma with distant metastases. History of pulmonary embolus. Anemia. Systolic congestive heart failure. Hypothyroidism. Anxiety and depression. Restless leg syndrome. PAST SURGICAL HISTORY: Appendectomy. Bilateral salpingo-oophorectomy, hysterectomy. Abdominal hernia surgeries. Left knee open reduction internal fixation. Inferior vena cava (IVC) filter placement. Right hip hemiarthroplasty. FAMILY HISTORY: Not significant for end-stage renal disease requiring dialysis. SOCIAL HISTORY She lives at home with her daughter. There is no reported smoking, alcohol or drugs. ALLERGIES METHOTREXATE, METOCLOPRAMIDE, MORPHINE, MOXIFLOXACIN, NALBUPHINE, TOPIRAMATE, TRAZODONE. FUNCTIONAL STATUS Daughter reports at baseline the patient is able to ambulate stairs and is continent. HOME MEDICATIONS: - Lovenox - ferrous sulfate 325 mg by mouth twice a day with meals - folic acid 1 mg by mouth daily - Lasix 40 mg by mouth daily - gabapentin 300 mg by mouth twice a day - lansoprazole 30 mg by mouth daily - levothyroxine 112 mcg by mouth daily - potassium chloride 20 mEq by mouth daily - Pramipexole 0.75 mg by mouth at bedtime - quetiapine 25 mg by mouth at bedtime - sertraline 100 mg by mouth daily - Zofran as needed. REVIEW OF SYSTEMS Constitutional: She denies fevers or chills. She reports weakness and easy fatigue. Eyes: She denies visual changes or tearing. ENT: She denies rhinorrhea or epistaxis. Cardiac: She has a history of systolic congestive heart failure. She denies leg edema or palpitations. Respiratory: She reports shortness of breath and cough. Gastrointestinal: She reports some nausea and vomiting. Genitourinary: She reports no dysuria or hematuria. Musculoskeletal: She reports shoulder pain and right hip pain. She reports easy fatigue and decreased exercise tolerance. Endocrine: She reports hypothyroidism. She denies diabetes. Hematologic: She reports anemia and chronic anticoagulant use. Skin: She denies any new rashes or ulcers. Psychiatric: She reports depression. Neurologic: She denies any recent syncope or seizure. Remainder review of systems is negative or as per HPI. PHYSICAL EXAMINATION: Vital signs: Temperature 99.8, pulse 104, respiratory rate 18, blood pressure 128/64, saturating 94% on room air. Intake yesterday was 500. Urine output yesterday was 650, weight in the bed scale today is not recorded. General: The patient is seen sitting in bed. Head of the bed elevated. Elderly female appears chronically ill. There is alopecia. Extraocular muscles are intact. The tongue is moist. The neck is supple. Jugular veins were not elevated. There is a port present in the right chest wall. Heart sounds are regular, S1-S2. Lungs show scattered rhonchus. There is expiratory wheeze. There is diminished breath sounds at the base. She is seen on nasal cannula. There is no accessory muscle use, nor tachypnea. Heart: Sounds are regular, S1, S2. There is no leg edema. Abdomen: Soft and nontender. There are bowel sounds. Genitourinary: Shows Madsen catheter with dark yellow urine. Musculoskeletal: She moves all four extremities on command. Skin: Normal turgor and temperature. Neurologic: She is oriented times three, interactive and conversational. LABS: Sodium 140, potassium 3.8, bicarbonate 12, BUN 59, creatinine 2.7, magnesium 2.3, BNP 31,000, albumin 2.1, hemoglobin 9.1, white count 14. Urinalysis is pending. Blood culture is pending. CT of the abdomen and pelvis, contrast from March 20 showed infiltrative processes at the upper pole of each kidney, which is suspicious for metastatic disease. There is no hydronephrosis or renal calculi, nor perinephric stranding. There is no ascites. Vascular ultrasound shows no deep venous thrombosis (DVT) on the right or left. INPATIENT MEDICATIONS - Zosyn 2.25 grams IV every 12-hourly - sodium bicarbonate drip at 50 mL an hour - Tylenol as needed - DuoNebs as needed - ferrous sulfate 325 mg by mouth twice a day - folic acid 1 mg by mouth daily - gabapentin 300 mg by mouth twice a day - Synthroid 112 mcg by mouth daily - Zofran as needed - pramipexole 0.75 mg by mouth at bedtime - Seroquel 25 mg by mouth at bedtime - sertraline 100 mg by mouth daily PROBLEMS: 1. Non oliguric acute kidney injury. The patient's baseline creatinine is less than 1. Renal panel March 13, 2019 with creatinine 0.96. The patient subsequently had contrast CT scan of the chest, abdomen and pelvis on March 20 and at that time she also reported decreased by mouth intake with some nausea and vomiting. I suspect she has had a contrast induced nephropathy. She is also noted to have infiltrative process to the upper pole of both kidneys, which is likely metastases. I also suspect that the patient may have a developing pneumonia. She is receiving very gentle IV fluids and her BNP has actually decreased with that from 36,000 down to 31,000. We will keep a close eye on her volume status and continue with gentle IV fluids at this time. Her Lasix has been held. 2. Metabolic acidosis. Serum bicarbonate is 12. I discontinued the normal saline and switched her instead to sodium bicarbonate drip at 50 mL an hour. If her serum bicarbonate level does not improve then I will get a blood gas. I am also getting a lactic acid. 3. Diastolic congestive heart failure. The patient has ejection fraction of about 40-45%. Reports she was taking Lasix at the time that she had the IV contrast CT scan on March 20 and was also having poor oral intake at that time. Her Lasix is presently held. She received some gentle IV fluids. Her BNP actually went down. We will continue to keep a close eye on her volume and respiratory status. 4. Shortness of breath. I feel the patient probably has a pneumonia. She has leukocytosis and cough. Primary team has started her on empiric antibiotics. Her blood culture is pending. 5. Metastatic ovarian carcinoma. Most recent contrast CT scan on March 20 is now also suggestive of infiltrative processes to the upper poles of both kidneys suggestive of metastasis to the kidneys. There was no associated perinephric stranding. Urinalysis is still pending to make sure that there is no UTI/pyelonephritis. However I do feel that that is unlikely. She is presently on chemotherapy holiday and her daughter tells me the patient has not been on chemotherapy for at least [address] scan of the chest on March 20 did not show any pneumonia at that time but did show pulmonary nodules. Thank you for involving me in the care of Ms. Harris. I will be happy to follow her along with you.
[2019-03-24 19:27] VITALS: O2SAT 96
[2019-03-24] MEDS ORDERED: VANCOMYCIN HCL 500 MG in D5W MINI-BAG PLUS 100 ML IV ONE (19:30)
--- NOTE | 2019-03-24 19:33 | ECHO ---
DATE OF PROCEDURE: 03/24/2019 REFERRING PHYSICIAN: Dr. Parekh INDICATION: Congestive heart failure. Height 158 cm, weight 61 kg. DIMENSIONS: IVS: 0.9 LV: 5.0 LVPW: 0.8 LA: 3.9 Aorta: 2.7 IVC: 2.2 Mitral E wave velocity: 140 A wave: 132 E prime septal: 5.8 E prime lateral: 9.8 FINDINGS: The study is of acceptable technical quality. The patient is in sinus rhythm. Left ventricle is normal size. There is wall motion abnormality involving mid and distal septum, apex, distal inferior wall and distal anterior wall. These segments appear akinetic. Remaining LV segments have normal contractility. Overall LVEF is estimated around 40-45%. Right ventricle is normal size and systolic function. Left atrium is at least mildly enlarged. Right atrium was poorly visualized. No pericardial effusion is noted. Aortic valve is sclerotic but mobility is grossly preserved with only minimal stenosis. There are also degenerative abnormalities of mitral valve with mitral annular calcifications. Tricuspid valve appears normal. Pulmonic valve was not well seen. Inferior vena cava is dilated. Aortic root is normal. Aortic arch and abdominal aorta were not seen. Doppler interrogation of aortic valve reveals mild insufficiency and mild stenosis with mean gradient 14 mmHg. There is mild mitral and tricuspid insufficiency. Calculated pulmonary artery pressure is minimum in 40s corresponding to moderate pulmonary hypertension. Mitral inflow pattern and tissue Doppler imaging of mitral annulus revealed grade 2 diastolic dysfunction. CONCLUSIONS: 1. Study is of acceptable technical quality, the patient is in sinus rhythm. 2. Normal left ventricular (LV) size with segmental wall motion abnormality as noted above and overall left ventricular ejection fraction (LVEF) estimated around 40-45%. 3. Aortic sclerosis resulting in mild stenosis and mild insufficiency. 4. Mild mitral and tricuspid insufficiency. 5. Elevated central venous pressure and at least moderate pulmonary hypertension. COMMENT: Subacute bacterial endocarditis (SBE) prophylaxis is not recommended. Study is suggestive of ischemic heart disease and approximately moderate left ventricle systolic dysfunction.
[2019-03-24] MEDS ORDERED: LEVALBUTEROL 1.25 MG/0.5 ML CONCENTRATE NEB INH PRN (20:00)
[2019-03-24 20:15] VITALS: BP 138/58
--- NOTE | 2019-03-24 20:28 | ECGEPIP ---
[facility] - ED Test Date: 2019-03-23 Pat Name: ATTILA REDDY Department: Room: - Gender: Female Audiovisual Technician: carol : 1940 Requested By: Masoud Laura Order Number: [id number] Reading MD: Masoud Norman Measurements Intervals [place] Rate: 99 P: 64 DE: 164 QRS: -34 QRSD: 104 T: 83 QT: 353 QTc: 454 Interpretive Statements SINUS RHYTHM LEFT AXIS DEVIATION POSSIBLE INCOMPLETE RIGHT BUNDLE BRANCH BLOCK VOLTAGE CRITERIA FOR LVH POSSIBLE ANTEROSEPTAL MYOCARDIAL INFARCTION, OF INDETERMINATE AGE MODERATE T-WAVE ABNORMALITY, CONSIDER LATERAL ISCHEMIA BASELINE ARTIFACT AFFECTS INTERPRETATION Electronically Signed on 03-24-2019 20:28:44 EST by Masoud Norman
[2019-03-24] MEDS: QUEtiapine FUMARATE 25 MG TAB PO SCH (21:39)
[2019-03-24] MEDS: guaiFENesin ER 600 MG TAB PO SCH (21:39)
[2019-03-24] MEDS: PRAMIPEXOLE 0.25 MG TAB PO SCH (22:20)
[2019-03-25] VITALS (15 sets, daily range): BP systolic 101–151; BP diastolic 51–79
[2019-03-25] MEDS: IPRATROPIUM 0.5MG/ALBUTEROL 2.5MG INH SOL UD 3ML (DUONEB)(J7620) NEB SCH ×4 (00:52→20:17)
[2019-03-25 01:05] LABS: ABG BASE EXCESS -12.5 (-2.0-2.0); ABG PARTIAL PRESSURE CO2 28.5 mmHg (35.0-45.0); ABG STANDARD HCO3 14.5 MEQ/L (22.0-26.0); ABG TOTAL CO2 13.9 MEQ/L (23.0-31.0); ABG pH (ARTERIAL) 7.278 UNITS (7.350-7.450)
[2019-03-25] MEDS ORDERED: SODIUM BICARBONATE 8.4% INJ 50 ML SYRINGE IV STA (01:37)
[2019-03-25 02:26] LABS: CALCIUM LEVEL 7.6 MG/DL (8.8-10.2); CREATININE FOR GFR 2.5 MG/DL (0.55-1.30); GLOMERULAR FILTRATION RATE 19.8 (>39); MAGNESIUM LEVEL 2.3 MG/DL (1.8-2.4); POTASSIUM SERUM 3.4 MEQ/L (3.5-5.1)
[2019-03-25] MEDS ORDERED: ACETAMINOPHEN 650 MG SUPP PR PRN (04:00)
[2019-03-25] MEDS: PIPERACILLIN/TAZOBACTAM SOD 2.25 GM in D5W MINI-BAG PLUS 50 ML IV SCH ×2 (04:10→17:53)
[2019-03-25] MEDS: LEVOTHYROXINE 112MCG TABLET (0.112MG) PO SCH ×2 (06:00→08:06)
[2019-03-25] MEDS: SODIUM BICARBONATE 150 MEQ in D5W 1,000 ML IV SCH (07:44)
[2019-03-25] MEDS: KCL 10MEQ/100ML SWI (KRUN) 10 MEQ in IV 1 EA IV SCH ×4 (08:05→13:25)
[2019-03-25] MEDS: guaiFENesin ER 600 MG TAB PO SCH ×2 (08:06→20:15)
[2019-03-25] MEDS: FOLIC ACID 1 MG TAB PO SCH (08:06)
[2019-03-25] MEDS: GABAPENTIN 300 MG CAP PO SCH (08:06)
[2019-03-25] MEDS: DOCUSATE SODIUM 100 MG CAP PO SCH ×2 (08:07→20:15)
[2019-03-25] MEDS: SERTRALINE 100 MG TAB PO SCH (08:07)
[2019-03-25] MEDS: FERROUS SULFATE 325MG TAB PO SCH ×2 (08:07→18:00)
--- NOTE | 2019-03-25 10:32 | IPNPDOC ---
Subjective Date Seen The patient was seen on 03/25/19. Subjective Chief Complaint/HPI Patient is in no distress clinically looks much better, even though still lethargic. Not any cardiac or pulmonary distress General: Denies: ROS Unobtainable, Chills, Night Sweats, Fatigue, Malaise, Normal Appetite, Other Symptoms Constitutional: Denies: Chills, Fever, Malaise, Night Sweats, Weakness, Fatigue, Weight Loss, Lethargy, Other Skin: Denies: Rash, Lesions, Jaundice, Bruising, Itching, Dry, Breakdown, Nail Changes, Other Pulmonary: Denies: Dyspnea, Cough, Pleuritic Chest Pain, Other Symptoms Cardiovascular: Denies: Chest Pain, Palpitations, Orthopnea, Paroxysmal Noc. Dyspnea, Edema, Lt Headedness, Other Symptoms Gastrointestinal: Denies: Nausea, Vomiting, Abdominal Pain, Diarrhea, Constipation, Melena, Hematochezia, Other Symptoms Genitourinary: Reports: Frequency Endocrine: Denies: Polydipsia, Polyphagia, Polyuria, Heat Intolerance, Cold Intolerance, Other Endocrine Sx Musculoskeletal: Denies: Neck Pain, Back Pain, Shoulder Pain, Arm Pain, Hand Pain, Leg Pain, Foot Pain, Joint Pain, Muscle Pain, Spasms, Other Symptoms Neurological: Denies: Weakness, Numbness, Incoordination, Change in speech, Confusion, Seizures, Other Symptoms Psych: Denies: Mood Normal, Anxiety, Depression, Memory Issues, Thoughts of Self Harm, Anger, Thoughts of Harming Other, Other Psych Objective Physical Examination Neck Exam: Positive: Supple Chest Exam: Positive: Normal air movement, Other (, decreased breath sounds bilaterally but no rales, rhonchi, wheezing) Heart Exam: Positive: Rate Normal, Normal S1, Normal S2 Telemetry: Positive: No significant arrhythmia Abdomen Exam: Positive: Normal bowel sounds, Soft Extremity Exam: Positive: Normal pulses Skin Exam: Positive: Nl turgor and temperature Neuro Exam: Positive: Strength at 5/5 X4 ext, Sensation Intact, Cranial Nerves 3-12 NL Psych Exam: Positive: Mental status NL, Mood NL, Oriented x 3 Assessment /Plan Problems (1) Acute renal failure (ARF) Status: Acute Problem Text: 78 years old lady came with a bilateral shoulder and right leg pain, but on incidental finding patient's BUN was 56, creatinine 2.77. Note, patient's creatinine on 03/13/2019 was 0.96. Patient has been on Lovenox for DVT prophylaxis since last April and also taken diuretics for possible pulmonary congestion. KAUR could be secondary to Lovenox, diuretics are secondary to malignancy Patient is started on gentle hydration, normal saline at 50 mL per hour Hold Lovenox and Lasix secondary to worsening renal function Nephrology consult appreciated, will continue with the recommendations including bicarbonate drip Repeat levels in a.m. 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 Patient is currently on chemotherapy holiday, patient also has chronic vaginal bleed secondary to vaginal implants, status post vaginal radiation. She'll will receive her chemotherapy as per oncology Poor prognosis I had extensive discussions with patient's daughter, but she is not willing for comfort care measures are DNR/DNI. She wishes full code and aggressive management as possible. Considering patient's family's wishes. We will continue present care (3) Hypokalemia Status: Acute Problem Text: Potassium supplemented Repeat levels in a.m. (4) Hypothyroidism Status: Chronic Problem Text: Continue home meds (5) UTI (urinary tract infection) Status: Acute Problem Text: Continue Zosyn and vancomycin Cultures are pending (6) Pneumonia Status: Acute Problem Text: There is a possibility of a retrocardiac infiltrates versus atelectasis Patient was started on Zosyn and I will add vancomycin at renally compensated dose Patient was transferred to ICU and due to increased shortness of breath, but he has since then stabilized Continue oxygen support and present care Cultures pending Plan/VTE VTE Prophylaxis Ordered?: Yes VS, I&O, 24H, [facility] Vital Signs/I&O Vital Signs Date Time Temp Pulse Resp B/P (MAP) Pulse Ox O2 Delivery O2 Flow Rate FiO2 03/25/19 08:15 90 03/25/19 08:00 99.0 16 151/75 (100) 96 Room Air 03/25/19 05:00 2.0 03/24/19 19:27 28 I&O- Last 24 Hours up to 6 AM 03/25/19 06:00 Intake Total 1655 ml Output Total 950 ml Balance 705 ml Laboratory Data 24H LABS Laboratory Tests 2 03/24/19 14:17: Lactic Acid Level 0.9 03/24/19 16:01: Urine Color YELLOW, Urine Appearance CLOUDYH, Urine pH 5.0, Urine Specific [place] 1.014, Urine Protein 2+H, Urine Glucose (UA) NEGATIVE, Urine Ketones NEGATIVE, Urine Blood 2+H, Urine Nitrite NEGATIVE, Urine Bilirubin NEGATIVE, Urine Urobilinogen 0.2, Urine Leukocyte Esterase 3+H, Urine WBC (Auto) 99H, Urine RBC (Auto) 6H, Urine Hyaline Casts (Auto) 0, Urine Bacteria (Auto) 1+H, Urine Squamous Epithelial Cells 0, Urine Amorphous Sediment SMALLH, Urine Sperm (Auto) 03/25/19 00:49: Blood Gas Bicarbonate Standard 14.5L, Arterial Blood pH 7.278L, Arterial Blood Partial Pressure CO2 28.5L, Arterial Blood Partial Pressure O2 124.0H, Arterial Blood Total CO2 13.9L, Arterial Blood HCO3 13.0L, Arterial Blood Base Excess -12.5L, Arterial Blood Oxygen Saturation 99.0 03/25/19 01:50: Anion Gap 12, Glomerular Filtration Rate 19.8L, Calcium Level 7.6L, Magnesium Level 2.3 03/25/19 10:09: CBC/BMP Laboratory Tests 03/25/19 01:50 Microbiology Microbiology 03/24/19 Gram Stain - Final, Resulted 03/24/19 Sputum Culture, Resulted Pending 03/24/19 Urine Culture, Received Pending 03/24/19 Blood Culture, Received Pending LORE GEORGE MD Mar 25, 2019 10:32
[2019-03-25 10:34] LABS: BASO % 0.2 % (0.0-1.0); EOS # 0.1 10^3/uL (0.0-0.5); EOS % 0.4 % (0.0-3.0); HEMATOCRIT 23.7 % (36.0-47.0); LYMPH # 0.8 10^3/uL (1.5-5.0); LYMPH % 5.9 % (24.0-44.0); MEAN CORPUSCULAR HEMOGLOBIN 30.9 pg (27.0-33.0); MEAN CORPUSCULAR HGB CONC 33.8 g/dl (32.0-36.5); MEAN CORPUSCULAR VOLUME 91.5 fl (80.0-96.0); MONO # 0.5 10^3/uL (0.0-0.8); NEUTROPHILS # 11.4 10^3/uL (1.5-8.5); NEUTROPHILS % 88.1 % (36.0-66.0); PLATELET COUNT, AUTOMATED 181 10^3/uL (150-450); RED BLOOD COUNT 2.59 10^6/uL (4.00-5.40); WHITE BLOOD COUNT 12.9 10^3/uL (4.0-10.0)
[2019-03-25] MEDS ORDERED: VANCOMYCIN HCL 500 MG in D5W MINI-BAG PLUS 100 ML IV SCH (10:45)
[2019-03-25 10:55] LABS: ERYTHROCYTE SEDIMENTATION RATE 129 mm/hr (0-30)
[2019-03-25 10:56] LABS: C REACTIVE PROTEIN QUANTITATIV 30.3 MG/DL (0.00-0.30); CALCIUM LEVEL 7.7 MG/DL (8.8-10.2); CREATININE FOR GFR 2.23 MG/DL (0.55-1.30); GLOMERULAR FILTRATION RATE 22.6 (>39); POTASSIUM SERUM 3.3 MEQ/L (3.5-5.1)
[2019-03-25 11:42] LABS: MAGNESIUM LEVEL 3.6 MG/DL (1.8-2.4)
[2019-03-25 12:24] LABS: VANCOMYCIN RANDOM 4.8 UG/ML
--- NOTE | 2019-03-25 12:28 | REP ---
Comparisons are 09/24/2018 and 03/20/2019. The patient has history of ovarian carcinoma. On the study today there are bilateral lower lobe infiltrates. The right lower lobe infiltrate is new compared to 03/20/2019. The left lower lobe infiltrate has slightly worsened from 03/20/2019. There is a left upper lobe 8.0 mm lung nodule. This measured 7 mm on 09/24/2018. There are the following lung nodules, not present on 09/24/2018 but unchanged from 03/20/2019: Image 17, right upper lobe, 3 mm. Image 24, right upper lobe, 3 mm. Image 50, middle lobe, 5 mm. On the 03/20/2011 and the there is a pleural-based left lower lobe lung nodule on image 64 measuring 3 mm. This nodule is obscured by atelectasis on the current study. On 03/20/2019 there was no mediastinal, hilar or axillary lymphadenopathy. There is no lymphadenopathy on the study today. The unenhanced thoracic aorta is unremarkable. Cardiac size is upper normal. There is no pericardial effusion. The visualized upper abdominal contents are unchanged from the abdomen/pelvis CT in 03/20/2019. Impression: Bilateral lower lobe infiltrates as a change from 03/20/2019. Lung nodules as described. Electronically Signed by Kevon Werner MD 03/25/2019 12:20 P
[2019-03-25] MEDS ORDERED: POTASSIUM CHLORIDE 10% LIQ 20 MEQ/15 ML UDC PO ONE (12:30)
[2019-03-25] MEDS ORDERED: VANCOMYCIN INTERMITTENT/PULSE DOSING BY CLINICAL PHARMACIST PER DOSING PROTOCOL XX SCH (12:45)
[2019-03-25] MEDS ORDERED: VANCOMYCIN HCL 1,000 MG, VIAL MATE ADAPTER 1 EACH in D5W 250 ML IV ONE (14:00)
[2019-03-25] MEDS: SODIUM BICARBONATE 100 MEQ in D5W 1,000 ML IV SCH (14:01)
--- NOTE | 2019-03-25 14:39 | IPN ---
DATE OF SERVICE: 03/25/2019 SUBJECTIVE: I was called overnight by the resident regarding Ms. Harris. She was found to be lethargic, and a blood gas revealed metabolic acidosis with respiratory compensation. Her serum bicarbonate remained low. She was given an amp of sodium bicarbonate, and her sodium bicarbonate drip was increased to 100 mL/h. The patient was also transferred to the intensive care unit, and she also had a fever spike. Maximum temperature (Tmax) of 101.6. She has had improved urine output overnight, and laboratory studies show improvement in renal function and also improvement in metabolic acidosis this morning. Nursing staff reports that the patient refused breakfast but has been sipping on liquids. She remains hemodynamically stable and was on room air at the time of my visit. She complains of chills and rigors. Tmax 101.6, Current temperature (Tcurrent) 99, pulse 95, respiratory rate 16, blood pressure 121/79, saturating 96% on room air. Intake yesterday was 1830. Urine output was 550. Urine output thus far today is 1 liter. Weight in the bed scale today is 60.5 kg. General: The patient is seen lying in bed in the intensive care unit. Elderly female. Appears chronically ill and frail. Extraocular muscles are intact. There is some cachexia. Tongue is moist. Neck is supple. Jugular veins are not elevated. There is a port in the right chest wall. Heart sounds are regular, S1, S2. Lungs show scattered rhonchus with scattered wheeze. There is diminished breath sounds at the base. She is on nasal cannula. There is no accessory muscle use nor tachypnea. Heart sounds are regular. S1, S2. There is no leg edema. She is having chills at the time of my visit. Abdomen is soft and nontender. There are bowel sounds. There is some bruising present on the lower quadrants. There is a Madsen catheter with clear yellow urine. She moves all four extremities on command. She is having chills and rigors. Skin: Normal turgor and temperature. Neurologic: Oriented times three. Interactive and conversational. LABORATORIES: White count 12.9, hemoglobin 8.0, platelet 181. ESR is 129. CRP is 30. BNP is down to 28,000. Potassium 3.3, bicarbonate 20, BUN 50, creatinine 2.2, magnesium 3.6. Blood and urine cultures are pending. CT chest shows an interval development of bilateral lower lobe infiltrates. INPATIENT MEDICATIONS: She is receiving sodium bicarbonate at 100 mL/h. She received several K runs. She is receiving renally dosed Zosyn and vancomycin. I discontinued gabapentin. The remainder of medications are unchanged from prior. PROBLEMS 1. Nonoliguric acute kidney injury. The patient's baseline creatinine is less than 1. She had intravenous (IV) contrast CAT scan of the chest, abdomen and pelvis on 03/20/2019 in the setting of decreased oral intake/nausea and vomiting. She likely has a contrast-induced nephropathy. She has been receiving bicarbonate based IV fluids. Her urine output is slowly improving. Her renal function is slowly improving. I note that she has infiltrative features of the upper pole of both kidneys, which is likely metastasis to the kidney. I also suspect that she has a developing pneumonia or some other source of infection. Her brain natriuretic peptide (BNP) is actually decreasing with IV fluids. We will continue with gentle IV fluids at this time. 2. Metabolic acidosis. Serum bicarbonate has improved from 12 to 20. She continues on a sodium bicarbonate drip. Blood gas confirmed metabolic acidosis with respiratory compensation. Her lactic acid was negative. There were no ketones in the urine. Continue with bicarbonate drip for now. 3. Hypermagnesemia. The patient is not receiving any magnesium supplements. I discontinued the Mylanta and milk of magnesia. Continue with IV fluid. 4. Systolic congestive heart failure. The patient has ejection fraction of 40% to 45%. Her diuretics are presently held in view of contrast-induced nephropathy and IV fluids. BNP is actually downtrending. We will continue to keep a close eye on volume and respiratory status. 5. Probable pneumonia versus some other source of infection. Tmax 101.6. Ongoing leukocytosis, although white count is downtrending. Markedly elevated erythrocyte sedimentation rate (ESR), C-reactive protein (CRP), and procalcitonin. Blood and urine culture is pending. She may have an evolving pneumonia. I see that the gram stain of this expectorated sputum grew moderate yeast. She is on renally-dosed vancomycin and Zosyn. She may need to also be started on micafungin. I will defer to the primary team or suggest infectious disease evaluation. 6. Metastatic ovarian carcinoma. Presently on chemotherapy holiday. Staging contrast CAT scan done 03/20/2019 reviewed. Possible metastasis to the kidneys. 7. Hypokalemia. She has received repletion. 8. Anemia. 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
[2019-03-25] MEDS: PRAMIPEXOLE 0.25 MG TAB PO SCH (20:15)
[2019-03-25] MEDS: QUEtiapine FUMARATE 25 MG TAB PO SCH (20:15)
[2019-03-25] MEDS: ACETAMINOPHEN TAB 650MG DOSE (2X325MG) PO PRN (20:39)
[2019-03-25 21:35] LABS: CALCIUM LEVEL 7.4 MG/DL (8.8-10.2); CREATININE FOR GFR 1.97 MG/DL (0.55-1.30); GLOMERULAR FILTRATION RATE 26.1 (>39); POTASSIUM SERUM 3.9 MEQ/L (3.5-5.1)
[2019-03-26] VITALS (17 sets, daily range): BP systolic 99–142; BP diastolic 49–63
[2019-03-26] MEDS: IPRATROPIUM 0.5MG/ALBUTEROL 2.5MG INH SOL UD 3ML (DUONEB)(J7620) NEB SCH ×4 (04:10→19:06)
[2019-03-26] MEDS: SODIUM BICARBONATE 100 MEQ in D5W 1,000 ML IV SCH (04:20)
[2019-03-26] MEDS: ACETAMINOPHEN TAB 650MG DOSE (2X325MG) PO PRN ×2 (04:20→16:07)
[2019-03-26] MEDS: PIPERACILLIN/TAZOBACTAM SOD 2.25 GM in D5W MINI-BAG PLUS 50 ML IV SCH ×2 (04:29→17:37)
[2019-03-26 05:53] LABS: BASO % 0.2 % (0.0-1.0); EOS # 0.1 10^3/uL (0.0-0.5); EOS % 0.7 % (0.0-3.0); HEMATOCRIT 23.5 % (36.0-47.0); LYMPH # 1.2 10^3/uL (1.5-5.0); LYMPH % 9.2 % (24.0-44.0); MEAN CORPUSCULAR HEMOGLOBIN 30.8 pg (27.0-33.0); MEAN CORPUSCULAR VOLUME 90.4 fl (80.0-96.0); MONO # 0.7 10^3/uL (0.0-0.8); NEUTROPHILS # 10.9 10^3/uL (1.5-8.5); NEUTROPHILS % 83.7 % (36.0-66.0); PLATELET COUNT, AUTOMATED 184 10^3/uL (150-450)
[2019-03-26 06:20] LABS: ALBUMIN 1.7 GM/DL (3.2-5.2); BILIRUBIN,TOTAL 0.5 MG/DL (0.2-1.0); CALCIUM LEVEL 7.6 MG/DL (8.8-10.2); CREATININE FOR GFR 1.92 MG/DL (0.55-1.30); GLOMERULAR FILTRATION RATE 26.9 (>39); POTASSIUM SERUM 3.6 MEQ/L (3.5-5.1); TOTAL PROTEIN 5.4 GM/DL (6.4-8.2); VANCOMYCIN RANDOM 16.4 UG/ML
[2019-03-26] MEDS: DOCUSATE SODIUM 100 MG CAP PO SCH ×2 (09:00→20:17)
[2019-03-26] MEDS: FERROUS SULFATE 325MG TAB PO SCH (09:14)
[2019-03-26] MEDS: FOLIC ACID 1 MG TAB PO SCH (09:14)
[2019-03-26] MEDS: guaiFENesin ER 600 MG TAB PO SCH ×2 (09:14→20:17)
[2019-03-26] MEDS: SERTRALINE 100 MG TAB PO SCH (09:15)
[2019-03-26 09:46] LABS: PERCENT SATURATION 8.2 % (13.2-45.0)
--- NOTE | 2019-03-26 12:19 | IPNPDOC ---
Subjective Date Seen The patient was seen on 03/26/19. Subjective Chief Complaint/HPI Patient feels much better today. He is awake, alert, oriented 3, in no apparent distress General: Denies: ROS Unobtainable, Chills, Night Sweats, Fatigue, Malaise, Normal Appetite, Other Symptoms Constitutional: Denies: Chills, Fever, Malaise, Night Sweats, Weakness, Fatigue, Weight Loss, Lethargy, Other Pulmonary: Denies: Dyspnea, Cough, Pleuritic Chest Pain, Other Symptoms Cardiovascular: Denies: Chest Pain, Palpitations, Orthopnea, Paroxysmal Noc. D yspnea, Edema, Lt Headedness, Other Symptoms Gastrointestinal: Denies: Nausea, Vomiting, Abdominal Pain, Diarrhea, Constipation, Melena, Hematochezia, Other Symptoms Musculoskeletal: Denies: Neck Pain, Back Pain, Shoulder Pain, Arm Pain, Hand Pain, Leg Pain, Foot Pain, Joint Pain, Muscle Pain, Spasms, Other Symptoms Neurological: Denies: Weakness, Numbness, Incoordination, Change in speech, Confusion, Seizures, Other Symptoms Objective Physical Examination Neck Exam: Positive: Supple Chest Exam: Positive: Normal air movement, Other (, decreased breath sounds b ilaterally but no rales, rhonchi, wheezing) Heart Exam: Positive: Rate Normal, Normal S1, Normal S2 Telemetry: Positive: No significant arrhythmia Abdomen Exam: Positive: Normal bowel sounds, Soft Extremity Exam: Positive: Normal pulses Skin Exam: Positive: Nl turgor and temperature Neuro Exam: Positive: Strength at 5/5 X4 ext, Sensation Intact, Cranial Nerves 3-12 NL Psych Exam: Positive: Mental status NL, Mood NL, Oriented x 3 Assessment /Plan Problems (1) Acute renal failure (ARF) Status: Acute Problem Text: 78 years old lady came with a bilateral shoulder and right leg pain, but on incidental finding patient's BUN was 56, creatinine 2.77. Note, patient's creatinine on 03/13/2019 was 0.96. Patient has been on Lovenox for DVT prophylaxis since last April and also taken diuretics for possible pulmonary congestion. KAUR could be secondary to Lovenox, diuretics are secondary to malignancy Patient is started on gentle hydration, normal saline at 50 mL per hour Hold Lovenox and Lasix secondary to worsening renal function Discussed with nephrology as she seems to be improving with gentle hydration. We'll continue the same DC bicarbonate drip Transferred to [facility] floor A.m. 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 Patient is currently on chemotherapy holiday, patient also has chronic vaginal bleed secondary to vaginal implants, status post vaginal radiation. She'll will receive her chemotherapy as per oncology Poor prognosis I had extensive discussions with patient's daughter, but she is not willing for comfort care measures are DNR/DNI. She wishes full code and aggressive management as possible. Considering patient's family's wishes. We will continue present care (3) Hypokalemia Status: Resolved Problem Text: Potassium supplemented Repeat levels in a.m. (4) Hypothyroidism Status: Chronic Problem Text: Continue home meds (5) UTI (urinary tract infection) Status: Acute Problem Text: Continue Zosyn and vancomycin Cultures are pending (6) Pneumonia Status: Acute Problem Text: CT of the chest shows bilateral lower lobe infiltrate Patient has responded well very well to IV antibiotics Will continue Zosyn and change Vanco to by mouth secondary to concurrent C. difficile infection Continue oxygen support and present care (7) Clostridioides difficile infection Status: Acute Problem Text: Start patient on vancomycin 250 mg by mouth every 6 hours Contact isolation Plan/VTE VTE Prophylaxis Ordered?: Yes VS, I&O, 24H, Fishbone Vital Signs/I&O Vital Signs Date Time Temp Pulse Resp B/P (MAP) Pulse Ox O2 Delivery O2 Flow Rate FiO2 03/26/19 08:00 2.0 03/26/19 08:00 99.4 94 18 112/54 (73) 97 Nasal Cannula 03/24/19 19:27 28 I&O- Last 24 Hours up to 6 AM 03/26/19 06:00 Intake Total 4255 ml Output Total 1800 ml Balance 2455 ml Laboratory Data 24H LABS Laboratory Tests 2 03/25/19 19:43: Anion Gap 11, Glomerular Filtration Rate 26.1L, Calcium Level 7.4L 03/25/19 20:44: Magnesium Level 2.0 03/26/19 04:31: Anion Gap 10, Glomerular Filtration Rate 26.9L, Calcium Level 7.6L, Immature Granulocyte % (Auto) 1.2, Neutrophils (%) (Auto) 83.7H, Lymphocytes (%) (Auto) 9.2L, Monocytes (%) (Auto) 5.0, Eosinophils (%) (Auto) 0.7, Basophils (%) (Auto) 0.2, Neutrophils # (Auto) 10.9H, Lymphocytes # (Auto) 1.2L, Monocytes # (Auto) 0.7, Eosinophils # (Auto) 0.1, Basophils # (Auto) 0.0, Nucleated Red Blood Cells % (auto) 0.0, Iron Level 13L, Total Iron Binding Capacity 159L, Transferrin % Saturation 8.2L, Ferritin 396H, Total Bilirubin 0.5#, Aspartate Amino Transf (AST/SGOT) 14, Alanine Aminotransferase (ALT/SGPT) 9L, Alkaline Phosphatase 252H, Total Protein 5.4L, Albumin 1.7L, Albumin/Globulin Ratio 0.46L, Random Vancomycin Level 16.4 CBC/BMP Laboratory Tests 03/25/19 19:43 03/26/19 04:31 Microbiology Microbiology 03/25/19 Gastrointestinal Tract Panel (PCR) - Final, Complete Clostridium Difficile A/B 03/24/19 Gram Stain - Final, Resulted 03/24/19 Sputum Culture, Resulted Pending 03/24/19 Urine Culture - Final, Complete Escherichia Coli 03/24/19 Blood Culture - Preliminary, Resulted No growth after 24 hours . All specim... LORE GEORGE MD Mar 26, 2019 12:19
[2019-03-26] MEDS: VANCOMYCIN ORAL SOL 250MG/5ML ORAL SYRINGE PO SCH ×2 (12:34→17:37)
[2019-03-26] MEDS: LACTOBACILLUS ACIDOPHILUS CAP (BACID) PO SCH (12:34)
[2019-03-26] MEDS ORDERED: VANCOMYCIN HCL 750 MG, VIAL MATE ADAPTER 1 EACH in D5W 250 ML IV ONE (13:00)
[2019-03-26] MEDS ORDERED: VANCOMYCIN HCL 1,000 MG, VIAL MATE ADAPTER 1 EACH in D5W 250 ML IV ONE (13:00)
[2019-03-26] MEDS: IRON SUCROSE 100 MG in NS 100 ML IV SCH (15:06)
[2019-03-26] MEDS ORDERED: SODIUM CHLORIDE 0.9% INJ 10 ML SYR IV PRN (15:15)
[2019-03-26] MEDS: GABAPENTIN 300 MG CAP PO PRN (16:07)
[2019-03-26] MEDS: QUEtiapine FUMARATE 25 MG TAB PO SCH (20:17)
[2019-03-26] MEDS: PRAMIPEXOLE 0.25 MG TAB PO SCH (20:17)
[2019-03-27 00:20] VITALS: BP 130/60
[2019-03-27] MEDS: VANCOMYCIN ORAL SOL 250MG/5ML ORAL SYRINGE PO SCH ×4 (00:33→17:44)
[2019-03-27] MEDS: IPRATROPIUM 0.5MG/ALBUTEROL 2.5MG INH SOL UD 3ML (DUONEB)(J7620) NEB SCH ×4 (02:08→20:10)
--- NOTE | 2019-03-27 05:14 | IPN ---
DATE OF SERVICE: 03/26/2019 SUBJECTIVE: The patient was seen and examined at the bedside today morning in the intensive care unit (ICU). She is still having fever spikes. The patient's renal function is stable, creatinine is fluctuating at 1.9. She continues to be on IV bicarb containing fluids. Metabolic acidosis has improved with a serum bicarb of 21. Electrolytes are within the acceptable range as well. The patient reports that she is feeling much better today as compared with yesterday. OBJECTIVE: Vital Signs: T-max 101.5 degrees Fahrenheit last night, blood pressure is 142/63, pulse is 98, respiratory rate of 22, saturating 93% on nasal cannula. Intake and Output: Urine output recorded as 1.7 liters yesterday, 1.5 liters so far today since overnight. Weight in the bed scale is 58.7 kg. PHYSICAL EXAMINATION: General: The patient is awake, alert, oriented times three, weak and cachectic, laying in bed, in no apparent distress. Head and Neck Exam: Extraocular muscles intact. The patient has alopecia. She has bitemporal wasting. Neck is supple. She has engorged neck veins and moderate elevation of jugular venous distention (JVD). Cardiovascular: S1, S2, regular rate. Trace edema of the bilateral lower extremities. Respiratory: Mildly decreased breath sounds at the bases. No active rales or rhonchi. Abdomen: Soft. Positive bowel sounds. Old surgical scars are visible on the abdomen. Genitourinary: She has an indwelling Madsen catheter. Musculoskeletal: No clubbing or cyanosis in the bilateral lower extremities. Normal range of movement. Central Nervous System (FACTORER): No focal deficit. Power is 5/5 in all extremities. LAB REVIEW: CBC showed a WBC of 30, hemoglobin 8, platelets of 194. BMP showed sodium 142, potassium 3.6, chloride 111, bicarb 21, BUN 42, creatinine is 1.9 and it was 1.9 yesterday as well, calcium 7.6, iron is 13, TIBC is 159, transferrin saturation 8.2, ferritin is 396, AST 14, ALT 9, alkaline phosphatase 252, and albumin is 1.7. Random vancomycin level is 16.4. Microbiology: Stool C diff PCR is positive. Urine culture showed E-coli 50,000 colonies. IMAGING: CAT scan of the chest was done yesterday which showed bilateral lower lobe infiltrates. CURRENT INPATIENT MEDICATIONS: The patient's medications were all reviewed by me. She is currently on Zosyn 2.25 grams IV q. 12 hourly. I have stopped the IV bicarb containing fluids. I have stopped the oral iron tablets. She has also been started on vancomycin 250 mg q. 6 hourly. ASSESSMENT/PLAN: 1. Acute kidney injury. Most likely, the patient has contrast induced nephropathy combined with dehydration and volume depletion. The patient was getting bicarb containing fluid. Creatinine has been fluctuating at 1.9. I am stopping the IV fluid because of clinically elevated JVD and risk of decompensated congestive heart failure. Continue to encourage oral hydration. 2. Metabolic acidosis. The patient's serum bicarbonate level has improved within the normal range with IV bicarbonate. IV fluids have been stopped as mentioned above. 3. History of systolic congestive heart failure. The patient does not need any diuretics at this time. Because of acute kidney injury, volume status will be evaluated on a daily basis for any need to start the diuretics. 4. Bilateral lower lobe pneumonia. The patient is currently on IV Zosyn. Dose is adequate for renal failure. 5. Clostridium difficile colitis diarrhea. The patient has been started on oral vancomycin. 6. Metastatic ovarian carcinoma. The patient's chemotherapy is on hold. She is in acute renal failure at this time. Staging CT was done on March 20, 2019 which most likely has contributed to acute kidney injury. 7. Iron deficiency anemia. The patient's hemoglobin is 8, which is optimal for now. No need of blood transfusion at this point. She has been started on IV Venofer infusions.
[2019-03-27] MEDS: LEVOTHYROXINE 112MCG TABLET (0.112MG) PO SCH (05:24)
[2019-03-27] MEDS: PIPERACILLIN/TAZOBACTAM SOD 2.25 GM in D5W MINI-BAG PLUS 50 ML IV SCH ×2 (05:24→17:00)
[2019-03-27 05:29] VITALS: BP 131/63
[2019-03-27] MEDS: SODIUM CHLORIDE 0.9% INJ 10 ML SYR IV SCH (09:00)
[2019-03-27 09:03] LABS: BASO % 0.3 % (0.0-1.0); EOS # 0.1 10^3/uL (0.0-0.5); LYMPH # 1.3 10^3/uL (1.5-5.0); LYMPH % 11.4 % (24.0-44.0); MEAN CORPUSCULAR HEMOGLOBIN 30.9 pg (27.0-33.0); MEAN CORPUSCULAR HGB CONC 33.3 g/dl (32.0-36.5); MEAN CORPUSCULAR VOLUME 92.7 fl (80.0-96.0); MONO # 0.6 10^3/uL (0.0-0.8); MONO % 5.2 % (0.0-5.0); NEUTROPHILS # 9.5 10^3/uL (1.5-8.5); NEUTROPHILS % 80.6 % (36.0-66.0); PLATELET COUNT, AUTOMATED 197 10^3/uL (150-450); RED BLOOD COUNT 2.59 10^6/uL (4.00-5.40); WHITE BLOOD COUNT 11.8 10^3/uL (4.0-10.0)
[2019-03-27 09:19] LABS: ALBUMIN 1.6 GM/DL (3.2-5.2); BILIRUBIN,TOTAL 0.5 MG/DL (0.2-1.0); CALCIUM LEVEL 8.4 MG/DL (8.8-10.2); CREATININE FOR GFR 1.52 MG/DL (0.55-1.30); GLOMERULAR FILTRATION RATE 35.2 (>39); POTASSIUM SERUM 3.4 MEQ/L (3.5-5.1); TOTAL PROTEIN 6.5 GM/DL (6.4-8.2)
[2019-03-27] MEDS ORDERED: POTASSIUM CHLORIDE 10 MEQ SR TABLET PO ONE (10:00)
[2019-03-27] MEDS ORDERED: FUROSEMIDE 20 MG/2 ML VIAL (J1940) IV ONE (10:00)
[2019-03-27] MEDS: SERTRALINE 100 MG TAB PO SCH (10:02)
[2019-03-27] MEDS: guaiFENesin ER 600 MG TAB PO SCH ×2 (10:02→20:05)
[2019-03-27] MEDS: FOLIC ACID 1 MG TAB PO SCH (10:02)
[2019-03-27] MEDS: LACTOBACILLUS ACIDOPHILUS CAP (BACID) PO SCH (10:02)
[2019-03-27] MEDS: ACETAMINOPHEN TAB 650MG DOSE (2X325MG) PO PRN ×2 (12:06→18:35)
--- NOTE | 2019-03-27 12:17 | IPNPDOC ---
Subjective Date Seen The patient was seen on 03/27/19. Subjective Chief Complaint/HPI Patient feels better. Offers no new complaints. Denies any diarrhea General: Denies: ROS Unobtainable, Chills, Night Sweats, Fatigue, Malaise, Normal Appetite, Other Symptoms Constitutional: Denies: Chills, Fever, Malaise, Night Sweats, Weakness, Fatigue, Weight Loss, Lethargy, Other Skin: Denies: Rash, Lesions, Jaundice, Bruising, Itching, Dry, Breakdown, Nail Changes, Other Pulmonary: Denies: Dyspnea, Cough, Pleuritic Chest Pain, Other Symptoms Cardiovascular: Denies: Chest Pain, Palpitations, Orthopnea, Paroxysmal Noc. Dyspnea, Edema, Lt Headedness, Other Symptoms Gastrointestinal: Denies: Nausea, Vomiting, Abdominal Pain, Diarrhea, Constipation, Melena, Hematochezia, Other Symptoms Musculoskeletal: Denies: Neck Pain, Back Pain, Shoulder Pain, Arm Pain, Hand Pain, Leg Pain, Foot Pain, Joint Pain, Muscle Pain, Spasms, Other Symptoms Neurological: Denies: Weakness, Numbness, Incoordination, Change in speech, Confusion, Seizures, Other Symptoms Objective Physical Examination Neck Exam: Positive: Supple Chest Exam: Positive: Normal air movement, Other (, decreased breath sounds bilaterally but no rales, rhonchi, wheezing) Heart Exam: Positive: Rate Normal, Normal S1, Normal S2 Telemetry: Positive: No significant arrhythmia Abdomen Exam: Positive: Normal bowel sounds, Soft Extremity Exam: Positive: Normal pulses Skin Exam: Positive: Nl turgor and temperature Neuro Exam: Positive: Strength at 5/5 X4 ext, Sensation Intact, Cranial Nerves 3-12 NL Psych Exam: Positive: Mental status NL, Mood NL, Oriented x 3 Assessment /Plan Problems (1) Acute renal failure (ARF) Status: Acute Problem Text: 78 years old lady came with a bilateral shoulder and right leg pain, but on incidental finding patient's BUN was 56, creatinine 2.77. Note, sarah portillo's creatinine on 03/13/2019 was 0.96. Patient has been on Lovenox for DVT prophylaxis since last April and also taken diuretics for possible pulmonary congestion. 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 Patient is currently on chemotherapy holiday, patient also has chronic vaginal bleed secondary to vaginal implants, status post vaginal radiation. She'll will receive her chemotherapy as per oncology Poor prognosis I had extensive discussions with patient's daughter, but she is not willing for comfort care measures are DNR/DNI. She wishes full code and aggressive management as possible. Considering patient's family's wishes. We will continue present care (3) Hypokalemia Status: Resolved Problem Text: Potassium supplemented Repeat levels in a.m. (4) Hypothyroidism Status: Chronic Problem Text: Continue home meds (5) UTI (urinary tract infection) Status: Acute Problem Text: Patient urine culture positive for Escherichia coli sensitive to Zosyn Continue present antibiotics (6) Pneumonia Status: Acute Problem Text: CT of the chest shows bilateral lower lobe infiltrate Patient has responded well very well to IV antibiotics Will continue Zosyn and change Vanco to by mouth secondary to concurrent C. difficile infection Will change to by mouth cephalosporins on discharge. We'll repeat chest x-ray again Continue oxygen support and present care (7) Clostridioides difficile infection Status: Acute Problem Text: Start patient on vancomycin 250 mg by mouth every 6 hours Contact isolation Plan/VTE VTE Prophylaxis Ordered?: Yes VS, I&O, [facility] Sign[facility]/I&O Vital Signs Date Time Temp Pulse Resp B/P (MAP) Pulse Ox O2 Delivery O2 Flow Rate FiO2 03/27/19 05:29 99.6 101 20 131/63 (85) 99 Nasal Cannula 1.0 03/24/19 19:27 28 I&O- Last 24 Hours up to 6 AM 03/27/19 05:59 Intake Total 2145 ml Output Total 1810 ml Balance 335 ml Laboratory Data 24H LABS Laboratory Tests 2 03/27/19 08:37: Immature Granulocyte % (Auto) 1.5, Neutrophils (%) (Auto) 80.6H, Lymphocytes (%) (Auto) 11.4L, Monocytes (%) (Auto) 5.2H, Eosinophils (%) (Auto) 1.0, Basophils (%) (Auto) 0.3, Neutrophils # (Auto) 9.5H, Lymphocytes # (Auto) 1.3L, Monocytes # (Auto) 0.6, Eosinophils # (Auto) 0.1, Basophils # (Auto) 0.0, Nucleated Red Blood Cells % (auto) 0.0, Anion Gap 9, Glomerular Filtration Rate 35.2L, Calcium Level 8.4L, Total Bilirubin 0.5, Aspartate Amino Transf (AST/SGOT) 31, Alanine Aminotransferase (ALT/SGPT) 16, Alkaline Phosphatase 234H, Total Protein 6.5#, Albumin 1.6L, Albumin/Globulin Ratio 0.33L CBC/BMP Laboratory Tests 03/27/19 08:37 Microbiology Microbiology 03/25/19 Gastrointestinal Tract Panel (PCR) - Final, Complete Clostridium Difficile A/B 03/24/19 Gram Stain - Final, Complete 03/24/19 Sputum Culture - Final, Complete Yeast Like Organism 03/24/19 Urine Culture - Final, Complete Escherichia Coli 03/24/19 Blood Culture - Preliminary, Resulted No Growth after 48 hours. All Specime... LORE GEORGE MD Mar 27, 2019 12:17
--- NOTE | 2019-03-27 13:44 | IPN ---
DATE OF SERVICE: 03/27/2019 SUBJECTIVE: The patient was seen and examined at the bedside today morning. She is afebrile, hemodynamically stable. She reports her diarrhea is getting better. She still has a Madsen catheter. Renal function continues to improve. Creatinine has improved to 1.5 now. Her diuretics are on hold. Fluids were stopped yesterday morning. OBJECTIVE: Vital signs: Temperature is 99.6 degrees Fahrenheit, blood pressure 131/63, pulse is 101, respiratory of 20, saturating 99% on nasal cannula at 1 liter. Intake and output: Urine output recorded as 1.7 liters yesterday, 500 mL so far today since overnight. Weight in the bed scale was 58.7 kg yesterday. PHYSICAL EXAM: General: The patient is awake, alert, oriented times three. She is weak and cachectic. Head and neck exam: The patient has bitemporal wasting. Neck is supple. She has significantly elevated jugular venous distention (JVD) and engorged neck veins. Cardiovascular: S1, S2, regular rate, about trace edema of the bilateral lower extremities. Respiratory: Decreased breath sounds at the bases, otherwise no active rales or rhonchi. Abdomen: Soft, positive bowel sounds. Old surgical scars in the abdomen. Genitourinary: She has an indwelling Madsen catheter. Musculoskeletal: No clubbing or cyanosis. Pulses are 2+. 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 Power is 5/5 in all extremities. LAB REVIEW: CBC showed a WBC of 11.8, hemoglobin is 8, platelets are 197. BMP showed sodium 141, potassium 3.4, chloride 110, bicarbonate 22, BUN 34, creatinine is 1.5, it was 1.9 yesterday. CURRENT INPATIENT MEDICATIONS: Patient's medications were all reviewed by myself. She was started on intravenous (IV) Venofer 100 mg IV daily for a total of five doses. She continues to be on IV Zosyn. I ordered a dose of her Lasix 20 mg IV to be given today morning. No other change in the medications today as compared with yesterday. ASSESSMENT/PLAN: 1. Acute kidney injury. It was most likely contrast-induced nephropathy combined with dehydration and volume depletion. The patient was given IV fluids for some days. Renal function is improving. Creatinine is down to 1.5. Because of her signs of fluid overload, I am going to give her a small dose of Lasix today. Madsen catheter will be removed today in the afternoon. 2. Chronic systolic congestive heart failure. As mentioned above, patient is going to be given Lasix 20 mg IV and if she tolerates, she will be started on oral diuretics from tomorrow morning. 3. Bilateral lower lobe pneumonia. The patient is getting IV Zosyn. She is clinically getting better. 4. Clostridium difficile diarrhea. She is on oral vancomycin. Diarrhea episodes are getting better. 5. Iron-deficiency anemia. The patient is getting IV Venofer. Hemoglobin is staying stable at 8. No urgent need of blood transfusion. 6. Metastatic ovarian carcinoma. Chemotherapy is on hold because of pneumonia and acute renal failure. 7. Hypokalemia. The patient was given a dose of potassium chloride 20 mEq today morning.
[2019-03-27 14:00] VITALS: BP 128/59
[2019-03-27] MEDS: IRON SUCROSE 100 MG in NS 100 ML IV SCH (15:02)
--- NOTE | 2019-03-27 18:09 | REP ---
O chest, 04:31 p.m., single AP view with the patient sitting: Comparison is with 03/24/2019. The there is a diffuse interstitial coarsening, unchanged. Please refer to the recent chest CT for more thorough evaluation of the patients known lung nodules. By CT there were bilateral lower lobe infiltrates . Cardiac size is enlarged, unchanged. There is a right IJ central venous catheter with the tip in the superior vena cava, unchanged. Impression: No significant interval change. Electronically Signed by Kevon Werner MD 03/27/2019 06:00 P
[2019-03-27] MEDS: QUEtiapine FUMARATE 25 MG TAB PO SCH (20:04)
[2019-03-27] MEDS: PRAMIPEXOLE 0.25 MG TAB PO SCH (20:04)
[2019-03-27 22:00] VITALS: BP 129/58
[2019-03-28] MEDS: VANCOMYCIN ORAL SOL 250MG/5ML ORAL SYRINGE PO SCH ×4 (00:50→18:38)
[2019-03-28] MEDS: IPRATROPIUM 0.5MG/ALBUTEROL 2.5MG INH SOL UD 3ML (DUONEB)(J7620) NEB SCH ×4 (01:46→20:42)
[2019-03-28 06:00] VITALS: BP 135/63
[2019-03-28] MEDS: PIPERACILLIN/TAZOBACTAM SOD 2.25 GM in D5W MINI-BAG PLUS 50 ML IV SCH ×2 (06:02→18:40)
[2019-03-28] MEDS: LEVOTHYROXINE 112MCG TABLET (0.112MG) PO SCH (06:02)
[2019-03-28 06:30] LABS: BASO % 0.3 % (0.0-1.0); EOS # 0.1 10^3/uL (0.0-0.5); HEMATOCRIT 24.7 % (36.0-47.0); HEMOGLOBIN 7.8 g/dl (12.0-15.5); LYMPH # 0.9 10^3/uL (1.5-5.0); LYMPH % 7.1 % (24.0-44.0); MEAN CORPUSCULAR HEMOGLOBIN 30.1 pg (27.0-33.0); MEAN CORPUSCULAR HGB CONC 31.6 g/dl (32.0-36.5); MEAN CORPUSCULAR VOLUME 95.4 fl (80.0-96.0); MONO # 0.5 10^3/uL (0.0-0.8); MONO % 4.3 % (0.0-5.0); NEUTROPHILS # 10.6 10^3/uL (1.5-8.5); NEUTROPHILS % 86.1 % (36.0-66.0); PLATELET COUNT, AUTOMATED 195 10^3/uL (150-450); RED BLOOD COUNT 2.59 10^6/uL (4.00-5.40); WHITE BLOOD COUNT 12.3 10^3/uL (4.0-10.0)
[2019-03-28 06:52] LABS: ALBUMIN 1.6 GM/DL (3.2-5.2); BILIRUBIN,TOTAL 0.5 MG/DL (0.2-1.0); CALCIUM LEVEL 8.6 MG/DL (8.8-10.2); CREATININE FOR GFR 1.3 MG/DL (0.55-1.30); GLOMERULAR FILTRATION RATE 42.2 (>39); POTASSIUM SERUM 3.5 MEQ/L (3.5-5.1); TOTAL PROTEIN 6.4 GM/DL (6.4-8.2)
[2019-03-28] MEDS: SERTRALINE 100 MG TAB PO SCH (08:27)
[2019-03-28] MEDS: LACTOBACILLUS ACIDOPHILUS CAP (BACID) PO SCH (08:27)
[2019-03-28] MEDS: guaiFENesin ER 600 MG TAB PO SCH ×2 (08:28→21:24)
[2019-03-28] MEDS: FOLIC ACID 1 MG TAB PO SCH (08:28)
[2019-03-28] MEDS: SODIUM CHLORIDE 0.9% INJ 10 ML SYR IV SCH (08:29)
--- NOTE | 2019-03-28 10:45 | IPNPDOC ---
Subjective Date Seen The patient was seen on 03/28/19. Subjective Chief Complaint/HPI Patient is comfortable, but still has multiple episodes of diarrhea General: Denies: ROS Unobtainable, Chills, Night Sweats, Fatigue, Malaise, Normal Appetite, Other Symptoms Constitutional: Denies: Chills, Fever, Malaise, Night Sweats, Weakness, Fatigue, Weight Loss, Lethargy, Other Pulmonary: Denies: Dyspnea, Cough, Pleuritic Chest Pain, Other Symptoms Cardiovascular: Denies: Chest Pain, Palpitations, Orthopnea, Paroxysmal Noc. Dyspnea, Edema, Lt Headedness, Other Symptoms Hematologic: Denies: Bruising, Bleeding Excessively, Petecchia, Purpura, Enlarged Lymph Nodes, Other Hematologic Endocrine: Denies: Polydipsia, Polyphagia, Polyuria, Heat Intolerance, Cold Intolerance, Other Endocrine Sx Musculoskeletal: Denies: Neck Pain, Back Pain, Shoulder Pain, Arm Pain, Hand Pain, Leg Pain, Foot Pain, Joint Pain, Muscle Pain, Spasms, Other Symptoms Neurological: Denies: Weakness, Numbness, Incoordination, Change in speech, Confusion, Seizures, Other Symptoms Objective Physical Examination Neck Exam: Positive: Supple Chest Exam: Positive: Normal air movement, Other (, decreased breath sounds b ilaterally but no rales, rhonchi, wheezing) Heart Exam: Positive: Rate Normal, Normal S1, Normal S2 Telemetry: Positive: No significant arrhythmia Abdomen Exam: Positive: Normal bowel sounds, Soft Extremity Exam: Positive: Normal pulses Skin Exam: Positive: Nl turgor and temperature Neuro Exam: Positive: Strength at 5/5 X4 ext, Sensation Intact, Cranial Nerves 3-12 NL Psych Exam: Positive: Mental status NL, Mood NL, Oriented x 3 Assessment /Plan Problems (1) Acute renal failure (ARF) Status: Acute Problem Text: 78 years old lady came with a bilateral shoulder and right leg pain, but on incidental finding patient's BUN was 56, creatinine 2.77. Note, patient's creatinine on 03/13/2019 was 0.96. Patient has been on Lovenox for DVT prophylaxis since last April and also taken diuretics for possible pulmonary congestion. KAUR could be secondary to Lovenox, diuretics are secondary to malignancy Patient is started on gentle hydration, normal saline at 50 mL per hour Hold Lovenox and Lasix secondary to worsening renal function Kidney gentle hydration as she seems to be improving Bicarbonate drip was DC'd and she has been transferred to [facility] floor Patient's acute renal failure most likely secondary to contrast medium has resolved with the gentle hydration Patient's BUN and creatinine today is 27 and 1.3 Nephrology follow-up appreciated (2) Ovarian carcinoma Status: Chronic Problem Text: 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 Patient is currently on chemotherapy holiday, patient also has chronic vaginal bleed secondary to vaginal implants, status post vaginal radiation. She'll will receive her chemotherapy as per oncology Poor prognosis I had extensive discussions with patient's daughter, but she is not willing for comfort care measures are DNR/DNI. She wishes full code and aggressive management as possible. Considering patient's family's wishes. We will continue present care (3) Hypokalemia Status: Resolved Problem Text: Potassium supplemented Repeat levels in a.m. (4) Hypothyroidism Status: Chronic Problem Text: Continue home meds (5) UTI (urinary tract infection) Status: Acute Problem Text: Patient urine culture positive for Escherichia coli sensitive to Zosyn Continue present antibiotics (6) Pneumonia Status: Acute Problem Text: CT of the chest shows bilateral lower lobe infiltrate Patient has responded well very well to IV antibiotics Will continue Zosyn and change Vanco to by mouth secondary to concurrent C. difficile infection Will change to by mouth cephalosporins on discharge. We'll repeat chest x-ray again Continue oxygen support and present care (7) Clostridioides difficile infection Status: Acute Problem Text: Start patient on vancomycin 250 mg by mouth every 6 hours Start 4 mg by mouth twice a day for diarrhea Contact isolation Plan/VTE VTE Prophylaxis Ordered?: Yes VS, I&O, 24H, Fishbone Vital Signs/I&O Vital Signs Date Time Temp Pulse Resp B/P (MAP) Pulse Ox O2 Delivery O2 Flow Rate FiO2 03/28/19 06:00 100.1 107 18 135/63 (87) 99 Room Air 03/27/19 22:00 1.0 03/24/19 19:27 28 I&O- Last 24 Hours up to 6 AM 03/28/19 06:00 Intake Total 1110 ml Output Total 800 ml Balance 310 ml Laboratory Data 24H LABS Laboratory Tests 2 03/28/19 06:00: Immature Granulocyte % (Auto) 1.2, Neutrophils (%) (Auto) 86.1H, Lymphocytes (%) (Auto) 7.1L, Monocytes (%) (Auto) 4.3, Eosinophils (%) (Auto) 1.0, Basophils (%) (Auto) 0.3, Neutrophils # (Auto) 10.6H, Lymphocytes # (Auto) 0.9L, Monocytes # (Auto) 0.5, Eosinophils # (Auto) 0.1, Basophils # (Auto) 0.0, Nucleated Red Blood Cells % (auto) 0.0, Anion Gap 6L, Glomerular Filtration Rate 42.2, Calcium Level 8.6L, Total Bilirubin 0.5, Aspartate Amino Transf (AST/SGOT) 74H, Alanine Aminotransferase (ALT/SGPT) 28, Alkaline Phosphatase 298H, Total Protein 6.4, Albumin 1.6L, Albumin/Globulin Ratio 0.33L CBC/BMP Laboratory Tests 03/28/19 06:00 Microbiology Microbiology 03/25/19 Gastrointestinal Tract Panel (PCR) - Final, Complete Clostridium Difficile A/B 03/24/19 Gram Stain - Final, Complete 03/24/19 Sputum Culture - Final, Complete Yeast Like Organism 03/24/19 Urine Culture - Final, Complete Escherichia Coli 03/24/19 Blood Culture - Preliminary, Resulted No Growth after 72 hours. All specime... LORE GEORGE MD Mar 28, 2019 10:45
[2019-03-28] MEDS: CHOLESTYRAMINE 4 GM PWD PKT PO SCH ×2 (10:48→21:24)
[2019-03-28] MEDS: ACETAMINOPHEN TAB 650MG DOSE (2X325MG) PO PRN ×3 (10:49→21:24)
[2019-03-28] MEDS: TORSEMIDE 20 MG TAB PO SCH (15:14)
[2019-03-28] MEDS: IRON SUCROSE 100 MG in NS 100 ML IV SCH (15:14)
[2019-03-28 17:00] VITALS: BP 128/54
[2019-03-28 17:15] VITALS: BP 128/56
[2019-03-28 18:00] VITALS: BP 130/58
[2019-03-28 18:30] VITALS: BP 125/60
[2019-03-28] MEDS: PRAMIPEXOLE 0.25 MG TAB PO SCH (21:23)
[2019-03-28] MEDS: QUEtiapine FUMARATE 25 MG TAB PO SCH (21:24)
[2019-03-28 22:00] VITALS: BP 125/60
[2019-03-29] MEDS: VANCOMYCIN ORAL SOL 250MG/5ML ORAL SYRINGE PO SCH ×5 (00:55→23:36)
[2019-03-29] MEDS: IPRATROPIUM 0.5MG/ALBUTEROL 2.5MG INH SOL UD 3ML (DUONEB)(J7620) NEB SCH ×4 (02:00→19:41)
[2019-03-29] MEDS: ACETAMINOPHEN TAB 650MG DOSE (2X325MG) PO PRN ×2 (04:51→21:44)
[2019-03-29] MEDS: PIPERACILLIN/TAZOBACTAM SOD 2.25 GM in D5W MINI-BAG PLUS 50 ML IV SCH (04:51)
[2019-03-29] MEDS: LEVOTHYROXINE 112MCG TABLET (0.112MG) PO SCH (05:52)
[2019-03-29 06:00] VITALS: BP 126/60
[2019-03-29 08:12] LABS: HEMATOCRIT 26.5 % (36.0-47.0); HEMOGLOBIN 8.4 g/dl (12.0-15.5); MEAN CORPUSCULAR HEMOGLOBIN 30.1 pg (27.0-33.0); MEAN CORPUSCULAR HGB CONC 31.7 g/dl (32.0-36.5); PLATELET COUNT, AUTOMATED 210 10^3/uL (150-450); RED BLOOD COUNT 2.79 10^6/uL (4.00-5.40); WHITE BLOOD COUNT 11.6 10^3/uL (4.0-10.0)
[2019-03-29 08:32] LABS: ALBUMIN 1.6 GM/DL (3.2-5.2); BILIRUBIN,TOTAL 0.5 MG/DL (0.2-1.0); CALCIUM LEVEL 8.3 MG/DL (8.8-10.2); CREATININE FOR GFR 1.18 MG/DL (0.55-1.30); GLOMERULAR FILTRATION RATE 47.2 (>39); POTASSIUM SERUM 3.5 MEQ/L (3.5-5.1); TOTAL PROTEIN 6.1 GM/DL (6.4-8.2)
--- NOTE | 2019-03-29 08:41 | IPN ---
DATE OF SERVICE: 03/28/2019 SUBJECTIVE: Patient was seen and examined at the bedside today morning. Patient is having fever spikes, maximum temperature (Tmax) is 102.6 degrees Fahrenheit. Renal function continues to improve. Creatinine is down to 1.3 today. There is some drop in the hemoglobin level. She denies any shortness of breath. Patient does report that she is having diarrhea because of Clostridium (C) difficile, and patient is having fever spikes as well. OBJECTIVE: Vital Signs: Temperature in the morning was 100.1 degrees Fahrenheit. Temperature in the afternoon maximum temperature (Tmax) is 102.6 degrees Fahrenheit. Blood pressure 128/54, pulse is 94, respiratory rate of 18, saturating 94% on room air. Intake and Output: Urine output recorded at 1300 mL yesterday. There is no urine output recorded because Madsen catheter was removed yesterday. Weight in the bed scale is not available. PHYSICAL EXAMINATION: General: Patient is awake, alert, oriented times three, weak and cachectic, laying in bed. Head and Neck Exam: Patient has bitemporal wasting. Mucous membranes are moist. There is conjunctival pallor. Neck is supple. There is mildly elevated jugular venous distention (JVD). Cardiovascular: S1, S2, regular rate. Trace edema of the bilateral lower extremities. Respiratory: Decreased breath sounds at the bases. Otherwise, no active rales or rhonchi. Abdomen: Soft. Positive bowel sounds. Old abdominal surgical scars were noted. Genitourinary: Indwelling Madsen catheter has been removed now. Musculoskeletal: No clubbing or cyanosis. Pulses are 2+. 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 Power is 5/5 in all extremities. LAB REVIEW: CBC showed WBC of 4003, hemoglobin 7.8, platelets are 195. BMP showed sodium 139, potassium 3.5, chloride 109, bicarbonate 24, BUN 27. Creatinine is 1.3, it was 1.5 yesterday. Calcium 8.6. AST 74, ALT 28, alkaline phosphatase is 298. IMAGING: A chest x-ray was done yesterday, which showed no significant change. CURRENT INPATIENT MEDICATIONS: The patient's medications were all reviewed by me. She continues to be on IV Venofer, IV Zosyn. I have started the patient on torsemide 20 mg by mouth daily; one dose will be given today. She also continues to be on oral vancomycin. ASSESSMENT AND PLAN: 1. Acute kidney injury. Patient has contrast-induced nephropathy in the setting of dehydration and volume depletion. Her renal function is improving. Creatinine has improved to 1.3, which is close to her baseline. Diuretic is being restarted. 2. Chronic systolic congestive heart failure. As mentioned above, I have restarted the patient on torsemide 20 mg by mouth daily. 3. Bilateral lower lobe pneumonia. Patient continues to be on IV Zosyn. She is still having fever spikes. 4. Clostridium difficile diarrhea. Patient is still having loose stools. She is currently on oral vancomycin. Dose might need to be increased. 5. Iron-deficiency anemia. Patient is getting IV Venofer. However, hemoglobin is still low. I am going to give her 1 unit of packed red blood cells (PRBC) transfusion. 6. Metastatic ovarian carcinoma. Chemotherapy is on hold because of pneumonia and acute renal failure.
[2019-03-29] MEDS: guaiFENesin ER 600 MG TAB PO SCH ×2 (09:08→21:44)
[2019-03-29] MEDS: CHOLESTYRAMINE 4 GM PWD PKT PO SCH ×2 (09:08→21:44)
[2019-03-29] MEDS: TORSEMIDE 20 MG TAB PO SCH (09:09)
[2019-03-29] MEDS: LACTOBACILLUS ACIDOPHILUS CAP (BACID) PO SCH (09:09)
[2019-03-29] MEDS: SERTRALINE 100 MG TAB PO SCH (09:09)
[2019-03-29] MEDS: SODIUM CHLORIDE 0.9% INJ 10 ML SYR IV SCH (09:10)
[2019-03-29] MEDS: FOLIC ACID 1 MG TAB PO SCH (09:10)
--- NOTE | 2019-03-29 10:39 | IPNPDOC ---
Subjective Date Seen The patient was seen on 03/29/19. Subjective Chief Complaint/HPI No new complaints. Diarrhea has subsided significantly General: Denies: ROS Unobtainable, Chills, Night Sweats, Fatigue, Malaise, Normal Appetite, Other Symptoms Constitutional: Denies: Chills, Fever, Malaise, Night Sweats, Weakness, Fatigue, Weight Loss, Lethargy, Other Cardiovascular: Denies: Chest Pain, Palpitations, Orthopnea, Paroxysmal Noc. Dyspnea, Edema, Lt Headedness, Other Symptoms Gastrointestinal: Denies: Nausea, Vomiting, Abdominal Pain, Diarrhea, Constipation, Melena, Hematochezia, Other Symptoms Genitourinary: Denies: Dysuria, Frequency, Incontinence, Hematuria, Retention, Other Symptoms Musculoskeletal: Denies: Neck Pain, Back Pain, Shoulder Pain, Arm Pain, Hand Pain, Leg Pain, Foot Pain, Joint Pain, Muscle Pain, Spasms, Other Symptoms Neurological: Denies: Weakness, Numbness, Incoordination, Change in speech, Confusion, Seizures, Other Symptoms Objective Physical Examination Neck Exam: Positive: Supple Chest Exam: Positive: Normal air movement, Other (, decreased breath sounds bilaterally but no rales, rhonchi, wheezing) Heart Exam: Positive: Rate Normal, Normal S1, Normal S2 Telemetry: Positive: No significant arrhythmia Abdomen Exam: Positive: Normal bowel sounds, Soft Extremity Exam: Positive: Normal pulses Skin Exam: Positive: Nl turgor and temperature Neuro Exam: Positive: Strength at 5/5 X4 ext, Sensation Intact, Cranial Nerves 3-12 NL Psych Exam: Positive: Mental status NL, Mood NL, Oriented x 3 Assessment /Plan Problems (1) Acute renal failure (ARF) Status: Acute Problem Text: 78 years old lady came with a bilateral shoulder and right leg pain, but on incidental finding patient's BUN was 56, creatinine 2.77. Note, patient's creatinine on 03/13/2019 was 0.96. Patient has been on Lovenox for DVT prophylaxis since last April and also taken diuretics for possible pulmonary congestion. KAUR could be secondary to Lovenox, diuretics are secondary to malignancy Patient is started on gentle hydration, normal saline at 50 mL per hour Hold Lovenox and Lasix secondary to worsening renal function Kidney gentle hydration as she seems to be improving Bicarbonate drip was DC'd and she has been transferred to [facility] floor Patient's acute renal failure most likely secondary to contrast medium has resolved with the gentle hydration Electrolytes are still pending today Nephrology follow-up appreciated Possible discharge home or clear with home care in a.m. 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 Patient is currently on chemotherapy holiday, patient also has chronic vaginal bleed secondary to vaginal implants, status post vaginal radiation. She'll will receive her chemotherapy as per oncology Poor prognosis I had extensive discussions with patient's daughter, but she is not willing for comfort care measures are DNR/DNI. She wishes full code and aggressive management as possible. Considering patient's family's wishes. We will continue present care (3) Hypokalemia Status: Resolved Problem Text: Potassium supplemented Repeat levels in a.m. (4) Hypothyroidism Status: Chronic Problem Text: Continue home meds (5) UTI (urinary tract infection) Status: Acute Problem Text: Patient urine culture positive for Escherichia coli sensitive to Zosyn Will DC IV antibiotics today as patient has received 6 days of IV antibiotics and she is afebrile, asymptomatic at the present time. (6) Pneumonia Status: Acute Problem Text: CT of the chest shows bilateral lower lobe infiltrate Patient has responded well very well to IV antibiotics Will continue Zosyn and change Vanco to by mouth secondary to concurrent C. difficile infection Repeat chest x-ray did not show any infiltrate and Will DC Zosyn as patient is alert. He received antibiotics for 6 days Continue oxygen support and present care (7) Clostridioides difficile infection Status: Acute Problem Text: Start patient on vancomycin 250 mg by mouth every 6 hours Start 4 mg by mouth twice a day for diarrhea Contact isolation (8) Anemia Status: Acute Problem Text: . He may most likely secondary to malignancy Patient received 2 units of PRBC ordered by nephrology The patient CBC is pending Plan/VTE VTE Prophylaxis Ordered?: Yes VS, I&O, 24H, Fishbone Vital Signs/I&O Vital Signs Date Time Temp Pulse Resp B/P (MAP) Pulse Ox O2 Delivery O2 Flow Rate FiO2 03/29/19 06:00 100.7 90 18 126/60 (82) 98 Room Air 03/28/19 17:15 94.0 03/24/19 19:27 28 I&O- Last 24 Hours up to 6 AM 03/29/19 06:00 Intake Total 1640 ml Output Total 200 ml Balance 1440 ml Laboratory Data 24H LABS Laboratory Tests 2 03/29/19 07:43: Nucleated Red Blood Cells % (auto) 0.0, Anion Gap 7L, Glomerular Filtration Rate 47.2, Calcium Level 8.3L, Total Bilirubin 0.5, Aspartate Amino Transf (AST/SGOT) 44H, Alanine Aminotransferase (ALT/SGPT) 26, Alkaline Phosphatase 301H, Total Protein 6.1L, Albumin 1.6L, Albumin/Globulin Ratio 0.36L CBC/BMP Laboratory Tests 03/29/19 07:43 Microbiology Microbiology 03/25/19 Gastrointestinal Tract Panel (PCR) - Final, Complete Clostridium Difficile A/B 03/24/19 Gram Stain - Final, Complete 03/24/19 Sputum Culture - Final, Complete Yeast Like Organism 03/24/19 Urine Culture - Final, Complete Escherichia Coli 03/24/19 Blood Culture - Preliminary, Resulted No Growth after 72 hours. All specime... LORE GEORGE MD Mar 29, 2019 10:39
[2019-03-29 14:00] VITALS: BP 127/64
[2019-03-29] MEDS: IRON SUCROSE 100 MG in NS 100 ML IV SCH (15:24)
[2019-03-29 15:54] LABS: C REACTIVE PROTEIN QUANTITATIV 22.4 MG/DL (0.00-0.30)
[2019-03-29] MEDS ORDERED: POTASSIUM CHLORIDE 10 MEQ SR TABLET PO ONE (16:00)
[2019-03-29] MEDS: QUEtiapine FUMARATE 25 MG TAB PO SCH (21:43)
[2019-03-29] MEDS: PRAMIPEXOLE 0.25 MG TAB PO SCH (21:44)
[2019-03-29 22:00] VITALS: BP 110/55
[2019-03-30] MEDS: IPRATROPIUM 0.5MG/ALBUTEROL 2.5MG INH SOL UD 3ML (DUONEB)(J7620) NEB SCH ×4 (02:00→20:07)
[2019-03-30] MEDS: ACETAMINOPHEN TAB 650MG DOSE (2X325MG) PO PRN ×3 (05:00→17:24)
[2019-03-30] MEDS: LEVOTHYROXINE 112MCG TABLET (0.112MG) PO SCH (05:00)
[2019-03-30] MEDS: VANCOMYCIN ORAL SOL 250MG/5ML ORAL SYRINGE PO SCH ×4 (05:00→23:59)
[2019-03-30 06:00] VITALS: BP 122/61
[2019-03-30 06:30] LABS: BASO # 0.1 10^3/uL (0.0-0.2); BASO % 0.5 % (0.0-1.0); EOS # 0.1 10^3/uL (0.0-0.5); EOS % 0.9 % (0.0-3.0); HEMATOCRIT 25.8 % (36.0-47.0); HEMOGLOBIN 8.6 g/dl (12.0-15.5); LYMPH # 1.2 10^3/uL (1.5-5.0); LYMPH % 9.4 % (24.0-44.0); MEAN CORPUSCULAR HEMOGLOBIN 31.3 pg (27.0-33.0); MEAN CORPUSCULAR HGB CONC 33.3 g/dl (32.0-36.5); MEAN CORPUSCULAR VOLUME 93.8 fl (80.0-96.0); MONO # 0.6 10^3/uL (0.0-0.8); NEUTROPHILS # 10.3 10^3/uL (1.5-8.5); NEUTROPHILS % 83.1 % (36.0-66.0); PLATELET COUNT, AUTOMATED 263 10^3/uL (150-450); RED BLOOD COUNT 2.75 10^6/uL (4.00-5.40); WHITE BLOOD COUNT 12.4 10^3/uL (4.0-10.0)
[2019-03-30 07:06] LABS: ALBUMIN 1.6 GM/DL (3.2-5.2); BILIRUBIN,TOTAL 0.8 MG/DL (0.2-1.0); CALCIUM LEVEL 8.7 MG/DL (8.8-10.2); CREATININE FOR GFR 1.16 MG/DL (0.55-1.30); GLOMERULAR FILTRATION RATE 48.1 (>39); POTASSIUM SERUM 3.5 MEQ/L (3.5-5.1); TOTAL PROTEIN 6.3 GM/DL (6.4-8.2)
[2019-03-30] MEDS: CHOLESTYRAMINE 4 GM PWD PKT PO SCH ×2 (09:17→21:45)
[2019-03-30] MEDS: SODIUM CHLORIDE 0.9% INJ 10 ML SYR IV SCH (09:18)
[2019-03-30] MEDS: FOLIC ACID 1 MG TAB PO SCH (09:19)
[2019-03-30] MEDS: guaiFENesin ER 600 MG TAB PO SCH ×2 (09:19→21:44)
[2019-03-30] MEDS: SERTRALINE 100 MG TAB PO SCH (09:19)
[2019-03-30] MEDS: TORSEMIDE 20 MG TAB PO SCH (09:19)
[2019-03-30] MEDS: LACTOBACILLUS ACIDOPHILUS CAP (BACID) PO SCH (09:19)
[2019-03-30] MEDS ORDERED: FIRV50SO PO (10:16)
[2019-03-30] MEDS ORDERED: CHOL4PW PO (10:16)
--- NOTE | 2019-03-30 10:55 | DS.PDOC ---
Discharge Summary General Date of Admission Mar 23, 2019 at 15:22 Date of Discharge 03/30/19 Discharge Summary PROCEDURES PERFORMED DURING STAY: None. ADMITTING DIAGNOSES: 1. Acute kidney injury, hypokalemia, . DISCHARGE DIAGNOSES: 1. Acute kidney injury, hyperkalemia, UTI, pneumonia, C. 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 COMPLICATIONS/CHIEF COMPLAINT: Acute Renal Failure,Hypokalemia. 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 Patient denies complaints of chest pain, syncope, nausea, vomiting or diarrhea.. HOSPITAL COURSE: 78 years old lady came with a bilateral shoulder and right leg pain, but on incidental finding patient's BUN was 56, creatinine 2.77. Note, patient's c reatinine on 03/13/2019 was 0.96. Patient has been on Lovenox for DVT prophylaxis since last April and also taken diuretics for possible pulmonary congestion. Initially was thought to be secondary to Lovenox ,diuretics, and patient malignancy but most secondary to contrast-induced renal injury Patient was started on gentle hydration and nephrology consult was requested, which also continue with gentle hydration and patient responded very well to above therapy pt presently has good by mouth intake of liquids and will continue the same and will continue all her home medication as well on discharge And will follow up with her PCP and oncology as an outpatient for further care Patient's healthcare proxy patient's daughter, she refused to home health care and wishes patient to go home to be taken care of by her. 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 Patient is currently on chemotherapy holiday, patient also has chronic vaginal bleed secondary to vaginal implants, status post vaginal radiation. She'll will receive her chemotherapy as per oncology She does have a very poor prognosis, but her daughter who is her healthcare proxy has refused DNR/DNI, comfort care or hospice eval and she wished aggressive treatment to be provided to her and her wishes were respected during this admission And was also found to have UTI during this admission and her urine culture culture positive for Escherichia coli sensitive to Zosyn, he did receive a antibiotics for more than 5 days in the were DC'd yesterday Demi is clinically asymptomatic, afebrile and will be discharged home without any by mouth antibiotics as patient had recently also developed C. difficile colitis. DT of the chest was done which showed bilateral lower lobe infiltrates She was treated with IV Zosyn which was continued more than 5 days and repeat chest x-ray that did not show any evidence of pneumonia, hence the IV antibiotics were DC'd yesterday Will not discharge patient home on the IV antibiotics secondary to her risk of recurrent C. difficile colitis as patient daily does have infection with C. difficile Continue oxygen support and present care Patient developed loose bowel movements and was diagnosed with C. difficile colitis She was started on vancomycin 250 mg by mouth every 6 hours Her stools are formed now and frequency has significantly decreased, she will be discharged home on 6 more days of her by mouth vancomycin for C. difficile. The total dose of 10 days of treatment Contact isolation has been recommended at home until infection is currently completely resolved Her anemiawhich is most likely secondary to malignancy She received 2 units of PRBC with the stabilization of hematocrit and hemoglobin Workup as an outpatient with oncology and PCP DISCHARGE MEDICATIONS: Please see below. ALLERGIES: Please see below. PHYSICAL EXAMINATION ON DISCHARGE: VITAL SIGNS: Please see below. GENERAL: Within normal limits HEENT: PERRLA, extra Ocular muscles intact NECK: Supple CARDIOVASCULAR EXAMINATION: S1, S2, regular RESPIRATORY EXAMINATION: Clear to A&P ABDOMINAL EXAMINATION: Benign EXTREMITIES: no clubbing, cyanosis, edema SKIN: NL NEUROLOGICAL EXAMINATION: . No focal motor sensory deficit PSYCHIATRIC EXAMINATION: Normal LABORATORY DATA: Please see below. IMAGING: Chest x-ray:Cardiac size is enlarged, unchanged. There is a right IJ central venous catheter with the tip in the superior vena cava, unchanged. Impression: No significant interval change. PROGNOSIS: Good ACTIVITY: As tolerated. DIET: As tolerated DISCHARGE PLAN: Discharged back home. As per family's wishes. Daughter also refused home health agency help DISPOSITION: . Home with daughter DISCHARGE INSTRUCTIONS: 1. As per discharge instructions. ITEMS TO FOLLOWUP ON ON OUTPATIENT: 1. Follow PCP and oncology as an outpatient. DISCHARGE CONDITION: Stable. TIME SPENT ON DISCHARGE: 45 minutes. Vital Signs/I&Os Vital Signs Date Time Temp Pulse Resp B/P (MAP) Pulse Ox O2 Delivery O2 Flow Rate FiO2 03/30/19 06:00 98.7 84 18 122/61 (81) 99 Room Air 03/28/19 17:15 94.0 03/24/19 19:27 28 I&O- Last 24 Hours up to 6 AM 03/30/19 05:59 Intake Total 1130 ml Balance 1130 ml Laboratory Data Labs 24H Laboratory Tests 2 03/30/19 05:26: Immature Granulocyte % (Auto) 1.1, Neutrophils (%) (Auto) 83.1H, Lymphocytes (%) (Auto) 9.4L, Monocytes (%) (Auto) 5.0, Eosinophils (%) (Auto) 0.9, Basophils (%) (Auto) 0.5, Neutrophils # (Auto) 10.3H, Lymphocytes # (Auto) 1.2L, Monocytes # (Auto) 0.6, Eosinophils # (Auto) 0.1, Basophils # (Auto) 0.1, Nucleated Red Blood Cells % (auto) 0.0, Anion Gap 6L, Glomerular Filtration Rate 48.1, Calcium Level 8.7L, Total Bilirubin 0.8#, Aspartate Amino Transf (AST/SGOT) 40H, Alanine Aminotransferase (ALT/SGPT) 23, Alkaline Phosphatase 338H, Total Protein 6.3L, Albumin 1.6L, Albumin/Globulin Ratio 0.34L CBC/BMP Laboratory Tests 03/30/19 05:26 Microbiology Microbiology 03/29/19 Blood Culture, Received Pending 03/25/19 Gastrointestinal Tract Panel (PCR) - Final, Complete Clostridium Difficile A/B 03/24/19 Gram Stain - Final, Complete 03/24/19 Sputum Culture - Final, Complete Yeast Like Organism 03/24/19 Urine Culture - Final, Complete Escherichia Coli 03/24/19 Blood Culture - Final, Complete NO GROWTH AFTER 5 DAYS Discharge Medications Scheduled Cholestyramine (Cholestyramine Packet) 4 Gm Powd.pack, 2 GM PO BID Enoxaparin Sodium (Enoxaparin Sodium) 80 Mg/0.8 Ml Syringe, 80 MG SC DAILY Ferrous Sulfate (Ferrous Sulfate) 325 Mg Tablet, 325 MG PO BIDWM, (Reported) Folic Acid (Folic Acid) 1 Mg Tablet, 1 MG PO DAILY, (Reported) Furosemide (Furosemide) 40 Mg Tablet, 40 MG PO DAILY, (Reported) Gabapentin (Gabapentin) 300 Mg Capsule, 300 MG PO BID, (Reported) Lansoprazole (Lansoprazole) 30 Mg Capsule.dr, 30 MG PO DAILY, (Reported) Levothyroxine Sodium (Synthroid) 112 Mcg Tablet, 112 MCG PO DAILY, (Reported) Lidocaine/Prilocaine (Lidocaine-Prilocaine Cream) 2.5%/2.5% Cream..g., 1 APLCT TOP ASDIRECTED Potassium Chloride (Potassium Chloride Powder) 20 Meq Packet, 20 MEQ PO DAILY, (Reported) Pramipexole Di-HCl (Pramipexole Dihydrochloride) 0.75 Mg Tablet, 0.75 MG PO QHS, (Reported) Quetiapine Fumarate (Quetiapine Fumarate) 25 Mg Tablet, 25 MG PO QHS, (Reported) Sertraline HCl (Sertraline HCl) 100 Mg Tablet, 100 MG PO DAILY, (Reported) Vancomycin HCl (Firvanq) 50 Mg/1 Ml Soln.recon, 250 MG PO Q6H Scheduled PRN Fluticasone Propionate (Fluticasone Propionate) 16 Gm [place].susp, 1 SPRAY NA BID PRN for ALLERGIES, (Reported) Gabapentin (Gabapentin) 300 Mg Capsule, 300 MG PO DAILY PRN for PAIN, (Reported) Loperamide HCl (Imodium A-D) 2 Mg Capsule, 2 MG PO DAILY PRN for DIARRHEA, (Reported) Ondansetron HCl (Zofran) 8 Mg Tablet, 8 MG PO TID PRN for NAUSEA OR VOMITING, (Reported) Allergies Coded Allergies: methotrexate (Unverified Allergy, Unknown, 06/10/18) metoclopramide (Unverified Allergy, Unknown, 06/10/18) moxifloxacin (Unverified Allergy, Unknown, 06/10/18) nalbuphine (Unverified Allergy, Unknown, 06/10/18) prochlorperazine (Unverified Allergy, Unknown, 06/10/18) topiramate (Unverified Allergy, Unknown, 06/10/18) trazodone (Unverified Allergy, Unknown, 06/10/18) morphine (Verified Adverse Reaction, Mild, 03/23/19) headache, nausea LORE GEORGE MD Mar 30, 2019 10:55
[2019-03-30 14:00] VITALS: BP 129/59
[2019-03-30] MEDS: IRON SUCROSE 100 MG in NS 100 ML IV SCH (14:54)
--- NOTE | 2019-03-30 20:07 | IPN ---
DATE: 03/29/2019 SUBJECTIVE: Evelina is seen and examined this morning at the bedside. She denies any new complaints. She continues to spike fevers. Maximum temperature (T-max) in the past 24 hours was 102.6 at 3:00 p.m. yesterday, and she had a 100.7 fever this morning. She complains of shortness of breath. Vital signs: Temperature: T-max 102.6, T-current 100.7, pulse 90, respiratory rate 18, blood pressure 126/60, saturating 98% on room air. Intake yesterday was 1640, urine output was recorded as incontinent voids. There were three bowel movements recorded yesterday. General: The patient is seen lying in bed, awake, alert, oriented, comfortable, chronically ill appearing, in no apparent distress. Extraocular muscles are intact. Tongue is . There is bitemporal wasting. Mucous membranes are moist. Neck is supple. The jugular veins are mildly elevated. Heart sounds are regular, S1, S2. There is no edema in the legs. Respiratory: There is diminished breath sounds bilaterally. There is no accessory muscle use or tachypnea. No rale or rhonchi. Abdomen is soft. There are bowel sounds. There are old healed abdominal surgical scars. Genitourinary: Shows no suprapubic fullness. Musculoskeletal: There is no clubbing, cyanosis or edema. Neurologic: She is oriented times three. No focal deficit. Skin: Normal temperature and warm to touch. LABORATORY: White count 11.6, hemoglobin 8.4, platelets 210, sodium 140, potassium 3.5, bicarbonate 22, BUN 23, creatinine 1.1, albumin 1.6. INPATIENT MEDICATIONS: Reviewed by myself and noted she was started on cholestyramine 2 grams twice daily. Remainder of medications are unchanged from prior. PROBLEMS; 1. Nonoliguric acute kidney injury in the setting of contrast-induced nephropathy with dehydration and volume depletion. Her renal function has recovered to baseline. She was resumed on diuretics (torsemide), which she has been tolerating well. Continue current diuretic regimen. 2. Systolic congestive heart failure, ejection fraction of 40-45%, mildly volume overloaded. Continue torsemide at present dose, and I have asked nursing staff to record her urine output with each exchange and also to keep track of her daily weights. 3. Anemia with iron deficiency. The patient is receiving IV iron, and she was transfused one unit of packed red blood cells yesterday, and her hemoglobin has come up to 8.4. 4. Clostridium difficile diarrhea. She reports improvement in stool frequency. She continues on oral vancomycin. 5. Ongoing fever spikes. The patient has Escherichia (E) coli urinary tract infection (UTI), Clostridium difficile colitis, and her sputum also grew a yeast-like organism. She has received IV Zofran and oral vancomycin. She is still having high-grade fevers, although her white count has come down. I am getting a repeat CRP and repeat urine and blood culture. Of note, she does have a Port-A-Cath and given the ongoing fever spikes, I feel that her antimicrobial regimen needs to be reviewed. She has not received any antifungals that I see. Defer to the primary team.
[2019-03-30] MEDS: QUEtiapine FUMARATE 25 MG TAB PO SCH (21:45)
[2019-03-30] MEDS: GABAPENTIN 300 MG CAP PO PRN (21:45)
[2019-03-30] MEDS: PRAMIPEXOLE 0.25 MG TAB PO SCH (21:46)
[2019-03-30 22:00] VITALS: BP 141/63
[2019-03-31] MEDS: IPRATROPIUM 0.5MG/ALBUTEROL 2.5MG INH SOL UD 3ML (DUONEB)(J7620) NEB SCH ×2 (02:27→07:02)
[2019-03-31] MEDS: ACETAMINOPHEN TAB 650MG DOSE (2X325MG) PO PRN ×2 (05:41→10:32)
[2019-03-31] MEDS: VANCOMYCIN ORAL SOL 250MG/5ML ORAL SYRINGE PO SCH (05:41)
[2019-03-31] MEDS: LEVOTHYROXINE 112MCG TABLET (0.112MG) PO SCH (05:41)
[2019-03-31 06:00] VITALS: BP 139/61
[2019-03-31] MEDS: SERTRALINE 100 MG TAB PO SCH (09:44)
[2019-03-31] MEDS: guaiFENesin ER 600 MG TAB PO SCH (09:44)
[2019-03-31] MEDS: FOLIC ACID 1 MG TAB PO SCH (09:44)
[2019-03-31] MEDS: LACTOBACILLUS ACIDOPHILUS CAP (BACID) PO SCH (09:44)
[2019-03-31] MEDS: TORSEMIDE 20 MG TAB PO SCH (09:45)
[2019-03-31] MEDS: CHOLESTYRAMINE 4 GM PWD PKT PO SCH (09:45)
[2019-03-31] MEDS: SODIUM CHLORIDE 0.9% INJ 10 ML SYR IV SCH (09:45)
--- NOTE | 2019-03-31 10:29 | IPN ---
DATE: 03/30/2019 SUBJECTIVE: The patient is seen and examined at the bedside. Reports that she feels less congested. Got up and walked to the bathroom. She is still spiking low grade fevers. She is still having liquid bowel movements. T-max in the past 24 hours was 100.7. Continues to tolerate oral diuretic well. Temperature current 98.7. Temperature max 100.7. Pulse 84. Respiratory rate 18. Blood pressure 122/61. Saturating 99% on room air. Intake yesterday was 1130. Weight in the bed scale today is 58.4 kg. General: The patient is seen awake, alert, oriented, chronically ill appearing, lying in bed. Extraocular muscles are intact. Pupils are equal and round and reactive to light. There is bitemporal wasting. Mucous membranes are moist. Neck is supple. Jugular veins were not elevated. Heart sounds are regular. S1, S2. There is trace edema and decompression stockings on the bilateral lower extremities. There are diminished breath sounds at the bases, otherwise no rale or rhonchus. She is seen comfortable on room air. Abdomen is soft. There are positive bowel sounds. There are old healed abdominal surgical scars noted. Musculoskeletal: No clubbing or cyanosis. There are compression stockings on the legs. There is trace edema. Neurologic: No focal deficit. Interactive and conversational. LABORATORIES: White count 12.4, hemoglobin 8.6, platelet 263, sodium 137, potassium 3.5, creatinine 1.1. Blood culture March 29 with no growth for 24 hours. INPATIENT MEDICATIONS: Reviewed by myself. She received a dose of potassium chloride. Otherwise, medications are unchanged as compared to yesterday. PROBLEMS: 1. Nonoliguric acute kidney injury in the setting of contrast induced nephropathy with dehydration and volume depletion. Renal function has recovered to baseline. She is tolerating torsemide diuretics well. Electrolytes and volume status are acceptable. 2. Chronic systolic congestive heart failure. Continue torsemide 20 mg daily. Potassium and magnesium are acceptable. 3. Clostridium (C) difficile diarrhea. She is still having loose stools. She is on oral vancomycin. Her white count slightly bumped up to 12,000 and she is still having low grade fevers. 4. Iron deficiency anemia. She is getting IV Venofer. She also received a unit of packed red blood cells on this admission. Hemoglobin is suboptimal, but stable at 8.6. 5. Disposition. The patient is stable from a nephrology point of view and nephrology is signing off at this time. Please reconsult as needed.
== END 2019-03-31 11:30 | DRG 682 ==
LOC: M ED 11:43 → M ED INP 15:22 → EEVIPCON 15:22 → ENRESERVTM 17:10 → ENRESERVDT 17:10 → M MSPAV 18:44 → M PCU 03-24 20:15 → M ICU 03-25 01:41 → M MS5PR 03-27 00:07
PROVIDERS: ADMIT Internal Medicine; ATTEND Internal Medicine
PROC: 30233N1 Transfusion of Nonautologous Red Blood Cells into Peripheral Vein, Percutaneous Approach (ICD-10-PCS; principal; 2019-03-28)
DX: N17.9 Acute kidney failure, unspecified (principal); J18.9 Pneumonia, unspecified organism; C56.9 Malignant neoplasm of unspecified ovary; C78.7 Secondary malignant neoplasm of liver and intrahepatic bile duct; C78.6 Secondary malignant neoplasm of retroperitoneum and peritoneum; I24.8 Other forms of acute ischemic heart disease; I50.22 Chronic systolic (congestive) heart failure; E87.2 Acidosis; N39.0 Urinary tract infection, site not specified; A04.72 Enterocolitis due to Clostridium difficile, not specified as recurrent; C79.89 Secondary malignant neoplasm of other specified sites; R91.8 Other nonspecific abnormal finding of lung field; Z86.711 Personal history of pulmonary embolism; E03.9 Hypothyroidism, unspecified; F41.9 Anxiety disorder, unspecified; F32.9 Major depressive disorder, single episode, unspecified; G25.81 Restless legs syndrome; Z79.899 Other long term (current) drug therapy; Z88.8 Allergy status to other drugs, medicaments and biological substances; Z88.1 Allergy status to other antibiotic agents; Z88.5 Allergy status to narcotic agent; Z90.49 Acquired absence of other specified parts of digestive tract; Z90.79 Acquired absence of other genital organ(s); Z96.641 Presence of right artificial hip joint; Z92.21 Personal history of antineoplastic chemotherapy; N93.8 Other specified abnormal uterine and vaginal bleeding; Z92.3 Personal history of irradiation; E87.5 Hyperkalemia; D72.829 Elevated white blood cell count, unspecified; Z95.828 Presence of other vascular implants and grafts; D63.0 Anemia in neoplastic disease; B96.20 Unspecified Escherichia coli [E. coli] as the cause of diseases classified elsewhere

== ENCOUNTER → 2019-04-07 | Outpatient (REF) | payer BC, MEDICARE ==
[~2019-04-07] MED LIST changes: +CHOL4PW PO; +FIRV50SO PO; +FURO40TA2 PO; +POTA10PO PO; +SERT-138 PO
[2019-04-07 11:05] LABS: HEMATOCRIT 29.5 % (36.0-47.0); HEMOGLOBIN 8.8 g/dl (12.0-15.5); MEAN CORPUSCULAR HEMOGLOBIN 30.7 pg (27.0-33.0); MEAN CORPUSCULAR HGB CONC 29.8 g/dl (32.0-36.5); MEAN CORPUSCULAR VOLUME 102.8 fl (80.0-96.0); PLATELET COUNT, AUTOMATED 714 10^3/uL (150-450); RED BLOOD COUNT 2.87 10^6/uL (4.00-5.40); WHITE BLOOD COUNT 8.4 10^3/uL (4.0-10.0)
[2019-04-07 11:29] LABS: CALCIUM LEVEL 8.8 MG/DL (8.8-10.2); CREATININE FOR GFR 1.07 MG/DL (0.55-1.30); GLOMERULAR FILTRATION RATE 52.8 (>39); POTASSIUM SERUM 4.9 MEQ/L (3.5-5.1)
== END ==
PROVIDERS: ATTEND Family Medicine
DX: C56.9 Malignant neoplasm of unspecified ovary (principal)

== ENCOUNTER → 2019-04-14 | Outpatient (REF) ==
[2019-04-14 11:59] LABS: HEMATOCRIT 30.1 % (36.0-47.0); MEAN CORPUSCULAR HEMOGLOBIN 30.1 pg (27.0-33.0); MEAN CORPUSCULAR HGB CONC 29.9 g/dl (32.0-36.5); MEAN CORPUSCULAR VOLUME 100.7 fl (80.0-96.0); PLATELET COUNT, AUTOMATED 661 10^3/uL (150-450); RED BLOOD COUNT 2.99 10^6/uL (4.00-5.40); WHITE BLOOD COUNT 11.7 10^3/uL (4.0-10.0)
[2019-04-14 12:17] LABS: CALCIUM LEVEL 9.3 MG/DL (8.8-10.2); CREATININE FOR GFR 0.97 MG/DL (0.55-1.30); GLOMERULAR FILTRATION RATE 59.1 (>39); POTASSIUM SERUM 4.8 MEQ/L (3.5-5.1)
== END ==
PROVIDERS: ATTEND Family Medicine
DX: C56.9 Malignant neoplasm of unspecified ovary (principal)

== ENCOUNTER → 2019-04-21 | Outpatient (REF) | payer MEDICARE, BC ==
[2019-04-21 12:30] LABS: HEMATOCRIT 30.3 % (36.0-47.0); HEMOGLOBIN 9.1 g/dl (12.0-15.5); MEAN CORPUSCULAR HEMOGLOBIN 30.1 pg (27.0-33.0); MEAN CORPUSCULAR VOLUME 100.3 fl (80.0-96.0); PLATELET COUNT, AUTOMATED 615 10^3/uL (150-450); RED BLOOD COUNT 3.02 10^6/uL (4.00-5.40); WHITE BLOOD COUNT 11.4 10^3/uL (4.0-10.0)
[2019-04-21 13:01] LABS: BLOOD UREA NITROGEN 37 MG/DL (7-18); CALCIUM LEVEL 9.3 MG/DL (8.8-10.2); CARBON DIOXIDE LEVEL 28 MEQ/L (21-32); CHLORIDE LEVEL 104 MEQ/L (98-107); GLOMERULAR FILTRATION RATE > 60.0 (>39); GLUCOSE, FASTING 85 MG/DL (70-100); POTASSIUM SERUM 4.8 MEQ/L (3.5-5.1); SODIUM LEVEL 138 MEQ/L (136-145)
== END ==
PROVIDERS: ATTEND Family Medicine
DX: C56.9 Malignant neoplasm of unspecified ovary (principal)

== ENCOUNTER → 2019-04-28 | Outpatient (REF) ==
[2019-04-28 17:44] LABS: APPEARANCE, URINE CLOUDY (CLEAR); BACTERIA, URINE AUTO 1+ (NEGATIVE); BILIRUBIN, URINE AUTO NEGATIVE (NEGATIVE); BLOOD, URINE BLOOD 3+ (NEGATIVE); COLOR, URINE AMBER (YELLOW); GLUCOSE, URINE (UA) AUTO NEGATIVE (NEGATIVE); KETONE, URINE AUTO NEGATIVE (NEGATIVE); LEUKOCYTE ESTERASE, URINE AUTO 3+ (NEGATIVE); NITRITE, URINE AUTO NEGATIVE (NEGATIVE); PROTEIN, URINE AUTO 1+ mg/dL (NEGATIVE); RBC, URINE AUTO TNTC /HPF (0-3); SQUAMOUS EPITHELIAL CELL UR AU 0 /HPF (0-6); UROBILINOGEN, URINE AUTO 0.2 mg/dL (0.0-2.0); WBC, URINE AUTO TNTC /HPF (0-3)
== END ==
PROVIDERS: ATTEND Family Medicine
DX: R30.0 Dysuria (principal)

== ENCOUNTER → 2019-05-04 | Outpatient (REF) | payer MEDICARE, BC ==
[2019-05-04 18:12] LABS: CALCIUM LEVEL 9.7 MG/DL (8.8-10.2); CREATININE FOR GFR 1.35 MG/DL (0.55-1.30); GLOMERULAR FILTRATION RATE 40.4 (>39); POTASSIUM SERUM 4.9 MEQ/L (3.5-5.1)
[2019-05-04 18:31] LABS: APPEARANCE, URINE CLOUDY (CLEAR); BACTERIA, URINE AUTO 3+ (NEGATIVE); BILIRUBIN, URINE AUTO NEGATIVE (NEGATIVE); BLOOD, URINE BLOOD 3+ (NEGATIVE); COLOR, URINE YELLOW (YELLOW); GLUCOSE, URINE (UA) AUTO NEGATIVE (NEGATIVE); KETONE, URINE AUTO NEGATIVE (NEGATIVE); LEUKOCYTE ESTERASE, URINE AUTO 3+ (NEGATIVE); NITRITE, URINE AUTO NEGATIVE (NEGATIVE); PROTEIN, URINE AUTO 1+ mg/dL (NEGATIVE); RBC, URINE AUTO TNTC /HPF (0-3); SPECIFIC GRAVITY URINE AUTO 1.016 (1.002-1.035); SQUAMOUS EPITHELIAL CELL UR AU 1 /HPF (0-6); UROBILINOGEN, URINE AUTO 0.2 mg/dL (0.0-2.0); WBC, URINE AUTO TNTC /HPF (0-3)
== END ==
LOC: M SFHCPLAZ 11:45
PROVIDERS: ATTEND Family Medicine
DX: N17.9 Acute kidney failure, unspecified (principal); N30.01 Acute cystitis with hematuria
CPT/HCPCS: 36415; 80048; 81001; 87088; 87186; G0463

== ENCOUNTER → 2019-05-12 | Outpatient (REF) | payer MEDICARE, BC ==
[2019-05-12 18:04] LABS: CALCIUM LEVEL 9.5 MG/DL (8.8-10.2); GLOMERULAR FILTRATION RATE 57.1 (>39); POTASSIUM SERUM 4.6 MEQ/L (3.5-5.1)
== END ==
LOC: M SFHCPLAZ 13:22
PROVIDERS: ATTEND Family Medicine
DX: N18.3 Chronic kidney disease, stage 3 (moderate) (principal)
CPT/HCPCS: 36415; 80048; G0463

== ENCOUNTER → 2019-11-05 | Outpatient (REF) | payer MEDICARE, BC ==
[~2019-11-05] MED LIST changes: +CYCL-707 PO; -CYCL10TA PO
[2019-11-05 18:48] LABS: APPEARANCE, URINE CLOUDY (CLEAR); BACTERIA, URINE AUTO NEGATIVE (NEGATIVE); BILIRUBIN, URINE AUTO NEGATIVE (NEGATIVE); BLOOD, URINE BLOOD 2+ (NEGATIVE); COLOR, URINE YELLOW (YELLOW); GLUCOSE, URINE (UA) AUTO NEGATIVE (NEGATIVE); KETONE, URINE AUTO NEGATIVE (NEGATIVE); LEUKOCYTE ESTERASE, URINE AUTO 1+ (NEGATIVE); NITRITE, URINE AUTO NEGATIVE (NEGATIVE); PROTEIN, URINE AUTO NEGATIVE (NEGATIVE); RBC, URINE AUTO 46 /HPF (0-3); SPECIFIC GRAVITY URINE AUTO 1.011 (1.002-1.035); SQUAMOUS EPITHELIAL CELL UR AU 0 /HPF (0-6); UROBILINOGEN, URINE AUTO 0.2 mg/dL (0.0-2.0); WBC, URINE AUTO 146 /HPF (0-3)
== END ==
LOC: M LAB REF 16:58
PROVIDERS: ATTEND Family Medicine
DX: R30.0 Dysuria (principal)
CPT/HCPCS: 81001; 87088; 87186; G0463

== ENCOUNTER → 2019-12-24 | Outpatient (REF) | payer MEDICARE, BC ==
[2019-12-24 18:27] LABS: AMORPHOUS SEDIMENT SMALL (NEGATIVE); APPEARANCE, URINE CLOUDY (CLEAR); BACTERIA, URINE AUTO 3+ (NEGATIVE); BILIRUBIN, URINE AUTO NEGATIVE (NEGATIVE); BLOOD, URINE BLOOD 1+ (NEGATIVE); COLOR, URINE AMBER (YELLOW); GLUCOSE, URINE (UA) AUTO NEGATIVE (NEGATIVE); KETONE, URINE AUTO NEGATIVE (NEGATIVE); LEUKOCYTE ESTERASE, URINE AUTO 2+ (NEGATIVE); MUCUS, URINE SMALL (NEGATIVE); NITRITE, URINE AUTO NEGATIVE (NEGATIVE); PROTEIN, URINE AUTO 2+ mg/dL (NEGATIVE); RBC, URINE AUTO 43 /HPF (0-3); SPECIFIC GRAVITY URINE AUTO 1.013 (1.002-1.035); SQUAMOUS EPITHELIAL CELL UR AU 0 /HPF (0-6); TRANSITIONAL EPITHELIAL AUTO 1 /HPF; TRIPLE PHOSPHATE CRYSTALS SMALL; UROBILINOGEN, URINE AUTO 0.2 mg/dL (0.0-2.0); WBC, URINE AUTO TNTC /HPF (0-3)
== END ==
LOC: M SFHCPLAZ 16:56
PROVIDERS: ATTEND Family Medicine
DX: R30.0 Dysuria (principal)

== ENCOUNTER 2020-03-11 16:05 | Emergency (ER) | payer MEDICARE, BC ==
[~2020-03-11] VITALS: Ht 157.5 cm; Wt 52.3 kg
[~2020-03-11 16:05] MED LIST changes: +GABA-282 PO; -GABA-843 PO; -ONDA8TAB8 PO
[2020-03-11] MEDS ORDERED: ONDANSETRON 4MG/2ML VIAL IV ONE (16:30)
--- NOTE | 2020-03-11 16:52 | REP ---
INDICATION: anemia, abd pain. COMPARISON: 03/27/2019. TECHNIQUE: SINGLE PORTABLE AP VIEW OF THE CHEST WAS PERFORMED. FINDINGS: Mild diffuse interstitial prominence is unchanged. There is no new infiltrate. There is mild cardiomegaly unchanged. Mediastinal silhouette is unchanged. Right central venous catheter is seen with the tip in the superior vena cava. IMPRESSION: NO ACUTE PULMONARY DISEASE. <Electronically signed by Kevon Stratton > 03/11/20 [id number]
[2020-03-11] MEDS: MORPHINE 2 MG/ML 1ML VIAL (J2270) IV PRN ×2 (16:55→17:37)
[2020-03-11 17:39] LABS: RSV AMPLIFICATION NEGATIVE (NEGATIVE)
--- NOTE | 2020-03-11 18:34 | REPVR ---
PROCEDURE INFORMATION: Exam: CT Abdomen And Pelvis Without Contrast Exam date and time: 03/11/2020 5:15 PM Age: 79 years old Clinical indication: Abdominal pain; Additional info: Abd pain ovarian cancer TECHNIQUE: Imaging protocol: Computed tomography of the abdomen and pelvis without contrast. Radiation optimization: All CT scans at this facility use at least one of these dose optimization techniques: automated exposure control; mA and/or kV adjustment per patient size (includes targeted exams where dose is matched to clinical indication); or iterative reconstruction. COMPARISON: CT ABD PELVIS W/O CONTRAST 03/24/2019 10:31 AM FINDINGS: Limitations: This examination is suboptimal secondary to the lack of IV and oral contrast. Lungs: 7 mm nodule within the right middle lobe on image 6, 6 mm nodule in the right lower lobe on image 11 and 9 mm nodule in the left lower lobe on image 11 of series 201 are new compared to the previous exam and consistent with pulmonary metastases. Heart: The heart is enlarged. Liver: Suboptimal evaluation of the liver given the lack of IV contrast. There are multiple low-density lesions at the peripheral aspect of the liver, likely hepatic capsular metastases from peritoneal carcinomatosis. Gallbladder and bile ducts: The gallbladder is distended. No calcified gallstones are identified. There is a well-defined mixed density collection measuring approximately 8 cm transverse by 7.5 cm AP by 4.8 cm craniocaudad located anterior to the inferior edge of the liver. This may represent an extremely distended gallbladder containing sludge or noncalcified stones, necrotic mass, abscess or resolving hematoma. Pancreas: Unremarkable. No ductal dilation. Spleen: Unremarkable. No splenomegaly. Adrenal glands: Normal. No mass. Kidneys and ureters: There is new severe left hydroureteronephrosis extending to the distal left ureter. No obstructing stone is seen. There are small cysts and hyperdense cysts within the left kidney. There are small cysts within the right kidney. No right renal stone or hydronephrosis. Stomach and bowel: There is circumferential wall thickening of the sigmoid colon and mass like tissue that extends to and abuts the thickened left wall of the urinary bladder on axial images 93 through 104. Findings are highly suspicious for tumor recurrence/metastatic disease. The colon proximal to this area is distended. A small amount of air and fecal matter is present within the rectosigmoid colon. The small bowel and stomach are unremarkable. Appendix: No evidence of appendicitis. Intraperitoneal space: Trace ascites within the right upper quadrant. No free intraperitoneal air. Vasculature: A filter is present within the IVC at the level of L2 and L3. No abdominal aortic aneurysm. Lymph nodes: No enlarged lymph nodes. Urinary bladder: There is asymmetric wall thickening of the left side of the urinary bladder suspicious for local tumor invasion. Reproductive: Unremarkable as visualized. Bones/joints: Severe degenerative spondylosis and scoliosis of the thoracolumbar spine. Soft tissues: There are small ventral hernia defects within the midline of the upper abdominal wall. IMPRESSION: 1. New pulmonary nodules consistent with metastatic disease. 2. Findings suspicious for peritoneal carcinomatosis. 3. Complex cystic collection within the right upper quadrant. This may represent a distended gallbladder containing sludge or noncalcified stones, a necrotic mass, abscess or resolving hematoma. 4. Asymmetric left-sided wall thickening of the urinary bladder suspicious for local tumor invasion/recurrence. 5. New severe left hydroureteronephrosis extending to the left ureterovesical junction. 6. Sigmoid colon wall thickening and probable mass likely representing tumor recurrence/metastatic disease resulting in colonic obstruction. COMMENTS: Consistent with the [employer]'s Incidental Findings Committee white paper (J Am Newton Radiol 2018): Any incidental renal lesion less than 1 cm or classified as too small to characterize, or any incidental cystic renal lesion characterized as simple-appearing, is likely benign. No follow-up imaging is recommended for these lesions per consensus recommendations based on imaging criteria. Electronically signed by: Sean Salguero On 03/11/2020 18:34:23 PM
[2020-03-11] MEDS ORDERED: ONDA8TAB8 PO (19:02)
[2020-03-11] MEDS ORDERED: ENOX80IN3 SC (19:02)
[2020-03-11 20:35] VITALS: BP 118/58
[2020-03-11 20:50] VITALS: BP 117/59
[2020-03-11] MEDS ORDERED: NORCO, ANEXSIA 5/325MG TABLET (HYDROcodone/ACETAMINOPHEN) PO ONE (21:00)
[2020-03-11 21:50] VITALS: BP 127/65
--- NOTE | 2020-03-11 21:53 | ECGEPIP ---
[facility] - ED Test Date: 2020-03-11 Pat Name: ATTILA REDDY Department: Room: - Gender: Female [employer]: TY : 1940 Requested By: Bridgett Xavier Order Number: [id number] Reading MD: Masoud Norman Measurements Intervals [place] Rate: 75 P: 40 AL: 170 QRS: -27 QRSD: 151 T: 146 QT: 439 QTc: 492 Interpretive Statements SINUS RHYTHM LEFT BUNDLE BRANCH BLOCK, NEW COMPARED TO 03/23/19 Electronically Signed on 03-11-2020 21:52:51 EST by Masoud Norman
[2020-03-11 22:38] VITALS: BP 127/64
[2020-03-11 23:40] VITALS: BP 115/61
[2020-03-12 02:04] VITALS: BP_DIAS 68
[2020-03-12 02:33] VITALS: BP_SYST 106
--- NOTE | 2020-03-12 08:34 | ED PDOC ---
Post-Departure Follow-Up dr gurrola faxed formal report of ct abd/p for fu Clement Blakely MD Mar 12, 2020 08:34
== END 2020-03-12 00:45 | disposition home or self-care (01) ==
LOC: M ED 16:05 → M ED INP 18:42 → UNDOADMIN 18:42 → M ED 03-12 00:45
DX: D64.9 Anemia, unspecified (principal); R91.8 Other nonspecific abnormal finding of lung field; R93.5 Abnormal findings on diagnostic imaging of other abdominal regions, including retroperitoneum; R93.2 Abnormal findings on diagnostic imaging of liver and biliary tract; R93.41 Abnormal radiologic findings on diagnostic imaging of renal pelvis, ureter, or bladder; R93.3 Abnormal findings on diagnostic imaging of other parts of digestive tract; N13.39 Other hydronephrosis; I44.7 Left bundle-branch block, unspecified; Z85.43 Personal history of malignant neoplasm of ovary; Z92.21 Personal history of antineoplastic chemotherapy; Z92.3 Personal history of irradiation; Z86.711 Personal history of pulmonary embolism; M06.9 Rheumatoid arthritis, unspecified; Z79.899 Other long term (current) drug therapy; Z88.8 Allergy status to other drugs, medicaments and biological substances; Z88.5 Allergy status to narcotic agent
CPT/HCPCS: 36415; 36430; 71045; 74176; 80047; 80048; 82728; 83550; 84443; 85027; 86850; 86900; 86901; 86920; 87631; 93005; 93041; 96374; 96375; 96376; 99285; G0463; J2270; J2405; P9016

== ENCOUNTER → 2020-03-11 | Outpatient (REF) | payer MEDICARE, BC ==
[~2020-03-11] MED LIST changes: +MIRA0.752 PO; -MIRA0.753 PO; +ONDA8TAB8 PO
[2020-03-11 13:35] LABS: MEAN CORPUSCULAR HEMOGLOBIN 22.7 pg (27.0-33.0); MEAN CORPUSCULAR HGB CONC 29.2 g/dl (32.0-36.5); MEAN CORPUSCULAR VOLUME 77.7 fl (80.0-96.0); PLATELET COUNT, AUTOMATED 538 10^3/uL (150-450); RED BLOOD COUNT 3.09 10^6/uL (4.00-5.40); WHITE BLOOD COUNT 6.1 10^3/uL (4.0-10.0)
[2020-03-11 14:14] LABS: CALCIUM LEVEL 8.9 MG/DL (8.8-10.2); CREATININE FOR GFR 1.88 MG/DL (0.55-1.30); GLOMERULAR FILTRATION RATE 27.5 (>39); PERCENT SATURATION 3.3 % (13.2-45.0); THYROID STIMULATING HORMONE 2.74 uIU/ML (0.358-3.740)
== END ==
LOC: M SFHCPLAZ 11:36
PROVIDERS: ATTEND Family Medicine
DX: C56.1 Malignant neoplasm of right ovary (principal); I10 Essential (primary) hypertension; E03.9 Hypothyroidism, unspecified